=== PATIENT | male | born 1960 | race Caucasian/White ===

== ENCOUNTER → 2017-08-17 08:02 | Outpatient (CLI) | payer BC, SELFPAY ==
[2017-08-17 10:23] LABS: Absolute Lymphocyte Count 1.37 X10^3/ul (0.83-4.51); Absolute Neutrophil Count 5.1 X10^3/uL (2.0-7.7); Basophil# 0.03 X10^3/uL; Basophil% 0.4 % (0-1); Eosinophil# 0.18 X10^3/uL; Eosinophils% 2.4 % (0-5); Hematocrit 51.4 % (40-54); Hemoglobin 17.3 g/dl (13.0-16.5); Lymphocyte # 1.37 X10^3/ul (4.0); Lymphocyte % 18.5 % (19-41); Mean Corp Hgb Conc 33.7 g/gl (32-36); Mean Corpuscular Hgb 32.1 pg (27.0-32.0); Mean Corpuscular Volume 95.4 fL (80-94); Mean Platelet Vol. 11.9 fl (6.2-12.0); Monocyte# 0.72 X10^3/uL; Monocyte% 9.7 % (0-10); Neutrophil % 68.7 % (47-70); Platelet Count 150 K/mm3 (150-450); RBC Distribution Width CV 13.6 % (11.6-14.6); RBC Distribution Width SD 46.9 fl (35.1-43.9); Red Blood Count 5.39 M/mm3 (4.6-6.2); White Blood Count 7.4 K/mm3 (4.4-11.0)
[2017-08-17 10:35] LABS: POSITIVE COUNT NO; POSITIVE DIFFERENTIAL NO; POSITIVE MORPHOLOGY NO
[2017-08-17 10:39] LABS: Anion Gap 8 (5-15); BUN 18 mg/dL (7-18); BUN/Creat Ratio 12.6 RATIO (10-20); Chloride 104 mmol/L (98-107); Cholesterol 126 mg/dL (200); Creatinine, Serum 1.43 mg/dL (0.70-1.30); EST Glomerular Filtration Rate 54 mL/min (>60); Est Glom Filt Rate - Afr Amer 65 mL/min (>60); Glucose 89 mg/dL (74-106); High Density Lipoprotein 32 mg/dL; PSA,Total - Annual Screen 1.37 ng/mL (0.00-4.00); Potassium 3.9 mmol/L (3.5-5.1); Sodium Level 141 mmol/L (136-145); Triglycerides 88 mg/dL; Very Low Density Lipoprotein 18 mg/dL (5-40)
== END ==
PROVIDERS: Family Provider Family Medicine; PCP Family Medicine; Visit Provider Family Medicine
DX: E29.1 Testicular hypofunction (principal); E78.00 Pure hypercholesterolemia, unspecified; Z12.5 Encounter for screening for malignant neoplasm of prostate; I10 Essential (primary) hypertension
CPT/HCPCS: 36415; 80048; 80061; 84153; 84403; 85025; G0103

== ENCOUNTER → 2018-07-13 11:11 | Outpatient (CLI) | payer BC, SELFPAY ==
--- NOTE | 2018-07-13 11:44 | CT_ITS ---
STUDY: CT ABDOMEN AND PELVIS WITH AND WITHOUT CONTRAST REASON FOR EXAM: Male, 57 years old. Right flank pain and mid abdominal pain. No history of hematuria. RADIATION DOSAGE (If Supplied By Facility): CTDIvol = ( 20.84 ) mGy, DLP = ( 3181.75 ) mGycm TECHNIQUE: Transaxial images were obtained from the dome of the diaphragm to the symphysis pubis without oral contrast. 100mL IV Isovue 300 was administered. Sagittal and coronal images were reconstructed. Individualized dose optimization techniques were used for this CT. COMPARISON: Comparison is made with prior study dated July 19, 2016. FINDINGS: Minimal increased markings at the right lung base suggestive of atelectasis. The visualized portions of the heart are within normal limits. There is decreased attenuation of the liver consistent with steatosis. Normal gallbladder and extrahepatic biliary system. Normal spleen. Normal pancreas. Normal bilateral adrenal glands. Normal right kidney. Normal left kidney. Normal visualized stomach. Normal small intestine. There are scattered colonic diverticula consistent with diverticulosis. The appendix is visualized and appears normal. Normal abdominal aorta. Normal inferior vena cava. Normal retroperitoneum. Normal urinary bladder. There is a small umbilical hernia containing fat. There are mild degenerative changes of the visualized lumbar spine. CT/CT Abd/Pelvis W/WO Contrast IMPRESSION: Fatty infiltration of the liver. Electronically Signed: David Kilpatrick, at 12:45 EDT , Service support ,
== END ==
PROVIDERS: Family Provider Family Medicine; PCP Family Medicine; Referring Provider Nurse Practitioner Adult Health; Visit Provider Nurse Practitioner Adult Health
DX: R10.9 Unspecified abdominal pain (principal); I86.1 Scrotal varices
CPT/HCPCS: 74178; Q9967

== ENCOUNTER → 2018-08-17 | Outpatient (CLI) | payer BC, SELFPAY ==
[2018-08-17 10:38] LABS: Anion Gap 3 (5-15); BUN 14 mg/dL (7-18); BUN/Creat Ratio 11.1 RATIO (10-20); Calcium,Total 9.1 mg/dL (8.5-10.1); Chloride 105 mmol/L (98-107); Creatinine, Serum 1.26 mg/dL (0.70-1.30); EST Glomerular Filtration Rate 62 mL/min (>60); Est Glom Filt Rate - Afr Amer 75 mL/min (>60); Glucose 91 mg/dL (74-106); PSA,Total - Annual Screen 1.43 ng/mL (0.00-4.00); Potassium 3.9 mmol/L (3.5-5.1); Sodium Level 139 mmol/L (136-145)
== END | disposition home or self-care (01) ==
PROVIDERS: Family Provider Family Medicine; PCP Family Medicine; Referring Provider Family Medicine; Visit Provider Family Medicine
DX: I10 Essential (primary) hypertension (principal); Z12.5 Encounter for screening for malignant neoplasm of prostate; E29.1 Testicular hypofunction
CPT/HCPCS: 36415; 80048; 84153; 84403; G0103

== ENCOUNTER → 2019-03-21 09:23 | Outpatient (CLI) | payer BC, SELFPAY ==
--- NOTE | 2019-03-21 09:26 | BI_ITS ---
MAMMOGRAPHY - BILATERAL DIAGNOSTIC REASON FOR EXAM: Male, 58 years old. One-week history of left breast tenderness and palpable abnormality. PERTINENT HISTORY: Non-contributory. TECHNIQUE: Digital bilateral breast elizabeth (3D mammographic acquisition) in the CC and MLO projections. 2-D mediolateral oblique (MLO) and craniocaudad (CC) views of both breasts were obtained. CAD: Full Field Digital Mammography with Computer Added Detection was performed. COMPARISON: None. FINDINGS: Breast Composition: The breasts are almost entirely fatty. There are no dominant masses or suspicious calcifications. No other significant abnormalities are identified. BI/DIAG MAMM W/CAD, BILAT IMPRESSION: Negative diagnostic mammogram. With the patient's history of a palpable abnormality in the retroareolar region of the left breast, correlation with ultrasound is recommended. ASSESSMENT CATEGORY: BIRADS Category 0: Incomplete. Need additional imaging evaluation. A letter regarding these results will be sent to the patient by the facility within 30 days. Approximately 10% of breast cancers are not detected by mammography. A normal mammogram should not delay biopsy of a clinically suspicious abnormality. Electronically Signed: David Kilpatrick, at 10:48 EST , Service support ,
--- NOTE | 2019-03-21 10:01 | US_ITS ---
STUDY: ULTRASOUND BREAST - LEFT REASON FOR EXAM: Male, 58 years old. Palpable lump left breast. TECHNIQUE: Axial and longitudinal images of the LEFT breast were performed with a high resolution ultrasound transducer. # OF IMAGES: 23 COMPARISON: Comparison is made with prior mammogram done earlier today. FINDINGS: LEFT Breast: The retroareolar region of the breast was examined by ultrasound. There is a small amount of fibroglandular tissue. No solid or cystic mass lesion is seen. Findings are in keeping with gynecomastia. US/Breast Limited Unilateral IMPRESSION: Findings in keeping with gynecomastia. ASSESSMENT CATEGORY: BIRADS Category 2: Benign. A letter regarding these results will be sent to the patient by the facility within 30 days. Electronically Signed: David Kilpatrick, at 15:48 EST , Service support ,
== END ==
PROVIDERS: Family Provider Family Medicine; PCP Family Medicine; Referring Provider Nurse Practitioner Family; Visit Provider Nurse Practitioner Family
DX: N63.20 Unspecified lump in the left breast, unspecified quadrant (principal)
CPT/HCPCS: 76642; 77062; 77066; G0279

== ENCOUNTER → 2019-09-19 07:57 | Outpatient (CLI) | payer BC, SELFPAY ==
--- NOTE | 2019-09-19 08:09 | US_ITS ---
STUDY: SCROTUM ULTRASOUND REASON FOR EXAM: Male, 59 years old. RT TESTICLE PAIN TECHNIQUE: Ultrasound evaluation of the scrotum was performed with color Doppler and static mims-scale imaging. COMPARISON: None. FINDINGS: RIGHT TESTICLE INTRATESTICULAR: There is a normal size of the right testicle. The right testicle measures 4.3 cm x 2.7 cm x 2.3 cm. There is a homogenous echotexture. There is normal arterial and normal venous vascularity. There is no demonstrated right testicular mass or cyst. EXTRATESTICULAR: The epididymis is normal in size. The epididymis head measures 1.4 cm x 1.2 cm x 0.8 cm. There is normal vascularity of the epididymis. There is a well-defined cystic structure within the epididymis, without internal echoes, consistent with an epididymal cyst. This measures 9 mm x 9 mm x 7 mm. There is no demonstrated hydrocele. There are prominent extratesticular veins consistent with a varicocele. There is no demonstrated extratesticular mass or cyst. LEFT TESTICLE INTRATESTICULAR: There is a normal size of the left testicle. The left testicle measures 3.5 cm x 3.1 synovitis 2.2 cm. There is a homogenous echotexture. There is normal arterial and normal venous vascularity. There is no demonstrated left testicular mass or cyst. EXTRATESTICULAR: The epididymis is normal in size. The epididymis head measures 0.7 cm x 0.6 cm x 0.9 cm. There is normal vascularity of the epididymis. There is no demonstrated epididymal cystic structure. There is a small hydrocele. There are prominent extratesticular veins consistent with a varicocele. There is no demonstrated extratesticular mass or cyst. US/Testicular with Arterial Flow IMPRESSION: Small bilateral varicoceles. Small left hydrocele. Small right epididymal cyst. Electronically Signed: David Kilpatrick, at 15:32 EDT , Service support ,
[2019-09-19 09:16] LABS: Absolute Lymphocyte Count 1.24 X10^3/uL (0.83-4.51); Absolute Neutrophil Count 3.6 X10^3/uL (2.0-7.7); Basophil# 0.05 X10^3/uL; Basophil% 0.8 % (0-1); Eosinophil# 0.25 X10^3/uL; Eosinophils% 4.2 % (0-5); Hematocrit 47.6 % (40-54); Hemoglobin 15.5 g/dL (13.0-16.5); Lymphocyte # 1.24 X10^3/ul (4.0); Lymphocyte % 20.9 % (19-41); Mean Corp Hgb Conc 32.6 g/dL (32-36); Mean Corpuscular Hgb 31.9 pg (27.0-32.0); Mean Corpuscular Volume 97.9 fL (80-94); Mean Platelet Vol. 10.9 fl (6.2-12.0); Monocyte# 0.73 X10^3/uL; Monocyte% 12.3 % (0-10); NRBC Flagged by Analyzer 0 % (0-5); Neutrophil # 3.61 X10^3/uL (2.7-7.7); Neutrophil % 60.8 % (47-70); Platelet Count 203 K/mm3 (150-450); RBC Distribution Width CV 14.1 % (11.6-14.6); RBC Distribution Width SD 50.6 fl (35.1-43.9); Red Blood Count 4.86 M/mm3 (4.6-6.2); White Blood Count 5.9 K/mm3 (4.4-11.0)
[2019-09-19 09:41] LABS: ALB/GLOB Ratio 1.1 RATIO (0.9-2.4); AST(SGOT) 50 U/L (15-37); Alanine Aminotransfer ALT/SGPT 88 U/L (16-61); Albumin, Serum 3.9 g/dL (3.2-5.0); Alkaline Phosphatase 46 U/L (45-117); Anion Gap 7 (5-15); BUN 14 mg/dL (7-18); BUN/Creat Ratio 10.7 RATIO (10-20); Calcium,Total 8.8 mg/dL (8.5-10.1); Chloride 104 mmol/L (98-107); Cholesterol 186 mg/dL (200); Creatinine, Serum 1.31 mg/dL (0.70-1.30); EST Glomerular Filtration Rate 59 mL/min (>60); Est Glom Filt Rate - Afr Amer 72 mL/min (>60); Globulin 3.5 g/dL (2.2-4.2); Glucose 114 mg/dL (74-106); High Density Lipoprotein 25 mg/dL; PSA,Total - Annual Screen 1.45 ng/mL (0.00-4.00); Potassium 3.7 mmol/L (3.5-5.1); Protein, Total 7.4 g/dL (6.4-8.2); Sodium Level 142 mmol/L (136-145); Triglycerides 182 mg/dL; Very Low Density Lipoprotein 36 mg/dL (5-40)
== END ==
PROVIDERS: PCP Family Medicine; Visit Provider Nurse Practitioner Adult Health
DX: I10 Essential (primary) hypertension (principal); I86.1 Scrotal varices; E29.1 Testicular hypofunction
CPT/HCPCS: 36415; 76870; 80053; 80061; 84153; 84403; 85025; 93976; G0103

== ENCOUNTER → 2019-11-15 09:47 | Outpatient (CLI) | payer BC, SELFPAY ==
[2019-11-15 13:19] LABS: Vitamin B12 648 pg/mL (211-911)
[2019-11-15 13:26] LABS: Thyroid Stim Hormone (TSH) 1.98 uIU/mL (0.358-3.74)
== END ==
PROVIDERS: PCP Family Medicine; Referring Provider Family Medicine; Visit Provider Family Medicine
DX: R53.83 Other fatigue (principal)
CPT/HCPCS: 36415; 82306; 82607; 84443

== ENCOUNTER → 2020-02-12 | Outpatient (CLI) | payer BC, SELFPAY | END | disposition home or self-care (01) | PROVIDERS: PCP Family Medicine; Referring Provider Family Medicine; Visit Provider Family Medicine | DX: R05 Cough (principal) | CPT/HCPCS: 87635; U0003 ==

== ENCOUNTER → 2020-02-22 15:38 | Outpatient (CLI) | payer BC, SELFPAY ==
--- NOTE | 2020-02-22 15:40 | RAD_ITS ---
STUDY: X-RAY CHEST REASON FOR EXAM: Male, 59 years old. Cough and fever x 2 weeks -- test neg for covid last week TECHNIQUE: PA and lateral views of the chest. COMPARISON: Comparison is made with prior study dated 02/20/2016. FINDINGS: Elevation of the right hemidiaphragm. Focal infiltrate is seen in the lingular segment of the left upper lobe. Normal size heart. Normal mediastinum and ynes. Normal visualized pulmonary arteries. Normal visualized aortic arch and descending thoracic aorta. There are diffuse degenerative changes of the visualized thoracic spine. Normal visualized ribs, clavicles, and shoulders. There is no demonstrated abnormality of the visualized soft tissue structures of the upper abdomen. RAD/Chest PA and Lateral IMPRESSION: Focal infiltrate in the lingular segment of the left upper lobe. Electronically Signed: David Kilpatrick, at 15:53 EST , Service support ,
== END ==
PROVIDERS: PCP Family Medicine; Referring Provider Family Medicine; Visit Provider Family Medicine
DX: R05 Cough (principal)
CPT/HCPCS: 71046

== ENCOUNTER → 2020-02-26 14:26 | Outpatient (CLI) | payer BC, SELFPAY ==
--- NOTE | 2020-02-26 14:30 | RAD_ITS ---
HISTORY: pneumonia, patient states he is not feeling better ADDITIONAL HISTORY: None provided. COMPARISON: 02/22/2020 EXAMINATION/TECHNIQUE: XR Chest 2 Views Number of images including paperwork: 2 FINDINGS: LUNGS AND PLEURA: Low lung volumes. Elevated right hemidiaphragm. Linear right basilar subsegmental atelectasis versus scarring. Left upper lobe airspace opacities appear grossly similar given differences in lung volumes and technique. CARDIAC SILHOUETTE: Unremarkable. MEDIASTINUM AND VANIA: Unremarkable. UPPER ABDOMEN: Unremarkable. SKELETON AND SOFT TISSUES: No acute findings. Degenerative changes. OTHER DEVICES AND HARDWARE: None. RAD/Chest PA and Lateral IMPRESSION: No gross change in left lung infiltrates. at 2539 Reported and signed by: Faviola Moyer MD Electronically Signed: Faviola Moyer MD at 22:48 EST Tel , Service support ,
== END ==
PROVIDERS: PCP Family Medicine; Referring Provider Family Medicine; Visit Provider Family Medicine
DX: U07.1 COVID-19 (principal); J12.89 Other viral pneumonia
CPT/HCPCS: 71046; 87633; 87635; U0003

== ENCOUNTER → 2020-03-26 12:18 | Outpatient (CLI) | payer BC, SELFPAY ==
[2020-03-26 15:26] LABS: Absolute Lymphocyte Count 1.24 X10^3/uL (0.83-4.51); Absolute Neutrophil Count 3.4 X10^3/uL (2.0-7.7); Basophil# 0.04 X10^3/uL; Basophil% 0.7 % (0-1); Eosinophil# 0.17 X10^3/uL; Hematocrit 47.6 % (40-54); Hemoglobin 15.4 g/dL (13.0-16.5); Lymphocyte # 1.24 X10^3/ul (4.0); Mean Corp Hgb Conc 32.4 g/dL (32-36); Mean Corpuscular Hgb 31.9 pg (27.0-32.0); Mean Corpuscular Volume 98.6 fL (80-94); Mean Platelet Vol. 11.5 fl (6.2-12.0); Monocyte# 0.71 X10^3/uL; Monocyte% 12.6 % (0-10); NRBC Flagged by Analyzer 0 % (0-5); Neutrophil # 3.42 X10^3/uL (2.7-7.7); Neutrophil % 60.6 % (47-70); Platelet Count 167 K/mm3 (150-450); RBC Distribution Width CV 13.1 % (11.6-14.6); RBC Distribution Width SD 47.4 fl (35.1-43.9); Red Blood Count 4.83 M/mm3 (4.6-6.2); White Blood Count 5.6 K/mm3 (4.4-11.0)
[2020-03-26 15:48] LABS: ALB/GLOB Ratio 1.1 RATIO (0.9-2.4); AST(SGOT) 43 U/L (15-37); Alanine Aminotransfer ALT/SGPT 92 U/L (16-61); Alkaline Phosphatase 58 U/L (45-117); Anion Gap 4 (5-15); BUN 15 mg/dL (7-18); BUN/Creat Ratio 13.9 RATIO (10-20); Calcium,Total 9.3 mg/dL (8.5-10.1); Chloride 103 mmol/L (98-107); Creatinine, Serum 1.08 mg/dL (0.70-1.30); EST Glomerular Filtration Rate 74 mL/min (>60); Est Glom Filt Rate - Afr Amer 89 mL/min (>60); Globulin 3.5 g/dL (2.2-4.2); Glucose 80 mg/dL (74-106); Potassium 3.9 mmol/L (3.5-5.1); Protein, Total 7.5 g/dL (6.4-8.2); Sodium Level 137 mmol/L (136-145); T4 Free Direct 1.08 ng/dL (0.76-1.46)
[2020-03-27 08:19] LABS: PTHIN 27.1 pg/mL (18.4-80.1)
[2020-03-27 09:00] LABS: Hepatitis B Surface Antibody Non-Reactive; Hepatitis B Surface Antigen Non-Reactive (Nonreactive); Hepatitis C Antibody Non-Reactive (Nonreactive); Vitamin D,25 Hydroxy 64.7 ng/mL
[2020-04-01 12:08] LABS: Testosterone, Free 12.92 ng/dL (5.00-21.00)
[2020-04-01 14:02] LABS: Testosterone, % Free 3.52 % (1.50-4.20); Testosterone, Total 367 ng/dL (264-916)
== END ==
PROVIDERS: PCP Family Medicine; Referring Provider Family Medicine; Visit Provider Family Medicine
DX: I12.9 Hypertensive chronic kidney disease with stage 1 through stage 4 chronic kidney disease, or unspecified chronic kidney disease (principal); N18.30 Chronic kidney disease, stage 3 unspecified; E04.1 Nontoxic single thyroid nodule; R79.89 Other specified abnormal findings of blood chemistry; E29.1 Testicular hypofunction
CPT/HCPCS: 36415; 80053; 82306; 83970; 84402; 84403; 84439; 84443; 85025; 86706; 86803; 87340

== ENCOUNTER → 2020-04-02 12:42 | Outpatient (CLI) | payer BC, SELFPAY ==
--- NOTE | 2020-04-02 12:44 | US_ITS ---
STUDY: THYROID ULTRASOUND REASON FOR EXAM: Male, 59 years old. THYROID NODULE FELT BY DOCTOR TECHNIQUE: Ultrasound evaluation of the thyroid was performed with real-time and static mims-scale imaging. COMPARISON: None. FINDINGS: RIGHT LOBE: The right lobe of the thyroid gland measures 4.6 cm x 1.7 cm x 1.5 cm. There is a homogeneous echotexture. There are no demonstrated solid, cystic or complex lesions. LEFT LOBE: The left lobe of the thyroid gland is slightly enlarged and measures 5 cm x 1.6 x 1.6 cm. There is a homogeneous echotexture. There are no demonstrated solid, cystic or complex lesions. ISTHMUS: The isthmus measures 4.0 mm. The regional lymph nodes are normal. US/Thyroid IMPRESSION: Normal ultrasound examination of the thyroid. Electronically Signed: David Kilpatrick, at 13:51 EST , Service support ,
== END ==
PROVIDERS: PCP Family Medicine; Referring Provider Family Medicine; Visit Provider Family Medicine
DX: E04.1 Nontoxic single thyroid nodule (principal)
CPT/HCPCS: 76536

== ENCOUNTER → 2020-06-24 09:41 | Outpatient (CLI) | payer OTHER, SELFPAY ==
[2020-06-24 12:18] LABS: Absolute Lymphocyte Count 1.22 X10^3/uL (0.83-4.51); Absolute Neutrophil Count 3.7 X10^3/uL (2.0-7.7); Basophil# 0.06 X10^3/uL; Eosinophil# 0.25 X10^3/uL; Eosinophils% 4.3 % (0-5); Hematocrit 46.2 % (40-54); Hemoglobin 15.4 g/dL (13.0-16.5); Lymphocyte # 1.22 X10^3/ul (4.0); Mean Corp Hgb Conc 33.3 g/dL (32-36); Mean Corpuscular Hgb 31.8 pg (27.0-32.0); Mean Corpuscular Volume 95.3 fL (80-94); Mean Platelet Vol. 11.3 fl (6.2-12.0); Monocyte# 0.53 X10^3/uL; Monocyte% 9.1 % (0-10); NRBC Flagged by Analyzer 0 % (0-5); Neutrophil % 63.9 % (47-70); Platelet Count 168 K/mm3 (150-450); RBC Distribution Width CV 12.6 % (11.6-14.6); RBC Distribution Width SD 43.8 fl (35.1-43.9); Red Blood Count 4.85 M/mm3 (4.6-6.2); White Blood Count 5.8 K/mm3 (4.4-11.0)
[2020-06-24 12:34] LABS: ALB/GLOB Ratio 1.3 RATIO (0.9-2.4); AST(SGOT) 66 U/L (15-37); Alanine Aminotransfer ALT/SGPT 101 U/L (16-61); Albumin, Serum 3.9 g/dL (3.2-5.0); Alkaline Phosphatase 49 U/L (45-117); Anion Gap 6 (5-15); BUN 12 mg/dL (7-18); BUN/Creat Ratio 11.7 RATIO (10-20); Chloride 106 mmol/L (98-107); Cholesterol 107 mg/dL (200); Creatinine, Serum 1.03 mg/dL (0.70-1.30); EST Glomerular Filtration Rate 78 mL/min (>60); Est Glom Filt Rate - Afr Amer 94 mL/min (>60); Globulin 3.1 g/dL (2.2-4.2); Glucose 127 mg/dL (74-106); High Density Lipoprotein 32 mg/dL; Potassium 3.8 mmol/L (3.5-5.1); Protein, Urine (Random) 17.1 mg/dL (<11.9); Protein:Creat Ratio 62 mg/g CRE (0-200); Sodium Level 140 mmol/L (136-145); Triglycerides 121 mg/dL; Very Low Density Lipoprotein 24 mg/dL (5-40)
== END ==
PROVIDERS: PCP Family Medicine; Referring Provider Family Medicine; Visit Provider Family Medicine
DX: I12.9 Hypertensive chronic kidney disease with stage 1 through stage 4 chronic kidney disease, or unspecified chronic kidney disease (principal); N18.30 Chronic kidney disease, stage 3 unspecified; E78.00 Pure hypercholesterolemia, unspecified; R73.09 Other abnormal glucose
CPT/HCPCS: 36415; 80053; 80061; 82570; 83036; 84156; 85025

== ENCOUNTER → 2021-01-08 10:15 | Outpatient (CLI) | payer OTHER, SELFPAY ==
--- NOTE | 2021-01-08 10:17 | RAD_ITS ---
INDICATION: ACUTE BRONCHITIS EXAMINATION/TECHNIQUE: X-RAY - XR Chest 2 Views COMPARISON: 02/26/2020 PA and lateral views of the chest FINDINGS: LINES/DEVICES: None. LUNGS: Asymmetric elevation right hemidiaphragm is unchanged and likely represents diaphragmatic paralysis. No airspace opacity or abnormal interstitial pattern. No nodule or mass. No pleural effusion or pneumothorax. MEDIASTINUM AND CARDIOVASCULAR STRUCTURES: Normal size and contour of the cardiomediastinal silhouette. No evidence of pulmonary vascular congestion. BONES AND SOFT TISSUES: No abnormality within limits of the exam. RAD/Chest PA and Lateral IMPRESSION: 1. No radiographic evidence of acute cardiopulmonary disease. 2. Asymmetric elevation of the right hemidiaphragm. 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 Electronically Signed: Ricky Hayden DO at 22:44 EDT Tel , Service support ,
== END ==
PROVIDERS: PCP Family Medicine; Referring Provider Family Medicine; Visit Provider Family Medicine
DX: J20.9 Acute bronchitis, unspecified (principal)
CPT/HCPCS: 71046; 87635; U0005; U0003

== ENCOUNTER → 2021-04-01 11:07 | Outpatient (CLI) | payer OTHER, SELFPAY ==
[2021-04-01 11:12] LABS: Bacteria 0 SEEN /hpf (None Seen); Mucous, Urine 0 SEEN /hpf (<or=2+); Red Blood Cells-Urine 0 SEEN /hpf (0-5); Squamous Epithelial Cells - UA 0 SEEN /hpf (0-5); White Blood Cells 0 SEEN /hpf (0-5)
[2021-04-01 12:21] LABS: Absolute Lymphocyte Count 1.23 X10^3/uL (0.83-4.51); Absolute Neutrophil Count 4.3 X10^3/uL (2.0-7.7); Basophil# 0.04 X10^3/uL; Basophil% 0.6 % (0-1); Eosinophil# 0.15 X10^3/uL; Eosinophils% 2.4 % (0-5); Hematocrit 44.1 % (40-54); Hemoglobin 15.3 g/dL (13.0-16.5); Lymphocyte # 1.23 X10^3/ul (0.83-4.51); Lymphocyte % 19.3 % (19-41); Mean Corp Hgb Conc 34.7 g/dL (32-36); Mean Corpuscular Hgb 32.8 pg (27.0-32.0); Mean Corpuscular Volume 94.6 fL (80-94); Mean Platelet Vol. 11.3 fl (6.2-12.0); Monocyte% 9.4 % (0-10); NRBC Flagged by Analyzer 0 % (0-5); Neutrophil # 4.33 X10^3/uL (2.7-7.7); Neutrophil % 67.8 % (47-70); Platelet Count 166 K/mm3 (150-450); RBC Distribution Width CV 12.6 % (11.6-14.6); RBC Distribution Width SD 43.3 fl (35.1-43.9); Red Blood Count 4.66 M/mm3 (4.6-6.2); White Blood Count 6.4 K/mm3 (4.4-11.0)
[2021-04-01 12:22] LABS: Color, Urine Yellow (Yellow); Glucose, Dipstick 1000 mg/dl (Normal); Ketone-Dipstick Negative (Negative); Leukocyte Esterase-Dipstick Negative /ul (Negative); Nitrite-Dipstick Negative (Negative); Occult Blood-Urine Negative /ul (Negative); Protein-Dipstick 15 mg/dl (Negative); Specific Gravity, Urine 1.025 (1.002-1.030); Urine Bilirubin Dipstick Negative (Negative); Urine Clarity Clear (Clear); Urine Urobilinogen Normal (Normal)
[2021-04-01 12:36] LABS: Hemoglobin A1c 7.5 % (3.8-5.6)
[2021-04-01 13:12] LABS: ALB/GLOB Ratio 1.1 RATIO (0.9-2.4); AST(SGOT) 58 U/L (15-37); Alanine Aminotransfer ALT/SGPT 99 U/L (16-61); Albumin, Serum 3.9 g/dL (3.2-5.0); Alkaline Phosphatase 67 U/L (45-117); Anion Gap 5 (5-15); BUN 17 mg/dL (7-18); Calcium,Total 9.4 mg/dL (8.5-10.1); Chloride 108 mmol/L (98-107); Cholesterol 134 mg/dL (200); EST Glomerular Filtration Rate 80 mL/min (>60); Est Glom Filt Rate - Afr Amer 97 mL/min (>60); Globulin 3.6 g/dL (2.2-4.2); Glucose 209 mg/dL (74-106); High Density Lipoprotein 39 mg/dL; PSA,Total - Annual Screen 1.32 ng/mL (0.00-4.00); Potassium 3.7 mmol/L (3.5-5.1); Protein, Total 7.5 g/dL (6.4-8.2); Sodium Level 139 mmol/L (136-145); Thyroid Stim Hormone (TSH) 1.47 uIU/mL (0.358-3.74); Triglycerides 160 mg/dL; Very Low Density Lipoprotein 32 mg/dL (5-40)
== END ==
PROVIDERS: PCP Family Medicine; Referring Provider Family Medicine; Visit Provider Family Medicine
DX: I10 Essential (primary) hypertension (principal); R73.02 Impaired glucose tolerance (oral); E78.00 Pure hypercholesterolemia, unspecified; Z12.5 Encounter for screening for malignant neoplasm of prostate
CPT/HCPCS: 36415; 80053; 80061; 81001; 83036; 84153; 84443; 85025; G0103

== ENCOUNTER 2021-05-06 13:59 | Outpatient (RCR) | payer BC, SELFPAY | END 2021-05-18 23:59 | LOC: DC 13:59 | PROVIDERS: PCP Family Medicine; Visit Provider Family Medicine | DX: E11.9 Type 2 diabetes mellitus without complications (principal); Z71.3 Dietary counseling and surveillance | CPT/HCPCS: G0108 ==

== ENCOUNTER 2021-06-10 12:02 | Outpatient (RCR) | payer BC, SELFPAY | END 2021-06-15 23:59 | LOC: DC 12:02 | PROVIDERS: PCP Family Medicine; Referring Provider Family Medicine; Visit Provider Family Medicine | DX: E11.9 Type 2 diabetes mellitus without complications (principal) | CPT/HCPCS: 97802 ==

== ENCOUNTER 2021-07-01 12:00 | Outpatient (RCR) | payer BC, SELFPAY | END 2021-07-16 23:59 | LOC: DC 12:00 | PROVIDERS: PCP Family Medicine; Referring Provider Family Medicine; Visit Provider Family Medicine | DX: E11.9 Type 2 diabetes mellitus without complications (principal) | CPT/HCPCS: 97803; G0108 ==

== ENCOUNTER 2021-07-03 11:44 | Outpatient (CLI) | payer BC, SELFPAY ==
[2021-07-03 15:11] LABS: Absolute Neutrophil Count 4.1 X10^3/uL (2.0-7.7); Basophil# 0.07 X10^3/uL; Basophil% 1.1 % (0-1); Eosinophil# 0.26 X10^3/uL; Eosinophils% 3.9 % (0-5); Hematocrit 48.7 % (40-54); Lymphocyte % 21.1 % (19-41); Mean Corp Hgb Conc 32.9 g/dL (32-36); Mean Corpuscular Volume 97.4 fL (80-94); Mean Platelet Vol. 12.2 fl (6.2-12.0); NRBC Flagged by Analyzer 0 % (0-5); Neutrophil # 4.06 X10^3/uL (2.7-7.7); Platelet Count 175 K/mm3 (150-450); RBC Distribution Width CV 12.9 % (11.6-14.6); White Blood Count 6.7 K/mm3 (4.4-11.0)
[2021-07-03 15:29] LABS: ALB/GLOB Ratio 1.2 RATIO (0.9-2.4); AST(SGOT) 42 U/L (15-37); Alanine Aminotransfer ALT/SGPT 97 U/L (16-61); Albumin, Serum 4.2 g/dL (3.2-5.0); Alkaline Phosphatase 58 U/L (45-117); Anion Gap 1 (5-15); BUN 19 mg/dL (7-18); Calcium,Total 9.2 mg/dL (8.5-10.1); Chloride 104 mmol/L (98-107); Cholesterol 145 mg/dL (200); Creatinine, Serum 1.19 mg/dL (0.70-1.30); EST Glomerular Filtration Rate 66 mL/min (>60); Est Glom Filt Rate - Afr Amer 80 mL/min (>60); Globulin 3.5 g/dL (2.2-4.2); Glucose 175 mg/dL (74-106); High Density Lipoprotein 37 mg/dL; Potassium 3.9 mmol/L (3.5-5.1); Protein, Total 7.7 g/dL (6.4-8.2); Sodium Level 137 mmol/L (136-145); Triglycerides 122 mg/dL; Very Low Density Lipoprotein 24 mg/dL (5-40)
[2021-07-03 15:41] LABS: Hemoglobin A1c 6.6 % (3.8-5.6)
[2021-07-03 16:03] LABS: Microalbumin,Random Urine 13.7 mg/L (NO RANGE EST.); Microalbumin:Creatinine Ratio 8.7 mg/g CRE (<30 mg/g CRE)
== END 2021-07-03 23:59 | disposition home or self-care (01) ==
LOC: MFPLAB 11:49
PROVIDERS: PCP Family Medicine; Referring Provider Family Medicine; Visit Provider Family Medicine
DX: E11.9 Type 2 diabetes mellitus without complications (principal); Z12.5 Encounter for screening for malignant neoplasm of prostate
CPT/HCPCS: 36415; 80053; 80061; 82043; 82570; 83036; 85025

== ENCOUNTER → 2021-09-25 | Outpatient (CLI) | payer BC, SELFPAY ==
--- NOTE | 2021-09-25 11:18 | RAD_ITS ---
INDICATION: bronchitis EXAMINATION/TECHNIQUE: X-RAY - XR Chest 2 Views COMPARISON: Chest radiograph from 01/08/2021 FINDINGS: Support devices: None. Stable elevated right hemidiaphragm. No focal consolidations, effusions, or sizable pneumothorax. Cardiomediastinal silhouette is within normal limits and stable. No acute findings in the bones or soft tissues. RAD/Chest PA and Lateral IMPRESSION: No acute findings. Stable exam since 01/08/2021. Electronically Signed: Luis To, at 13:06 EDT ,
== END | disposition home or self-care (01) ==
LOC: MTRAD 11:15
PROVIDERS: PCP Family Medicine; Referring Provider Family Medicine; Visit Provider Family Medicine
DX: J20.9 Acute bronchitis, unspecified (principal)
CPT/HCPCS: 71046

== ENCOUNTER → 2021-10-02 | Outpatient (CLI) | payer BC, SELFPAY ==
[2021-10-02 08:32] LABS: Bacteria 0 SEEN /hpf (None Seen); Mucous, Urine 0 SEEN /hpf (<or=2+); Red Blood Cells-Urine 0 SEEN /hpf (0-5); Squamous Epithelial Cells - UA 0 SEEN /hpf (0-5); White Blood Cells 0 SEEN /hpf (0-5)
--- NOTE | 2021-10-02 09:00 | RAD_ITS ---
STUDY: X-RAY CHEST REASON FOR EXAM: Male, 61 years old. BRONCHITIS . Continued cough and shortness of breath. TECHNIQUE: PA and lateral views of the chest. COMPARISON: Comparison is made with prior study dated 09/25/2021. FINDINGS: Stable elevation of the right hemidiaphragm. There is no demonstrated pleural abnormality. Normal size heart. Normal mediastinum and ynes. Normal visualized pulmonary arteries. Normal visualized aortic arch and descending thoracic aorta. There are diffuse degenerative changes of the visualized thoracic spine. Normal visualized ribs, clavicles, and shoulders. There is no demonstrated abnormality of the visualized soft tissue structures of the upper abdomen. RAD/Chest PA and Lateral IMPRESSION: Stable elevation of the right hemidiaphragm. No acute abnormality is seen. Electronically Signed: David Kilpatrick MD at 14:41 EDT ,
[2021-10-02 10:03] LABS: Absolute Lymphocyte Count 1.06 X10^3/uL (0.83-4.51); Absolute Neutrophil Count 3.8 X10^3/uL (2.0-7.7); Basophil# 0.03 X10^3/uL; Basophil% 0.5 % (0-1); Eosinophil# 0.38 X10^3/uL; Eosinophils% 6.1 % (0-5); Hematocrit 44.5 % (40-54); Lymphocyte # 1.06 X10^3/ul (0.83-4.51); Mean Corp Hgb Conc 33.7 g/dL (32-36); Mean Corpuscular Hgb 31.6 pg (27.0-32.0); Mean Corpuscular Volume 93.9 fL (80-94); Mean Platelet Vol. 10.9 fl (6.2-12.0); Monocyte# 0.88 X10^3/uL; Monocyte% 14.1 % (0-10); NRBC Flagged by Analyzer 0 % (0-5); Neutrophil # 3.79 X10^3/uL (2.7-7.7); Neutrophil % 60.7 % (47-70); Platelet Count 149 K/mm3 (150-450); RBC Distribution Width CV 12.3 % (11.6-14.6); RBC Distribution Width SD 42.7 fl (35.1-43.9); Red Blood Count 4.74 M/mm3 (4.6-6.2); White Blood Count 6.2 K/mm3 (4.4-11.0)
[2021-10-02 10:04] LABS: Color, Urine Yellow (Yellow); Glucose, Dipstick 1000 mg/dl (Normal); Ketone-Dipstick 5 mg/dl (Negative); Leukocyte Esterase-Dipstick Negative /ul (Negative); Nitrite-Dipstick Negative (Negative); Occult Blood-Urine Negative /ul (Negative); Protein-Dipstick Negative (Negative); Urine Bilirubin Dipstick Negative (Negative); Urine Clarity Clear (Clear); Urine Urobilinogen Normal (Normal)
[2021-10-02 10:22] LABS: ALB/GLOB Ratio 1.1 RATIO (0.9-2.4); AST(SGOT) 37 U/L (15-37); Alanine Aminotransfer ALT/SGPT 94 U/L (16-61); Albumin, Serum 3.5 g/dL (3.2-5.0); Alkaline Phosphatase 65 U/L (45-117); Anion Gap 6 (5-15); BUN 17 mg/dL (7-18); BUN/Creat Ratio 13.3 RATIO (10-20); Chloride 98 mmol/L (98-107); Cholesterol 115 mg/dL (200); Creatinine, Serum 1.28 mg/dL (0.70-1.30); EST Glomerular Filtration Rate 60 mL/min (>60); Est Glom Filt Rate - Afr Amer 73 mL/min (>60); Globulin 3.3 g/dL (2.2-4.2); Glucose 321 mg/dL (74-106); Hemoglobin A1c 8.1 % (3.8-5.6); High Density Lipoprotein 32 mg/dL; Potassium 4.1 mmol/L (3.5-5.1); Protein, Total 6.8 g/dL (6.4-8.2); Sodium Level 134 mmol/L (136-145); Triglycerides 174 mg/dL; Very Low Density Lipoprotein 35 mg/dL (5-40)
== END | disposition home or self-care (01) ==
LOC: MTLAB 08:23
PROVIDERS: PCP Family Medicine; Referring Provider Family Medicine; Visit Provider Family Medicine
DX: J20.9 Acute bronchitis, unspecified (principal); E11.9 Type 2 diabetes mellitus without complications; I10 Essential (primary) hypertension; E78.00 Pure hypercholesterolemia, unspecified
CPT/HCPCS: 36415; 71046; 80053; 80061; 81001; 83036; 85025

== ENCOUNTER → 2021-10-07 | Outpatient (CLI) | payer BC, SELFPAY | END | disposition home or self-care (01) | LOC: LABSPEC 13:08 | PROVIDERS: PCP Family Medicine; Referring Provider Internal Medicine Pulmonary Disease; Visit Provider Internal Medicine Pulmonary Disease | DX: J45.909 Unspecified asthma, uncomplicated (principal) | CPT/HCPCS: 87070; 87205 ==

== ENCOUNTER → 2021-10-14 | Outpatient (CLI) | payer BC, SELFPAY ==
[2021-10-14 18:20] LABS: Anion Gap 11 (5-15); BUN 28 mg/dL (7-18); BUN/Creat Ratio 22.4 RATIO (10-20); Calcium,Total 9.4 mg/dL (8.5-10.1); Chloride 105 mmol/L (98-107); Creatinine, Serum 1.25 mg/dL (0.70-1.30); EST Glomerular Filtration Rate 62 mL/min (>60); Est Glom Filt Rate - Afr Amer 75 mL/min (>60); Glucose 278 mg/dL (74-106); Potassium 4.3 mmol/L (3.5-5.1); Sodium Level 139 mmol/L (136-145)
== END | disposition home or self-care (01) ==
LOC: MFPLAB 17:04
PROVIDERS: PCP Family Medicine; Visit Provider Family Medicine
DX: N18.2 Chronic kidney disease, stage 2 (mild) (principal)
CPT/HCPCS: 36415; 80048

== ENCOUNTER → 2022-01-01 | Outpatient (CLI) | payer BC, SELFPAY ==
--- NOTE | 2022-01-01 08:36 | RAD_ITS ---
STUDY: X-RAY - LEFT KNEE REASON FOR EXAM: Male, 61 years old. KNEE CREPITUS TECHNIQUE: 3 view(s) of the knee. COMPARISON: None. FINDINGS: Normal visualized distal femur. Normal visualized proximal tibia and fibula. Normal proximal tibiofibular articulation. Normal medial femorotibial compartment. Normal lateral femorotibial compartment. Normal patellofemoral articulation. The soft tissue structures are unremarkable. RAD/Knee 3 Views IMPRESSION: Normal x-ray examination of the knee. Electronically Signed: David Kilpatrick MD at 12:37 EDT ,
--- NOTE | 2022-01-01 08:37 | RAD_ITS ---
STUDY: X-RAY - RIGHT KNEE REASON FOR EXAM: Male, 61 years old. KNEE CREPITUS TECHNIQUE: 3 view(s) of the knee. COMPARISON: None. FINDINGS: Normal visualized distal femur. Normal visualized proximal tibia and fibula. Normal proximal tibiofibular articulation. Normal medial femorotibial compartment. Normal lateral femorotibial compartment. Normal patellofemoral articulation. The soft tissue structures are unremarkable. RAD/Knee 3 Views IMPRESSION: Normal x-ray examination of the knee. Electronically Signed: David Kilpatrick MD at 12:37 EDT ,
[2022-01-01 08:44] LABS: Bacteria 0 SEEN /hpf (None Seen); Mucous, Urine 0 SEEN /hpf (<or=2+); Red Blood Cells-Urine 0 SEEN /hpf (0-5); Squamous Epithelial Cells - UA 0 SEEN /hpf (0-5); White Blood Cells 0 SEEN /hpf (0-5)
[2022-01-01 10:03] LABS: Color, Urine Yellow (Yellow); Glucose, Dipstick 1000 mg/dl (Normal); Ketone-Dipstick Negative (Negative); Leukocyte Esterase-Dipstick Negative /ul (Negative); Nitrite-Dipstick Negative (Negative); Occult Blood-Urine Negative /ul (Negative); Protein-Dipstick Negative (Negative); Urine Bilirubin Dipstick Negative (Negative); Urine Clarity Clear (Clear); Urine Urobilinogen Normal (Normal)
[2022-01-01 10:04] LABS: Absolute Lymphocyte Count 1.24 X10^3/uL (0.83-4.51); Absolute Neutrophil Count 4.2 X10^3/uL (2.0-7.7); Basophil# 0.06 X10^3/uL; Basophil% 0.9 % (0-1); Eosinophil# 0.18 X10^3/uL; Eosinophils% 2.8 % (0-5); Hematocrit 47.5 % (40-54); Hemoglobin 15.8 g/dL (13.0-16.5); Lymphocyte # 1.24 X10^3/ul (0.83-4.51); Lymphocyte % 19.4 % (19-41); Mean Corp Hgb Conc 33.3 g/dL (32-36); Mean Corpuscular Hgb 32.1 pg (27.0-32.0); Mean Corpuscular Volume 96.5 fL (80-94); Mean Platelet Vol. 11.2 fl (6.2-12.0); Monocyte# 0.65 X10^3/uL; Monocyte% 10.2 % (0-10); NRBC Flagged by Analyzer 0 % (0-5); Neutrophil # 4.19 X10^3/uL (2.7-7.7); Neutrophil % 65.8 % (47-70); Platelet Count 160 K/mm3 (150-450); RBC Distribution Width CV 12.7 % (11.6-14.6); RBC Distribution Width SD 45.1 fl (35.1-43.9); Red Blood Count 4.92 M/mm3 (4.6-6.2); White Blood Count 6.4 K/mm3 (4.4-11.0)
[2022-01-01 11:42] LABS: ALB/GLOB Ratio 1.1 RATIO (0.9-2.4); AST(SGOT) 30 U/L (15-37); Alanine Aminotransfer ALT/SGPT 66 U/L (16-61); Albumin, Serum 3.9 g/dL (3.2-5.0); Alkaline Phosphatase 64 U/L (45-117); Anion Gap 7 (5-15); BUN 20 mg/dL (7-18); BUN/Creat Ratio 18.5 RATIO (10-20); Calcium,Total 9.1 mg/dL (8.5-10.1); Chloride 106 mmol/L (98-107); Cholesterol 139 mg/dL (200); Creatinine, Serum 1.08 mg/dL (0.70-1.30); EST Glomerular Filtration Rate 73 mL/min (>60); Est Glom Filt Rate - Afr Amer 89 mL/min (>60); Globulin 3.4 g/dL (2.2-4.2); Glucose 201 mg/dL (74-106); High Density Lipoprotein 40 mg/dL; Potassium 3.8 mmol/L (3.5-5.1); Protein, Total 7.3 g/dL (6.4-8.2); Sodium Level 141 mmol/L (136-145); Triglycerides 200 mg/dL; Very Low Density Lipoprotein 40 mg/dL (5-40)
[2022-01-01 13:04] LABS: Hemoglobin A1c 9.5 % (3.8-5.6)
== END | disposition home or self-care (01) ==
LOC: MTLAB 08:35
PROVIDERS: PCP Family Medicine; Referring Provider Family Medicine; Visit Provider Family Medicine
DX: M23.8X9 Other internal derangements of unspecified knee (principal); E11.9 Type 2 diabetes mellitus without complications; I10 Essential (primary) hypertension; E78.00 Pure hypercholesterolemia, unspecified
CPT/HCPCS: 36415; 73562; 80053; 80061; 81001; 83036; 85025

== ENCOUNTER 2022-01-19 15:58 | Outpatient (RCR) | payer BC, SELFPAY ==
--- NOTE | 2022-01-25 12:19 | HP.PTEVAL_ITS ---
Patient's Visit Information CECILIA BRAXTON Jr. is a 61 year old M referred to Physical Therapy by Dr. Amado Ramachandran MD with a diagnosis of L knee painq. Date of Evaluation: 01/19/22 Physical Therapist: Vitaly Sylvester DPT - Visit Plan Frequency: 1x/Week Duration: 3 Weeks Plan: Start with patient working on gym exercises independently to see how he does. If symptoms start patient is to come back to re assess. - Subjective Pt. is here today for his initial evaluation with diagnosis of L knee pain. Pt. reports no mech of injury, but ~3 months ago he started having a spongy like pain with every step on his L knee. He reports every time he lifted his left it felt like it was coming apart and when he stepped down on his leg it felt like a suctioning like feeling. He reports having a lot of pain initially, but over the past few weeks he is doing much better. He does have a history of 2 meniscal surgeries on his L knee. He reports no pain currently. He is able to do all of his work activities without limitations currently. He is planning to go back to working out later today. Had done more power lifting, but stayed away from heavy lifting with his legs. Pt. reports this does not feel like a meniscal injury, at least not like his previous ones. Pt. is hopeful to reduce symptoms in order to get back to all recreational activities without limitations. - Pain L knee Pain Intensity (Out of 10): 0 Pain Intensity Range: 0, 5 - Objective POSTURE: pt. has decent posture in stance. Normal TKE, normal AMARILIS in stance. Pt. has no signs of off loading. PALPATION: Pt. has no increase in symptoms with palpation throughout knee. No popliteal pain, no joint line pain noted. NEURO: pt. has normal sensation to light and sharp touch. Pt. has normal DTR of BLEs. Pt. is able to rise on heels and toes without issues. ROM: L knee: 0-0-125deg no pain with over pressure. R knee 0-0-132deg. No pain with over pressure. Normal HS length bilaterally. Normal hip ROM noted. MMT: Pt. has 5/5 strength throughout BLEs, no pain with testing. GAIT: Normal gait pattern noted. No instability reported. STAIRS: no pain with reciprocal pattern. No reports of instability/giving out or spongy like feeling. - Special Tests L Knee Mary - Meniscus: Negative L Knee Apley - Meniscus: Negative L Knee Disco Test - Meniscus: Negative L Knee Anterior Drawer - ACL: Negative L Knee Valgus - MCL: Negative L Knee Varus - LCL: Negative - Balance/Special Test Scores Lower Extremity Functional Score: 69 - Goals Goal 1:: LTG: Pt. to be I with HEP for LE strengthening. Goal Time Frame: 4-6 Weeks Goal 2:: STG: pt. to ambulate without symptoms of his knee feeling unstable. Goal Time Frame: 2-4 Weeks Goal Time Frame: 2-4 Weeks - Rehabilitation Potential Physical Therapy Diagnosis: Pt. actually did very well today. His main complaint is with his knee feeling loose and suctioning with stepping. This comes and goes, but I was unable to elicit this today. He has good strength and ROM. I attempted to elicit symptoms with all meniscal testing, but unable to do so. He appeared to have good ligament stability as well. Pt. to start with some LE strengthening at local gym, if symptoms resume to is to call PT to re assess. Rehabilitation Potential: Excellent - Anticipated Interventions Patient/Client Instruction: Educate patient on: Condition, Plan of Care, Risk Factors, Benefits of Fitness Program For the Purpose of:: To facilitate caregiver knowledge, To improve self management, To prevent re-injury, To improve ability to perform tasks related to life management, To improve tolerance to ADL's Therapeutic Exercise to Include: Strength training, Power training, Postural training, Flexibilty training For the Purpose of:: To decrease pain, To decrease swelling/inflammation, To increase ROM Thank you for the opportunity to evaluate your patient. For Medicare and Medicare HMO plans, please review the plan of care and approve it. It will need to be FAXED BACK to us at [phone] for Medicare purposes. For Medicare only, by signing this I certify the plan of care. Please let me know if there are questions or concerns regarding this plan of care. Physician Signature: Date:
== END 2022-01-19 19:00 | disposition home or self-care (01) ==
LOC: PT 15:58
PROVIDERS: PCP Family Medicine; Referring Provider Family Medicine; Visit Provider Family Medicine
DX: M25.562 Pain in left knee (principal)
CPT/HCPCS: 97161

== ENCOUNTER → 2022-04-01 | Outpatient (CLI) | payer BC, SELFPAY ==
[2022-04-01 10:02] LABS: Absolute Lymphocyte Count 1.19 X10^3/uL (0.83-4.51); Absolute Neutrophil Count 4.5 X10^3/uL (2.0-7.7); Basophil# 0.05 X10^3/uL; Basophil% 0.8 % (0-1); Eosinophil# 0.15 X10^3/uL; Eosinophils% 2.3 % (0-5); Hematocrit 49.1 % (40-54); Hemoglobin 16.1 g/dL (13.0-16.5); Lymphocyte # 1.19 X10^3/ul (0.83-4.51); Lymphocyte % 18.1 % (19-41); Mean Corp Hgb Conc 32.8 g/dL (32-36); Mean Corpuscular Hgb 31.1 pg (27.0-32.0); Mean Corpuscular Volume 94.8 fL (80-94); Mean Platelet Vol. 11.5 fl (6.2-12.0); Monocyte# 0.67 X10^3/uL; Monocyte% 10.2 % (0-10); NRBC Flagged by Analyzer 0 % (0-5); Neutrophil # 4.46 X10^3/uL (2.7-7.7); Platelet Count 153 K/mm3 (150-450); RBC Distribution Width CV 12.6 % (11.6-14.6); RBC Distribution Width SD 43.6 fl (35.1-43.9); Red Blood Count 5.18 M/mm3 (4.6-6.2); White Blood Count 6.6 K/mm3 (4.4-11.0)
[2022-04-01 10:28] LABS: Hemoglobin A1c 8.2 % (3.8-5.6)
[2022-04-01 11:30] LABS: ALB/GLOB Ratio 1.3 RATIO (0.9-2.4); AST(SGOT) 37 U/L (15-37); Alanine Aminotransfer ALT/SGPT 78 U/L (16-61); Albumin, Serum 3.9 g/dL (3.2-5.0); Alkaline Phosphatase 62 U/L (45-117); Anion Gap 7 (5-15); BUN 18 mg/dL (7-18); BUN/Creat Ratio 15.8 RATIO (10-20); Calcium,Total 8.9 mg/dL (8.5-10.1); Chloride 105 mmol/L (98-107); Cholesterol 132 mg/dL (200); Creatinine, Serum 1.14 mg/dL (0.70-1.30); EST Glomerular Filtration Rate 69 mL/min (>60); Est Glom Filt Rate - Afr Amer 83 mL/min (>60); Globulin 2.9 g/dL (2.2-4.2); Glucose 166 mg/dL (74-106); High Density Lipoprotein 35 mg/dL; Potassium 4.1 mmol/L (3.5-5.1); Protein, Total 6.8 g/dL (6.4-8.2); Sodium Level 140 mmol/L (136-145); Triglycerides 160 mg/dL; Very Low Density Lipoprotein 32 mg/dL (5-40)
[2022-04-01 11:39] LABS: Microalbumin,Random Urine 8.8 mg/L (NO RANGE EST.); Microalbumin:Creatinine Ratio 6.1 mg/g CRE (<30 mg/g CRE)
== END | disposition home or self-care (01) ==
LOC: MTLAB 07:05
PROVIDERS: PCP Family Medicine; Referring Provider Family Medicine; Visit Provider Family Medicine
DX: I10 Essential (primary) hypertension (principal); E11.9 Type 2 diabetes mellitus without complications; E78.00 Pure hypercholesterolemia, unspecified
CPT/HCPCS: 36415; 80053; 80061; 82043; 82570; 83036; 85025

== ENCOUNTER → 2022-04-26 | Outpatient (CLI) | payer SELFPAY, BC ==
--- NOTE | 2022-04-26 19:07 | STRESSREP ---
Stress Test Report Exercise myocardial perfusion stress test. 61-year-old man with a history of chest pain Stress protocol: Resting EKG demonstrates normal sinus rhythm with a rate of 61 bpm resting blood pressure is 140/92 mmHg. The patient exercised according to the regular Nhan protocol for a total duration of 9 minutes attaining a maximum heart rate of 136 bpm which was 86% of max impacted heart rate the maximum workload was 10.1 metabolic equivalents. At rest there were no ST or T wave changes noted suggest ischemia and at peak exercise upsloping ST changes only were noted which did not meet the criteria for ischemia. No clinical angina was noted the test was terminated due to the target heart rate being achieved. The peak blood pressure was 190/98 mmHg. Rate-pressure product was 22,800. No arrhythmias were noted Conclusion: Normal exercise myocardial perfusion stress test at a high workload. Good functional aerobic capacity
== END | disposition home or self-care (01) ==
PROVIDERS: PCP Family Medicine; Visit Provider Family Medicine
DX: R07.9 Chest pain, unspecified (principal)
CPT/HCPCS: 93017

== ENCOUNTER → 2022-06-30 | Outpatient (CLI) | payer BC, SELFPAY ==
[2022-06-30 12:26] LABS: ALB/GLOB Ratio 1.1 RATIO (0.9-2.4); AST(SGOT) 42 U/L (15-37); Alanine Aminotransfer ALT/SGPT 86 U/L (16-61); Alkaline Phosphatase 53 U/L (45-117); Anion Gap 6 (5-15); BUN 21 mg/dL (7-18); BUN/Creat Ratio 17.5 RATIO (10-20); Calcium,Total 9.1 mg/dL (8.5-10.1); Chloride 104 mmol/L (98-107); Cholesterol 113 mg/dL (200); EST Glomerular Filtration Rate 65 mL/min (>60); Est Glom Filt Rate - Afr Amer 78 mL/min (>60); Ferritin 340 ng/mL (26-388); Globulin 3.5 g/dL (2.2-4.2); Glucose 74 mg/dL (74-106); High Density Lipoprotein 38 mg/dL; Iron 98 ug/dL (65-175); Iron Binding Capacity,Total 420 ug/dL (250-450); PERCENT IRON SATURATION 23.3 % (15.0-55.0); Potassium 4.2 mmol/L (3.5-5.1); Protein, Total 7.5 g/dL (6.4-8.2); Sodium Level 140 mmol/L (136-145); Triglycerides 99 mg/dL; Very Low Density Lipoprotein 20 mg/dL (5-40)
[2022-06-30 12:39] LABS: Microalbumin,Random Urine 15.5 mg/L (NO RANGE EST.)
[2022-06-30 13:25] LABS: Hemoglobin A1c 5.8 % (3.8-5.6)
== END | disposition home or self-care (01) ==
LOC: MTLAB 11:02
PROVIDERS: PCP Family Medicine; Referring Provider Family Medicine; Visit Provider Family Medicine
DX: R06.02 Shortness of breath (principal); E11.9 Type 2 diabetes mellitus without complications
CPT/HCPCS: 36415; 80053; 80061; 82043; 82570; 82728; 83036; 83540; 83550

== ENCOUNTER → 2022-07-06 | Outpatient (CLI) | payer BC, SELFPAY ==
[2022-07-06 20:21] LABS: Vitamin D,25 Hydroxy 62.9 ng/mL
[2022-07-06 20:28] LABS: Hemoglobin A1c 5.8 % (3.8-5.6)
[2022-07-06 20:41] LABS: ALB/GLOB Ratio 1.3 RATIO (0.9-2.4); AST(SGOT) 32 U/L (15-37); Alanine Aminotransfer ALT/SGPT 66 U/L (16-61); Alkaline Phosphatase 51 U/L (45-117); Anion Gap 6 (5-15); BUN 19 mg/dL (7-18); BUN/Creat Ratio 17.1 RATIO (10-20); Calcium,Total 9.2 mg/dL (8.5-10.1); Chloride 107 mmol/L (98-107); Cholesterol 99 mg/dL (200); Creatinine, Serum 1.11 mg/dL (0.70-1.30); EST Glomerular Filtration Rate 71 mL/min (>60); Est Glom Filt Rate - Afr Amer 86 mL/min (>60); Globulin 3.1 g/dL (2.2-4.2); Glucose 98 mg/dL (74-106); High Density Lipoprotein 39 mg/dL; Potassium 3.7 mmol/L (3.5-5.1); Protein, Total 7.1 g/dL (6.4-8.2); Sodium Level 142 mmol/L (136-145); Thyroid Stim Hormone (TSH) 1.28 uIU/mL (0.358-3.74); Triglycerides 94 mg/dL; Very Low Density Lipoprotein 19 mg/dL (5-40)
[2022-07-06 20:46] LABS: Protein, Urine (Random) 13.6 mg/dL (<11.9); Protein:Creat Ratio 81 mg/g CRE (0-200)
== END | disposition home or self-care (01) ==
LOC: MTLAB 15:46
PROVIDERS: PCP Family Medicine; Referring Provider Family Medicine; Visit Provider Family Medicine
DX: E11.22 Type 2 diabetes mellitus with diabetic chronic kidney disease (principal); N18.9 Chronic kidney disease, unspecified; K76.0 Fatty (change of) liver, not elsewhere classified
CPT/HCPCS: 36415; 80053; 80061; 82306; 82570; 83036; 84156; 84443

== ENCOUNTER → 2022-11-03 | Outpatient (CLI) | payer BC, SELFPAY ==
[2022-11-03 10:49] LABS: Protein, Urine (Random) 13.5 mg/dL (<11.9); Protein:Creat Ratio 57 mg/g CRE (0-200)
[2022-11-03 10:50] LABS: Vitamin D,25 Hydroxy 63.6 ng/mL
[2022-11-03 10:59] LABS: ALB/GLOB Ratio 1.2 RATIO (0.9-2.4); AST(SGOT) 45 U/L (15-37); Alanine Aminotransfer ALT/SGPT 79 U/L (16-61); Alkaline Phosphatase 62 U/L (45-117); Anion Gap 4 (5-15); BUN 13 mg/dL (7-18); BUN/Creat Ratio 11.3 RATIO (10-20); Chloride 105 mmol/L (98-107); Cholesterol 139 mg/dL (200); Creatinine, Serum 1.15 mg/dL (0.70-1.30); EST Glomerular Filtration Rate 68 mL/min (>60); Est Glom Filt Rate - Afr Amer 82 mL/min (>60); Globulin 3.2 g/dL (2.2-4.2); Glucose 167 mg/dL (74-106); High Density Lipoprotein 41 mg/dL; Protein, Total 7.2 g/dL (6.4-8.2); Sodium Level 140 mmol/L (136-145); Thyroid Stim Hormone (TSH) 1.72 uIU/mL (0.358-3.74); Triglycerides 142 mg/dL; Very Low Density Lipoprotein 28 mg/dL (5-40)
== END | disposition home or self-care (01) ==
LOC: MTLAB 09:05
PROVIDERS: PCP Family Medicine; Visit Provider Family Medicine
DX: K76.0 Fatty (change of) liver, not elsewhere classified (principal); E11.22 Type 2 diabetes mellitus with diabetic chronic kidney disease; N18.30 Chronic kidney disease, stage 3 unspecified
CPT/HCPCS: 36415; 80053; 80061; 82306; 82570; 83036; 84156; 84443

== ENCOUNTER → 2022-11-04 | Outpatient (CLI) | payer BC, SELFPAY ==
--- NOTE | 2022-11-04 09:16 | RAD_ITS ---
INDICATION: pain, nueropathy symptoms EXAMINATION/TECHNIQUE: X-RAY - XR Spine Lumbar 2 or 3 Views COMPARISON: FINDINGS: VERTEBRAE: Preserved vertebral body height. No fracture. No spondylolisthesis. Preservation of the normal lumbar lordosis. No significant facet arthropathy. DISCS: There is mild multilevel osteophyte formation. There is mild disc space narrowing and endplate spondylosis at L1/2, L4/5 and L5/S1. INCLUDED ABDOMEN: Included bowel gas pattern is non-obstructive. RAD/Lumbar Spine 2 or 3 Views IMPRESSION: Degenerative changes. Electronically Signed: Adolfo Ruiz, at 9:55 EDT ,
[2022-11-04 10:36] LABS: Vitamin B12 557 pg/mL (211-911)
[2022-11-07 17:07] LABS: VITAMIN B6 10.2 ug/L (3.4-65.2); Vitamin B1, Thiamine 163.7 nmol/L (66.5-200.0)
== END | disposition home or self-care (01) ==
PROVIDERS: PCP Family Medicine; Visit Provider Family Medicine
DX: G62.9 Polyneuropathy, unspecified (principal); M54.9 Dorsalgia, unspecified
CPT/HCPCS: 36415; 72100; 82607; 84207; 84425

== ENCOUNTER → 2022-12-09 | Outpatient (CLI) | payer BC, SELFPAY ==
--- NOTE | 2022-12-09 12:47 | RAD_ITS ---
STUDY: X-RAY - CERVICAL SPINE REASON FOR EXAM: Male, 62 years old. Neck pain with neuropathy. TECHNIQUE: 2 view(s) of the cervical spine were obtained. COMPARISON: None FINDINGS: Normal anterior atlantoaxial articulation. Normal odontoid process. Normal cervical lordosis. Mild diffuse uncovertebral and facet sclerosis. Minimal intervertebral disc space narrowing at C4-5, C5-6 and C6-7 without osteophytes. Normal soft tissues. RAD/Cerv Spine 2 or 3 Views IMPRESSION: Mild lower cervical spondylosis with no other abnormality. Electronically Signed: Paramjit Franco MD at 9:39 EDT ,
== END | disposition home or self-care (01) ==
LOC: MTRAD 12:46
PROVIDERS: PCP Family Medicine; Referring Provider Family Medicine; Visit Provider Family Medicine
DX: M54.2 Cervicalgia (principal)
CPT/HCPCS: 70360; 72040

== ENCOUNTER → 2022-12-29 | Outpatient (CLI) | payer BC, SELFPAY ==
[2022-12-29 15:54] LABS: Hematocrit 50.4 % (40-54); Hemoglobin 16.3 g/dL (13.0-16.5); Mean Corp Hgb Conc 32.3 g/dL (32-36); Mean Corpuscular Hgb 32.5 pg (27.0-32.0); Mean Corpuscular Volume 100.4 fL (80-94); Mean Platelet Vol. 12.4 fl (6.2-12.0); Platelet Count 159 K/mm3 (150-450); RBC Distribution Width CV 13.5 % (11.6-14.6); RBC Distribution Width SD 49.6 fl (35.1-43.9); Red Blood Count 5.02 M/mm3 (4.6-6.2); White Blood Count 6.3 K/mm3 (4.4-11.0)
[2022-12-29 16:08] LABS: Anion Gap 5 (5-15); BUN 12 mg/dL (7-18); BUN/Creat Ratio 9.8 RATIO (10-20); Calcium,Total 9.2 mg/dL (8.5-10.1); Chloride 104 mmol/L (98-107); Creatinine, Serum 1.23 mg/dL (0.70-1.30); EST Glomerular Filtration Rate 63 mL/min (>60); Est Glom Filt Rate - Afr Amer 76 mL/min (>60); Glucose 283 mg/dL (74-106); Magnesium 2.5 mg/dL (1.6-2.6); Potassium 4.3 mmol/L (3.5-5.1); Sodium Level 137 mmol/L (136-145); Thyroid Stim Hormone (TSH) 1.56 uIU/mL (0.358-3.74)
== END | disposition home or self-care (01) ==
LOC: MFPLAB 11:57
PROVIDERS: PCP Family Medicine; Visit Provider Family Medicine
DX: R00.2 Palpitations (principal); E29.1 Testicular hypofunction
CPT/HCPCS: 36415; 80048; 83735; 84403; 84443; 85027

== ENCOUNTER → 2023-01-19 | Outpatient (CLI) | payer BC, SELFPAY ==
--- NOTE | 2023-01-19 15:12 | NEURO_ITS ---
NCS and/or EMG Patient Report Ordering Doctor: Amado Ramachandran DATE OF SERVICE: 01/19/23 Percy presents for electrodiagnostic testing of the lower limbs. He reports numbness and tingling in both feet. He reports chronic lower back pain. Electrodiagnostic findings: Peroneal motor nerve demonstrates normal distal latency, amplitude and conduction velocity on the left side. Right peroneal motor nerve demonstrates normal distal latency and amplitude with borderline reduced conduction velocity. Tibial response within normal limits bilaterally. Sensory responses are absent in the plantar nerves. Normal superficial peroneal and sural responses. Prolonged tibial and peroneal F- waves bilaterally. Prolonged H-reflex noted bilaterally. Needle EMG testing was performed in the lower limbs. All muscles tested showed no evidence of denervation with normal motor unit action potentials. Electrodiagnostic impression: This is an abnormal study in the lower limbs 1. Electrodiagnostic findings suggestive of a sensory polyneuropathy as evidenced by unobtainable plantar responses and prolonged F waves and H- reflexes. 2. There is no electrodiagnostic evidence for lumbosacral radiculopathy. Multi Select Codes Neurology Neurology Interp Codes: 44992-74 Musc test done w/n test comp (interp) (2) and 86008-51 Nr cndj test 11-12 studies (interp)
== END | disposition home or self-care (01) ==
PROVIDERS: PCP Family Medicine; Referring Provider Family Medicine; Visit Provider Family Medicine
DX: G62.9 Polyneuropathy, unspecified (principal)
CPT/HCPCS: 95886; 95912

== ENCOUNTER → 2023-01-25 | Outpatient (CLI) | payer BC, SELFPAY ==
--- NOTE | 2023-01-25 08:37 | NEURO ---
NCS and/or EMG Patient Report Ordering Doctor: Amado Ramachandran DATE OF SERVICE: 01/25/23 Clinical Summary: 62 year old male patient presenting with complaints of numbness and tingling in both hands. This EMG/NCS was performed to evaluate for right and left carpal tunnel syndrome. Nerve Conduction Studies Summary: The median-D2 SNAP distal latency was prolonged with reduced amplitude on the right side. The ulnar-D5 SNAP distal latency was prolonged. The right radial SNAP distal latency was prolonged. The right median-APB CMAP distal latency was prolonged. The left median-APB CMAP distal latency was prolonged. The left median motor conduction velocity was reduced in the forearm segment. Needle Examination Summary: There was increased insertional activity and spontaneous activity (positive sharp waves) in the right abductor pollicis brevis muscle. There was a higher proportion of motor unit action potentials with reduced recruitment, increased amplitude, increased duration, and polyphasia in the right triceps, right flexor carpi radialis, and right abductor pollicis brevis muscles. Impression: There is electrodiagnostic evidence of the following - 1) Severe, right median mononeuropathy at the wrist (carpal tunnel syndrome), with active denervation 2) Moderate, left median mononeuropathy at the wrist (carpal tunnel syndrome), with motor fiber demyelination 3) Chronic, mild, right C7 radiculopathy Multi Select Codes Neurology Neurology Interp Codes: 76560-09 Musc test done w/n test comp (interp) (2) and 16646-74 Nrv cndj test 9-10 studies (interp)
== END | disposition home or self-care (01) ==
LOC: PSN 06:54
PROVIDERS: PCP Family Medicine; Referring Provider Family Medicine; Visit Provider Family Medicine
DX: G62.9 Polyneuropathy, unspecified (principal); R20.0 Anesthesia of skin
CPT/HCPCS: 95886; 95911

== ENCOUNTER → 2023-03-04 | Outpatient (CLI) | payer BC, SELFPAY ==
[2023-03-04 16:10] LABS: Bacteria 0 SEEN /hpf (None Seen); Red Blood Cells-Urine 0 SEEN /hpf (0-5); Squamous Epithelial Cells - UA 0 SEEN /hpf (0-5); White Blood Cells 0 SEEN /hpf (0-5)
--- NOTE | 2023-03-04 16:13 | RAD_ITS ---
STUDY: X-RAY - LEFT FOOT CLINICAL: Male, 62 years old. LEFT HEEL PAIN TECHNIQUE: 3 view(s) of the foot. COMPARISON: None. FINDINGS: Normal talus, calcaneus, and tarsal bones. Tiny plantar calcaneal enthesophyte. Large posterior calcaneal enthesophyte. Normal visualized subtalar, talonavicular, calcaneocuboid, tarsal and tarsometatarsal articulations. Normal metatarsi. Normal metatarsophalangeal joint of the great toe. Normal tibial and fibular sesamoid bones. Normal interphalangeal joint of the great toe. Normal phalanges of the great toe. Normal second through fifth metatarsophalangeal joints. Normal interphalangeal joints and phalanges of the lesser toes. The soft tissue structures are unremarkable. RAD/Foot min 3 Views IMPRESSION: Normal x-ray examination of the foot. Electronically Signed: Ki Joe MD at 17:50 EST ,
[2023-03-04 18:43] LABS: Absolute Lymphocyte Count 1.36 X10^3/uL (0.83-4.51); Absolute Neutrophil Count 4.9 X10^3/uL (2.0-7.7); Basophil# 0.06 X10^3/uL; Basophil% 0.8 % (0-1); Eosinophil# 0.18 X10^3/uL; Eosinophils% 2.5 % (0-5); Hematocrit 49.6 % (40-54); Hemoglobin 16.6 g/dL (13.0-16.5); Lymphocyte # 1.36 X10^3/ul (0.83-4.51); Lymphocyte % 18.7 % (19-41); Mean Corp Hgb Conc 33.5 g/dL (32-36); Mean Corpuscular Hgb 31.6 pg (27.0-32.0); Mean Corpuscular Volume 94.5 fL (80-94); Mean Platelet Vol. 12.7 fl (6.2-12.0); Monocyte% 9.6 % (0-10); NRBC Flagged by Analyzer 0 % (0-5); Neutrophil # 4.92 X10^3/uL (2.7-7.7); Neutrophil % 67.7 % (47-70); Platelet Count 188 K/mm3 (150-450); RBC Distribution Width SD 41.7 fl (35.1-43.9); Red Blood Count 5.25 M/mm3 (4.6-6.2); White Blood Count 7.3 K/mm3 (4.4-11.0)
[2023-03-04 18:59] LABS: ALB/GLOB Ratio 1.2 RATIO (0.9-2.4); AST(SGOT) 42 U/L (15-37); Alanine Aminotransfer ALT/SGPT 83 U/L (16-61); Albumin, Serum 4.1 g/dL (3.2-5.0); Alkaline Phosphatase 65 U/L (45-117); Anion Gap 7 (5-15); BUN 20 mg/dL (7-18); BUN/Creat Ratio 16.9 RATIO (10-20); Calcium,Total 9.1 mg/dL (8.5-10.1); Chloride 105 mmol/L (98-107); Cholesterol 156 mg/dL (200); Creatinine, Serum 1.18 mg/dL (0.70-1.30); EST Glomerular Filtration Rate 66 mL/min (>60); Est Glom Filt Rate - Afr Amer 80 mL/min (>60); Globulin 3.5 g/dL (2.2-4.2); Glucose 162 mg/dL (74-106); High Density Lipoprotein 35 mg/dL; Potassium 4.2 mmol/L (3.5-5.1); Protein, Total 7.6 g/dL (6.4-8.2); Sodium Level 140 mmol/L (136-145); Triglycerides 376 mg/dL; Very Low Density Lipoprotein 75 mg/dL (5-40)
[2023-03-04 19:01] LABS: Hemoglobin A1c 8.1 % (3.8-5.6)
[2023-03-04 19:07] LABS: Color, Urine Yellow (Yellow); Glucose, Dipstick 100 mg/dl (Normal); Ketone-Dipstick 5 mg/dl (Negative); Leukocyte Esterase-Dipstick Negative /ul (Negative); Nitrite-Dipstick Negative (Negative); Occult Blood-Urine Negative /ul (Negative); Protein-Dipstick 15 mg/dl (Negative); Urine Bilirubin Dipstick Negative (Negative); Urine Clarity Clear (Clear); Urine Urobilinogen Normal (Normal)
[2023-03-04 19:10] LABS: Vitamin D,25 Hydroxy 40.1 ng/mL
[2023-03-04 19:18] LABS: Protein, Urine (Random) 15.2 mg/dL (<11.9); Protein:Creat Ratio 90 mg/g CRE (0-200)
[2023-03-04 19:32] LABS: Mucous, Urine RARE /hpf (<or=2+)
== END | disposition home or self-care (01) ==
PROVIDERS: PCP Family Medicine; Referring Provider Family Medicine; Visit Provider Family Medicine
DX: M79.672 Pain in left foot (principal); E11.22 Type 2 diabetes mellitus with diabetic chronic kidney disease; E11.8 Type 2 diabetes mellitus with unspecified complications; N18.9 Chronic kidney disease, unspecified
CPT/HCPCS: 36415; 73630; 80053; 80061; 81001; 82306; 82570; 83036; 84156; 85025

== ENCOUNTER → 2023-04-07 | Outpatient (CLI) | payer BC, SELFPAY ==
--- NOTE | 2023-04-07 06:19 | ECHOD_ITS ---
Reason For Study: Chest pain Procedure This was a 2D Doppler, Color Flow transthoracic echocardiogram. Exam performed in department. Left Ventricle Normal LV size. Left ventricular systolic function is normal. The estimated ejection fraction is 55 %. No regional wall motion abnormalities noted. Right Ventricle Normal RV size. Normal systolic function. Atria Normal left atrium. Normal right atrium. Mitral Valve Normal mitral valve. Tricuspid Valve Normal tricuspid valve. Mild tricuspid valve insufficiency. Pulmonary artery systolic pressure is 28 mmHg. Aortic Valve Normal aortic valve. Trisinus/trileaflet aortic valve. Pulmonic Valve Normal pulmonic valve. Mild (1+) pulmonic valve insufficiency. Great Vessels Normal aortic root. The pulmonary artery is normal size. Normal inferior vena cava. Pericardium/Pleural No pericardial effusion. MMode/2D Measurements & Calculations LVIDd: 4.0 cm IVSd: 1.0 cm Ao root diam: 3.4 cm LVIDs: 2.6 cm LVPWd: 1.0 cm RVDd: 2.9 cm FS: 36.4 % LAV(MOD-bp): 43.9 ml LVAd ap4: 24.5 cm2 LVAd ap2: 25.3 cm2 LAV(MOD-bp) Indexed: 19.6 ml/m2 LVLd ap4: 7.2 cm LVLd ap2: 8.0 cm LAV(MOD-sp2): 40.9 ml EDV(MOD-sp4): 70.0 ml EDV(MOD-sp2): 68.6 ml LAV(MOD-sp4): 39.7 ml EDV(sp4-el): 70.3 ml EDV(sp2-el): 68.1 ml LVAs ap4: 13.3 cm2 LVAs ap2: 14.6 cm2 LVLs ap4: 6.2 cm LVLs ap2: 7.0 cm ESV(MOD-sp4): 24.5 ml ESV(MOD-sp2): 26.5 ml ESV(sp4-el): 23.9 ml ESV(sp2-el): 25.7 ml EF(MOD-sp4): 65.0 % EF(MOD-sp2): 61.3 % EF(sp4-el): 66.0 % SV(MOD-sp4): 45.5 ml SV(MOD-sp2): 42.0 ml SV(sp4-el): 46.4 ml LA dimension(2D): 3.5 cm LA A4 area: 14.9 cm2 RA A4 area: 10.0 cm2 TAPSE: 1.7 cm Time Measurements MV dec time: 0.21 sec Doppler Measurements & Calculations MV E max hi: 70.7 cm/sec Lat Peak E' Hi: 6.3 cm/sec Med Peak E' Hi: 5.6 cm/sec MV A max hi: 87.5 cm/sec E/E' lat: 11.2 E/E' med: 12.6 MV E/A: 0.81 MV dec slope: 335.9 cm/sec2 Ao V2 max: 118.9 cm/sec LV V1 max: 105.8 cm/sec Ao max P.7 mmHg LV V1 max P.5 mmHg Ao V2 mean: 82.8 cm/sec LV V1 mean P.6 mmHg Ao mean P.2 mmHg LV V1 mean: 75.7 cm/sec Ao V2 VTI: 26.8 cm LV V1 VTI: 22.5 cm AV (velocity ratio): 0.84 PA V2 max: 115.3 cm/sec TR max hi: 236.0 cm/sec TR max P.3 mmHg ECHO/Echo Complete Interpretation Summary Normal LV size. Left ventricular systolic function is normal. The estimated ejection fraction is 55 %. The global longitudinal strain is normal. The global longitudinal strain = -18. 5 % (normal). Ordering Physician: Yoshi Lawler Referring Physician: Amado Ramachandran Performed By: Callie Marcum RDCS
--- NOTE | 2023-04-07 15:47 | STRESSREP_ITS ---
Stress Test Report Exercise myocardial perfusion stress test. 62-year-old man with a history of chest pain Stress protocol: Resting EKG demonstrates normal sinus rhythm with a rate of 62 bpm resting blood pressure is 124/90 mmHg. The patient exercised according to the regular Nhan protocol for a total duration of 10 minutes attaining a maximum heart rate of 148 bpm which was 94% of maximum predicted heart rate; the maximum workload was 13.4 metabolic equivalents. At rest there were no ST or T wave changes noted to suggest ischemia and at peak exercise upsloping ST changes only were noted which did not meet the criteria for ischemia. No clinical angina was noted the test was terminated due to the target heart rate being achieved/fatigue. The peak blood pressure was 180/100 mmHg. Rate-pressure product was 18,600. Myocardial perfusion protocol. 14.5 mCi of technetium 99m sestamibi was injected at rest. The patient exercised according to regular Nhan protocol for total duration of 10 minutes and at peak exercise 44.7 mCi of technetium 99m sestamibi was injected stress images were obtained stress and rest images were reconstructed in comparing the short axis vertical long and horizontal long axis. Gated images were also obtained. Perfusion SPECT analysis: Review of the stress images demonstrate normal uptake of tracer noted in all ar eas of the myocardium. The resting images similarly demonstrate normal uptake of tracer noted in all areas of the myocardium. No areas of reversibility are noted to suggest ischemia no previous infarct was noted. Gated SPECT analysis: The gated ejection fraction is normal at 65%. Conclusion: Normal exercise myocardial perfusion stress test at a high workload Preserved ejection fraction.
== END | disposition home or self-care (01) ==
LOC: CVS 06:17
PROVIDERS: PCP Family Medicine; Referring Provider Internal Medicine Cardiovascular Disease; Visit Provider Internal Medicine Cardiovascular Disease
DX: R07.9 Chest pain, unspecified (principal); E11.59 Type 2 diabetes mellitus with other circulatory complications; I10 Essential (primary) hypertension; I15.2 Hypertension secondary to endocrine disorders
CPT/HCPCS: 78452; 93017; 93306; A9500; A4216

== ENCOUNTER → 2023-05-31 | Outpatient (CLI) | payer BC, SELFPAY ==
[2023-05-31 12:37] LABS: ALB/GLOB Ratio 1.2 RATIO (0.9-2.4); AST(SGOT) 48 U/L (15-37); Alanine Aminotransfer ALT/SGPT 92 U/L (16-61); Albumin, Serum 3.6 g/dL (3.2-5.0); Alkaline Phosphatase 50 U/L (45-117); Anion Gap 5 (5-15); BUN 9 mg/dL (7-18); BUN/Creat Ratio 8.3 RATIO (10-20); Calcium,Total 8.7 mg/dL (8.5-10.1); Chloride 111 mmol/L (98-107); Cholesterol 153 mg/dL (200); Creatinine, Serum 1.09 mg/dL (0.70-1.30); EST Glomerular Filtration Rate 72 mL/min (>60); Est Glom Filt Rate - Afr Amer 87 mL/min (>60); Glucose 110 mg/dL (74-106); High Density Lipoprotein 26 mg/dL; Phosphorus 2.4 mg/dL (2.5-4.9); Potassium 3.8 mmol/L (3.5-5.1); Protein, Total 6.6 g/dL (6.4-8.2); Sodium Level 143 mmol/L (136-145); Triglycerides 89 mg/dL; Very Low Density Lipoprotein 18 mg/dL (5-40)
[2023-05-31 12:40] LABS: Vitamin D,25 Hydroxy 55.8 ng/mL
[2023-05-31 12:43] LABS: Absolute Lymphocyte Count 1.12 X10^3/uL (0.83-4.51); Absolute Neutrophil Count 3.8 X10^3/uL (2.0-7.7); Basophil# 0.06 X10^3/uL; Eosinophil# 0.19 X10^3/uL; Eosinophils% 3.2 % (0-5); Hematocrit 47.5 % (40-54); Lymphocyte # 1.12 X10^3/ul (0.83-4.51); Mean Corp Hgb Conc 31.6 g/dL (32-36); Mean Corpuscular Hgb 31.3 pg (27.0-32.0); Mean Platelet Vol. 11.1 fl (6.2-12.0); Monocyte# 0.69 X10^3/uL; Monocyte% 11.7 % (0-10); NRBC Flagged by Analyzer 0 % (0-5); Neutrophil # 3.76 X10^3/uL (2.7-7.7); Neutrophil % 64.1 % (47-70); Platelet Count 173 K/mm3 (150-450); RBC Distribution Width CV 13.6 % (11.6-14.6); RBC Distribution Width SD 50.4 fl (35.1-43.9); White Blood Count 5.9 K/mm3 (4.4-11.0)
[2023-05-31 12:55] LABS: Protein, Urine (Random) 27.7 mg/dL (<11.9); Protein:Creat Ratio 89 mg/g CRE (0-200)
[2023-05-31 13:48] LABS: Hemoglobin A1c 6.2 % (3.8-5.6)
== END | disposition home or self-care (01) ==
LOC: MFPLAB 09:20
PROVIDERS: PCP Family Medicine; Visit Provider Family Medicine
DX: E11.22 Type 2 diabetes mellitus with diabetic chronic kidney disease (principal); N18.9 Chronic kidney disease, unspecified
CPT/HCPCS: 36415; 80053; 80061; 82306; 82570; 83036; 84100; 84156; 85025

== ENCOUNTER → 2023-09-27 | Outpatient (CLI) | payer MEDICARE, SELFPAY ==
[2023-09-27 09:05] LABS: Bacteria 0 SEEN /hpf (None Seen); Red Blood Cells-Urine 0 SEEN /hpf (0-5)
[2023-09-27 10:00] LABS: Absolute Lymphocyte Count 1.29 X10^3/uL (0.83-4.51); Absolute Neutrophil Count 4.6 X10^3/uL (2.0-7.7); Basophil# 0.05 X10^3/uL; Basophil% 0.7 % (0-1); Eosinophil# 0.17 X10^3/uL; Eosinophils% 2.5 % (0-5); Hematocrit 46.6 % (40-54); Hemoglobin 15.8 g/dL (13.0-16.5); Lymphocyte # 1.29 X10^3/ul (0.83-4.51); Lymphocyte % 18.9 % (19-41); Mean Corp Hgb Conc 33.9 g/dL (32-36); Mean Corpuscular Hgb 31.5 pg (27.0-32.0); Mean Corpuscular Volume 92.8 fL (80-94); Monocyte# 0.68 X10^3/uL; NRBC Flagged by Analyzer 0 % (0-5); Neutrophil # 4.58 X10^3/uL (2.7-7.7); Neutrophil % 67.3 % (47-70); Platelet Count 170 K/mm3 (150-450); RBC Distribution Width CV 13.5 % (11.6-14.6); RBC Distribution Width SD 45.7 fl (35.1-43.9); Red Blood Count 5.02 M/mm3 (4.6-6.2); White Blood Count 6.8 K/mm3 (4.4-11.0)
[2023-09-27 10:25] LABS: Color, Urine Yellow (Yellow); Glucose, Dipstick Normal (Normal); Ketone-Dipstick Negative (Negative); Leukocyte Esterase-Dipstick Negative /ul (Negative); Nitrite-Dipstick Negative (Negative); Occult Blood-Urine Negative /ul (Negative); Protein-Dipstick 15 mg/dl (Negative); Specific Gravity, Urine 1.025 (1.002-1.030); Urine Bilirubin Dipstick Negative (Negative); Urine Clarity Clear (Clear); Urine Urobilinogen Normal (Normal)
[2023-09-27 10:34] LABS: Mucous, Urine RARE /hpf (<or=2+); Squamous Epithelial Cells - UA 0-5 SEEN /hpf (0-5); White Blood Cells 0-5 SEEN /hpf (0-5)
[2023-09-27 10:40] LABS: ALB/GLOB Ratio 1.2 RATIO (0.9-2.4); AST(SGOT) 36 U/L (15-37); Alanine Aminotransfer ALT/SGPT 60 U/L (16-61); Alkaline Phosphatase 68 U/L (45-117); Anion Gap 2 (5-15); BUN 17 mg/dL (7-18); BUN/Creat Ratio 14.5 RATIO (10-20); Calcium,Total 9.3 mg/dL (8.5-10.1); Chloride 106 mmol/L (98-107); Cholesterol 148 mg/dL (200); Creatinine, Serum 1.17 mg/dL (0.70-1.30); EST Glomerular Filtration Rate 67 mL/min (>60); Est Glom Filt Rate - Afr Amer 80 mL/min (>60); Globulin 3.2 g/dL (2.2-4.2); Glucose 117 mg/dL (74-106); High Density Lipoprotein 40 mg/dL; Potassium 3.7 mmol/L (3.5-5.1); Protein, Total 7.2 g/dL (6.4-8.2); Sodium Level 138 mmol/L (136-145); Triglycerides 101 mg/dL; Very Low Density Lipoprotein 20 mg/dL (5-40)
[2023-09-27 11:06] LABS: Microalbumin,Random Urine 14.9 mg/L (NO RANGE EST.); Microalbumin:Creatinine Ratio 5.1 mg/g CRE (<30 mg/g CRE)
[2023-09-27 11:40] LABS: Hemoglobin A1c 5.9 % (3.8-5.6)
== END | disposition home or self-care (01) ==
LOC: MTLAB 09:02
PROVIDERS: PCP Family Medicine; Referring Provider Family Medicine; Visit Provider Family Medicine
DX: E11.8 Type 2 diabetes mellitus with unspecified complications (principal)
CPT/HCPCS: 36415; 80053; 80061; 81001; 82043; 82570; 83036; 85025

== ENCOUNTER → 2023-09-28 | Outpatient (CLI) | payer MEDICARE, SELFPAY ==
[2023-09-28 13:32] LABS: Bilirubin, Direct 0.33 mg/dL (0.00-0.30)
== END | disposition home or self-care (01) ==
LOC: MFPLAB 10:52
PROVIDERS: PCP Family Medicine; Visit Provider Family Medicine
DX: E80.6 Other disorders of bilirubin metabolism (principal)
CPT/HCPCS: 36415; 82247; 82248

== ENCOUNTER → 2024-01-11 | Outpatient (CLI) | payer MEDICARE, SELFPAY ==
[2024-01-11 12:19] LABS: Absolute Neutrophil Count 3.8 X10^3/uL (2.0-7.7); Basophil# 0.05 X10^3/uL; Basophil% 0.8 % (0-1); Eosinophil# 0.14 X10^3/uL; Eosinophils% 2.3 % (0-5); Hematocrit 44.1 % (40-54); Hemoglobin 14.8 g/dL (13.0-16.5); Lymphocyte % 21.6 % (19-41); Mean Corp Hgb Conc 33.6 g/dL (32-36); Mean Corpuscular Hgb 31.5 pg (27.0-32.0); Mean Corpuscular Volume 93.8 fL (80-94); Mean Platelet Vol. 11.3 fl (6.2-12.0); Monocyte# 0.66 X10^3/uL; Monocyte% 10.9 % (0-10); NRBC Flagged by Analyzer 0 % (0-5); Neutrophil # 3.84 X10^3/uL (2.7-7.7); Neutrophil % 63.7 % (47-70); Platelet Count 175 K/mm3 (150-450); RBC Distribution Width CV 12.8 % (11.6-14.6); RBC Distribution Width SD 44.3 fl (35.1-43.9)
[2024-01-11 12:59] LABS: ALB/GLOB Ratio 1.1 RATIO (0.9-2.4); AST(SGOT) 29 U/L (15-37); Alanine Aminotransfer ALT/SGPT 61 U/L (16-61); Albumin, Serum 3.8 g/dL (3.2-5.0); Alkaline Phosphatase 63 U/L (45-117); Anion Gap 7 (5-15); BUN 11 mg/dL (7-18); BUN/Creat Ratio 9.1 RATIO (10-20); Calcium,Total 9.4 mg/dL (8.5-10.1); Chloride 105 mmol/L (98-107); Cholesterol 149 mg/dL (200); Creatinine, Serum 1.21 mg/dL (0.70-1.30); EST Glomerular Filtration Rate 64 mL/min (>60); Est Glom Filt Rate - Afr Amer 77 mL/min (>60); Globulin 3.5 g/dL (2.2-4.2); Glucose 151 mg/dL (74-106); High Density Lipoprotein 38 mg/dL; PSA,Total - Annual Screen 1.19 ng/mL (0.00-4.00); Potassium 3.9 mmol/L (3.5-5.1); Protein, Total 7.3 g/dL (6.4-8.2); Sodium Level 138 mmol/L (136-145); Triglycerides 127 mg/dL; Very Low Density Lipoprotein 25 mg/dL (5-40)
== END | disposition home or self-care (01) ==
LOC: MFPLAB 10:26
PROVIDERS: PCP Family Medicine; Visit Provider Family Medicine
DX: Z12.5 Encounter for screening for malignant neoplasm of prostate (principal); E11.8 Type 2 diabetes mellitus with unspecified complications
CPT/HCPCS: 36415; 80053; 80061; 83036; 84153; 85025; G0103

== ENCOUNTER → 2024-04-20 | Outpatient (CLI) | payer MEDICARE, SELFPAY ==
--- NOTE | 2024-04-20 09:13 | RAD_ITS ---
STUDY: X-RAY CHEST REASON FOR EXAM: Male, 63 years old. BRONCHITIS TECHNIQUE: PA and lateral views of the chest. COMPARISON: October 02, 2021 FINDINGS: The lungs are clear. There is stable elevation of the right hemidiaphragm. There is no demonstrated pleural abnormality. Normal size heart. Normal mediastinum and ynes. Normal visualized pulmonary arteries. Normal visualized aortic arch and descending thoracic aorta. There are diffuse degenerative changes of the visualized thoracic spine. Normal visualized ribs, clavicles, and shoulders. There is no demonstrated abnormality of the visualized soft tissue structures of the upper abdomen. RAD/Chest PA and Lateral IMPRESSION: Degenerative changes, as described above. No demonstrated acute cardiopulmonary process. Electronically Signed: Jose Antonio Rock MD at 11:41 EST ,
[2024-04-20 10:11] LABS: Absolute Lymphocyte Count 1.13 X10^3/uL (0.83-4.51); Absolute Neutrophil Count 6.9 X10^3/uL (2.0-7.7); Basophil# 0.05 X10^3/uL; Basophil% 0.6 % (0-1); Eosinophil# 0.15 X10^3/uL; Eosinophils% 1.7 % (0-5); Hemoglobin 15.2 g/dL (13.0-16.5); Lymphocyte # 1.13 X10^3/ul (0.83-4.51); Lymphocyte % 12.5 % (19-41); Mean Corpuscular Hgb 31.6 pg (27.0-32.0); Mean Corpuscular Volume 95.6 fL (80-94); Mean Platelet Vol. 10.5 fl (6.2-12.0); Monocyte# 0.73 X10^3/uL; Monocyte% 8.1 % (0-10); NRBC Flagged by Analyzer 0 % (0-5); Neutrophil # 6.91 X10^3/uL (2.7-7.7); Neutrophil % 76.1 % (47-70); Platelet Count 194 K/mm3 (150-450); RBC Distribution Width CV 13.5 % (11.6-14.6); RBC Distribution Width SD 47.4 fl (35.1-43.9); Red Blood Count 4.81 M/mm3 (4.6-6.2); White Blood Count 9.1 K/mm3 (4.4-11.0)
[2024-04-20 10:53] LABS: ALB/GLOB Ratio 1.1 RATIO (0.9-2.4); AST(SGOT) 21 U/L (15-37); Alanine Aminotransfer ALT/SGPT 47 U/L (16-61); Albumin, Serum 3.7 g/dL (3.2-5.0); Alkaline Phosphatase 54 U/L (45-117); Anion Gap 5 (5-15); BUN 10 mg/dL (7-18); BUN/Creat Ratio 9.2 RATIO (10-20); Calcium,Total 9.2 mg/dL (8.5-10.1); Chloride 103 mmol/L (98-107); Cholesterol 137 mg/dL (200); Creatinine, Serum 1.09 mg/dL (0.70-1.30); EST Glomerular Filtration Rate 72 mL/min (>60); Est Glom Filt Rate - Afr Amer 87 mL/min (>60); Globulin 3.4 g/dL (2.2-4.2); Glucose 202 mg/dL (74-106); High Density Lipoprotein 41 mg/dL; Potassium 3.7 mmol/L (3.5-5.1); Protein, Total 7.1 g/dL (6.4-8.2); Sodium Level 137 mmol/L (136-145); Triglycerides 95 mg/dL; Very Low Density Lipoprotein 19 mg/dL (5-40)
[2024-04-20 11:15] LABS: Hemoglobin A1c 6.3 % (3.8-5.6)
[2024-04-20 14:00] LABS: Microalbumin,Random Urine 33.8 mg/L (NO RANGE EST.)
== END | disposition home or self-care (01) ==
LOC: MTRAD 09:11 → MTLAB 09:12
PROVIDERS: PCP Family Medicine; Referring Provider Family Medicine; Visit Provider Family Medicine
DX: J20.9 Acute bronchitis, unspecified (principal); E11.8 Type 2 diabetes mellitus with unspecified complications
CPT/HCPCS: 36415; 71046; 80053; 80061; 82043; 82570; 83036; 85025

== ENCOUNTER → 2024-09-24 | Outpatient (CLI) | payer MEDICARE, SELFPAY ==
[2024-09-24 10:02] LABS: Absolute Lymphocyte Count 1.21 X10^3/uL (0.83-4.51); Absolute Neutrophil Count 4.4 X10^3/uL (2.0-7.7); Basophil# 0.07 X10^3/uL; Basophil% 1.1 % (0-1); Eosinophil# 0.13 X10^3/uL; Hematocrit 43.8 % (40-54); Lymphocyte # 1.21 X10^3/ul (0.83-4.51); Lymphocyte % 18.7 % (19-41); Mean Corp Hgb Conc 34.2 g/dL (32-36); Mean Corpuscular Hgb 31.2 pg (27.0-32.0); Mean Corpuscular Volume 91.1 fL (80-94); Mean Platelet Vol. 11.6 fl (6.2-12.0); Monocyte# 0.61 X10^3/uL; Monocyte% 9.4 % (0-10); NRBC Flagged by Analyzer 0 % (0-5); Neutrophil % 68.2 % (47-70); Platelet Count 160 K/mm3 (150-450); RBC Distribution Width CV 13.6 % (11.6-14.6); RBC Distribution Width SD 45.4 fl (35.1-43.9); Red Blood Count 4.81 M/mm3 (4.6-6.2); White Blood Count 6.5 K/mm3 (4.4-11.0)
[2024-09-24 10:37] LABS: Microalbumin,Random Urine < 12.0 mg/L (NO RANGE EST.); Microalbumin:Creatinine Ratio UNABLE TO CALCULATE mg/g CRE
[2024-09-24 13:31] LABS: ALB/GLOB Ratio 1.6 RATIO (0.9-2.4); AST(SGOT) 46 U/L (<=37); Alanine Aminotransfer ALT/SGPT 65 U/L (<=46); Albumin, Serum 4.3 g/dL (3.4-4.8); Alkaline Phosphatase 66 U/L (40-129); Anion Gap 11 (5-15); BUN 15 mg/dL (4-19); BUN/Creat Ratio 12.3 RATIO (10-20); Calcium,Total 9.4 mg/dL (7.6-11.0); Carbon Dioxide 23.9 mmol/L (21.0-32.0); Chloride 105 mmol/L (98-108); Cholesterol 137 mg/dL (<=200); Creatinine, Serum 1.19 mg/dL (0.70-1.20); EST Glomerular Filtration Rate 67 (>60); Globulin 2.7 g/dL (2.2-4.2); Glucose 146 mg/dL (70-99); High Density Lipoprotein 33 mg/dL; Low Density Lipoprotein Calc. 80 mg/dL; Potassium 4.4 mmol/L (3.3-5.1); Protein, Total 6.9 g/dL (5.9-8.4); Sodium Level 140 mmol/L (133-145); Total Bilirubin 0.85 mg/dL (0.00-1.30); Triglycerides 118 mg/dL; Very Low Density Lipoprotein 24 mg/dL (5-40); Vitamin D,25 Hydroxy 43.9 ng/mL (30-100); cholesterol:hdl ratio screen 4.13
== END | disposition home or self-care (01) ==
LOC: MFPLAB 08:03
PROVIDERS: PCP Family Medicine; Referring Provider Family Medicine; Visit Provider Family Medicine
DX: E11.22 Type 2 diabetes mellitus with diabetic chronic kidney disease (principal); E11.59 Type 2 diabetes mellitus with other circulatory complications; E11.69 Type 2 diabetes mellitus with other specified complication; N18.9 Chronic kidney disease, unspecified
CPT/HCPCS: 36415; 80053; 80061; 82043; 82306; 82570; 83036; 85025

== ENCOUNTER → 2024-09-25 | Outpatient (CLI) | payer MEDICARE, SELFPAY ==
--- NOTE | 2024-09-25 09:02 | RAD_ITS ---
PROCEDURE: FINGER(S) MIN 2 VIEWS 09/25/2024 REASON FOR EXAM: RIGHT SECOND DIGIT PAIN, MCP JOINT AREA TECHNIQUE: 3 view(s) of the right 2nd finger COMPARISON: None. RAD/Finger(s) Min 2 Views IMPRESSION: Minimal degenerative changes are seen in the right 2nd and 3rd metacarpophalang eal joints, without associated joint narrowing. Limited imaging of the right 3rd distal interphalangeal joint shows mild-to-mod erate degenerative changes. Mild degenerative changes are seen of the right 2nd proximal interphalangeal hugo int. Moderate degenerative changes are seen of the right 2nd distal interphalangeal joint, with significant joint narrowing and osteophyte formation, most prominent at the dorsal base of the distal phalanx. No acute fracture or dislocation is seen. Reading Location: [id number]
== END | disposition home or self-care (01) ==
LOC: MTRAD 08:53
PROVIDERS: PCP Family Medicine; Referring Provider Family Medicine; Visit Provider Family Medicine
DX: M79.644 Pain in right finger(s) (principal)
CPT/HCPCS: 73140

== ENCOUNTER → 2024-12-25 | Outpatient (CLI) | payer MEDICARE, SELFPAY ==
--- OUTSIDE RECORDS SUMMARY | 2024-12-25 09:01 | XMS RPT_ITS | CCD ---
Author Organization [facility] Care Team Providers Care Backside Grinder Name Role Phone NONE, NONE Unavailable Unavailable JAYJAY GARCIA Unavailable Unavailable JAYJAY GARCIA Unavailable Unavailable Mandi ANTOINE Unavailable Unavailable JAYJAY GARCIA Unavailable Unavailable NONE, NONE Unavailable Unavailable Dr. Amado Ramachandran Primary Care Provider [phone] Dr. Amado Ramachandran Other Provider Dr. Yoshi Lawler Attending Provider 1([phone] Amado Ramachandran Primary Care Provider [phone] Dr. Amado Ramachandran Other Provider Dr. Yoshi Lawler Attending Provider [phone] Amado Ramachandran Primary Care Provider [phone] Dr. Amado Ramachandran Referring Provider Dr. Amado Ramachandran Other Provider Dr. Heather Ferreira Attending Provider Dr. Hanna Fair Attending Provider Dr. Amado Ramachandran Primary Care Provider [phone] Dr. Amado Ramachandran Referring Provider Dr. Amado Ramachandran Other Provider Dr. Heather Ferreira Attending Provider Dr. Hanna Fair Attending Provider [phone] Yoshi Lawler Attending Provider 1([facility])-[phone] Amado Ramachandran Primary Care Provider [phone] Dr. Amado Ramachandran Referring Provider Dr. Amado Ramachandran MD Primary Care Provider [phone] Madie GONZALEZ, Dr. Amado Longoria Attending Provider Madie GONZALEZ, Dr. Amado Longoria Referring Provider Amado Ramachandran Attending Unavailable Amado Ramachandran Primary Care Unavailable Amado Ramachandran Referring Unavailable Amado Ramachandran Primary Care Unavailable Amado Ramachandran Attending Unavailable Amado Ramachandran Referring Unavailable Amado Ramachandran Primary Care Unavailable Amado Ramachandran Attending Unavailable Amado Ramachandran Referring Unavailable Amado Ramachandran Primary Care Unavailable Amado Ramachandran Attending Unavailable Allergies Allergy Classification Reported Allergen(s) Allergy Type Date of Onset Reaction(s) Facility (1 source) celecoxib; Translations: [Celebrex] Drug Allergy [facility] Repository (18 sources) celecoxib Drug Allergy 7 Itching [facility] Comment on above: Parasthesias (19 sources) Sulfonamides (Antibiotic); Translations: [Sulfa (Sulfonamide Antibiotics)] Propensity to adverse reactions 7 Itching [facility] (5 sources) amLODIPine Drug Allergy 3 leg edema [facility] (5 sources) Doxycycline Drug Allergy 3 parasthesia [facility] (5 sources) metFORMIN Drug Allergy 3 Rash [facility] Comment on above: and foot pain (5 sources) Propranolol Drug Allergy 3 fatigue [facility] (1 source) amLODIPine Drug Allergy 3 [facility] Repository (1 source) celecoxib Drug Allergy 3 [facility] Repository (1 source) Doxycycline Drug Allergy 3 [facility] Repository (1 source) metFORMIN Drug Allergy 3 [facility] Repository (1 source) Propranolol Drug Allergy 3 [facility] Repository Medications Current Medications Medication Drug Class(es) Dates Sig (Normalized) Sig (Original) 0.5 ml dulaglutide 3 mg/ml auto-injector (4 sources) GLP-1 Receptor Agonist Start: 03-14-2023 Dulaglutide (Trulicity) 1.5 mg/0.5 mL pen injector Active 1.5 mg SC EVERY WEEK March 14, 2023 1:00am 30 actuat fluticasone furoate 0.1 mg/actuat dry powder inhaler (5 sources) Corticosteroid Start: 02-09-2023 take 100 ug by inhalation once daily Fluticasone Furoate (Arnuity Ellipta) 100 mcg/actuation blister with device Active 1 NMA INHALATION DAILY February 09, 2023 12:00am 24 hr metoprolol succinate 50 mg extended release oral tablet (4 sources) beta-Adrenergic Hu Start: 03-14-2023 take 1 tablet by mouth once daily Metoprolol Succinate (Toprol Xl) 50 mg tablet extended release 24 hr Active 50 mg PO DAILY 90 March 14, 2023 1:00am omeprazole 20 mg delayed release oral capsule (4 sources) Proton Pump Inhibitor Start: 03-14-2023 take 1 capsule by mouth once daily Omeprazole 20 mg capsule,delayed release(DR/EC) Active 20 mg PO DAILY 60 March 14, 2023 1:00am ramipril 10 mg oral capsule (18 sources) Angiotensin Converting Enzyme Inhibitor Start: 07-19-2016 Ramipril 10 MG capsule Active 1 {tbl} PO DAILY July 19, 2016 12:00am 24 hr rOPINIRole 4 mg extended release oral tablet (18 sources) Nonergot Dopamine Agonist Start: 03-16-2014 take 1 tablet by mouth once daily Ropinirole (Requip Xl) 4 MG tablet extended release 24 hr Active 4 mg PO DAILY March 16, 2014 1:00am rosuvastatin calcium 5 mg oral tablet (5 sources) HMG-CoA Reductase Inhibitor Start: 02-09-2023 take 1 tablet by mouth once daily Rosuvastatin 5 mg tablet Active 5 mg PO DAILY February 09, 2023 12:00am On Hold: Order Changed Completed/Discontinued Medications Medication Drug Class(es) Dates Sig (Normalized) Sig (Original) nadolol 40 mg oral tablet (18 sources) beta-Adrenergic Hu Start: 03-16-2014 End: 03-14-2023 take 1 tablet by mouth once daily Nadolol 40 MG tablet Discontinued 40 mg PO DAILY March 16, 2014 1:00am March 14, 2023 3:25pm Problems Active Problems Problem Classification Problem Date Documented Da te Episodic/Chronic Cardiac dysrhythmias (6 sources) Palpitations; Translations: [Palpitations] 03-14-2023 Episodic Diabetes mellitus with complications (7 sources) Hypertensive disorder; 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] Onset: 09-28-2024 03-14-2023 Chronic Essential hypertension (1 source) Essential (primary) hypertension; Translations: [ESSENTIAL PRIMARY HYPERTENSION] Onset: 12-07-2016 Chronic Nonspecific chest pain (8 sources) Chest pain, unspecified; Translations: [Chest pain] Onset: 12-04-2016 03-14-2023 Episodic Other connective tissue disease (1 source) Pain in right finger(s); Translations: [Pain in right finger(s)] Onset: 10-02-2024 Episodic Past or Other Problems Problem Classification Problem Date Documented Date Episodic/Chronic Abdominal pain (1 source) Unspecified abdominal pain; Translations: [UNSPECIFIED ABDOMINAL PAIN] Onset: 12-07-2016 Episodic Acute bronchitis (1 source) Acute bronchitis, unspecified; Translations: [Acute bronchitis, unspecified] Onset: 05-17-2024 Episodic Biliary tract disease (1 source) Other cholelithiasis without obstruction; Translations: [OTH CHOLELITHIASIS W/O OBSTRUCTION] Onset: 12-07-2016 Episodic Other screening for suspected conditions (not mental disorders or infectious disease) (1 source) Encounter for screening for malignant neoplasm of prostate; Translations: [Encounter for screening for malignant neoplasm of prostate] Onset: 02-09-2024 Episodic Results Test Name Value Interpretation Reference Range Facility Finger(s) Min 2 Viewson 09-16 Finger(s) Min 2 Views [facility] Imaging Services [address] [place] [address] Finger(s) Min 2 Views MR#: [id number] Acct: [id number] Name: CECILIA BRAXTON JrIbis Rep #: [id number] : 1960 M 64 From: Jayjay Zhang PCP: Dr. Amado Ramachandran MD Status: REG CLI Study: Finger(s) Min 2 Views Date of Exam: 09/25/24 Exam# [id number] Ordering Dr: Amado Ramachandran MD PROCEDURE: FINGER(S) MIN 2 VIEWS 09/25/2024 REASON FOR EXAM: RIGHT SECOND DIGIT PAIN, MCP JOINT AREA TECHNIQUE: 3 view(s) of the right 2nd finger COMPARISON: None. RAD/Finger(s) Min 2 Views IMPRESSION: Minimal degenerative changes are seen in the right 2nd and 3rd metacarpophalangeal joints, without associated joint narrowing. Limited imaging of the right 3rd distal interphalangeal joint shows [id number] degenerative changes. Mild degenerative changes are seen of the right 2nd proximal interphalangeal joint. Moderate degenerative changes are seen of the right 2nd distal interphalangeal joint, with significant joint narrowing and osteophyte formation, most prominent at the dorsal base of the distal phalanx. No acute fracture or dislocation is seen. Reading Location: [address] CC: Dr. Amado Ramachandran MD Cow Trimmer: Signed Normal [facility] Absolute lymphocyte countOrd ered By: Amado Ramachandran on 09-24-2024 Lymphocytes Auto (Unsp spec) [#/Vol] 1.21 10*3/uL 0.83-4.51 [facility] Absolute neutrophil countOrd ered By: Amado Ramachandran on 09-24-2024 Neutrophils (Bld) [#/Vol] 4.4 10*3/uL 2.0-7.7 [facility] Anion gap in Serum or Plasma Ordered By: Amado Ramachandran on 09-24-2024 Anion gap [Moles/Vol] 11 mmol/L 5-15 [facility] Automated lymphocyte count a s percentage of total leukocytesOrdered By: Amado Ramachandran on 09-24-2024 Lymphocytes/100 WBC Auto (Unsp spec) 18.7 % Low 19-41 [facility] BUN/creatinine ratioOrdered By: Amado Ramachandran on 09-24-2024 Urea nitrogen/Creatinine [Mass ratio] 12.3 mg/mg 10-20 [facility] Basophil percentageOrdered B y: Amado Ramachandran on 09-24-2024 Basophils/100 WBC (Bld) 1.1 % High 0-[address] [facility] Bilirubin, totalOrdered By: Amado Ramachandran on 09-24-2024 Bilirubin [Mass/Vol] 0.85 mg/dL 0.00-1.30 [facility] CBC W/Diff, Automatedon 06-0 9-2024 Absolute Lymph 1.21 X10 3/uL Normal 0.83-4.51 [facility] Comment on above: Order Comment: Order Date: 01/13/24 Order Info: 0184-1 - CBCD Performed By: #### L 100.0100, L500.4100, L501.9985, L502.0250, L500.4050 #### [facility] [address] [place], [address] Absolute Neut 4.4 X10 3/uL Normal 2.0-7.7 [facility] Comment on above: Order Comment: Order Date: 01/13/24 Order Info: 0184- - CBCD Performed By: #### L 100.0100, L500.4100, L501.9985, L502.0250, L500.4050 #### [facility] [address] [place], [address] Basophils/100 WBC (Bld) 1.1 % High 0-1 [facility] Comment on above: Order Comment: Order Date: 01/13/24 Order Info: 0184- - CBCD Performed By: #### L 100.0100, L500.4100, L501.9985, L502.0250, L500.4050 #### [facility] [address] [place], [address] Eosinophils/100 WBC (Bld) 2.0 % Normal 0-5 [facility] Comment on above: Order Comment: Order Date: 01/13/24 Order Info: 0184-1 - CBCD Performed By: #### L 100.0100, L500.4100, L501.9985, L502.0250, L500.4050 #### [facility] [address] [place], [address] Erythrocyte distribution width (RBC) [Ratio] 13.6 % Normal 11.6-14.6 [facility] Comment on above: Order Comment: Order Date: 01/13/24 Order Info: 0184-1 - CBCD Performed By: #### L 100.0100, L500.4100, L501.9985, L502.0250, L500.4050 #### [facility] [address] [place], [address] Hematocrit (Bld) [Volume fraction] 43.8 % Normal 40-54 [facility] Comment on above: Order Comment: Order Date: 01/13/24 Order Info: 0184-1 - CBCD Performed By: #### L 100.0100, L500.4100, L501.9985, L502.0250, L500.4050 #### [facility] [address] [place], [address] Hemoglobin (Bld) [Mass/Vol] 15.0 g/dL Normal 13.0-16.5 [facility] Comment on above: Order Comment: Order Date: 01/13/24 Order Info: 0184-1 - CBCD Performed By: #### L 100.0100, L500.4100, L501.9985, L502.0250, L500.4050 #### [facility] [address] [place], [address] IG% 0.600 Normal 0.0-0.9 [facility] Comment on above: Order Comment: Order Date: 01/13/24 Order Info: 0184-1 - CBCD Result Comment: IG% - Immature Granulocytes (promyelocytes, myelocytes and metamyelocytes) > 1% indicates that a LEFT SHIFT is Present. Performed By: #### L 100.0100, L500.4100, L501.9985, L502.0250, L500.4050 #### [facility] [address] [place], [address] Lymphocytes/100 WBC (Bld) 18.7 % Low 19-41 [facility] Comment on above: Order Comment: Order Date: 01/13/24 Order Info: 0184-1 - CBCD Performed By: #### L 100.0100, L500.4100, L501.9985, L502.0250, L500.4050 #### [facility] [address] [place], [address] MCH (RBC) [Entitic mass] 31.2 pg Normal 27.0-32.0 [facility] Comment on above: Order Comment: Order Date: 01/13/24 Order Info: 018- - CBCD Performed By: #### L 100.0100, L500.4100, L501.9985, L502.0250, L500.4050 #### [facility] [address] [place], [address] MCHC (RBC) [Mass/Vol] 34.2 g/dL Normal 32-36 [facility] Comment on above: Order Comment: Order Date: 01/13/24 Order Info: 018- - CBCD Performed By: #### L 100.0100, L500.4100, L501.9985, L502.0250, L500.4050 #### [facility] [address] [place], [address] MCV (RBC) [Entitic vol] 91.1 fL Normal 80-[address] [facility] Comment on above: Order Comment: Order Date: 01/13/24 Order Info: 018- - CBCD Performed By: #### L 100.0100, L500.4100, L501.9985, L502.0250, L500.4050 #### [facility] [address] [place], [address] Monocytes/100 WBC (Bld) 9.4 % Normal 0-[address] [facility] Comment on above: Order Comment: Order Date: 01/13/24 Order Info: 018- - CBCD Performed By: #### L 100.0100, L500.4100, L501.9985, L502.0250, L500.4050 #### [facility] [address] [place], [address] Neutrophils/100 WBC (Bld) 68.2 % Normal 47-70 [facility] Comment on above: Order Comment: Order Date: 01/13/24 Order Info: 0184- - CBCD Performed By: #### L 100.0100, L500.4100, L501.9985, L502.0250, L500.4050 #### [facility] [address] [place], [address] Nucleated RBC (Bld) [#/Vol] 0 10*3/uL Normal 0-5 [facility] Comment on above: Order Comment: Order Date: 01/13/24 Order Info: 0184- - CBCD Performed By: #### L 100.0100, L500.4100, L501.9985, L502.0250, L500.4050 #### [facility] [address] [place], [address] Platelet mean volume (Bld) [Entitic vol] 11.6 fL Normal 6.2-12.0 [facility] Comment on above: Order Comment: Order Date: 01/13/24 Order Info: 0184- - CBCD Performed By: #### L 100.0100, L500.4100, L501.9985, L502.0250, L500.4050 #### [facility] [address] [place], [address] Platelets (Bld) [#/Vol] 160 10*3/uL Normal 150-450 [facility] Comment on above: Order Comment: Order Date: 01/13/24 Order Info: 018-1 - CBCD Performed By: #### L 100.0100, L500.4100, L501.9985, L502.0250, L500.4050 #### [facility] [address] [place], [address] RBC (Bld) [#/Vol] 4.81 10*6/uL Normal 4.6-6.2 [facility] Comment on above: Order Comment: Order Date: 01/13/24 Order Info: 0184-1 - CBCD Performed By: #### L 100.0100, L500.4100, L501.9985, L502.0250, L500.4050 #### [facility] [address] [place], [place], [address] RDW SD 45.4 fl High 35.1-43.9 [facility] Comment on above: Order Comment: Order Date: 01/13/24 Order Info: 0184-1 - CBCD Performed By: #### L 100.0100, L500.4100, L501.9985, L502.0250, L500.4050 #### [facility] [address] [place], [address] WBC (Bld) [#/Vol] 6.5 10*3/uL Normal 4.4-11.0 [facility] Comment on above: Order Comment: Order Date: 01/13/24 Order Info: 0184-1 - CBCD Performed By: #### L 100.0100, L500.4100, L501.9985, L502.0250, L500.4050 #### [facility] [address] [place], [place], [address] Calculated very low density lipoprotein (VLDL) cholesterol measurementOrdered By: Amado Ramachandran on 09-24-2024 Calculated very low density lipoprotein (VLDL) cholesterol measurement 24 mg/dL 5-40 [facility] Carbon dioxide, total [Moles /volume] in Central venous bloodOrdered By: Amado Ramachandran on 09-24-2024 CO2 [Moles/Vol] 23.9 mmol/L 21.0-32.0 [facility] Chloride assayOrdered By: Iris Ramachandran on 09-24-2024 Chloride [Moles/Vol] 105 mmol/L 98-108 [facility] Comprehensive Metabolic Prof ilon 06-09-2025 Albumin [Mass/Vol] 4.3 g/dL Normal 3.4-4.8 [facility] Comment on above: Order Comment: Order Date: 01/13/24 Order Info: 0184-1 - CBCD Performed By: #### L 100.0100, L500.4100, L501.9985, L502.0250, L500.4050 #### [facility] [address] [place], [address] Albumin/Globulin [Mass ratio] 1.6 {ratio} Normal 0.9-2.4 [facility] Comment on above: Order Comment: Order Date: 01/13/24 Order Info: 018- - CBCD Performed By: #### L 100.0100, L500.4100, L501.9985, L502.0250, L500.4050 #### [facility] [address] [place], [address] ALK PHOS 66 U/L Normal 40-129 [facility] Comment on above: Order Comment: Order Date: 01/13/24 Order Info: 018- - CBCD Performed By: #### L 100.0100, L500.4100, L501.9985, L502.0250, L500.4050 #### [facility] [address] [place], [address] ALT [Catalytic activity/Vol] 65 U/L High <=46 [facility] Comment on above: Order Comment: Order Date: 01/13/24 Order Info: 018-1 - CBCD Performed By: #### L 100.0100, L500.4100, L501.9985, L502.0250, L500.4050 #### [facility] [address] [place], [address] AST [Catalytic activity/Vol] 46 U/L High <=37 [facility] Comment on above: Order Comment: Order Date: 01/13/24 Order Info: 0184-1 - CBCD Performed By: #### L 100.0100, L500.4100, L501.9985, L502.0250, L500.4050 #### [facility] [address] [place], [address] Bilirubin [Mass/Vol] 0.85 mg/dL Normal 0.00-1.30 [facility] Comment on above: Order Comment: Order Date: 01/13/24 Order Info: 0184-1 - CBCD Performed By: #### L 100.0100, L500.4100, L501.9985, L502.0250, L500.4050 #### [facility] [address] [place], [address] BUN/CRE 12.3 RATIO Normal 10-20 [facility] Comment on above: Order Comment: Order Date: 01/13/24 Order Info: 018- - CBCD Performed By: #### L 100.0100, L500.4100, L501.9985, L502.0250, L500.4050 #### [facility] [address] [place], [address] Calcium [Mass/Vol] 9.4 mg/dL Normal 7.6-11.0 [facility] Comment on above: Order Comment: Order Date: 01/13/24 Order Info: 018- - CBCD Performed By: #### L 100.0100, L500.4100, L501.9985, L502.0250, L500.4050 #### [facility] [address] [place], [address] Chloride [Moles/Vol] 105 mmol/L Normal 98-108 [facility] Comment on above: Order Comment: Order Date: 01/13/24 Order Info: 018-1 - CBCD Performed By: #### L 100.0100, L500.4100, L501.9985, L502.0250, L500.4050 #### [facility] [address] [place], [address] CO2 [Moles/Vol] 23.9 mmol/L Normal 21.0-32.0 [facility] Comment on above: Order Comment: Order Date: 01/13/24 Order Info: 018- - CBCD Performed By: #### L 100.0100, L500.4100, L501.9985, L502.0250, L500.4050 #### [facility] [address] [place], [address] Creatinine [Mass/Vol] 1.19 mg/dL Normal 0.70-1.20 [facility] Comment on above: Order Comment: Order Date: 01/13/24 Order Info: 01807-17 - CBCD Performed By: #### L 100.0100, L500.4100, L501.9985, L502.0250, L500.4050 #### [facility] [address] [place], [address] GAP 11 Normal 5-15 [facility] Comment on above: Order Comment: Order Date: 01/13/24 Order Info: 01807-17 - CBCD Performed By: #### L 100.0100, L500.4100, L501.9985, L502.0250, L500.4050 #### [facility] [address] [place], [address] GFR/1.73 sq M.predicted among non-blacks MDRD (S/P/Bld) [Vol rate/Area] 67 mL/min/{1.73_m2} Normal >60 [facility] Comment on above: Order Comment: Order Date: 01/13/24 Order Info: 018- - CBCD Result Comment: mL/m in/1.73m2 CKD-EPI Creatinine Equation (2020) Performed By: #### L 100.0100, L500.4100, L501.9985, L502.0250, L500.4050 #### [facility] [address] [place], [address] Globulin (S) [Mass/Vol] 2.7 g/dL Normal 2.2-4.2 [facility] Comment on above: Order Comment: Order Date: 01/13/24 Order Info: 0184-1 - CBCD Performed By: #### L 100.0100, L500.4100, L501.9985, L502.0250, L500.4050 #### [facility] [address] [place], [address] Glucose [Mass/Vol] 146 mg/dL High 70-99 [facility] Comment on above: Order Comment: Order Date: 01/13/24 Order Info: 0184- - CBCD Performed By: #### L 100.0100, L500.4100, L501.9985, L502.0250, L500.4050 #### [facility] [address] [place], [address] Potassium [Moles/Vol] 4.4 mmol/L Normal 3.3-5.1 [facility] Comment on above: Order Comment: Order Date: 01/13/24 Order Info: 0184-1 - CBCD Performed By: #### L 100.0100, L500.4100, L501.9985, L502.0250, L500.4050 #### [facility] [address] [place], [address] Sodium [Moles/Vol] 140 mmol/L Normal 133-145 [facility] Comment on above: Order Comment: Order Date: 01/13/24 Order Info: 0184-1 - CBCD Performed By: #### L 100.0100, L500.4100, L501.9985, L502.0250, L500.4050 #### [facility] [address] [place], [address] T PROT 6.9 g/dL Normal 5.9-8.4 [facility] Comment on above: Order Comment: Order Date: 01/13/24 Order Info: 0184-1 - CBCD Performed By: #### L 100.0100, L500.4100, L501.9985, L502.0250, L500.4050 #### [facility] [address] [place], [place], [address] Urea nitrogen [Mass/Vol] 15 mg/dL Normal 4-19 [facility] Comment on above: Order Comment: Order Date: 01/13/24 Order Info: 0184-1 - CBCD Performed By: #### L 100.0100, L500.4100, L501.9985, L502.0250, L500.4050 #### [facility] [address] [place], [place], [address] Eosinophil percentageOrdered By: Amado Ramachandran on 09-24-2024 Eosinophils/100 WBC (Bld) 2.0 % 0-5 [facility] Erythrocyte distribution wid th ratioOrdered By: Amado Ramachandran on 09-24-2024 Erythrocyte distribution width (RBC) [Ratio] 13.6 % 11.6-14.6 [facility] Erythrocyte distribution wid th standard deviationOrdered By: Amado Ramachandran on 09-24-2024 Erythrocyte distribution width (RBC) [Ratio] 45.4 fl High 35.1-43.9 [facility] Glomerular filtration rate ( GFR) estimation/1.73 sq m using serum, plasma, or whole bOrdered By: Amado Ramachandran on 09-24-2024 GFR/1.73 sq M.predicted among non-blacks MDRD (S/P/Bld) [Vol rate/Area] 67 mL/min/{1.73_m2} >60 [facility] Comment on above: mL/min/1.73m2 CKD-EP I Creatinine Equation (2020) Hematocrit Auto (Bld) [Volum e fraction]Ordered By: Amado Ramachandran on 09-24-2024 Hematocrit (Bld) [Volume fraction] 43.8 % 40-54 [facility] Hemoglobin A1con 09-24-2024 HbA1c (Bld) [Mass fraction] 7.0 % High <=5.6 [facility] Comment on above: Order Comment: Order Date: 01/13/24 Order Info: 0184-1 - CBCD Result Comment: Norm al < 5.7 % Prediabetic 5.7 - 6.4 % Diabetic >or= 6.5 % Please note range changes. Performed By: #### L 100.0100, L500.4100, L501.9985, L502.0250, L500.4050 #### [facility] [address] [place], [place], [address] Hemoglobin A1c percentageOrd ered By: Amado Ramachandran on 09-24-2024 HbA1c (Bld) [Mass fraction] 7.0 % High <5.7 [facility] Comment on above: Normal < 5.7 % Predi abetic 5.7 - 6.4 % Diabetic >or= 6.5 % Please note range changes. Hemoglobin measurementOrdere d By: Amado Ramachandran on 09-24-2024 Hemoglobin (Bld) [Mass/Vol] 15.0 g/dL 13.0-16.5 [facility] Immature granulocytes/100 WB C Auto (Bld)Ordered By: Amado Ramachandran on 09-24-2024 Immature granulocytes/100 WBC (Bld) 0.600 % 0.0-0.9 [facility] Comment on above: IG% - Immature Granu locytes (promyelocytes, myelocytes and metamyelocytes) > 1% indicates that a LEFT SHIFT is Present. LDL calc ser/plasOrdered By: Amado Ramachandran on 09-24-2024 Cholesterol in LDL [Mass/Vol] 80 mg/dL [facility] Comment on above: Ocxoyrzlwp=846-698 m g/dL & Higher Shpe=744 mg/dL or greater Laboratory - Chemistry and C hemistry - challengeOrdered By: Amado Ramachandran on 09-24-2024 AST [Catalytic activity/Vol] 46 U/L High <38 [facility] Lipid Profileon 09-24-2024 CHOL:HDL 4.13 Normal [facility] Comment on above: Order Comment: Order Date: 01/13/24 Order Info: 0184-1 - CBCD Performed By: #### L 100.0100, L500.4100, L501.9985, L502.0250, L500.4050 #### [facility] [address] [place], [address] Cholesterol [Mass/Vol] 137 mg/dL Normal <=200 [facility] Comment on above: Order Comment: Order Date: 01/13/24 Order Info: 0184-1 - CBCD Result Comment: Chol esterol level, Desirable <200 mg/dL Borderline high cholesterol 200-239 mg/dL High cholesterol >=240 mg/dL Recommendations of the NCEP Adult Treatment Panel for the following risk-cutoff thresholds for the [place] population. Performed By: #### L 100.0100, L500.4100, L501.9985, L502.0250, L500.4050 #### [facility] [address] [place], [address] Cholesterol in HDL [Mass/Vol] 33 mg/dL Low [facility] Comment on above: Order Comment: Order Date: 01/13/24 Order Info: 0184- - CBCD Result Comment: Mariya onal Cholesterol Education Program (NCEP) guidelines: <40 mg/dL: Low HDL-cholesterol (major risk factor for CHD) >= 60 mg/dL: High HDL-cholesterol (negative risk factor for CHD) HDL-cholesterol is affected by a number of factors, e.g. smoking, exercise, hormones, sex and age. Performed By: #### L 100.0100, L500.4100, L501.9985, L502.0250, L500.4050 #### [facility] [address] [place], [address] Cholesterol in LDL [Mass/Vol] 80 mg/dL Normal [facility] Comment on above: Order Comment: Order Date: 01/13/24 Order Info: 0184-1 - CBCD Result Comment: Bord oasimc=336-443 mg/dL Higher Kzir=896 mg/dL or greater Performed By: #### L 100.0100, L500.4100, L501.9985, L502.0250, L500.4050 #### [facility] [address] [place], [place], [address] Cholesterol in VLDL [Mass/Vol] 24 mg/dL Normal 5-40 [facility] Comment on above: Order Comment: Order Date: 01/13/24 Order Info: 0184-1 - CBCD Performed By: #### L 100.0100, L500.4100, L501.9985, L502.0250, L500.4050 #### [facility] [address] [place], [address] Triglyceride [Mass/Vol] 118 mg/dL Normal [facility] Comment on above: Order Comment: Order Date: 01/13/24 Order Info: 0184-1 - CBCD Result Comment: The drugs N-Acetylcysteine and Metamizole may falsely depress this assay. Normal range: <150 mg/dL Borderline High: 150-199 mg/dL High: 200-499 mg/dL Very High: >500 mg/dL Performed By: #### L 100.0100, L500.4100, L501.9985, L502.0250, L500.4050 #### [facility] [address] [place], [place], [id number] MCV (mean corpuscular volume ) determinationOrdered By: Amado Ramachandran on 09-24-2024 MCV (RBC) [Entitic vol] 91.1 fL 80-94 [facility] Mean corpuscular hemoglobin (MCH) determinationOrdered By: Amado Ramachandran on 09-24-2024 MCH (RBC) [Entitic mass] 31.2 pg 27.0-32.0 [facility] Mean corpuscular hemoglobin concentration (MCHC) determinationOrdered By: Amado Ramachandran on 09-24-2024 MCHC (RBC) [Mass/Vol] 34.2 g/dL 32-36 [facility] Mean platelet volume determi nationOrdered By: Amado Ramachandran on 09-24-2024 Platelet mean volume (Bld) [Entitic vol] 11.6 fL 6.2-12.0 [facility] Microalb:Creat Ratio,Random URon 09-24-2024 Creatinine [Mass/Vol] 273.00 mg/dL High 39.00-259.00 [facility] Comment on above: Order Comment: Order Date: 01/13/24 Order Info: 0184-1 - CBCD Performed By: #### L 100.0100, L500.4100, L501.9985, L502.0250, L500.4050 #### [facility] [address] [place], [place], [id number] [phone] MALB:CREAT UNABLE TO CALCULATE Normal [facility] Comment on above: Order Comment: Order Date: 01/13/24 Order Info: 018- - CBCD Performed By: #### L 100.0100, L500.4100, L501.9985, L502.0250, L500.4050 #### [facility] [address] [place], [place], [id number] MICROALBUMIN,UR < 12.0 Normal NO RANGE EST. [facility] Comment on above: Order Comment: Order Date: 01/13/24 Order Info: 0184- - CBCD Performed By: #### L 100.0100, L500.4100, L501.9985, L502.0250, L500.4050 #### [facility] [address] [place], [place], [id number] Microalbumin/creat ratio urO rdered By: Amado Ramachandran on 09-24-2024 Urine microalbumin/creatinine ratio measurement UNABLE TO CALCULATE mg/g CRE [facility] Monocyte percentageOrdered B y: Amado Ramachandran on 09-24-2024 Monocytes/100 WBC (Bld) 9.4 % 0-[address] [facility] Neutrophil percentageOrdered By: Amado Ramachandran on 09-24-2024 Neutrophils/100 WBC (Bld) 68.2 % 47-70 [facility] Nucleated red blood cell per centageOrdered By: Amado Ramachandran on 09-24-2024 Nucleated RBC/100 WBC (Bld) [Ratio] 0 % 0-5 [facility] Platelet countOrdered By: Iris Ramachandran on 09-24-2024 Platelets (Bld) [#/Vol] 160 10*3/uL 150-450 [facility] Potassium measurement (mass/ volume)Ordered By: Amado Ramachandran on 09-24-2024 Potassium (Unsp spec) [Mass/Vol] 4.4 mmol/L 3.3-5.1 [facility] RBC Auto (Bld) [#/Vol]Ordere d By: Amado Ramachandran on 09-24-2024 RBC (Bld) [#/Vol] 4.81 10*6/uL 4.6-6.2 [facility] Random urine creatinine luis urement (mass/volume)Ordered By: Amado Ramachandran on 09-24-2024 Creatinine Unsp time (U) [Mass/Vol] 273.00 mg/dL High 39.00-259.00 [facility] Screening total cholesterol/ high density lipoprotein (HDL) cholesterol ratioOrdered By: Amado Ramachandran on 09-24-2024 Cholesterol.total/Choles terol in HDL [Mass ratio] 4.13 {ratio} [facility] Serum creatinine measurement (mass/volume)Ordered By: Amado Ramachandran on 09-24-2024 Creatinine [Mass/Vol] 1.19 mg/dL 0.70-1.20 [facility] Serum globulin measurementOr dered By: Amado Ramachandran on 09-24-2024 Globulin (S) [Mass/Vol] 2.7 g/dL 2.2-4.[address] [facility] Serum glucose measurement (m ass/volume)Ordered By: Amado Ramachandran on 09-24-2024 Glucose [Mass/Vol] 146 mg/dL High 70-99 [facility] Serum or plasma alanine bello otransferase (ALT) measurementOrdered By: Amado Ramachandran on 09-24-2024 ALT [Catalytic activity/Vol] 65 U/L High <47 [facility] Serum or plasma albumin luis urement (mass/volume)Ordered By: Amado Ramachandran on 09-24-2024 Albumin [Mass/Vol] 4.3 g/dL 3.4-4.8 [facility] Serum or plasma albumin/glob ulin mass ratioOrdered By: Amado Ramachandran on 09-24-2024 Albumin/Globulin [Mass ratio] 1.6 {ratio} 0.9-2.4 [facility] Serum or plasma alkaline marilu sphatase measurementOrdered By: Amado Ramachandran on 09-24-2024 ALP [Catalytic activity/Vol] 66 U/L 40-129 [facility] Serum or plasma calcium luis urement (mass/volume)Ordered By: Amado Ramachandran on 09-24-2024 Calcium [Mass/Vol] 9.4 mg/dL 7.6-11.0 [facility] Serum or plasma cholesterol in HDL measurement (mass/volume)Ordered By: Amado Ramachandran on 09-24-2024 Cholesterol in HDL [Mass/Vol] 33 mg/dL Low >40 [facility] Comment on above: National Cholesterol Education Program (NCEP) guidelines:<40 mg/dL: Low HDL-cholesterol (major risk factor for CHD)>= 60 mg/dL: High HDL-cholesterol (negative risk factor for CHD)HDL-cholesterol is affected by a number of factors, e.g. smoking, exercise, hormones, sex and age. Serum or plasma cholesterol measurement (mass/volume)Ordered By: Amado Ramachandran on 09-24-2024 Cholesterol [Mass/Vol] 137 mg/dL <201 [facility] Comment on above: Cholesterol level, D esirable <200 mg/dLBorderline high cholesterol 200-239 mg/dLHigh cholesterol >=240 mg/dLRecommendations of the NCEP Adult Treatment Panel for the following risk-cutoff thresholds for the [place] population. Serum or plasma urea nitroge n measurement (mass/volume)Ordered By: Amado Ramachandran on 09-24-2024 Urea nitrogen [Mass/Vol] 15 mg/dL 4-19 [facility] Sodium levelOrdered By: Amado Ramachandran on 09-24-2024 Sodium [Moles/Vol] 140 mmol/L 133-145 [facility] Total proteinOrdered By: Isidro Ramachandran on 09-24-2024 Protein [Mass/Vol] 6.9 g/dL 5.9-8.4 [facility] Triglycerides measurementOrd ered By: Amado Ramachandran on 09-24-2024 Triglyceride [Mass/Vol] 118 mg/dL <[address] [facility] Comment on above: The drugs N-Acetylcy steine and Metamizole may falsely depress this assay. Normal range: <150 mg/dLBorderline High: 150-199 mg/dLHigh: 200-499 mg/dLVery High: >500 mg/dL Urine albumin measurement wi detection limit of 20 mg/L or less (mass/volume)Ordered By: Amado Ramachandran on 09-24-2024 Albumin DL <= 20 mg/L (U) [Mass/Vol] < 12.0 mg/L NO RANGE EST. [facility] Vitamin D,25 Hydroxyon 09-24 Vitamin D 25-OH 43.9 ng/mL Normal 30-100 [facility] Comment on above: Order Comment: Order Date: 05/31/24 Order Info: 0786-1 - CMP Order Info: [id number] - LIPID Result Comment: [place] min D Status Deficiency: <20 ng/mL (50nmol/L) Insufficiency: 20-30 ng/mL (50-75 nmol/L) Sufficiency: 30-100 ng/mL (75-250 nmol/L) Toxicity: >100 ng/mL (>250 nmol/L) Performed By: #### L 506.1001 #### [facility] [address] [place], [place], [id number] White blood cell (WBC) count Ordered By: Amado Ramachandran on 09-24-2024 WBC (Bld) [#/Vol] 6.5 10*3/uL 4.4-11.0 [facility] CBC W/Diff, Automatedon -0 Absolute Lymph 1.13 X10 3/uL Normal 0.83-4.51 [facility] Comment on above: Order Comment: Order Date: 01/13/24 Order Info: 0184-1 - CBCD Performed By: #### L 100.0100, L500.4100, L501.9985, L502.0250, L500.4050 #### [facility] [address] [place], [place], [address] Absolute Neut 6.9 X10 3/uL Normal 2.0-7.7 [facility] Comment on above: Order Comment: Order Date: 01/13/24 Order Info: 0184-1 - CBCD Performed By: #### L 100.0100, L500.4100, L501.9985, L502.0250, L500.4050 #### [facility] [address] [place], [address] Basophils/100 WBC (Bld) 0.6 % Normal 0-[address] [facility] Comment on above: Order Comment: Order Date: 01/13/24 Order Info: 0184-1 - CBCD Performed By: #### L 100.0100, L500.4100, L501.9985, L502.0250, L500.4050 #### [facility] [address] [place], [address] Eosinophils/100 WBC (Bld) 1.7 % Normal 0-5 [facility] Comment on above: Order Comment: Order Date: 01/13/24 Order Info: 0184-1 - CBCD Performed By: #### L 100.0100, L500.4100, L501.9985, L502.0250, L500.4050 #### [facility] [address] [place], [address] Erythrocyte distribution width (RBC) [Ratio] 13.5 % Normal 11.6-14.6 [facility] Comment on above: Order Comment: Order Date: 01/13/24 Order Info: 0184-1 - CBCD Performed By: #### L 100.0100, L500.4100, L501.9985, L502.0250, L500.4050 #### [facility] [address] [place], [address] Hematocrit (Bld) [Volume fraction] 46.0 % Normal 40-54 [facility] Comment on above: Order Comment: Order Date: 01/13/24 Order Info: 0184-1 - CBCD Performed By: #### L 100.0100, L500.4100, L501.9985, L502.0250, L500.4050 #### [facility] [address] [place], [address] Hemoglobin (Bld) [Mass/Vol] 15.2 g/dL Normal 13.0-16.5 [facility] Comment on above: Order Comment: Order Date: 01/13/24 Order Info: [id number] - CBCD Performed By: #### L 100.0100, L500.4100, L501.9985, L502.0250, L500.4050 #### [facility] [address] [place], [address] IG% 1.000 High 0.0-0.9 [facility] Comment on above: Order Comment: Order Date: 01/13/24 Order Info: [id number] - CBCD Result Comment: IG% - Immature Granulocytes (promyelocytes, myelocytes and metamyelocytes) > 1% indicates that a LEFT SHIFT is Present. Performed By: #### L 100.0100, L500.4100, L501.9985, L502.0250, L500.4050 #### [facility] [address] [place], [address] Lymphocytes/100 WBC (Bld) 12.5 % Low 19-41 [facility] Comment on above: Order Comment: Order Date: 01/13/24 Order Info: [id number] - CBCD Performed By: #### L 100.0100, L500.4100, L501.9985, L502.0250, L500.4050 #### [facility] [address] [place], [address] MCH (RBC) [Entitic mass] 31.6 pg Normal 27.0-32.0 [facility] Comment on above: Order Comment: Order Date: 01/13/24 Order Info: [id number] - CBCD Performed By: #### L 100.0100, L500.4100, L501.9985, L502.0250, L500.4050 #### [facility] [address] [place], [address] MCHC (RBC) [Mass/Vol] 33.0 g/dL Normal 32-36 [facility] Comment on above: Order Comment: Order Date: 01/13/24 Order Info: 018- - CBCD Performed By: #### L 100.0100, L500.4100, L501.9985, L502.0250, L500.4050 #### [facility] [address] [place], [address] MCV (RBC) [Entitic vol] 95.6 fL High 80-94 [facility] Comment on above: Order Comment: Order Date: 01/13/24 Order Info: 183- - CBCD Performed By: #### L 100.0100, L500.4100, L501.9985, L502.0250, L500.4050 #### [facility] [address] [place], [address] Monocytes/100 WBC (Bld) 8.1 % Normal 0-10 [facility] Comment on above: Order Comment: Order Date: 01/13/24 Order Info: 183- - CBCD Performed By: #### L 100.0100, L500.4100, L501.9985, L502.0250, L500.4050 #### [facility] [address] [place], [address] Neutrophils/100 WBC (Bld) 76.1 % High 47-70 [facility] Comment on above: Order Comment: Order Date: 01/13/24 Order Info: 018- - CBCD Performed By: #### L 100.0100, L500.4100, L501.9985, L502.0250, L500.4050 #### [facility] [address] [place], [address] Nucleated RBC (Bld) [#/Vol] 0 10*3/uL Normal 0-5 [facility] Comment on above: Order Comment: Order Date: 01/13/24 Order Info: 0184-1 - CBCD Performed By: #### L 100.0100, L500.4100, L501.9985, L502.0250, L500.4050 #### [facility] [address] [place], [address] Platelet mean volume (Bld) [Entitic vol] 10.5 fL Normal 6.2-12.0 [facility] Comment on above: Order Comment: Order Date: 01/13/24 Order Info: 0184-1 - CBCD Performed By: #### L 100.0100, L500.4100, L501.9985, L502.0250, L500.4050 #### [facility] [address] [place], [address] Platelets (Bld) [#/Vol] 194 10*3/uL Normal 150-450 [facility] Comment on above: Order Comment: Order Date: 01/13/24 Order Info: 0184- - CBCD Performed By: #### L 100.0100, L500.4100, L501.9985, L502.0250, L500.4050 #### [facility] [address] [place], [address] RBC (Bld) [#/Vol] 4.81 10*6/uL Normal 4.6-6.2 [facility] Comment on above: Order Comment: Order Date: 01/13/24 Order Info: 0184-1 - CBCD Performed By: #### L 100.0100, L500.4100, L501.9985, L502.0250, L500.4050 #### [facility] [address] [place], [address] RDW SD 47.4 fl High 35.1-43.9 [facility] Comment on above: Order Comment: Order Date: 01/13/24 Order Info: 0184-1 - CBCD Performed By: #### L 100.0100, L500.4100, L501.9985, L502.0250, L500.4050 #### [facility] [address] [place], [address] WBC (Bld) [#/Vol] 9.1 10*3/uL Normal 4.4-11.0 [facility] Comment on above: Order Comment: Order Date: 01/13/24 Order Info: 0184-1 - CBCD Performed By: #### L 100.0100, L500.4100, L501.9985, L502.0250, L500.4050 #### [facility] [address] [place], [address] Chest PA and Lateralon 04-20 Chest PA and Lateral [facility] Services [address] [place] [address] Chest PA and Lateral MR#: [id number] Acct: [id number] Name: CECILIA BRAXTON Jr. Rep #: [id number] : 1960 M 63 From: Jose Antonio Rock MD PCP: Dr. Amado Ramachandran MD Status: [facility] Study: Chest PA and Lateral Date of Exam: 04/20/24 Exam# [id number] Ordering Dr: Amado Ramachandran MD [id number] STUDY: X-RAY CHEST REASON FOR EXAM: Male, 63 years old. BRONCHITIS TECHNIQUE: PA and lateral views of the chest. COMPARISON: October 02, 2021 FINDINGS: The lungs are clear. There is stable elevation of the right hemidiaphragm. There is no demonstrated pleural abnormality. Normal size heart. Normal mediastinum and ynes. Normal visualized pulmonary arteries. Normal visualized aortic arch and descending thoracic aorta. There are diffuse degenerative changes of the visualized thoracic spine. Normal visualized ribs, clavicles, and shoulders. There is no demonstrated abnormality of the visualized soft tissue structures of the upper abdomen. RAD/Chest PA and Lateral IMPRESSION: Degenerative changes, as described above. No demonstrated acute cardiopulmonary process. Electronically Signed: Jose Antonio Rock MD at 11:41 EST , CC: Dr. Amado Ramachandran MD Cow Trimmer: Signed Normal [facility] Comprehensive Metabolic Prof ilon 04-20-2024 Albumin [Mass/Vol] 3.7 g/dL Normal 3.2-5.0 [facility] Comment on above: Order Comment: Order Date: 01/13/24 Order Info: [id number] - CMP Order Info: [id number] - LIPID Performed By: #### L 100.0100, L500.4100, L501.9985, L502.0250, L500.4050 #### [facility] [address] [place], [place], [address] Albumin/Globulin [Mass ratio] 1.1 {ratio} Normal 0.9-2.4 [facility] Comment on above: Order Comment: Order Date: 01/13/24 Order Info: [id number] - CMP Order Info: [id number] - LIPID Performed By: #### L 100.0100, L500.4100, L501.9985, L502.0250, L500.4050 #### [facility] [address] [place], [address] ALK P 54 U/L Normal 45-117 [facility] Comment on above: Order Comment: Order Date: 01/13/24 Order Info: [id number] - CMP Order Info: [id number] - LIPID Performed By: #### L 100.0100, L500.4100, L501.9985, L502.0250, L500.4050 #### [facility] [address] [place], [address] ALT [Catalytic activity/Vol] 47 U/L Normal 16-61 [facility] Comment on above: Order Comment: Order Date: 01/13/24 Order Info: [id number] - CMP Order Info: [id number] - LIPID Performed By: #### L 100.0100, L500.4100, L501.9985, L502.0250, L500.4050 #### [facility] [address] [place], [address] AST [Catalytic activity/Vol] 21 U/L Normal 15-37 [facility] Comment on above: Order Comment: Order Date: 01/13/24 Order Info: 0786- - CMP Order Info: [id number] - LIPID Performed By: #### L 100.0100, L500.4100, L501.9985, L502.0250, L500.4050 #### [facility] [address] [place], [address] Bilirubin [Mass/Vol] 1.00 mg/dL Normal 0.20-1.00 [facility] Comment on above: Order Comment: Order Date: 01/13/24 Order Info: 0786- - CMP Order Info: [id number] - LIPID Result Comment: For patients on eltrombopag therapy, use of Dimension [place] TBIL is not recommended. Performed By: #### L 100.0100, L500.4100, L501.9985, L502.0250, L500.4050 #### [facility] [address] [place], [address] BUN/CRE 9.2 RATIO Low 10-20 [facility] Comment on above: Order Comment: Order Date: 01/13/24 Order Info: [id number] - CMP Order Info: [id number] - LIPID Performed By: #### L 100.0100, L500.4100, L501.9985, L502.0250, L500.4050 #### [facility] [address] [place], [address] CA,Total 9.2 mg/dL Normal 8.5-10.1 [facility] Comment on above: Order Comment: Order Date: 01/13/24 Order Info: [id number] - CMP Order Info: [id number] - LIPID Performed By: #### L 100.0100, L500.4100, L501.9985, L502.0250, L500.4050 #### [facility] [address] [place], [address] Chloride [Moles/Vol] 103 mmol/L Normal 98-107 [facility] Comment on above: Order Comment: Order Date: 01/13/24 Order Info: [id number] - CMP Order Info: [id number] - LIPID Performed By: #### L 100.0100, L500.4100, L501.9985, L502.0250, L500.4050 #### [facility] [address] [place], [address] CO2 [Moles/Vol] 30.0 mmol/L Normal 21.0-32.0 [facility] Comment on above: Order Comment: Order Date: 01/13/24 Order Info: [id number] - CMP Order Info: [id number] - LIPID Performed By: #### L 100.0100, L500.4100, L501.9985, L502.0250, L500.4050 #### [facility] [address] [place], [address] Creatinine [Mass/Vol] 1.09 mg/dL Normal 0.70-1.30 [facility] Comment on above: Order Comment: Order Date: 01/13/24 Order Info: [id number] - CMP Order Info: [id number] - LIPID Result Comment: The validity of the calculated GFR GFRAA in patients over 70 years has not been determined. Clinical correlation is essential. Performed By: #### L 100.0100, L500.4100, L501.9985, L502.0250, L500.4050 #### [facility] [address] [place], [address] EST GFR - AA 87 mL/min Normal >60 [facility] Comment on above: Order Comment: Order Date: 01/13/24 Order Info: 0786- - CMP Order Info: [id number] - LIPID Result Comment: Afri can [place] GFR Calc Performed By: #### L 100.0100, L500.4100, L501.9985, L502.0250, L500.4050 #### [facility] [address] [place], [place], [address] GAP 5 Normal 5-15 [facility] Comment on above: Order Comment: Order Date: 01/13/24 Order Info: [id number] - CMP Order Info: [id number] - LIPID Performed By: #### L 100.0100, L500.4100, L501.9985, L502.0250, L500.4050 #### [facility] [address] [place], [address] GFR/1.73 sq M.predicted among non-blacks MDRD (S/P/Bld) [Vol rate/Area] 72 mL/min/{1.73_m2} Normal >60 [facility] Comment on above: Order Comment: Order Date: 01/13/24 Order Info: 0786- - CMP Order Info: [id number] - LIPID Result Comment: Non- GFR Calc Performed By: #### L 100.0100, L500.4100, L501.9985, L502.0250, L500.4050 #### [facility] [address] [place], [address] Globulin (S) [Mass/Vol] 3.4 g/dL Normal 2.2-4.[address] [facility] Comment on above: Order Comment: Order Date: 01/13/24 Order Info: 0786- - CMP Order Info: [id number] - LIPID Performed By: #### L 100.0100, L500.4100, L501.9985, L502.0250, L500.4050 #### [facility] [address] [place], [address] Glucose [Mass/Vol] 202 mg/dL High 74-106 [facility] Comment on above: Order Comment: Order Date: 01/13/24 Order Info: [id number] - CMP Order Info: [id number] - LIPID Result Comment: Gluc ose result greater than or equal to 200 mg/dL suggests DIABETES MELLITUS per A.D.A. criteria. Performed By: #### L 100.0100, L500.4100, L501.9985, L502.0250, L500.4050 #### [facility] [address] [place], [address] Potassium [Moles/Vol] 3.7 mmol/L Normal 3.5-5.1 [facility] Comment on above: Order Comment: Order Date: 01/13/24 Order Info: [id number] - CMP Order Info: [id number] - LIPID Performed By: #### L 100.0100, L500.4100, L501.9985, L502.0250, L500.4050 #### [facility] [address] [place], [address] Sodium [Moles/Vol] 137 mmol/L Normal 136-145 [facility] Comment on above: Order Comment: Order Date: 01/13/24 Order Info: [id number] - CMP Order Info: [id number] - LIPID Performed By: #### L 100.0100, L500.4100, L501.9985, L502.0250, L500.4050 #### [facility] [address] [place], [address] T PROT 7.1 g/dL Normal 6.4-8.2 [facility] Comment on above: Order Comment: Order Date: 01/13/24 Order Info: [id number] - CMP Order Info: [id number] - LIPID Performed By: #### L 100.0100, L500.4100, L501.9985, L502.0250, L500.4050 #### [facility] [address] [place], [address] Urea nitrogen [Mass/Vol] 10 mg/dL Normal 7-18 [facility] Comment on above: Order Comment: Order Date: 01/13/24 Order Info: 0786- - CMP Order Info: [id number] - LIPID Performed By: #### L 100.0100, L500.4100, L501.9985, L502.0250, L500.4050 #### [facility] [address] [place], [address] Hemoglobin A1con 04-20-2024 HbA1c (Bld) [Mass fraction] 6.3 % High 3.8-5.6 [facility] Comment on above: Order Comment: Order Date: 01/13/24 Order Info: [id number] - A1C Result Comment: Norm al < 5.7 % Prediabetic 5.7 - 6.4 % Diabetic >or= 6.5 % Please note range changes. Performed By: #### L 100.0100, L500.4100, L501.9985, L502.0250, L500.4050 #### [facility] [address] [place], [address] Lipid Profileon 04-20-2024 Cholesterol [Mass/Vol] 137 mg/dL Normal 200 [facility] Comment on above: Order Comment: Order Date: 01/13/24 Order Info: 0786-1 - CMP Order Info: [id number] - LIPID Result Comment: <200 mg/dL Desirable 200-240 mg/dL Borderline >240 mg/dL High Risk Performed By: #### L 100.0100, L500.4100, L501.9985, L502.0250, L500.4050 #### [facility] [address] [place], [address] Cholesterol in HDL [Mass/Vol] 41 mg/dL Normal [facility] Comment on above: Order Comment: Order Date: 01/13/24 Order Info: 0786-1 - CMP Order Info: [id number] - LIPID Result Comment: The drugs N-Acetylcysteine and Metamizole may falsely depress this assay. Reference Range HDL <40 mg/dL Low HDL Cholesterol HDL >or= 60 mg/dL High HDL Cholesterol Performed By: #### L 100.0100, L500.4100, L501.9985, L502.0250, L500.4050 #### [facility] [address] [place], [address] Cholesterol in LDL [Mass/Vol] 77 mg/dL Normal 0-130 [facility] Comment on above: Order Comment: Order Date: 01/13/24 Order Info: 0786-1 - CMP Order Info: [id number] - LIPID Performed By: #### L 100.0100, L500.4100, L501.9985, L502.0250, L500.4050 #### [facility] [address] [place], [address] Cholesterol in VLDL [Mass/Vol] 19 mg/dL Normal 5-40 [facility] Comment on above: Order Comment: Order Date: 01/13/24 Order Info: 0786-1 - CMP Order Info: [id number] - LIPID Performed By: #### L 100.0100, L500.4100, L501.9985, L502.0250, L500.4050 #### [facility] [address] [place], [address] Triglyceride [Mass/Vol] 95 mg/dL Normal [facility] Comment on above: Order Comment: Order Date: 01/13/24 Order Info: 0786-1 - CMP Order Info: [id number] - LIPID Result Comment: The drugs N-Acetylcysteine and Metamizole may falsely depress this assay. Serum Triglycerides Reference Interval Normal <150 mg/dL Borderline high 150 - 199 mg/dL High 200 - 499 mg/dL Very High > or = 500 mg/dL Performed By: #### L 100.0100, L500.4100, L501.9985, L502.0250, L500.4050 #### [facility] [address] [place], [address] Microalb:Creat Ratio,Random URon 04-20-2024 Creatinine [Mass/Vol] 261.00 mg/dL Normal NO RAN GE EST. [facility] Comment on above: Order Comment: Order Date: 01/13/24 Order Info: [id number] - MIACRE Performed By: #### L 100.0100, L500.4100, L501.9985, L502.0250, L500.4050 #### [facility] [address] [place], [address] MALB:CRE 13.0 mg/g CRE Normal <30 mg/g CRE [facility] Comment on above: Order Comment: Order Date: 01/13/24 Order Info: [id number] - MIACRE Performed By: #### L 100.0100, L500.4100, L501.9985, L502.0250, L500.4050 #### [facility] [address] [place], [address] MICROALBUMIN,UR 33.8 mg/L Normal NO RANGE EST. [facility] Comment on above: Order Comment: Order Date: 01/13/24 Order Info: [id number] - MIACRE Performed By: #### L 100.0100, L500.4100, L501.9985, L502.0250, L500.4050 #### [facility] [address] [place], [address] CBC W/Diff, Automatedon 12-18 Absolute Lymph 1.30 X10 3/uL Normal 0.83-4.51 [facility] Comment on above: Order Comment: Order Date: 09/28/23 Order Info: 0184- - CBCD Performed By: #### L 501.9985, L100.0100, L501.9910, L500.4050, L500.4100 #### [facility] [address] [place], [address] Absolute Neut 3.8 X10 3/uL Normal 2.0-7.7 [facility] Comment on above: Order Comment: Order Date: 09/28/23 Order Info: 018- - CBCD Performed By: #### L 501.9985, L100.0100, L501.9910, L500.4050, L500.4100 #### [facility] [address] [place], [address] Basophils/100 WBC (Bld) 0.8 % Normal 0-[address] [facility] Comment on above: Order Comment: Order Date: 09/28/23 Order Info: 018- - CBCD Performed By: #### L 501.9985, L100.0100, L501.9910, L500.4050, L500.4100 #### [facility] [address] [place], [address] Eosinophils/100 WBC (Bld) 2.3 % Normal 0-5 [facility] Comment on above: Order Comment: Order Date: 09/28/23 Order Info: 018- - CBCD Performed By: #### L 501.9985, L100.0100, L501.9910, L500.4050, L500.4100 #### [facility] [address] [place], [address] Erythrocyte distribution width (RBC) [Ratio] 12.8 % Normal 11.6-14.6 [facility] Comment on above: Order Comment: Order Date: 09/28/23 Order Info: 018- - CBCD Performed By: #### L 501.9985, L100.0100, L501.9910, L500.4050, L500.4100 #### [facility] [address] [place], [address] Hematocrit (Bld) [Volume fraction] 44.1 % Normal 40-54 [facility] Comment on above: Order Comment: Order Date: 09/28/23 Order Info: 0184-1 - CBCD Performed By: #### L 501.9985, L100.0100, L501.9910, L500.4050, L500.4100 #### [facility] [address] [place], [address] Hemoglobin (Bld) [Mass/Vol] 14.8 g/dL Normal 13.0-16.5 [facility] Comment on above: Order Comment: Order Date: 09/28/23 Order Info: 0184-1 - CBCD Performed By: #### L 501.9985, L100.0100, L501.9910, L500.4050, L500.4100 #### [facility] [address] [place], [address] IG% 0.700 Normal 0.0-0.9 [facility] Comment on above: Order Comment: Order Date: 09/28/23 Order Info: 0184-1 - CBCD Result Comment: IG% - Immature Granulocytes (promyelocytes, myelocytes and metamyelocytes) > 1% indicates that a LEFT SHIFT is Present. Performed By: #### L 501.9985, L100.0100, L501.9910, L500.4050, L500.4100 #### [facility] [address] [place], [address] Lymphocytes/100 WBC (Bld) 21.6 % Normal 19-41 [facility] Comment on above: Order Comment: Order Date: 09/28/23 Order Info: 0184-1 - CBCD Performed By: #### L 501.9985, L100.0100, L501.9910, L500.4050, L500.4100 #### [facility] [address] [place], [address] MCH (RBC) [Entitic mass] 31.5 pg Normal 27.0-32.0 [facility] Comment on above: Order Comment: Order Date: 09/28/23 Order Info: 0184-1 - CBCD Performed By: #### L 501.9985, L100.0100, L501.9910, L500.4050, L500.4100 #### [facility] [address] [place], [address] MCHC (RBC) [Mass/Vol] 33.6 g/dL Normal 32-36 [facility] Comment on above: Order Comment: Order Date: 09/28/23 Order Info: 0184- - CBCD Performed By: #### L 501.9985, L100.0100, L501.9910, L500.4050, L500.4100 #### [facility] [address] [place], [address] MCV (RBC) [Entitic vol] 93.8 fL Normal 80-94 [facility] Comment on above: Order Comment: Order Date: 09/28/23 Order Info: 0184- - CBCD Performed By: #### L 501.9985, L100.0100, L501.9910, L500.4050, L500.4100 #### [facility] [address] [place], [address] Monocytes/100 WBC (Bld) 10.9 % High 0-10 [facility] Comment on above: Order Comment: Order Date: 09/28/23 Order Info: 0184- - CBCD Performed By: #### L 501.9985, L100.0100, L501.9910, L500.4050, L500.4100 #### [facility] [address] [place], [address] Neutrophils/100 WBC (Bld) 63.7 % Normal 47-70 [facility] Comment on above: Order Comment: Order Date: 09/28/23 Order Info: 0184- - CBCD Performed By: #### L 501.9985, L100.0100, L501.9910, L500.4050, L500.4100 #### [facility] [address] [place], [address] Nucleated RBC (Bld) [#/Vol] 0 10*3/uL Normal 0-5 [facility] Comment on above: Order Comment: Order Date: 09/28/23 Order Info: 0184- - CBCD Performed By: #### L 501.9985, L100.0100, L501.9910, L500.4050, L500.4100 #### [facility] [address] [place], [address] Platelet mean volume (Bld) [Entitic vol] 11.3 fL Normal 6.2-12.0 [facility] Comment on above: Order Comment: Order Date: 09/28/23 Order Info: 0184- - CBCD Performed By: #### L 501.9985, L100.0100, L501.9910, L500.4050, L500.4100 #### [facility] [address] [facility] [place], [address] Platelets (Bld) [#/Vol] 175 10*3/uL Normal 150-450 [facility] Comment on above: Order Comment: Order Date: 09/28/23 Order Info: 0184- - CBCD Performed By: #### L 501.9985, L100.0100, L501.9910, L500.4050, L500.4100 #### [facility] [address] [place], [address] RBC (Bld) [#/Vol] 4.70 10*6/uL Normal 4.6-6.2 [facility] Comment on above: Order Comment: Order Date: 09/28/23 Order Info: 0184- - CBCD Performed By: #### L 501.9985, L100.0100, L501.9910, L500.4050, L500.4100 #### [facility] [address] [place], [address] RDW SD 44.3 fl High 35.1-43.9 [facility] Comment on above: Order Comment: Order Date: 09/28/23 Order Info: 0184-1 - CBCD Performed By: #### L 501.9985, L100.0100, L501.9910, L500.4050, L500.4100 #### [facility] [address] [place], [place], [id number] WBC (Bld) [#/Vol] 6.0 10*3/uL Normal 4.4-11.0 [facility] Comment on above: Order Comment: Order Date: 09/28/23 Order Info: 0184-1 - CBCD Performed By: #### L 501.9985, L100.0100, L501.9910, L500.4050, L500.4100 #### [facility] [address] [place], [place], [id number] Comprehensive Metabolic Prof [facility] 01-11-2024 Albumin [Mass/Vol] 3.8 g/dL Normal 3.2-5.0 [facility] Comment on above: Order Comment: Order Date: 09/28/23 Order Info: 0786-1 - CMP Order Info: [id number] - LIPID Order Info: [id number] - PSA Performed By: #### L 501.9985, L100.0100, L501.9910, L500.4050, L500.4100 #### [facility] [address] [place], [address] Albumin/Globulin [Mass ratio] 1.1 {ratio} Normal 0.9-2.4 [facility] Comment on above: Order Comment: Order Date: 09/28/23 Order Info: 0786-1 - CMP Order Info: [id number] - LIPID Order Info: 2857 - PSA Performed By: #### L 501.9985, L100.0100, L501.9910, L500.4050, L500.4100 #### [facility] [address] [place], [address] ALK P 63 U/L Normal 45-117 [facility] Comment on above: Order Comment: Order Date: 09/28/23 Order Info: 0786-1 - CMP Order Info: [id number] - LIPID Order Info: [id number] - PSA Performed By: #### L 501.9985, L100.0100, L501.9910, L500.4050, L500.4100 #### [facility] [address] [facility] [place], [address] ALT [Catalytic activity/Vol] 61 U/L Normal 16-61 [facility] Comment on above: Order Comment: Order Date: 09/28/23 Order Info: 0786- - CMP Order Info: [id number] - LIPID Order Info: 2857 - PSA Performed By: #### L 501.9985, L100.0100, L501.9910, L500.4050, L500.4100 #### [facility] [address] [facility] [place], [address] AST [Catalytic activity/Vol] 29 U/L Normal 15-37 [facility] Comment on above: Order Comment: Order Date: 09/28/23 Order Info: 0786-1 - CMP Order Info: [id number] - LIPID Order Info: [id number] - PSA Performed By: #### L 501.9985, L100.0100, L501.9910, L500.4050, L500.4100 #### [facility] [address] [place], [address] Bilirubin [Mass/Vol] 0.70 mg/dL Normal 0.20-1.00 [facility] Comment on above: Order Comment: Order Date: 09/28/23 Order Info: 07- - CMP Order Info: - LIPID Order Info: [id number] - PSA Result Comment: For patients on eltrombopag therapy, use of Dimension [place] TBIL is not recommended. Performed By: #### L 501.9985, L100.0100, L501.9910, L500.4050, L500.4100 #### [facility] [address] [place], [address] BUN/CRE 9.1 RATIO Low 10-20 [facility] Comment on above: Order Comment: Order Date: 09/28/23 Order Info: 785-04 - CMP Order Info: - LIPID Order Info: [id number] - PSA Performed By: #### L 501.9985, L100.0100, L501.9910, L500.4050, L500.4100 #### [facility] [address] [place], [address] CA,Total 9.4 mg/dL Normal 8.5-10.1 [facility] Comment on above: Order Comment: Order Date: 09/28/23 Order Info: 785-04 - CMP Order Info: - LIPID Order Info: [id number] - PSA Performed By: #### L 501.9985, L100.0100, L501.9910, L500.4050, L500.4100 #### [facility] [address] [place], [address] Chloride [Moles/Vol] 105 mmol/L Normal 98-107 [facility] Comment on above: Order Comment: Order Date: 09/28/23 Order Info: 07 - CMP Order Info: [id number] - LIPID Order Info: [id number] - PSA Performed By: #### L 501.9985, L100.0100, L501.9910, L500.4050, L500.4100 #### [facility] [address] [place], [address] CO2 [Moles/Vol] 26.0 mmol/L Normal 21.0-32.0 [facility] Comment on above: Order Comment: Order Date: 09/28/23 Order Info: [id number] - CMP Order Info: - LIPID Order Info: [id number] - PSA Performed By: #### L 501.9985, L100.0100, L501.9910, L500.4050, L500.4100 #### [facility] [address] [place], [address] Creatinine [Mass/Vol] 1.21 mg/dL Normal 0.70-1.30 [facility] Comment on above: Order Comment: Order Date: 09/28/23 Order Info: 785-04 - CMP Order Info: - LIPID Order Info: [id number] - PSA Result Comment: The validity of the calculated GFR GFRAA in patients over 70 years has not been determined. Clinical correlation is essential. Performed By: #### L 501.9985, L100.0100, L501.9910, L500.4050, L500.4100 #### [facility] [address] [place], [place], [id number] EST GFR - AA 77 mL/min Normal >60 [facility] Comment on above: Order Comment: Order Date: 09/28/23 Order Info: 785-04 - CMP Order Info: - LIPID Order Info: [id number] - PSA Result Comment: Afri can Fijian GFR Calc Performed By: #### L 501.9985, L100.0100, L501.9910, L500.4050, L500.4100 #### [facility] [address] [place], [place], [address] GAP 7 Normal 5-15 [facility] Comment on above: Order Comment: Order Date: 09/28/23 Order Info: 785-04 - CMP Order Info: - LIPID Order Info: [id number] - PSA Performed By: #### L 501.9985, L100.0100, L501.9910, L500.4050, L500.4100 #### [facility] [address] [place], [address] GFR/1.73 sq M.predicted among non-blacks MDRD (S/P/Bld) [Vol rate/Area] 64 mL/min/{1.73_m2} Normal >60 [facility] Comment on above: Order Comment: Order Date: 09/28/23 Order Info: 0786- - CMP Order Info: [id number] - LIPID Order Info: [id number] - PSA Result Comment: Non- GFR Calc Performed By: #### L 501.9985, L100.0100, L501.9910, L500.4050, L500.4100 #### [facility] [address] [place], [address] Globulin (S) [Mass/Vol] 3.5 g/dL Normal 2.2-4.[address] [facility] Comment on above: Order Comment: Order Date: 09/28/23 Order Info: 0786 - CMP Order Info: [id number] - LIPID Order Info: [id number] - PSA Performed By: #### L 501.9985, L100.0100, L501.9910, L500.4050, L500.4100 #### [facility] [address] [place], [address] Glucose [Mass/Vol] 151 mg/dL High 74-106 [facility] Comment on above: Order Comment: Order Date: 09/28/23 Order Info: 0786- - CMP Order Info: [id number] - LIPID Order Info: [id number] - PSA Result Comment: Fast ing Glucose result greater than or equal to 126 mg/dL suggests DIABETES MELLITUS per A.D.A. criteria. Performed By: #### L 501.9985, L100.0100, L501.9910, L500.4050, L500.4100 #### [facility] [address] [place], [address] Potassium [Moles/Vol] 3.9 mmol/L Normal 3.5-5.1 [facility] Comment on above: Order Comment: Order Date: 09/28/23 Order Info: 785-04 - CMP Order Info: [id number] - LIPID Order Info: [id number] - PSA Performed By: #### L 501.9985, L100.0100, L501.9910, L500.4050, L500.4100 #### [facility] [address] [place], [address] Sodium [Moles/Vol] 138 mmol/L Normal 136-145 [facility] Comment on above: Order Comment: Order Date: 09/28/23 Order Info: 785-04 - CMP Order Info: [id number] - LIPID Order Info: [id number] - PSA Performed By: #### L 501.9985, L100.0100, L501.9910, L500.4050, L500.4100 #### [facility] [address] [place], [address] T PROT 7.3 g/dL Normal 6.4-8.2 [facility] Comment on above: Order Comment: Order Date: 09/28/23 Order Info: 07 - CMP Order Info: [id number] - LIPID Order Info: [id number] - PSA Performed By: #### L 501.9985, L100.0100, L501.9910, L500.4050, L500.4100 #### [facility] [address] [place], [address] Urea nitrogen [Mass/Vol] 11 mg/dL Normal 7-18 [facility] Comment on above: Order Comment: Order Date: 09/28/23 Order Info: 07 - CMP Order Info: [id number] - LIPID Order Info: [id number] - PSA Performed By: #### L 501.9985, L100.0100, L501.9910, L500.4050, L500.4100 #### [facility] [address] [place], [address] Hemoglobin A1con 01-11-2024 HbA1c (Bld) [Mass fraction] 6.0 % High 3.8-5.6 [facility] Comment on above: Order Comment: Order Date: 01/13/24 Order Info: 0184-1 - CBCD Result Comment: Norm al < 5.7 % Prediabetic 5.7 - 6.4 % Diabetic >or= 6.5 % Please note range changes. Performed By: #### L 100.0100, L500.4100, L501.9985, L502.0250, L500.4050 #### [facility] [address] [place], [address] Lipid Profileon 01-11-2024 Cholesterol [Mass/Vol] 149 mg/dL Normal 200 [facility] Comment on above: Order Comment: Order Date: 09/28/23 Order Info: 0786-1 - CMP Order Info: [id number] - LIPID Order Info: [id number] - PSA Result Comment: <200 mg/dL Desirable 200-240 mg/dL Borderline >240 mg/dL High Risk Performed By: #### L 501.9985, L100.0100, L501.9910, L500.4050, L500.4100 #### [facility] [address] [place], [address] Cholesterol in HDL [Mass/Vol] 38 mg/dL Low [facility] Comment on above: Order Comment: Order Date: 09/28/23 Order Info: 0786-1 - CMP Order Info: [id number] - LIPID Order Info: [id number] - PSA Result Comment: The drugs N-Acetylcysteine and Metamizole may falsely depress this assay. Reference Range HDL <40 mg/dL Low HDL Cholesterol HDL >or= 60 mg/dL High HDL Cholesterol Performed By: #### L 501.9985, L100.0100, L501.9910, L500.4050, L500.4100 #### [facility] [address] [place], [place], [address] Cholesterol in LDL [Mass/Vol] 86 mg/dL Normal 0-130 [facility] Comment on above: Order Comment: Order Date: 09/28/23 Order Info: 0786-1 - CMP Order Info: [id number] - LIPID Order Info: [id number] - PSA Performed By: #### L 501.9985, L100.0100, L501.9910, L500.4050, L500.4100 #### [facility] [address] [place], [place], [address] Cholesterol in VLDL [Mass/Vol] 25 mg/dL Normal 5-40 [facility] Comment on above: Order Comment: Order Date: 09/28/23 Order Info: 0786- - CMP Order Info: [id number] - LIPID Order Info: [id number] - PSA Performed By: #### L 501.9985, L100.0100, L501.9910, L500.4050, L500.4100 #### [facility] [address] [place], [place], [address] Triglyceride [Mass/Vol] 127 mg/dL Normal [facility] Comment on above: Order Comment: Order Date: 09/28/23 Order Info: 0786- - CMP Order Info: [id number] - LIPID Order Info: [id number] - PSA Result Comment: The drugs N-Acetylcysteine and Metamizole may falsely depress this assay. Serum Triglycerides Reference Interval Normal <150 mg/dL Borderline high 150 - 199 mg/dL High 200 - 499 mg/dL Very High > or = 500 mg/dL Performed By: #### L 501.9985, L100.0100, L501.9910, L500.4050, L500.4100 #### [facility] [address] [place], [place], [address] PSA,Total - Annual Screenon 01-11-2024 PSA,TOT SCREEN 1.19 ng/mL Normal 0.00-4.00 [facility] Comment on above: Order Comment: Order Date: 09/28/23 Order Info: 0786-1 - CMP Order Info: [id number] - LIPID Order Info: [id number] - PSA Result Comment: This test was performed using the TPSA assay method for the GRAVIDI chemistry system. Values obtained with different assay methods cannot be used interchangably. When changing PSA assays in the course of monitoring a patient, additional sequential testing should be carried out to confirm baseline values. Performed By: #### L 501.9985, L100.0100, L501.9910, L500.4050, L500.4100 #### [facility] [address] [place], [address] Absolute lymphocyte countOrd ered By: Amado Ramachandran on 05-31-2023 Lymphocytes Auto (Unsp spec) [#/Vol] 1.12 10*3/uL 0.83-4.51 [facility] Automated lymphocyte count a s percentage of total leukocytesOrdered By: Amado Ramachandran on 05-31-2023 Lymphocytes/100 WBC Auto (Unsp spec) 19.0 % 19-41 [facility] Basophil percentageOrdered B y: Amado Ramachandran on 05-31-2023 Basophil percentage 2.4 mg/dL 2.5-4.9 [facility] Basophils/100 WBC (Bld) 1.0 % 0-1 [facility] Bilirubin [Mass/Vol] 1.10 mg/dL 0.20-1.00 [facility] Comment on above: For patients on eltr ombopag therapy, use of Dimension [place] TBIL is not recommended. Chloride [Moles/Vol] 111 mmol/L 98-107 [facility] Cholesterol [Mass/Vol] 153 mg/dL <200 [facility] Comment on above: <200 mg/dL Desirable 200-240 mg/dL Borderline >240 mg/dL High Risk Eosinophils/100 WBC (Bld) 3.2 % 0-5 [facility] Glucose [Mass/Vol] 110 mg/dL 74-106 [facility] Comment on above: Fasting Glucose resu lt from 100 to 125 mg/dL suggests IMPAIRED HOMEOSTASIS per A.D.A. criteria. Hemoglobin (Bld) [Mass/Vol] 15.0 g/dL 13.0-16.5 [facility] Monocytes/100 WBC (Bld) 11.7 % 0-[address] [facility] Neutrophils (Bld) [#/Vol] 3.8 10*3/uL 2.0-7.7 [facility] Neutrophils/100 WBC (Bld) 64.1 % 47-70 [facility] Potassium [Moles/Vol] 3.8 mmol/L 3.5-5.1 [facility] Protein [Mass/Vol] 6.6 g/dL 6.4-8.2 [facility] Sodium [Moles/Vol] 143 mmol/L 136-145 [facility] Triglyceride [Mass/Vol] 89 mg/dL <[address] [facility] Comment on above: The drugs N-Acetylcy steine and Metamizole may falsely depress this assay.Serum Triglycerides Reference Interval Normal <150 mg/dL Borderline high 150 - 199 mg/dL High 200 - 499 mg/dL Very High > or = 500 mg/dL WBC (Bld) [#/Vol] 5.9 10*3/uL 4.4-11.0 [facility] Determination of erythrocyte mean corpuscular volume (MCV)Ordered By: Amado Ramachandran on 05-31-2023 MCV (RBC) [Entitic vol] 99.0 fL 80-[address] [facility] Erythrocyte distribution wid th ratioOrdered By: Amado Ramachandran on 05-31-2023 Erythrocyte distribution width (RBC) [Ratio] 13.6 % 11.6-14.6 [facility] Erythrocyte distribution wid th standard deviationOrdered By: Amado Ramachandran on 05-31-2023 Erythrocyte distribution width (RBC) [Entitic vol] 50.4 fL 35.1-43.9 [facility] Hematocrit Auto (Bld) [Volum e fraction]Ordered By: Amado Ramachandran on 05-31-2023 Hematocrit (Bld) [Volume fraction] 47.5 % 40-54 [facility] Immature granulocytes/100 WB C Auto (Bld)Ordered By: Amado Ramachandran on 05-31-2023 Immature granulocytes/100 WBC (Bld) 1.000 % 0.0-0.9 [facility] Comment on above: IG% - Immature Granu locytes (promyelocytes, myelocytes and metamyelocytes) > 1% indicates that a LEFT SHIFT is Present. Laboratory - Chemistry and C hemistry - challengeOrdered By: Amado Ramachandran on 05-31-2023 Albumin/Globulin [Mass ratio] 1.2 {ratio} 0.9-2.4 [facility] ALP [Catalytic activity/Vol] 50 U/L 45-117 [facility] ALT [Catalytic activity/Vol] 92 U/L 16-61 [facility] Cholesterol in HDL [Mass/Vol] 26 mg/dL >40 [facility] Comment on above: The drugs N-Acetylcy steine and Metamizole may falsely depress this assay. Reference Range HDL <40 mg/dL Low HDL Cholesterol HDL >or= 60 mg/dL High HDL Cholesterol Cholesterol in LDL [Mass/Vol] 109 mg/dL 0-130 [facility] CO2 [Moles/Vol] 27.0 mmol/L 21.0-32.0 [facility] Globulin (S) [Mass/Vol] 3.0 g/dL 2.2-4.2 [facility] Urea nitrogen/Creatinine [Mass ratio] 8.3 mg/mg 10-20 [facility] Laboratory - Hematology and Cell countsOrdered By: Amado Ramachandran on 05-31-2023 MCH (RBC) [Entitic mass] 31.3 pg 27.0-32.0 [facility] MCHC (RBC) [Mass/Vol] 31.6 g/dL 32-36 [facility] Nucleated RBC/100 WBC (Bld) [Ratio] 0 % 0-5 [facility] Platelet mean volume (Bld) [Entitic vol] 11.1 fL 6.2-12.0 [facility] Platelets (Bld) [#/Vol] 173 10*3/uL 150-450 [facility] No Panel InformationOrdered By: Amado Ramachandran on 05-31-2023 Estimated GFR (MDRD) Amer 87 mL/min >60 [facility] Comment on above: GFR Calc Estimated GFR (MDRD) Non-Af Amer 72 mL/min >60 [facility] Comment on above: Non- GFR Calc Vitamin D 25-Hydroxy 55.8 ng/mL [facility] Comment on above: Vitamin D 25(OH) Sta tus Range Deficiency <20 ng/mL (50nmol/L) Insufficiency 20 - 30 ng/mL (50 - 75 nmol/L) Sufficiency 30 - 100 ng/mL (75 - 250 nmol/L) Toxicity >100 ng/mL (>250 nmol/L) VLDL Cholesterol 18 mg/dL 5-40 [facility] RBC Auto (Bld) [#/Vol]Ordere d By: Amado Ramachandran on 05-31-2023 RBC (Bld) [#/Vol] 4.80 10*6/uL 4.6-6.2 [facility] Serum or plasma calcium luis urement (mass/volume)Ordered By: Amado Ramachandran on 05-31-2023 Calcium [Mass/Vol] 8.7 mg/dL 8.5-10.1 [facility] Serum or plasma creatinine m easurement (mass/volume)Ordered By: Amado Ramachandran on 05-31-2023 Creatinine [Mass/Vol] 1.09 mg/dL 0.70-1.30 [facility] Comment on above: The validity of the calculated GFR & GFRAA in patients over 70 years has not been determined. Clinical correlation is essential. Serum or plasma urea nitroge n measurement (mass/volume)Ordered By: Amado Ramachandran on 05-31-2023 Urea nitrogen [Mass/Vol] 9 mg/dL 7-18 [facility] Thin prep Papanicolaou smear with manual screeningOrdered By: Amado Ramachandran on 05-31-2023 Protein (U) [Mass/Vol] 27.7 mg/dL 0.0-11.8 [facility] Thin prep Papanicolaou smear with manual screening 3.6 g/dL 3.2-5.0 [facility] Thin prep Papanicolaou smear with manual screening 48 U/L 15-37 [facility] Thin prep Papanicolaou smear with manual screening 5 5-15 [facility] Urine creatinine measurement (mass/volume)Ordered By: Amado Ramachandran on 05-31-2023 Creatinine (U) [Mass/Vol] 310.00 mg/dL NO RANGE EST. [facility] Urine protein/creatinine mas s ratioOrdered By: Amado Ramachandran on 05-31-2023 Protein/Creatinine (U) [Mass ratio] 89 mg/g CRE 0-200 [facility] Whole blood hemoglobin A1c/t otal hemoglobin ratio (mass fraction)Ordered By: Amado Ramachandran on 05-31-2023 HbA1c (Bld) [Mass fraction] 6.2 % 3.8-5.6 [facility] Comment on above: Normal < 5.7 % Predi abetic 5.7 - 6.4 % Diabetic >or= 6.5 % Please note range changes. Absolute lymphocyte countOrd ered By: Amado Ramachandran on 03-04-2023 Lymphocytes Auto (Unsp spec) [#/Vol] 1.36 10*3/uL 0.83-4.51 [facility] Basophil percentageOrdered B y: Amado Ramachandran on 03-04-2023 Basophil percentage 0 SEEN /hpf 0-5 [facility] Basophils/100 WBC (Bld) 0.8 % 0-[address] [facility] Bilirubin [Mass/Vol] 1.10 mg/dL 0.20-1.00 [facility] Comment on above: For patients on eltr ombopag therapy, use of Dimension [place] TBIL is not recommended. Chloride [Moles/Vol] 105 mmol/L 98-107 [facility] Cholesterol [Mass/Vol] 156 mg/dL <200 [facility] Comment on above: <200 mg/dL Desirable 200-240 mg/dL Borderline >240 mg/dL High Risk Eosinophils/100 WBC (Bld) 2.5 % 0-5 [facility] Glucose [Mass/Vol] 162 mg/dL 74-106 [facility] Comment on above: Fasting Glucose resu lt greater than or equal to 126 mg/dL suggests DIABETES MELLITUS per A.D.A. criteria. Neutrophils (Bld) [#/Vol] 4.9 10*3/uL 2.0-7.7 [facility] Neutrophils/100 WBC (Bld) 67.7 % 47-70 [facility] Potassium [Moles/Vol] 4.2 mmol/L 3.5-5.1 [facility] Protein [Mass/Vol] 7.6 g/dL 6.4-8.2 [facility] Sodium [Moles/Vol] 140 mmol/L 136-145 [facility] Triglyceride [Mass/Vol] 376 mg/dL <[address] [facility] Comment on above: The drugs N-Acetylcy steine and Metamizole may falsely depress this assay.Serum Triglycerides Reference Interval Normal <150 mg/dL Borderline high 150 - 199 mg/dL High 200 - 499 mg/dL Very High > or = 500 mg/dL WBC (Bld) [#/Vol] 7.3 10*3/uL 4.4-11.0 [facility] Bilirubin Test strip Ql (U)O rdered By: Amado Ramachandran on 03-04-2023 Bilirubin Ql (U) Negative Negative [facility] Blood erythrocytes count (nu mber/volume)Ordered By: Amado Ramachandran on 03-04-2023 RBC (Bld) [#/Vol] 5.25 10*6/uL 4.6-6.2 [facility] Blood hemoglobin measurement (mass/volume)Ordered By: Amado Ramachandran on 03-04-2023 Hemoglobin (Bld) [Mass/Vol] 16.6 g/dL 13.0-16.5 [facility] Blood lymphocytes/100 leukoc ytesOrdered By: Amado Ramachandran on 03-04-2023 Lymphocytes/100 WBC (Bld) 18.7 % 19-41 [facility] Blood monocytes/100 leukocyt esOrdered By: Amado Ramachandran on 03-04-2023 Monocytes/100 WBC (Bld) 9.6 % 0-[address] [facility] Blood platelet mean volumeOr dered By: Amado Ramachandran on 03-04-2023 Platelet mean volume (Bld) [Entitic vol] 12.7 fL 6.2-12.0 [facility] Determination of erythrocyte mean corpuscular volume (MCV)Ordered By: Amado Ramachandran on 03-04-2023 MCV (RBC) [Entitic vol] 94.5 fL 80-[address] [facility] Hematocrit Auto (Bld) [Volum e fraction]Ordered By: Amado Ramachandran on 03-04-2023 Hematocrit (Bld) [Volume fraction] 49.6 % 40-54 [facility] Ketones Test strip Ql (U)Ord ered By: Amado Ramachandran on 03-04-2023 Ketones Ql (U) 5 mg/dl Negative [facility] Laboratory - Chemistry and C hemistry - challengeOrdered By: Amado Raamchandran on 03-04-2023 ALP [Catalytic activity/Vol] 65 U/L 45-117 [facility] ALT [Catalytic activity/Vol] 83 U/L 16-61 [facility] CO2 [Moles/Vol] 28.0 mmol/L 21.0-32.0 [facility] Globulin (S) [Mass/Vol] 3.5 g/dL 2.2-4.[address] [facility] Urea nitrogen/Creatinine [Mass ratio] 16.9 mg/mg 10-20 [facility] Laboratory - Hematology and Cell countsOrdered By: Amado Ramachandran on 03-04-2023 Erythrocyte distribution width (RBC) [Entitic vol] 41.7 fL 35.1-43.9 [facility] Erythrocyte distribution width (RBC) [Ratio] 12.0 % 11.6-14.6 [facility] Immature granulocytes/100 WBC (Bld) 0.700 % 0.0-0.9 [facility] Comment on above: IG% - Immature Granu locytes (promyelocytes, myelocytes and metamyelocytes) > 1% indicates that a LEFT SHIFT is Present. MCH (RBC) [Entitic mass] 31.6 pg 27.0-32.0 [facility] Nucleated RBC/100 WBC (Bld) [Ratio] 0 % 0-5 [facility] MCHC Auto (RBC) [Mass/Vol]Or dered By: Amado Ramachandran on 03-04-2023 MCHC (RBC) [Mass/Vol] 33.5 g/dL 32-36 [facility] Mucus LM Ql (Urine sed)Order ed By: Amado Ramachandran on 03-04-2023 Mucus Ql (Urine sed) RARE /hpf [facility] Nitrite Test strip Ql (U)Ord ered By: Amado Ramachandran on 03-04-2023 Nitrite Ql (U) Negative Negative [facility] No Panel InformationOrdered By: Amado Ramachandran on 03-04-2023 Estimated GFR (MDRD) Amer 80 mL/min >60 [facility] Comment on above: GFR Calc Estimated GFR (MDRD) Non-Af Amer 66 mL/min >60 [facility] Comment on above: Non- GFR Calc Vitamin D 25-Hydroxy 40.1 ng/mL [facility] Comment on above: Vitamin D 25(OH) Sta tus Range Deficiency <20 ng/mL (50nmol/L) Insufficiency 20 - 30 ng/mL (50 - 75 nmol/L) Sufficiency 30 - 100 ng/mL (75 - 250 nmol/L) Toxicity >100 ng/mL (>250 nmol/L) Platelets bldOrdered By: Isidro Ramachandran on 03-04-2023 Platelets (Bld) [#/Vol] 188 10*3/uL 150-450 [facility] Protein Test strip Ql (U)Ord ered By: Amado Ramachandran on 03-04-2023 Protein Ql (U) 15 mg/dl Negative [facility] Serum or plasma albumin luis urement (mass/volume)Ordered By: Amado Ramachandran on 03-04-2023 Albumin [Mass/Vol] 4.1 g/dL 3.2-5.0 [facility] Serum or plasma albumin/glob ulin mass ratioOrdered By: Amado Ramachandran on 03-04-2023 Albumin/Globulin [Mass ratio] 1.2 {ratio} 0.9-2.4 [facility] Serum or plasma calcium luis urement (mass/volume)Ordered By: Amado Ramachandran on 03-04-2023 Calcium [Mass/Vol] 9.1 mg/dL 8.5-10.1 [facility] Serum or plasma cholesterol in HDL measurement (mass/volume)Ordered By: Amado Ramachandran on 03-04-2023 Cholesterol in HDL [Mass/Vol] 35 mg/dL >40 [facility] Comment on above: The drugs N-Acetylcy steine and Metamizole may falsely depress this assay. Reference Range HDL <40 mg/dL Low HDL Cholesterol HDL >or= 60 mg/dL High HDL Cholesterol Serum or plasma cholesterol in VLDL measurement (mass/volume)Ordered By: Amado Ramachandran on 03-04-2023 Cholesterol in VLDL [Mass/Vol] 75 mg/dL 5-40 [facility] Serum or plasma creatinine m easurement (mass/volume)Ordered By: Amado Ramachandran on 03-04-2023 Creatinine [Mass/Vol] 1.18 mg/dL 0.70-1.30 [facility] Comment on above: The validity of the calculated GFR & GFRAA in patients over 70 years has not been determined. Clinical correlation is essential. Serum or plasma low density lipoprotein (LDL) cholesterol measurement (mass/volume)Ordered By: Amado Ramachandran on 03-04-2023 Cholesterol in LDL [Mass/Vol] 46 mg/dL 0-130 [facility] Serum or plasma urea nitroge n measurement (mass/volume)Ordered By: Amado Ramachandran on 03-04-2023 Urea nitrogen [Mass/Vol] 20 mg/dL 7-18 [facility] Squamous epithelial cells de tection in urine sediment by light microscopyOrdered By: Amado Ramachandran on 03-04-2023 Epithelial cells.squamous LM Ql (Urine sed) 0 SEEN /hpf 0-5 [facility] Thin prep Papanicolaou smear with manual screeningOrdered By: Amado Ramachandran on 03-04-2023 Thin prep Papanicolaou smear with manual screening 42 U/L 15-37 [facility] Thin prep Papanicolaou smear with manual screening 7 5-15 [facility] Urine blood detectionOrdered By: Aamdo Ramachandran on 03-04-2023 RBC Ql (U) Negative Negative [facility] RBC Ql (U) 0 SEEN /hpf 0-5 [facility] Urine clarityOrdered By: Isidro Ramachandran on 03-04-2023 Clarity (U) Clear Clear [facility] Urine color determinationOrd ered By: Amado Ramachandran on 03-04-2023 Color (U) Yellow Yellow [facility] Urine creatinine measurement (mass/volume)Ordered By: Amado Ramachandran on 03-04-2023 Creatinine (U) [Mass/Vol] 168.00 mg/dL NO RANGE EST. [facility] Urine glucose detectionOrder ed By: Amado Ramachandran on 03-04-2023 Glucose Ql (U) 100 mg/dl Normal [facility] Urine leukocyte esterase det ection by dipstickOrdered By: Amado Ramachandran on 03-04-2023 Leukocyte esterase Test strip Ql (U) Negative Negative [facility] Urine pHOrdered By: Amado jarrell on 03-04-2023 pH (U) 6.0 [pH] 5.0 - 8.0 [facility] Urine protein measurement (m ass/volume)Ordered By: Amado Ramachandran on 03-04-2023 Protein (U) [Mass/Vol] 15.2 mg/dL 0.0-11.8 [facility] Urine protein/creatinine mas s ratioOrdered By: Amado Ramachandran on 03-04-2023 Protein/Creatinine (U) [Mass ratio] 90 mg/g CRE 0-200 [facility] Urine sediment bacteria coun t by microscopy (number/high power field)Ordered By: Amado Ramachandran on 03-04-2023 Bacteria LM.HPF (Urine sed) [#/Area] 0 /[HPF] None Seen [facility] Urine specific gravity measu rementOrdered By: Amado Ramachandran on 03-04-2023 Specific gravity (U) [Rel density] 1.020 1.002-1.030 [facility] Urobilinogen Auto test strip Ql (U)Ordered By: Amado Ramachandran on 03-04-2023 Urobilinogen Ql (U) Normal mg/dl Normal [facility] Whole blood hemoglobin A1c/t otal hemoglobin ratio (mass fraction)Ordered By: Amado Ramachandran on 03-04-2023 HbA1c (Bld) [Mass fraction] 8.1 % 3.8-5.6 [facility] Comment on above: Normal < 5.7 % Predi abetic 5.7 - 6.4 % Diabetic >or= 6.5 % Please note range changes. Basophil percentageOrdered B y: Rashard Hernández on 12-29-2022 Chloride [Moles/Vol] 104 mmol/L 98-107 [facility] Glucose [Mass/Vol] 283 mg/dL 74-106 [facility] Comment on above: Glucose result great er than or equal to 200 mg/dLsuggests DIABETES MELLITUS per A.D.A. criteria. Potassium [Moles/Vol] 4.3 mmol/L 3.5-5.1 [facility] Sodium [Moles/Vol] 137 mmol/L 136-145 [facility] Testosterone [Mass/Vol] 686.01 ng/dL [facility] Comment on above: CENTRAL 90% REFERENC E RANGES MALE AGE <50 197.44 - 669.58 ng/dL MALE AGE > or = 50 187.72 - 684.19 ng/dL FEMALE AGE <50 8.38 - 35.01 ng/dL FEMALE AGE > or = 50 <7.00 - 35.92 ng/dL Effective as of 11/11/20 WBC (Bld) [#/Vol] 6.3 10*3/uL 4.4-11.0 [facility] Blood erythrocytes count (nu mber/volume)Ordered By: Rashard Hernández on 12-29-2022 RBC (Bld) [#/Vol] 5.02 10*6/uL 4.6-6.2 [facility] Blood hemoglobin measurement (mass/volume)Ordered By: Rashard Hernández on 12-29-2022 Hemoglobin (Bld) [Mass/Vol] 16.3 g/dL 13.0-16.5 [facility] Blood platelet mean volumeOr dered By: Rashard Hernández on 12-29-2022 Platelet mean volume (Bld) [Entitic vol] 12.4 fL 6.2-12.0 [facility] Determination of erythrocyte mean corpuscular volume (MCV)Ordered By: Rashard Hernández on 12-29-2022 MCV (RBC) [Entitic vol] 100.4 fL 80-[address] [facility] Hematocrit Auto (Bld) [Volum e fraction]Ordered By: Rashard Hernández on 12-29-2022 Hematocrit (Bld) [Volume fraction] 50.4 % 40-54 [facility] Laboratory - Chemistry and C hemistry - challengeOrdered By: Rashard Hernández on 12-29-2022 CO2 [Moles/Vol] 28.0 mmol/L 21.0-32.0 [facility] Magnesium [Mass/Vol] 2.5 mg/dL 1.6-2.6 [facility] Urea nitrogen/Creatinine [Mass ratio] 9.8 mg/mg 10-20 [facility] Laboratory - Hematology and Cell countsOrdered By: Rashard Hernández on 12-29-2022 Erythrocyte distribution width (RBC) [Entitic vol] 49.6 fL 35.1-43.9 [facility] Erythrocyte distribution width (RBC) [Ratio] 13.5 % 11.6-14.6 [facility] MCH (RBC) [Entitic mass] 32.5 [facility]0-[facility] [Mass/Vol]Or dered By: Rashard Hernández on 12-29-2022 MCHC (RBC) [Mass/Vol] 32.3 g/dL 32-36 [facility] No Panel InformationOrdered By: Rashard Hernández on 12-29-2022 Estimated GFR (MDRD) Amer 76 mL/min >60 [facility] Comment on above: GFR Calc Estimated GFR (MDRD) Non-Af Amer 63 mL/min >60 [facility] Comment on above: Non- GFR Calc Thyroid Stimulating Hormone (TSH) 1.56 uIU/mL 0.358-3.74 [facility] Platelets bldOrdered By: Owen Hernández on 12-29-2022 Platelets (Bld) [#/Vol] 159 10*3/uL 150-450 [facility] Serum or plasma calcium luis urement (mass/volume)Ordered By: Rashard Hernández on 12-29-2022 Calcium [Mass/Vol] 9.2 mg/dL 8.5-10.1 [facility] Serum or plasma creatinine m easurement (mass/volume)Ordered By: Rashard Hernández on 12-29-2022 Creatinine [Mass/Vol] 1.23 mg/dL 0.70-1.30 [facility] Comment on above: The validity of the calculated GFR & GFRAA in patients over 70 years has not been determined. Clinical correlation is essential. Serum or plasma urea nitroge n measurement (mass/volume)Ordered By: Rashard Hernández on 12-29-2022 Urea nitrogen [Mass/Vol] 12 mg/dL 7-18 [facility] Thin prep Papanicolaou smear with manual screeningOrdered By: Rashard Hernández on 12-29-2022 Thin prep Papanicolaou smear with manual screening 5 5-15 [facility] Laboratory - Chemistry and C hemistry - challengeOrdered By: Amado Ramachandran on 11-04-2022 Cobalamin (Vitamin B12) [Mass/Vol] 557 pg/mL 211-911 [facility] No Panel InformationOrdered By: Amado Ramachandran on 11-04-2022 Vitamin B6 Level 10.2 ug/L 3.4-65.2 [facility] Comment on above: Deficiency: <3.4 Mar ginal: 3.4 - 5.1 Adequate: >5.1 Whole Blood Vitamin B1 Level 163.7 nmol/L 66.5-200.0 [facility] Comment on above: Performed at: - [address] [id number] Director: Rachelle Kumar MD, Phone: [phone] Basophil percentageOrdered B y: Amado Ramachandran on 11-03-2022 Bilirubin [Mass/Vol] 1.40 mg/dL 0.20-1.00 [facility] Comment on above: For patients on eltr ombopag therapy, use of Dimension [place] TBIL is not recommended. Chloride [Moles/Vol] 105 mmol/L 98-107 [facility] Cholesterol [Mass/Vol] 139 mg/dL <200 [facility] Comment on above: <200 mg/dL Desirable 200-240 mg/dL Borderline >240 mg/dL High Risk Glucose [Mass/Vol] 167 mg/dL 74-106 [facility] Comment on above: Fasting Glucose resu lt greater than or equal to 126 mg/dL suggests DIABETES MELLITUS per A.D.A. criteria. Potassium [Moles/Vol] 4.0 mmol/L 3.5-5.1 [facility] Protein [Mass/Vol] 7.2 g/dL 6.4-8.2 [facility] Sodium [Moles/Vol] 140 mmol/L 136-145 [facility] Triglyceride [Mass/Vol] 142 mg/dL <199 [facility] Comment on above: The drugs N-Acetylcy steine and Metamizole may falsely depress this assay.Serum Triglycerides Reference Interval Normal <150 mg/dL Borderline high 150 - 199 mg/dL High 200 - 499 mg/dL Very High > or = 500 mg/dL Laboratory - Chemistry and C hemistry - challengeOrdered By: Amado Ramachandran on 11-03-2022 ALP [Catalytic activity/Vol] 62 U/L 45-117 [facility] ALT [Catalytic activity/Vol] 79 U/L 16-61 [facility] CO2 [Moles/Vol] 31.0 mmol/L 21.0-32.0 [facility] Globulin (S) [Mass/Vol] 3.2 g/dL 2.2-4.[address] [facility] Urea nitrogen/Creatinine [Mass ratio] 11.3 mg/mg 10-20 [facility] No Panel InformationOrdered By: Amado Ramachandran on 11-03-2022 Estimated GFR (MDRD) Amer 82 mL/min >60 [facility] Comment on above: GFR Calc Estimated GFR (MDRD) Non-Af Amer 68 mL/min >60 [facility] Comment on above: Non- GFR Calc Thyroid Stimulating Hormone (TSH) 1.72 uIU/mL 0.358-3.74 [facility] Vitamin D 25-Hydroxy 63.6 ng/mL [facility] Comment on above: Vitamin D 25(OH) Sta tus Range Deficiency <20 ng/mL (50nmol/L) Insufficiency 20 - 30 ng/mL (50 - 75 nmol/L) Sufficiency 30 - 100 ng/mL (75 - 250 nmol/L) Toxicity >100 ng/mL (>250 nmol/L) Serum or plasma albumin luis urement (mass/volume)Ordered By: Amado Ramachandran on 11-03-2022 Albumin [Mass/Vol] 4.0 g/dL 3.2-5.0 [facility] Serum or plasma albumin/glob ulin mass ratioOrdered By: Amado Ramachandran on 11-03-2022 Albumin/Globulin [Mass ratio] 1.2 {ratio} 0.9-2.4 [facility] Serum or plasma calcium luis urement (mass/volume)Ordered By: Amado Ramachandran on 11-03-2022 Calcium [Mass/Vol] 9.0 mg/dL 8.5-10.1 [facility] Serum or plasma cholesterol in HDL measurement (mass/volume)Ordered By: Amado Ramachandran on 11-03-2022 Cholesterol in HDL [Mass/Vol] 41 mg/dL >40 [facility] Comment on above: The drugs N-Acetylcy steine and Metamizole may falsely depress this assay. Reference Range HDL <40 mg/dL Low HDL Cholesterol HDL >or= 60 mg/dL High HDL Cholesterol Serum or plasma cholesterol in VLDL measurement (mass/volume)Ordered By: Amado Ramachandran on 11-03-2022 Cholesterol in VLDL [Mass/Vol] 28 mg/dL 5-40 [facility] Serum or plasma creatinine m easurement (mass/volume)Ordered By: Amado Ramachandran on 11-03-2022 Creatinine [Mass/Vol] 1.15 mg/dL 0.70-1.30 [facility] Comment on above: The validity of the calculated GFR & GFRAA in patients over 70 years has not been determined. Clinical correlation is essential. Serum or plasma low density lipoprotein (LDL) cholesterol measurement (mass/volume)Ordered By: Amado Ramachandran on 11-03-2022 Cholesterol in LDL [Mass/Vol] 70 mg/dL 0-130 [facility] Serum or plasma urea nitroge n measurement (mass/volume)Ordered By: Amado Ramachandran on 11-03-2022 Urea nitrogen [Mass/Vol] 13 mg/dL 7-18 [facility] Thin prep Papanicolaou smear with manual screeningOrdered By: Amado Ramachandran on 11-03-2022 Thin prep Papanicolaou smear with manual screening 45 U/L 15-37 [facility] Thin prep Papanicolaou smear with manual screening 4 5-15 [facility] Urine creatinine measurement (mass/volume)Ordered By: Amado Ramachandran on 11-03-2022 Creatinine (U) [Mass/Vol] 238.00 mg/dL NO RANGE EST. [facility] Urine protein measurement (m ass/volume)Ordered By: Amado Ramachandran on 11-03-2022 Protein (U) [Mass/Vol] 13.5 mg/dL 0.0-11.8 [facility] Urine protein/creatinine mas s ratioOrdered By: Amado Ramachandran on 11-03-2022 Protein/Creatinine (U) [Mass ratio] 57 mg/g CRE 0-200 [facility] Whole blood hemoglobin A1c/t otal hemoglobin ratio (mass fraction)Ordered By: Amado Ramachandran on 11-03-2022 HbA1c (Bld) [Mass fraction] 6.0 % 3.8-5.6 [facility] Comment on above: Normal < 5.7 % Predi abetic 5.7 - 6.4 % Diabetic >or= 6.5 % Please note range changes. Basophil percentageOrdered B y: Dr. Ramachandran on 07-06-2022 Bilirubin [Mass/Vol] 1.00 mg/dL 0.20-1.00 [facility] Comment on above: For patients on eltr ombopag therapy, use of Dimension [place] TBIL is not recommended. Chloride [Moles/Vol] 107 mmol/L 98-107 [facility] Cholesterol [Mass/Vol] 99 mg/dL <200 [facility] Comment on above: <200 mg/dL Desirable 200-240 mg/dL Borderline >240 mg/dL High Risk Glucose [Mass/Vol] 98 mg/dL 74-106 [facility] Potassium [Moles/Vol] 3.7 mmol/L 3.5-5.1 [facility] Protein [Mass/Vol] 7.1 g/dL 6.4-8.2 [facility] Sodium [Moles/Vol] 142 mmol/L 136-145 [facility] Triglyceride [Mass/Vol] 94 mg/dL <[address] [facility] Comment on above: The drugs N-Acetylcy steine and Metamizole may falsely depress this assay.Serum Triglycerides Reference Interval Normal <150 mg/dL Borderline high 150 - 199 mg/dL High 200 - 499 mg/dL Very High > or = 500 mg/dL Laboratory - Chemistry and C hemistry - challengeOrdered By: Dr. Ramachandran on 07-06-2022 ALP [Catalytic activity/Vol] 51 U/L 45-117 [facility] ALT [Catalytic activity/Vol] 66 U/L 16-61 [facility] CO2 [Moles/Vol] 29.0 mmol/L 21.0-32.0 [facility] Globulin (S) [Mass/Vol] 3.1 g/dL 2.2-4.2 [facility] Urea nitrogen/Creatinine [Mass ratio] 17.1 mg/mg 10-20 [facility] No Panel InformationOrdered By: Dr. Ramachandran on 07-06-2022 Estimated GFR (MDRD) Amer 86 mL/min >60 [facility] Comment on above: GFR Calc Estimated GFR (MDRD) Non-Af Amer 71 mL/min >60 [facility] Comment on above: Non- GFR Calc Thyroid Stimulating Hormone (TSH) 1.28 uIU/mL 0.358-3.74 [facility] Vitamin D 25-Hydroxy 62.9 ng/mL [facility] Comment on above: Vitamin D 25(OH) Sta tus Range Deficiency <20 ng/mL (50nmol/L) Insufficiency 20 - 30 ng/mL (50 - 75 nmol/L) Sufficiency 30 - 100 ng/mL (75 - 250 nmol/L) Toxicity >100 ng/mL (>250 nmol/L) Serum or plasma albumin luis urement (mass/volume)Ordered By: Dr. Ramachandran on 07-06-2022 Albumin [Mass/Vol] 4.0 g/dL 3.2-5.0 [facility] Serum or plasma albumin/glob ulin mass ratioOrdered By: Dr. Ramachandran on 07-06-2022 Albumin/Globulin [Mass ratio] 1.3 {ratio} 0.9-2.4 [facility] Serum or plasma calcium luis urement (mass/volume)Ordered By: Dr. Ramachandran on 07-06-2022 Calcium [Mass/Vol] 9.2 mg/dL 8.5-10.1 [facility] Serum or plasma cholesterol in HDL measurement (mass/volume)Ordered By: Dr. Ramachandran on 07-06-2022 Cholesterol in HDL [Mass/Vol] 39 mg/dL >40 [facility] Comment on above: The drugs N-Acetylcy steine and Metamizole may falsely depress this assay. Reference Range HDL <40 mg/dL Low HDL Cholesterol HDL >or= 60 mg/dL High HDL Cholesterol Serum or plasma cholesterol in VLDL measurement (mass/volume)Ordered By: Dr. Ramachandran on 07-06-2022 Cholesterol in VLDL [Mass/Vol] 19 mg/dL 5-40 [facility] Serum or plasma creatinine m easurement (mass/volume)Ordered By: Dr. Ramachandran on 07-06-2022 Creatinine [Mass/Vol] 1.11 mg/dL 0.70-1.30 [facility] Comment on above: The validity of the calculated GFR & GFRAA in patients over 70 years has not been determined. Clinical correlation is essential. Serum or plasma low density lipoprotein (LDL) cholesterol measurement (mass/volume)Ordered By: Dr. Ramachandran on 07-06-2022 Cholesterol in LDL [Mass/Vol] 41 mg/dL 0-130 [facility] Serum or plasma urea nitroge n measurement (mass/volume)Ordered By: Dr. Ramachandran on 07-06-2022 Urea nitrogen [Mass/Vol] 19 mg/dL 7-18 [facility] Thin prep Papanicolaou smear with manual screeningOrdered By: Dr. Ramachandran on 07-06-2022 Thin prep Papanicolaou smear with manual screening 32 U/L 15-37 [facility] Thin prep Papanicolaou smear with manual screening 6 5-15 [facility] Urine creatinine measurement (mass/volume)Ordered By: Dr. Ramachandran on 07-06-2022 Creatinine (U) [Mass/Vol] 168.00 mg/dL NO RANGE EST. [facility] Urine protein measurement (m ass/volume)Ordered By: Dr. Ramachandran on 07-06-2022 Protein (U) [Mass/Vol] 13.6 mg/dL 0.0-11.8 [facility] Urine protein/creatinine mas s ratioOrdered By: Dr. Ramachandran on 07-06-2022 Protein/Creatinine (U) [Mass ratio] 81 mg/g CRE 0-200 [facility] Whole blood hemoglobin A1c/t otal hemoglobin ratio (mass fraction)Ordered By: Dr. Ramachandran on 07-06-2022 HbA1c (Bld) [Mass fraction] 5.8 % 3.8-5.6 [facility] Comment on above: Normal < 5.7 % Predi abetic 5.7 - 6.4 % Diabetic >or= 6.5 % Please note range changes. Basophil percentageOrdered B y: Dr. Ramachandran on 06-30-2022 Bilirubin [Mass/Vol] 1.30 mg/dL 0.20-1.00 [facility] Comment on above: For patients on eltr ombopag therapy, use of Dimension [place] TBIL is not recommended. Chloride [Moles/Vol] 104 mmol/L 98-107 [facility] Cholesterol [Mass/Vol] 113 mg/dL <200 [facility] Comment on above: <200 mg/dL Desirable 200-240 mg/dL Borderline >240 mg/dL High Risk Glucose [Mass/Vol] 74 mg/dL 74-106 [facility] Potassium [Moles/Vol] 4.2 mmol/L 3.5-5.1 [facility] Comment on above: Slight Hemolysis, Re sult may be falsely increased. Protein [Mass/Vol] 7.5 g/dL 6.4-8.2 [facility] Sodium [Moles/Vol] 140 mmol/L 136-145 [facility] Triglyceride [Mass/Vol] 99 mg/dL <[address] [facility] Comment on above: The drugs N-Acetylcy steine and Metamizole may falsely depress this assay.Serum Triglycerides Reference Interval Normal <150 mg/dL Borderline high 150 - 199 mg/dL High 200 - 499 mg/dL Very High > or = 500 mg/dL Iron measurement (mass/mass) Ordered By: Dr. Ramachandran on 06-30-2022 Iron (Unsp spec) [Mass/Mass] 98 ug/dL 65-175 [facility] Comment on above: Slight Hemolysis, Re sult may be falsely increased. Laboratory - Chemistry and C hemistry - challengeOrdered By: Dr. Ramachandran on 06-30-2022 ALP [Catalytic activity/Vol] 53 U/L 45-117 [facility] ALT [Catalytic activity/Vol] 86 U/L 16-61 [facility] CO2 [Moles/Vol] 30.0 mmol/L 21.0-32.0 [facility] Globulin (S) [Mass/Vol] 3.5 g/dL 2.2-4.2 [facility] Urea nitrogen/Creatinine [Mass ratio] 17.5 mg/mg 10-20 [facility] No Panel InformationOrdered By: Dr. Ramachandran on 06-30-2022 Estimated GFR (MDRD) Amer 78 mL/min >60 [facility] Comment on above: GFR Calc Estimated GFR (MDRD) Non-Af Amer 65 mL/min >60 [facility] Comment on above: Non- GFR Calc Total Iron Binding Capacity 420 ug/dL 250-450 [facility] Urine Microalbumin/Creatinine Ratio 7.0 mg/g CRE <30 [facility] Serum or plasma albumin luis urement (mass/volume)Ordered By: Dr. Ramachandran on 06-30-2022 Albumin [Mass/Vol] 4.0 g/dL 3.2-5.0 [facility] Serum or plasma albumin/glob ulin mass ratioOrdered By: Dr. Ramachandran on 06-30-2022 Albumin/Globulin [Mass ratio] 1.1 {ratio} 0.9-2.4 [facility] Serum or plasma calcium luis urement (mass/volume)Ordered By: Dr. Ramachandran on 06-30-2022 Calcium [Mass/Vol] 9.1 mg/dL 8.5-10.1 [facility] Serum or plasma cholesterol in HDL measurement (mass/volume)Ordered By: Dr. Ramachandran on 06-30-2022 Cholesterol in HDL [Mass/Vol] 38 mg/dL >40 [facility] Comment on above: The drugs N-Acetylcy steine and Metamizole may falsely depress this assay. Reference Range HDL <40 mg/dL Low HDL Cholesterol HDL >or= 60 mg/dL High HDL Cholesterol Serum or plasma cholesterol in VLDL measurement (mass/volume)Ordered By: Dr. Ramachandran on 06-30-2022 Cholesterol in VLDL [Mass/Vol] 20 mg/dL 5-40 [facility] Serum or plasma creatinine m easurement (mass/volume)Ordered By: Dr. Ramachandran on 06-30-2022 Creatinine [Mass/Vol] 1.20 mg/dL 0.70-1.30 [facility] Comment on above: The validity of the calculated GFR & GFRAA in patients over 70 years has not been determined. Clinical correlation is essential. Serum or plasma ferritin max surement (mass/volume)Ordered By: Dr. Ramachandran on 06-30-2022 Ferritin [Mass/Vol] 340 ng/mL 26-388 [facility] Serum or plasma iron saturat ion measurement (mass fraction)Ordered By: Dr. Ramachandran on 06-30-2022 Iron saturation [Mass fraction] 23.3 % 15.0-55.0 [facility] Serum or plasma low density lipoprotein (LDL) cholesterol measurement (mass/volume)Ordered By: Dr. Ramachandran on 06-30-2022 Cholesterol in LDL [Mass/Vol] 55 mg/dL 0-130 [facility] Serum or plasma urea nitroge n measurement (mass/volume)Ordered By: Dr. Ramachandran on 06-30-2022 Urea nitrogen [Mass/Vol] 21 mg/dL 7-18 [facility] Thin prep Papanicolaou smear with manual screeningOrdered By: Dr. Ramachandran on 06-30-2022 Thin prep Papanicolaou smear with manual screening 42 U/L 15- [facility] Comment on above: Slight Hemolysis, Re sult may be falsely increased. Thin prep Papanicolaou smear with manual screening 6 5-15 [facility] Thin prep Papanicolaou smear with manual screening 15.5 mg/L NO RANGE EST. [facility] Urine creatinine measurement (mass/volume)Ordered By: Dr. Ramachandran on 06-30-2022 Creatinine (U) [Mass/Vol] 221.00 mg/dL NO RANGE EST. [facility] Whole blood hemoglobin A1c/t otal hemoglobin ratio (mass fraction)Ordered By: Dr. Ramachandran on 06-30-2022 HbA1c (Bld) [Mass fraction] 5.8 % 3.8-5.6 [facility] Comment on above: Normal < 5.7 % Predi abetic 5.7 - 6.4 % Diabetic >or= 6.5 % Please note range changes. Absolute lymphocyte countOrd ered By: Dr. Ramachandran on 04-01-2022 Lymphocytes Auto (Unsp spec) [#/Vol] 1.19 10*3/uL 0.83-4.51 [facility] Basophil percentageOrdered B y: Dr. Ramachandran on 04-01-2022 Basophils/100 WBC (Bld) 0.8 % 0-[address] [facility] Bilirubin [Mass/Vol] 0.90 mg/dL 0.20-1.00 [facility] Comment on above: For patients on eltr ombopag therapy, use of Dimension [place] TBIL is not recommended. Chloride [Moles/Vol] 105 mmol/L 98-107 [facility] Cholesterol [Mass/Vol] 132 mg/dL <200 [facility] Comment on above: <200 mg/dL Desirable 200-240 mg/dL Borderline >240 mg/dL High Risk Eosinophils/100 WBC (Bld) 2.3 % 0-5 [facility] Glucose [Mass/Vol] 166 mg/dL 74-106 [facility] Comment on above: Fasting Glucose resu lt greater than or equal to 126 mg/dL suggests DIABETES MELLITUS per A.D.A. criteria. Neutrophils (Bld) [#/Vol] 4.5 10*3/uL 2.0-7.7 [facility] Neutrophils/100 WBC (Bld) 68.0 % 47-70 [facility] Potassium [Moles/Vol] 4.1 mmol/L 3.5-5.1 [facility] Protein [Mass/Vol] 6.8 g/dL 6.4-8.2 [facility] Sodium [Moles/Vol] 140 mmol/L 136-145 [facility] Triglyceride [Mass/Vol] 160 mg/dL <[address] [facility] Comment on above: The drugs N-Acetylcy steine and Metamizole may falsely depress this assay.Serum Triglycerides Reference Interval Normal <150 mg/dL Borderline high 150 - 199 mg/dL High 200 - 499 mg/dL Very High > or = 500 mg/dL WBC (Bld) [#/Vol] 6.6 10*3/uL 4.4-11.0 [facility] Blood erythrocytes count (nu mber/volume)Ordered By: Dr. Ramachandran on 04-01-2022 RBC (Bld) [#/Vol] 5.18 10*6/uL 4.6-6.2 [facility] Blood hemoglobin measurement (mass/volume)Ordered By: Dr. Ramachandran on 04-01-2022 Hemoglobin (Bld) [Mass/Vol] 16.1 g/dL 13.0-16.5 [facility] Blood lymphocytes/100 leukoc ytesOrdered By: Dr. Ramachandran on 04-01-2022 Lymphocytes/100 WBC (Bld) 18.1 % 19-41 [facility] Blood monocytes/100 leukocyt esOrdered By: Dr. Ramachandran on 04-01-2022 Monocytes/100 WBC (Bld) 10.2 % 0-10 [facility] Blood platelet mean volumeOr dered By: Dr. Ramachandran on 04-01-2022 Platelet mean volume (Bld) [Entitic vol] 11.5 fL 6.2-12.0 [facility] Determination of erythrocyte mean corpuscular volume (MCV)Ordered By: Dr. Ramachandran on 04-01-2022 MCV (RBC) [Entitic vol] 94.8 fL 80-[address] [facility] Hematocrit Auto (Bld) [Volum e fraction]Ordered By: Dr. Ramachandran on 04-01-2022 Hematocrit (Bld) [Volume fraction] 49.1 % 40-54 [facility] Laboratory - Chemistry and C hemistry - challengeOrdered By: Dr. Ramachandran on 04-01-2022 ALP [Catalytic activity/Vol] 62 U/L 45-117 [facility] ALT [Catalytic activity/Vol] 78 U/L 16-61 [facility] CO2 [Moles/Vol] 28.0 mmol/L 21.0-32.0 [facility] Globulin (S) [Mass/Vol] 2.9 g/dL 2.2-4.[address] [facility] Urea nitrogen/Creatinine [Mass ratio] 15.8 mg/mg 10-20 [facility] Laboratory - Hematology and Cell countsOrdered By: Dr. Ramachandran on 04-01-2022 Erythrocyte distribution width (RBC) [Entitic vol] 43.6 fL 35.1-43.9 [facility] Erythrocyte distribution width (RBC) [Ratio] 12.6 % 11.6-14.6 [facility] Immature granulocytes/100 WBC (Bld) 0.600 % 0.0-0.9 [facility] Comment on above: IG% - Immature Granu locytes (promyelocytes, myelocytes and metamyelocytes) > 1% indicates that a LEFT SHIFT is Present. MCH (RBC) [Entitic mass] 31.1 pg 27.0-32.0 [facility] Nucleated RBC/100 WBC (Bld) [Ratio] 0 % 0-5 [facility] MCHC Auto (RBC) [Mass/Vol]Or dered By: Dr. Ramachandran on 04-01-2022 MCHC (RBC) [Mass/Vol] 32.8 g/dL 32-36 [facility] No Panel InformationOrdered By: Dr. Ramachandran on 04-01-2022 Estimated GFR (MDRD) Amer 83 mL/min >60 [facility] Comment on above: GFR Calc Estimated GFR (MDRD) Non-Af Amer 69 mL/min >60 [facility] Comment on above: Non- GFR Calc Urine Microalbumin/Creatinine Ratio 6.1 mg/g CRE <30 [facility] Platelets bldOrdered By: Dr. Ramachandran on 04-01-2022 Platelets (Bld) [#/Vol] 153 10*3/uL 150-450 [facility] Serum or plasma albumin luis urement (mass/volume)Ordered By: Dr. Ramachandran on 04-01-2022 Albumin [Mass/Vol] 3.9 g/dL 3.2-5.0 [facility] Serum or plasma albumin/glob ulin mass ratioOrdered By: Dr. Ramachandran on 04-01-2022 Albumin/Globulin [Mass ratio] 1.3 {ratio} 0.9-2.4 [facility] Serum or plasma calcium luis urement (mass/volume)Ordered By: Dr. Ramachandran on 04-01-2022 Calcium [Mass/Vol] 8.9 mg/dL 8.5-10.1 [facility] Serum or plasma cholesterol in HDL measurement (mass/volume)Ordered By: Dr. Ramachandran on 04-01-2022 Cholesterol in HDL [Mass/Vol] 35 mg/dL >40 [facility] Comment on above: The drugs N-Acetylcy steine and Metamizole may falsely depress this assay. Reference Range HDL <40 mg/dL Low HDL Cholesterol HDL >or= 60 mg/dL High HDL Cholesterol Serum or plasma cholesterol in VLDL measurement (mass/volume)Ordered By: Dr. Ramachandran on 04-01-2022 Cholesterol in VLDL [Mass/Vol] 32 mg/dL 5-40 [facility] Serum or plasma creatinine m easurement (mass/volume)Ordered By: Dr. Ramachandran on 04-01-2022 Creatinine [Mass/Vol] 1.14 mg/dL 0.70-1.30 [facility] Comment on above: The validity of the calculated GFR & GFRAA in patients over 70 years has not been determined. Clinical correlation is essential. Serum or plasma low density lipoprotein (LDL) cholesterol measurement (mass/volume)Ordered By: Dr. Ramachandran on 04-01-2022 Cholesterol in LDL [Mass/Vol] 65 mg/dL 0-130 [facility] Serum or plasma urea nitroge n measurement (mass/volume)Ordered By: Dr. Ramachandran on 04-01-2022 Urea nitrogen [Mass/Vol] 18 mg/dL 7-18 [facility] Thin prep Papanicolaou smear with manual screeningOrdered By: Dr. Ramachandran on 04-01-2022 Thin prep Papanicolaou smear with manual screening 37 U/L 15-37 [facility] Thin prep Papanicolaou smear with manual screening 7 5-15 [facility] Thin prep Papanicolaou smear with manual screening 8.8 mg/L NO RANGE EST. [facility] Urine creatinine measurement (mass/volume)Ordered By: Dr. Ramachandran on 04-01-2022 Creatinine (U) [Mass/Vol] 144.00 mg/dL NO RANGE EST. [facility] Whole blood hemoglobin A1c/t otal hemoglobin ratio (mass fraction)Ordered By: Dr. Ramachandran on 04-01-2022 HbA1c (Bld) [Mass fraction] 8.2 % 3.8-5.6 [facility] Comment on above: Normal < 5.7 % Predi abetic 5.7 - 6.4 % Diabetic >or= 6.5 % Please note range changes. Absolute lymphocyte counton 01-01-2022 Lymphocytes Auto (Unsp spec) [#/Vol] 1.24 10*3/uL 0.83-4.51 [facility] Work Phone: Basophil percentageon 2021 Basophil percentage 0 SEEN /hpf 0-5 [facility] Work Phone: Basophils/100 WBC (Bld) 0.9 % 0-[address] [facility] Work Phone: Bilirubin [Mass/Vol] 0.80 mg/dL 0.20-1.00 [facility] Work Phone: Comment on above: For patients on eltr ombopag therapy, use of Dimension [place] TBIL is not recommended. Chloride [Moles/Vol] 106 mmol/L 98-107 [facility] Work Phone: Cholesterol [Mass/Vol] 139 mg/dL <200 [facility] Work Phone: Comment on above: <200 mg/dL Desirable 200-240 mg/dL Borderline >240 mg/dL High Risk Eosinophils/100 WBC (Bld) 2.8 % 0-5 [facility] Work Phone: Glucose [Mass/Vol] 201 mg/dL 74-106 [facility] Work Phone: Comment on above: Glucose result great er than or equal to 200 mg/dLsuggests DIABETES MELLITUS per A.D.A. criteria. Neutrophils (Bld) [#/Vol] 4.2 10*3/uL 2.0-7.7 [facility] Work Phone: [phone] Neutrophils/100 WBC (Bld) 65.8 % 47-70 [facility] Work Phone: Potassium [Moles/Vol] 3.8 mmol/L 3.5-5.1 [facility] Work Phone: Protein [Mass/Vol] 7.3 g/dL 6.4-8.2 [facility] Work Phone: Sodium [Moles/Vol] 141 mmol/L 136-145 [facility] Work Phone: Triglyceride [Mass/Vol] 200 mg/dL <[address] [facility] Work Phone: Comment on above: The drugs N-Acetylcy steine and Metamizole may falsely depress this assay.Serum Triglycerides Reference Interval Normal <150 mg/dL Borderline high 150 - 199 mg/dL High 200 - 499 mg/dL Very High > or = 500 mg/dL WBC (Bld) [#/Vol] 6.4 10*3/uL 4.4-11.0 [facility] Work Phone: Bilirubin Test strip Ql (U)o n 01-01-2022 Bilirubin Ql (U) Negative Negative [facility] Work Phone: [phone] Blood erythrocytes count (nu mber/volume)on 01-01-2022 RBC (Bld) [#/Vol] 4.92 10*6/uL 4.6-6.2 [facility] Work Phone: Blood hemoglobin measurement (mass/volume)on 01-01-2022 Hemoglobin (Bld) [Mass/Vol] 15.8 g/dL 13.0-16.5 [facility] Work Phone: Blood lymphocytes/100 leukoc yteson 01-01-2022 Lymphocytes/100 WBC (Bld) 19.4 % 19-41 [facility] Work Phone: [phone] Blood monocytes/100 leukocyt eson 01-01-2022 Monocytes/100 WBC (Bld) 10.2 % 0-[address] [facility] Work Phone: Blood platelet mean volumeon 01-01-2022 Platelet mean volume (Bld) [Entitic vol] 11.2 fL 6.2-12.0 [facility] Work Phone: [phone] Determination of erythrocyte mean corpuscular volume (MCV)on 01-01-2022 MCV (RBC) [Entitic vol] 96.5 fL 80-[address] [facility] Work Phone: [phone] Hematocrit Auto (Bld) [Volum e fraction]on 01-01-2022 Hematocrit (Bld) [Volume fraction] 47.5 % 40-54 [facility] Work Phone: Ketones Test strip Ql (U)on 01-01-2022 Ketones Ql (U) Negative Negative [facility] Work Phone: Laboratory - Chemistry and C hemistry - challengeon 01-01-2022 ALP [Catalytic activity/Vol] 64 U/L 45-117 [facility] Work Phone: [phone] ALT [Catalytic activity/Vol] 66 U/L 16-61 [facility] Work Phone: [phone] CO2 [Moles/Vol] 28.0 mmol/L 21.0-32.0 [facility] Work Phone: Globulin (S) [Mass/Vol] 3.4 g/dL 2.2-4.[address] [facility] Work Phone: [phone] Urea nitrogen/Creatinine [Mass ratio] 18.5 mg/mg 10-20 [facility] Work Phone: [phone] Laboratory - Hematology and Cell countson 01-01-2022 Erythrocyte distribution width (RBC) [Entitic vol] 45.1 fL 35.1-43.9 [facility] Work Phone: [phone] Erythrocyte distribution width (RBC) [Ratio] 12.7 % 11.6-14.6 [facility] Work Phone: [phone] Immature granulocytes/100 WBC (Bld) 0.900 % 0.0-0.9 [facility] Work Phone: [phone] Comment on above: IG% - Immature Granu locytes (promyelocytes, myelocytes and metamyelocytes) > 1% indicates that a LEFT SHIFT is Present. MCH (RBC) [Entitic mass] 32.1 pg 27.0-32.0 [facility] Work Phone: [phone] Nucleated RBC/100 WBC (Bld) [Ratio] 0 % 0-5 [facility] Work Phone: [phone] MCHC Auto (RBC) [Mass/Vol]on 01-01-2022 MCHC (RBC) [Mass/Vol] 33.3 g/dL 32-36 [facility] Work Phone: Mucus LM Ql (Urine sed)on Mucus Ql (Urine sed) 0 SEEN /hpf [facility] Work Phone: [phone] Nitrite Test strip Ql (U)on 01-01-2022 Nitrite Ql (U) Negative Negative [facility] Work Phone: [phone] No Panel Informationon 01-01 Estimated GFR (MDRD) Amer 89 mL/min >60 [facility] Work Phone: [phone] Comment on above: GFR Calc Estimated GFR (MDRD) Non-Af Amer 73 mL/min >60 [facility] Work Phone: [phone] Comment on above: Non- GFR Calc Platelets bldon 01-01-2022 Platelets (Bld) [#/Vol] 160 10*3/uL 150-450 [facility] Work Phone: [phone] Protein Test strip Ql (U)on 01-01-2022 Protein Ql (U) Negative Negative [facility] Work Phone: Serum or plasma albumin luis urement (mass/volume)on 01-01-2022 Albumin [Mass/Vol] 3.9 g/dL 3.2-5.0 [facility] Work Phone: Serum or plasma albumin/glob ulin mass ratioon 01-01-2022 Albumin/Globulin [Mass ratio] 1.1 {ratio} 0.9-2.4 [facility] Work Phone: Serum or plasma calcium luis urement (mass/volume)on 01-01-2022 Calcium [Mass/Vol] 9.1 mg/dL 8.5-10.1 [facility] Work Phone: Serum or plasma cholesterol in HDL measurement (mass/volume)on 01-01-2022 Cholesterol in HDL [Mass/Vol] 40 mg/dL >40 [facility] Work Phone: Comment on above: The drugs N-Acetylcy steine and Metamizole may falsely depress this assay. Reference Range HDL <40 mg/dL Low HDL Cholesterol HDL >or= 60 mg/dL High HDL Cholesterol Serum or plasma cholesterol in VLDL measurement (mass/volume)on 01-01-2022 Cholesterol in VLDL [Mass/Vol] 40 mg/dL 5-40 [facility] Work Phone: Serum or plasma creatinine m easurement (mass/volume)on 01-01-2022 Creatinine [Mass/Vol] 1.08 mg/dL 0.70-1.30 [facility] Work Phone: Comment on above: The validity of the calculated GFR & GFRAA in patients over 70 years has not been determined. Clinical correlation is essential. Serum or plasma low density lipoprotein (LDL) cholesterol measurement (mass/volume)on 01-01-2022 Cholesterol in LDL [Mass/Vol] 59 mg/dL 0-130 [facility] Work Phone: Serum or plasma urea nitroge n measurement (mass/volume)on 01-01-2022 Urea nitrogen [Mass/Vol] 20 mg/dL 7-18 [facility] Work Phone: Squamous epithelial cells de tection in urine sediment by light microscopyon 01-01-2022 Epithelial cells.squamous LM Ql (Urine sed) 0 SEEN /hpf 0-5 [facility] Work Phone: Thin prep Papanicolaou smear with manual screeningon 01-01-2022 Thin prep Papanicolaou smear with manual screening 30 U/L 15-37 [facility] Work Phone: Thin prep Papanicolaou smear with manual screening 7 5-15 [facility] Work Phone: Urine blood detectionon 12-17 RBC Ql (U) Negative Negative [facility] Work Phone: RBC Ql (U) 0 SEEN /hpf 0-5 [facility] Work Phone: Urine clarityon 01-01-2022 Clarity (U) Clear Clear [facility] Work Phone: Urine color determinationon 01-01-2022 Color (U) Yellow Yellow [facility] Work Phone: Urine glucose detectionon Glucose Ql (U) 1000 mg/dl Normal [facility] Work Phone: Urine leukocyte esterase det ection by dipstickon 01-01-2022 Leukocyte esterase Test strip Ql (U) Negative Negative [facility] Work Phone: Urine pHon 01-01-2022 pH (U) 5.0 [pH] 5.0 - 8.0 [facility] Work Phone: Urine sediment bacteria coun t by microscopy (number/high power field)on 01-01-2022 Bacteria LM.HPF (Urine sed) [#/Area] 0 /[HPF] None Seen [facility] Work Phone: Urine specific gravity measu rementon 01-01-2022 Specific gravity (U) [Rel density] 1.020 1.002-1.030 [facility] Work Phone: Urobilinogen Auto test strip Ql (U)on 01-01-2022 Urobilinogen Ql (U) Normal mg/dl Normal [facility] Work Phone: Whole blood hemoglobin A1c/t otal hemoglobin ratio (mass fraction)on 01-01-2022 HbA1c (Bld) [Mass fraction] 9.5 % 3.8-5.6 [facility] Work Phone: Comment on above: Normal < 5.7 % Predi abetic 5.7 - 6.4 % Diabetic >or= 6.5 % Please note range changes. Basophil percentageon 2021 Chloride [Moles/Vol] 105 mmol/L 98-107 [facility] Work Phone: Glucose [Mass/Vol] 278 mg/dL 74-106 [facility] Work Phone: Comment on above: Glucose result great er than or equal to 200 mg/dLsuggests DIABETES MELLITUS per A.D.A. criteria. Potassium [Moles/Vol] 4.3 mmol/L 3.5-5.1 [facility] Work Phone: Sodium [Moles/Vol] 139 mmol/L 136-145 [facility] Work Phone: Laboratory - Chemistry and C hemistry - challengeon 10-14-2021 CO2 [Moles/Vol] 23.0 mmol/L 21.0-32.0 [facility] Work Phone: Urea nitrogen/Creatinine [Mass ratio] 22.4 mg/mg 10-20 [facility] Work Phone: No Panel Informationon 10-14 Estimated GFR (MDRD) Amer 75 mL/min >60 [facility] Work Phone: Comment on above: GFR Calc Estimated GFR (MDRD) Non-Af Amer 62 mL/min >60 [facility] Work Phone: Comment on above: Non- GFR Calc Serum or plasma calcium luis urement (mass/volume)on 10-14-2021 Calcium [Mass/Vol] 9.4 mg/dL 8.5-10.1 [facility] Work Phone: Serum or plasma creatinine m easurement (mass/volume)on 10-14-2021 Creatinine [Mass/Vol] 1.25 mg/dL 0.70-1.30 [facility] Work Phone: Comment on above: The validity of the calculated GFR & GFRAA in patients over 70 years has not been determined. Clinical correlation is essential. Serum or plasma urea nitroge n measurement (mass/volume)on 10-14-2021 Urea nitrogen [Mass/Vol] 28 mg/dL 7-18 [facility] Work Phone: Thin prep Papanicolaou smear with manual screeningon 10-14-2021 Thin prep Papanicolaou smear with manual screening 11 5-15 [facility] Work Phone: Absolute lymphocyte counton 10-02-2021 Lymphocytes Auto (Unsp spec) [#/Vol] 1.06 10*3/uL 0.83-4.51 [facility] Work Phone: Basophil percentageon 2021 Basophil percentage 0 SEEN /hpf 0-5 [facility] Work Phone: Basophils/100 WBC (Bld) 0.5 % 0-1 [facility] Work Phone: Bilirubin [Mass/Vol] 0.90 mg/dL 0.20-1.00 [facility] Work Phone: Comment on above: For patients on eltr ombopag therapy, use of Dimension [place] TBIL is not recommended. Chloride [Moles/Vol] 98 mmol/L 98-107 [facility] Work Phone: Cholesterol [Mass/Vol] 115 mg/dL <200 [facility] Work Phone: Comment on above: <200 mg/dL Desirable 200-240 mg/dL Borderline >240 mg/dL High Risk Eosinophils/100 WBC (Bld) 6.1 % 0-5 [facility] Work Phone: Glucose [Mass/Vol] 321 mg/dL 74-106 [facility] Work Phone: Comment on above: Glucose result great er than or equal to 200 mg/dLsuggests DIABETES MELLITUS per A.D.A. criteria. Neutrophils (Bld) [#/Vol] 3.8 10*3/uL 2.0-7.7 [facility] Work Phone: Neutrophils/100 WBC (Bld) 60.7 % 47-70 [facility] Work Phone: [phone] Potassium [Moles/Vol] 4.1 mmol/L 3.5-5.1 [facility] Work Phone: Protein [Mass/Vol] 6.8 g/dL 6.4-8.2 [facility] Work Phone: Sodium [Moles/Vol] 134 mmol/L 136-145 [facility] Work Phone: [phone] Triglyceride [Mass/Vol] 174 mg/dL <[address] [facility] Work Phone: Comment on above: The drugs N-Acetylcy steine and Metamizole may falsely depress this assay.Serum Triglycerides Reference Interval Normal <150 mg/dL Borderline high 150 - 199 mg/dL High 200 - 499 mg/dL Very High > or = 500 mg/dL WBC (Bld) [#/Vol] 6.2 10*3/uL 4.4-11.0 [facility] Work Phone: Bilirubin Test strip Ql (U)o n 10-02-2021 Bilirubin Ql (U) Negative Negative [facility] Work Phone: [phone] Blood erythrocytes count (nu mber/volume)on 10-02-2021 RBC (Bld) [#/Vol] 4.74 10*6/uL 4.6-6.2 [facility] Work Phone: [phone] Blood hemoglobin measurement (mass/volume)on 10-02-2021 Hemoglobin (Bld) [Mass/Vol] 15.0 g/dL 13.0-16.5 [facility] Work Phone: Blood lymphocytes/100 leukoc yteson 10-02-2021 Lymphocytes/100 WBC (Bld) 17.0 % 19-41 [facility] Work Phone: Blood monocytes/100 leukocyt eson 10-02-2021 Monocytes/100 WBC (Bld) 14.1 % 0-[address] [facility] Work Phone: Blood platelet mean volumeon 10-02-2021 Platelet mean volume (Bld) [Entitic vol] 10.9 fL 6.2-12.0 [facility] Work Phone: Determination of erythrocyte mean corpuscular volume (MCV)on 10-02-2021 MCV (RBC) [Entitic vol] 93.9 fL 80-[address] [facility] Work Phone: Hematocrit Auto (Bld) [Volum e fraction]on 10-02-2021 Hematocrit (Bld) [Volume fraction] 44.5 % 40-54 [facility] Work Phone: Ketones Test strip Ql (U)on 10-02-2021 Ketones Ql (U) 5 mg/dl Negative [facility] Work Phone: Laboratory - Chemistry and C hemistry - challengeon 10-02-2021 ALP [Catalytic activity/Vol] 65 U/L 45-117 [facility] Work Phone: ALT [Catalytic activity/Vol] 94 U/L 16-61 [facility] Work Phone: CO2 [Moles/Vol] 30.0 mmol/L 21.0-32.0 [facility] Work Phone: Globulin (S) [Mass/Vol] 3.3 g/dL 2.2-4.[address] [facility] Work Phone: Urea nitrogen/Creatinine [Mass ratio] 13.3 mg/mg 10-20 [facility] Work Phone: Laboratory - Hematology and Cell countson 10-02-2021 Erythrocyte distribution width (RBC) [Entitic vol] 42.7 fL 35.1-43.9 [facility] Work Phone: Erythrocyte distribution width (RBC) [Ratio] 12.3 % 11.6-14.6 [facility] Work Phone: Immature granulocytes/100 WBC (Bld) 1.600 % 0.0-0.9 [facility] Work Phone: Comment on above: IG% - Immature Granu locytes (promyelocytes, myelocytes and metamyelocytes) > 1% indicates that a LEFT SHIFT is Present. MCH (RBC) [Entitic mass] 31.6 pg 27.0-32.0 [facility] Work Phone: [phone] Nucleated RBC/100 WBC (Bld) [Ratio] 0 % 0-5 [facility] Work Phone: [phone] MCHC Auto (RBC) [Mass/Vol]on 10-02-2021 MCHC (RBC) [Mass/Vol] 33.7 g/dL 32-36 [facility] Work Phone: [phone] Mucus LM Ql (Urine sed)on Mucus Ql (Urine sed) 0 SEEN /hpf [facility] Work Phone: [phone] Nitrite Test strip Ql (U)on 10-02-2021 Nitrite Ql (U) Negative Negative [facility] Work Phone: No Panel Informationon 10-02 Estimated GFR (MDRD) Amer 73 mL/min >60 [facility] Work Phone: Comment on above: GFR Calc Estimated GFR (MDRD) Non-Af Amer 60 mL/min >60 [facility] Work Phone: Comment on above: Non- GFR Calc Platelets bldon 10-02-2021 Platelets (Bld) [#/Vol] 149 10*3/uL 150-450 [facility] Work Phone: [phone] Protein Test strip Ql (U)on 10-02-2021 Protein Ql (U) Negative Negative [facility] Work Phone: [phone] Serum or plasma albumin luis urement (mass/volume)on 10-02-2021 Albumin [Mass/Vol] 3.5 g/dL 3.2-5.0 [facility] Work Phone: Serum or plasma albumin/glob ulin mass ratioon 10-02-2021 Albumin/Globulin [Mass ratio] 1.1 {ratio} 0.9-2.4 [facility] Work Phone: Serum or plasma calcium luis urement (mass/volume)on 10-02-2021 Calcium [Mass/Vol] 9.0 mg/dL 8.5-10.1 [facility] Work Phone: Serum or plasma cholesterol in HDL measurement (mass/volume)on 10-02-2021 Cholesterol in HDL [Mass/Vol] 32 mg/dL >40 [facility] Work Phone: Comment on above: The drugs N-Acetylcy steine and Metamizole may falsely depress this assay. Reference Range HDL <40 mg/dL Low HDL Cholesterol HDL >or= 60 mg/dL High HDL Cholesterol Serum or plasma cholesterol in VLDL measurement (mass/volume)on 10-02-2021 Cholesterol in VLDL [Mass/Vol] 35 mg/dL 5-40 [facility] Work Phone: Serum or plasma creatinine m easurement (mass/volume)on 10-02-2021 Creatinine [Mass/Vol] 1.28 mg/dL 0.70-1.30 [facility] Work Phone: Comment on above: The validity of the calculated GFR & GFRAA in patients over 70 years has not been determined. Clinical correlation is essential. Serum or plasma low density lipoprotein (LDL) cholesterol measurement (mass/volume)on 10-02-2021 Cholesterol in LDL [Mass/Vol] 48 mg/dL 0-130 [facility] Work Phone: Serum or plasma urea nitroge n measurement (mass/volume)on 10-02-2021 Urea nitrogen [Mass/Vol] 17 mg/dL 7-18 [facility] Work Phone: [phone] Squamous epithelial cells de tection in urine sediment by light microscopyon 10-02-2021 Epithelial cells.squamous LM Ql (Urine sed) 0 SEEN /hpf 0-5 [facility] Work Phone: Thin prep Papanicolaou smear with manual screeningon 10-02-2021 Thin prep Papanicolaou smear with manual screening 37 U/L 15-37 [facility] Work Phone: Thin prep Papanicolaou smear with manual screening 6 5-15 [facility] Work Phone: Urine blood detectionon 09-16 RBC Ql (U) Negative Negative [facility] Work Phone: RBC Ql (U) 0 SEEN /hpf 0-5 [facility] Work Phone: Urine clarityon 10-02-2021 Clarity (U) Clear Clear [facility] Work Phone: Urine color determinationon 10-02-2021 Color (U) Yellow Yellow [facility] Work Phone: Urine glucose detectionon Glucose Ql (U) 1000 mg/dl Normal [facility] Work Phone: Urine leukocyte esterase det ection by dipstickon 10-02-2021 Leukocyte esterase Test strip Ql (U) Negative Negative [facility] Work Phone: Urine pHon 10-02-2021 pH (U) 6.0 [pH] 5.0 - 8.0 [facility] Work Phone: Urine sediment bacteria coun t by microscopy (number/high power field)on 10-02-2021 Bacteria LM.HPF (Urine sed) [#/Area] 0 /[HPF] None Seen [facility] Work Phone: Urine specific gravity measu rementon 10-02-2021 Specific gravity (U) [Rel density] 1.020 1.002-1.030 [facility] Work Phone: Urobilinogen Auto test strip Ql (U)on 10-02-2021 Urobilinogen Ql (U) Normal mg/dl Normal [facility] Work Phone: Whole blood hemoglobin A1c/t otal hemoglobin ratio (mass fraction)on 10-02-2021 HbA1c (Bld) [Mass fraction] 8.1 % 3.8-5.6 [facility] Work Phone: Comment on above: Normal < 5.7 % Predi abetic 5.7 - 6.4 % Diabetic >or= 6.5 % Please note range changes. Absolute lymphocyte counton 07-03-2021 Lymphocytes Auto (Unsp spec) [#/Vol] 1.40 10*3/uL 0.83-4.51 [facility] Work Phone: Basophil percentageon 2021 Basophils/100 WBC (Bld) 1.1 % 0-[address] [facility] Work Phone: Bilirubin [Mass/Vol] 1.20 mg/dL 0.20-1.00 [facility] Work Phone: Comment on above: For patients on eltr ombopag therapy, use of Dimension [place] TBIL is not recommended. Chloride [Moles/Vol] 104 mmol/L 98-107 [facility] Work Phone: Cholesterol [Mass/Vol] 145 mg/dL <200 [facility] Work Phone: Comment on above: <200 mg/dL Desirable 200-240 mg/dL Borderline >240 mg/dL High Risk Eosinophils/100 WBC (Bld) 3.9 % 0-5 [facility] Work Phone: Glucose [Mass/Vol] 175 mg/dL 74-106 [facility] Work Phone: Comment on above: Fasting Glucose resu lt greater than or equal to 126 mg/dL suggests DIABETES MELLITUS per A.D.A. criteria. Neutrophils (Bld) [#/Vol] 4.1 10*3/uL 2.0-7.7 [facility] Work Phone: Neutrophils/100 WBC (Bld) 61.0 % 47-70 [facility] Work Phone: Potassium [Moles/Vol] 3.9 mmol/L 3.5-5.1 [facility] Work Phone: Comment on above: Slight Hemolysis, Re sult may be falsely increased. Protein [Mass/Vol] 7.7 g/dL 6.4-8.2 [facility] Work Phone: [phone] Sodium [Moles/Vol] 137 mmol/L 136-145 [facility] Work Phone: [phone] Triglyceride [Mass/Vol] 122 mg/dL <[address] [facility] Work Phone: [phone] Comment on above: The drugs N-Acetylcy steine and Metamizole may falsely depress this assay.Serum Triglycerides Reference Interval Normal <150 mg/dL Borderline high 150 - 199 mg/dL High 200 - 499 mg/dL Very High > or = 500 mg/dL WBC (Bld) [#/Vol] 6.7 10*3/uL 4.4-11.0 [facility] Work Phone: [phone] Blood erythrocytes count (nu mber/volume)on 07-03-2021 RBC (Bld) [#/Vol] 5.00 10*6/uL 4.6-6.2 [facility] Work Phone: [phone] Blood hemoglobin measurement (mass/volume)on 07-03-2021 Hemoglobin (Bld) [Mass/Vol] 16.0 g/dL 13.0-16.5 [facility] Work Phone: [phone] Blood lymphocytes/100 leukoc yteson 07-03-2021 Lymphocytes/100 WBC (Bld) 21.1 % 19-41 [facility] Work Phone: [phone] Blood monocytes/100 leukocyt eson 07-03-2021 Monocytes/100 WBC (Bld) 12.0 % 0-[address] [facility] Work Phone: [phone] Blood platelet mean volumeon 07-03-2021 Platelet mean volume (Bld) [Entitic vol] 12.2 fL 6.2-12.0 [facility] Work Phone: [phone] Determination of erythrocyte mean corpuscular volume (MCV)on 07-03-2021 MCV (RBC) [Entitic vol] 97.4 fL 80-[address] [facility] Work Phone: [phone] Hematocrit Auto (Bld) [Volum e fraction]on 07-03-2021 Hematocrit (Bld) [Volume fraction] 48.7 % 40-54 [facility] Work Phone: [phone] Laboratory - Chemistry and C hemistry - challengeon 07-03-2021 ALP [Catalytic activity/Vol] 58 U/L 45-117 [facility] Work Phone: [phone] ALT [Catalytic activity/Vol] 97 U/L 16-61 [facility] Work Phone: [phone] CO2 [Moles/Vol] 32.0 mmol/L 21.0-32.0 [facility] Work Phone: [phone] Globulin (S) [Mass/Vol] 3.5 g/dL 2.2-4.[address] [facility] Work Phone: [phone] Urea nitrogen/Creatinine [Mass ratio] 16.0 mg/mg 10-20 [facility] Work Phone: [phone] Laboratory - Hematology and Cell countson 07-03-2021 Erythrocyte distribution width (RBC) [Entitic vol] 46.0 fL 35.1-43.9 [facility] Work Phone: [phone] Erythrocyte distribution width (RBC) [Ratio] 12.9 % 11.6-14.6 [facility] Work Phone: [phone] Immature granulocytes/100 WBC (Bld) 0.900 % 0.0-0.9 [facility] Work Phone: [phone] Comment on above: IG% - Immature Granu locytes (promyelocytes, myelocytes and metamyelocytes) > 1% indicates that a LEFT SHIFT is Present. MCH (RBC) [Entitic mass] 32.0 pg 27.0-32.0 [facility] Work Phone: [phone] Nucleated RBC/100 WBC (Bld) [Ratio] 0 % 0-5 [facility] Work Phone: [phone] MCHC Auto (RBC) [Mass/Vol]on 07-03-2021 MCHC (RBC) [Mass/Vol] 32.9 g/dL 32-36 [facility] Work Phone: No Panel Informationon 07-03 Estimated GFR (MDRD) Amer 80 mL/min >60 [facility] Work Phone: Comment on above: GFR Calc Estimated GFR (MDRD) Non-Af Amer 66 mL/min >60 [facility] Work Phone: Comment on above: Non- GFR Calc Urine Microalbumin/Creatinine Ratio 8.7 mg/g CRE <30 [facility] Work Phone: Platelets bldon 07-03-2021 Platelets (Bld) [#/Vol] 175 10*3/uL 150-450 [facility] Work Phone: Serum or plasma albumin luis urement (mass/volume)on 07-03-2021 Albumin [Mass/Vol] 4.2 g/dL 3.2-5.0 [facility] Work Phone: Serum or plasma albumin/glob ulin mass ratioon 07-03-2021 Albumin/Globulin [Mass ratio] 1.2 {ratio} 0.9-2.4 [facility] Work Phone: Serum or plasma calcium luis urement (mass/volume)on 07-03-2021 Calcium [Mass/Vol] 9.2 mg/dL 8.5-10.1 [facility] Work Phone: Serum or plasma cholesterol in HDL measurement (mass/volume)on 07-03-2021 Cholesterol in HDL [Mass/Vol] 37 mg/dL >40 [facility] Work Phone: Comment on above: The drugs N-Acetylcy steine and Metamizole may falsely depress this assay. Reference Range HDL <40 mg/dL Low HDL Cholesterol HDL >or= 60 mg/dL High HDL Cholesterol Serum or plasma cholesterol in VLDL measurement (mass/volume)on 07-03-2021 Cholesterol in VLDL [Mass/Vol] 24 mg/dL 5-40 [facility] Work Phone: Serum or plasma creatinine m easurement (mass/volume)on 07-03-2021 Creatinine [Mass/Vol] 1.19 mg/dL 0.70-1.30 [facility] Work Phone: Comment on above: The validity of the calculated GFR & GFRAA in patients over 70 years has not been determined. Clinical correlation is essential. Serum or plasma low density lipoprotein (LDL) cholesterol measurement (mass/volume)on 07-03-2021 Cholesterol in LDL [Mass/Vol] 84 mg/dL 0-130 [facility] Work Phone: [phone] Serum or plasma urea nitroge n measurement (mass/volume)on 07-03-2021 Urea nitrogen [Mass/Vol] 19 mg/dL 7-18 [facility] Work Phone: [phone] Thin prep Papanicolaou smear with manual screeningon 07-03-2021 Thin prep Papanicolaou smear with manual screening 42 U/L 15-37 [facility] Work Phone: [phone] Comment on above: Slight Hemolysis, Re sult may be falsely increased. Thin prep Papanicolaou smear with manual screening 1 5-15 [facility] Work Phone: [phone] Thin prep Papanicolaou smear with manual screening 13.7 mg/L NO RANGE EST. [facility] Work Phone: [phone] Urine creatinine measurement (mass/volume)on 07-03-2021 Creatinine (U) [Mass/Vol] 158.00 mg/dL NO RANGE EST. [facility] Work Phone: [phone] Whole blood hemoglobin A1c/t otal hemoglobin ratio (mass fraction)on 07-03-2021 HbA1c (Bld) [Mass fraction] 6.6 % 3.8-5.6 [facility] Work Phone: Comment on above: Normal < 5.7 % Predi abetic 5.7 - 6.4 % Diabetic >or= 6.5 % Please note range changes. Absolute lymphocyte counton 04-01-2021 Lymphocytes Auto (Unsp spec) [#/Vol] 1.23 10*3/uL 0.83-4.51 [facility] Work Phone: [phone] Basophil percentageon 2020 Basophil percentage 0 SEEN /hpf [facility] Work Phone: Bilirubin [Mass/Vol] 1.20 mg/dL 0.20-1.00 [facility] Work Phone: Comment on above: For patients on eltr ombopag therapy, use of Dimension [place] TBIL is not recommended. Chloride [Moles/Vol] 108 mmol/L 98-107 [facility] Work Phone: [phone] Cholesterol [Mass/Vol] 134 mg/dL <200 [facility] Work Phone: Comment on above: <200 mg/dL Desirable 200-240 mg/dL Borderline >240 mg/dL High Risk Eosinophils/100 WBC (Bld) 2.4 % 0-5 [facility] Work Phone: [phone] Glucose [Mass/Vol] 209 mg/dL 74-106 [facility] Work Phone: [phone] Comment on above: Glucose result great er than or equal to 200 mg/dLsuggests DIABETES MELLITUS per A.D.A. criteria.Please note revised GLUCOSE reference range effective 2017. Neutrophils (Bld) [#/Vol] 4.3 10*3/uL 2.0-7.7 [facility] Work Phone: [phone] Potassium [Moles/Vol] 3.7 mmol/L 3.5-5.1 [facility] Work Phone: [phone] Protein [Mass/Vol] 7.5 g/dL 6.4-8.2 [facility] Work Phone: Sodium [Moles/Vol] 139 mmol/L 136-145 [facility] Work Phone: Triglyceride [Mass/Vol] 160 mg/dL [facility] Work Phone: [phone] Comment on above: The drugs N-Acetylcy steine and Metamizole may falsely depress this assay.Serum Triglycerides Reference Interval Normal <150 mg/dL Borderline high 150 - 199 mg/dL High 200 - 499 mg/dL Very High > or = 500 mg/dL WBC (Bld) [#/Vol] 6.4 10*3/uL 4.4-11.0 [facility] Work Phone: Bilirubin Test strip Ql (U)o n 04-01-2021 Bilirubin Ql (U) Negative Negative [facility] Work Phone: Blood erythrocytes count (nu mber/volume)on 04-01-2021 RBC (Bld) [#/Vol] 4.66 10*6/uL 4.6-6.2 [facility] Work Phone: Blood hemoglobin measurement (mass/volume)on 04-01-2021 Hemoglobin (Bld) [Mass/Vol] 15.3 g/dL 13.0-16.5 [facility] Work Phone: Blood lymphocytes/100 leukoc yteson 04-01-2021 Lymphocytes/100 WBC (Bld) 19.3 % 19-41 [facility] Work Phone: Blood monocytes/100 leukocyt eson 04-01-2021 Monocytes/100 WBC (Bld) 9.4 % 0-[address] [facility] Work Phone: Blood platelet mean volumeon 04-01-2021 Platelet mean volume (Bld) [Entitic vol] 11.3 fL 6.2-12.0 [facility] Work Phone: Determination of erythrocyte mean corpuscular volume (MCV)on 04-01-2021 MCV (RBC) [Entitic vol] 94.6 fL 80-[address] [facility] Work Phone: Hematocrit Auto (Bld) [Volum e fraction]on 04-01-2021 Hematocrit (Bld) [Volume fraction] 44.1 % 40-54 [facility] Work Phone: Ketones Test strip Ql (U)on 04-01-2021 Ketones Ql (U) Negative Negative [facility] Work Phone: Laboratory - Chemistry and C hemistry - challengeon 04-01-2021 ALP [Catalytic activity/Vol] 67 U/L 45-117 [facility] Work Phone: [phone] ALT [Catalytic activity/Vol] 99 U/L 16-61 [facility] Work Phone: CO2 [Moles/Vol] 26.0 mmol/L 21.0-32.0 [facility] Work Phone: Globulin (S) [Mass/Vol] 3.6 g/dL 2.2-4.[address] [facility] Work Phone: [phone] Urea nitrogen/Creatinine [Mass ratio] 17.0 mg/mg 10-20 [facility] Work Phone: [phone] Laboratory - Hematology and Cell countson 04-01-2021 Basophils/100 WBC (Unsp spec) 0.6 % 0-1 [facility] Work Phone: Erythrocyte distribution width (RBC) [Entitic vol] 43.3 fL 35.1-43.9 [facility] Work Phone: [phone] Erythrocyte distribution width (RBC) [Ratio] 12.6 % 11.6-14.6 [facility] Work Phone: Immature granulocytes/100 WBC (Bld) 0.500 % 0.0-0.9 [facility] Work Phone: Comment on above: IG% - Immature Granu locytes (promyelocytes, myelocytes and metamyelocytes) > 1% indicates that a LEFT SHIFT is Present. MCH (RBC) [Entitic mass] 32.8 pg 27.0-32.0 [facility] Work Phone: Neutrophils/100 WBC (Bld) 67.8 % 47-70 [facility] Work Phone: [phone] Nucleated RBC/100 WBC (Bld) [Ratio] 0 % 0-5 [facility] Work Phone: [phone] MCHC Auto (RBC) [Mass/Vol]on 04-01-2021 MCHC (RBC) [Mass/Vol] 34.7 g/dL 32-36 [facility] Work Phone: Mucus LM Ql (Urine sed)on Mucus Ql (Urine sed) 0 SEEN /hpf [facility] Work Phone: [phone] Nitrite Test strip Ql (U)on 04-01-2021 Nitrite Ql (U) Negative Negative [facility] Work Phone: No Panel Informationon 04-01 Estimated GFR (MDRD) Amer 97 mL/min >60 [facility] Work Phone: [phone] Comment on above: GFR Calc Estimated GFR (MDRD) Non-Af Amer 80 mL/min >60 [facility] Work Phone: [phone] Comment on above: Non- GFR Calc Prostate Specific Antigen Screen 1.32 ng/mL 0.00-4.00 [facility] Work Phone: Comment on above: This test was perfor med using the TPSA assay method for [employer] chemistry system. Values obtained with differentassay methods cannot be used interchangably.When changing PSA assays in the course of monitoring apatient, additional sequential testing should be carriedout to confirm baseline values. Thyroid Stimulating Hormone (TSH) 1.47 uIU/mL 0.358-3.74 [facility] Work Phone: [phone] Platelets bldon 04-01-2021 Platelets (Bld) [#/Vol] 166 10*3/uL 150-450 [facility] Work Phone: [phone] Protein Test strip Ql (U)on 04-01-2021 Protein Ql (U) 15 mg/dl Negative [facility] Work Phone: [phone] Serum or plasma albumin luis urement (mass/volume)on 04-01-2021 Albumin [Mass/Vol] 3.9 g/dL 3.2-5.0 [facility] Work Phone: [phone] Serum or plasma albumin/glob ulin mass ratioon 04-01-2021 Albumin/Globulin [Mass ratio] 1.1 {ratio} 0.9-2.4 [facility] Work Phone: [phone] Serum or plasma calcium luis urement (mass/volume)on 04-01-2021 Calcium [Mass/Vol] 9.4 mg/dL 8.5-10.1 [facility] Work Phone: [phone] Serum or plasma cholesterol in HDL measurement (mass/volume)on 04-01-2021 Cholesterol in HDL [Mass/Vol] 39 mg/dL [facility] Work Phone: Comment on above: The drugs N-Acetylcy steine and Metamizole may falsely depress this assay. Reference Range HDL <40 mg/dL Low HDL Cholesterol HDL >or= 60 mg/dL High HDL Cholesterol Serum or plasma cholesterol in VLDL measurement (mass/volume)on 04-01-2021 Cholesterol in VLDL [Mass/Vol] 32 mg/dL 5-40 [facility] Work Phone: [phone] Serum or plasma creatinine m easurement (mass/volume)on 04-01-2021 Creatinine [Mass/Vol] 1.00 mg/dL 0.70-1.30 [facility] Work Phone: Comment on above: The validity of the calculated GFR & GFRAA in patients over 70 years has not been determined. Clinical correlation is essential. Serum or plasma low density lipoprotein (LDL) cholesterol measurement (mass/volume)on 04-01-2021 Cholesterol in LDL [Mass/Vol] 63 mg/dL 0-130 [facility] Work Phone: [phone] Serum or plasma urea nitroge n measurement (mass/volume)on 04-01-2021 Urea nitrogen [Mass/Vol] 17 mg/dL 7-18 [facility] Work Phone: [phone] Squamous epithelial cells de tection in urine sediment by light microscopyon 04-01-2021 Epithelial cells.squamous LM Ql (Urine sed) 0 SEEN /hpf [facility] Work Phone: [phone] Thin prep Papanicolaou smear with manual screeningon 04-01-2021 Thin prep Papanicolaou smear with manual screening 58 U/L 15- [facility] Work Phone: [phone] Thin prep Papanicolaou smear with manual screening 08-30 [facility] Work Phone: [phone] Urine blood detectionon 03-18 RBC Ql (U) Negative Negative [facility] Work Phone: [phone] RBC Ql (U) 0 SEEN /hpf [facility] Work Phone: Urine clarityon 04-01-2021 Clarity (U) Clear Clear [facility] Work Phone: Urine color determinationon 04-01-2021 Color (U) Yellow Yellow [facility] Work Phone: Urine glucose detectionon Glucose Ql (U) 1000 mg/dl Normal [facility] Work Phone: Urine leukocyte esterase det ection by dipstickon 04-01-2021 Leukocyte esterase Test strip Ql (U) Negative Negative [facility] Work Phone: [phone] Urine pHon 04-01-2021 pH (U) 5.0 [pH] [facility] Work Phone: Urine sediment bacteria coun t by microscopy (number/high power field)on 04-01-2021 Bacteria LM.HPF (Urine sed) [#/Area] 0 /[HPF] None Seen [facility] Work Phone: Urine specific gravity measu rementon 04-01-2021 Specific gravity (U) [Rel density] 1.025 [facility] Work Phone: Urobilinogen Auto test strip Ql (U)on 04-01-2021 Urobilinogen Ql (U) Normal mg/dl Normal [facility] Work Phone: Whole blood hemoglobin A1c/t otal hemoglobin ratio (mass fraction)on 04-01-2021 HbA1c (Bld) [Mass fraction] 7.5 % 3.8-5.6 [facility] Work Phone: Comment on above: Normal < 5.7 % Predi abetic 5.7 - 6.4 % Diabetic >or= 6.5 % Please note range changes. AMYLASEon 12-04-2016 Amylase 33 U/L Normal 25-115 [facility] Comment on above: Performed By: #### 2 4323-8, 68703-7, 26517-9, 3040-3, 1798-8, 2324-2 ####[facility] [address]Medical Director - Blanca Booth [id number] CBC with DIFFERENTIALon 11-16 Basophils Auto #/vol (Bld) 0.04 10*3/uL Normal <=0.70 [facility] Comment on above: Performed By: #### 5 7021-8 ####[facility] Director - Blanca FarrellCLIA [id number] Basophils/100 WBC Auto (Bld) 0.6 % Normal <=2.0 [facility] Comment on above: Performed By: #### 5 7021-8 ####[facility] Director - Blanca FarrellCLIA [id number] Eosinophils 0.29 10*3/uL Normal <=0.70 [facility] Comment on above: Performed By: #### 5 7021-8 ####[place] [address] Director - Blanca FarrellCLIA [id number] Eosinophils/100 leukocytes 4.7 % Normal <=10.0 [facility] Comment on above: Performed By: #### 5 7021-8 ####[facility] Director - Blanca FarrellCLIA [id number] Erythrocyte distribution width Auto Entitic volume (RBC) 44.0 fL High 35.1-43.9 [facility] Comment on above: Performed By: #### 5 7021-8 ####[facility] Director - Blanca FarrellCLIA [id number] Erythrocytes (RBC) 5.03 10*6/uL Normal 4.00-6.30 [facility] Comment on above: Performed By: #### 5 7021-8 ####[facility] Director - Blanca FarrellCLIA [id number] Hematocrit (HCT) 47.3 % Normal 40.0-54.0 [facility] Comment on above: Performed By: #### 5 7021-8 ####[facility] Director - Blanca FarrellCLIA [id number] Hemoglobin mass conc (Bld) 16.2 g/dL Normal 14.0-18.0 [facility] Comment on above: Performed By: #### 5 7021-8 ####[facility] Director - Blanca FarrellCLIA [id number] Immature granulocytes #/vol (Bld) 0.04 10*3/uL Normal <=0.10 [facility] Comment on above: Performed By: #### 5 7021-8 ####[facility] Director - Blanca FarrellCLIA [id number] Immature granulocytes/100 WBC (Bld) 0.60 % Normal <=1.50 [facility] Comment on above: Performed By: #### 5 7021-8 ####[facility] Director - Blanca FarrellCLIA [id number] Lymphocytes 1.67 10*3/uL Normal 1.20-3.40 [facility] Comment on above: Performed By: #### 5 7021-8 ####[facility] Director - Blanca FarrellCLIA [id number] Lymphocytes/100 leukocytes 26.9 % Normal 20.0-40.0 [facility] Comment on above: Performed By: #### 5 7021-8 ####[facility] Director - Blanca FarrellCLIA [id number] MCH 32.2 pg High 27.0-31.0 [facility] Comment on above: Performed By: #### 5 7021-8 ####[facility] Director - Blanca FarrellCLIA [id number] MCHC mass conc (RBC) 34.2 g/dL Normal 32.0-36.0 [facility] Comment on above: Performed By: #### 5 7021-8 ####[facility] Director - Blanca FarrellCLIA [id number] MCV 94.0 fL Normal 80.0-100.0 [facility] Comment on above: Performed By: #### 5 7021-8 ####[facility] Director - Blanca FarrellCLIA [id number] Monocytes 0.86 10*3/uL High 0.10-0.60 [facility] Comment on above: Performed By: #### 5 7021-8 ####[place] [address] Director - Blanca FarrellCLIA [id number] Monocytes/100 leukocytes 13.9 % High <=8.0 [facility] Comment on above: Performed By: #### 5 7021-8 ####[facility] Director - Blanca FarrellCLIA [id number] Neutrophils 3.30 10*3/uL Normal 1.40-6.50 [facility] Comment on above: Performed By: #### 5 7021-8 ####[facility] Director - Blanca FarrellCLIA [id number] Neutrophils/100 WBC Auto (Bld) 53.3 % Normal 50.0-70.0 [facility] Comment on above: Performed By: #### 5 7021-8 ####[facility] Director - Blanca FarrellCLIA [id number] Nucleated erythrocytes 0.00 10*3/uL Normal <=0.10 [facility] Comment on above: Performed By: #### 5 7021-8 ####[facility] [place], [place] [address] - [facility] [id number] Platelet mean volume (PMV) 11.3 fL Normal 9.0-13.0 [facility] Comment on above: Performed By: #### 5 7021-8 ####[facility] - [facility] [id number] Platelets 152 10*3/uL Normal 130-400 [facility] Comment on above: Performed By: #### 5 7021-8 ####[facility] [id number] WBC (Leukocytes) 6.20 10*3/uL Normal 4.80-10.80 [facility] Comment on above: Performed By: #### 5 7021-8 ####[facility] - [facility] [id number] CHEST AP PORTABLEon 12-05-19 17 CHEST AP PORTABLE CLINICAL HISTORY: Chest pain. Shortness breath.PORTABLE CHEST: 12/04/2016 AT 0333 HOURS.COMPARISON: None.FINDINGS: The patient is somewhat rotated, lordotic. The visualized osseousstructures are normal. There is elevated right hemidiaphragm. The heart size isnormal. The aorta has normal contour. The lungs are clear. There is nopneumothorax.IMPRESS ION: Except for elevated right hemidiaphragm, no acute cardiopulmonary disease. Normal [facility] COMPREHENSIVE METABOLIC PANE Morgan 12-04-2016 Alanine aminotransferase (ALT) 115 U/L High 16-63 [facility] Comment on above: Performed By: #### 2 4323-8, 12131-2, 92617-6, 3040-3, 1798-8, 2324-2 ####[facility] - [facility] [id number] Albumin 4.3 g/dL Normal 3.4-5.0 [facility] Comment on above: Performed By: #### 2 4323-8, 47923-0, 28961-2, 3040-3, 8-8, 4-2 ####[facility], [place] [address]Mguvmcv Director - Blanca Booth [id number] Alkaline phosphatase (ALP) 59 U/L Normal 50-136 [facility] Comment on above: Performed By: #### 2 4323-8, 60242-3, 29608-8, 3040-3, 1797-8, 4-2 ####[facility], [place] [address]Jpbioxz Director - Blanca Booth [id number] Anion gap 5.0 mmol/L Normal <=15.0 [facility] Comment on above: Performed By: #### 2 4323-8, 27806-2, 73802-7, 3040-3, 1797-8, 2323-2 ####[facility] Director - Blanca Booth [id number] Aspartate aminotransferase (AST) 98 U/L High 15-37 [facility] Comment on above: Result Comment: Spec imen moderately hemolyzed. Test results may be affected. Performed By: #### 2 4323-8, 42899-6, 90103-5, 3040-3, 1797-8, 4-2 ####[facility] Director - Blanca Booth [id number] Bilirubin (total) 1.1 mg/dL High 0.2-1.0 [facility] Comment on above: Performed By: #### 2 4323-8, 57184-2, 75947-2, 3040-3, 1797-8, 4-2 ####[facility], [place] [address]Fezlzkp Director - Blanca QuintanillaALFRED [id number] Calcium 8.9 mg/dL Normal 8.5-10.1 [facility] Comment on above: Performed By: #### 2 4323-8, 95729-1, 17442-1, 3040-3, 1798-8, 2324-2 ####[facility] Director - Blanca Booth [id number] Chloride 105 mmol/L Normal 98-107 [facility] Comment on above: Performed By: #### 2 4323-8, 71791-8, 11208-3, 3040-3, 1798-8, 2324-2 ####[facility] Director - Blanca Booth [id number] CO2 31 mmol/L Normal 21-32 [facility] Comment on above: Performed By: #### 2 4323-8, 00185-9, 49372-8, 3040-3, 1797-8, 4-2 ####[facility] Director - Blanca Booth [id number] Creatinine 1.06 mg/dL Normal 0.67-1.17 [facility] Comment on above: Performed By: #### 2 4323-8, 12057-4, 10676-6, 3040-3, 8-8, 4-2 ####[facility] Director - Blanca Booth [id number] eGFR (MDRD) mL/min/{1.73_m2} Normal >=59 [facility] Comment on above: Performed By: #### 2 4323-8, 12382-6, 12550-1, 3040-3, 1798-8, 2324-2 ####[facility] Director - Blanca Booth [id number] eGFR (non-black) GLOMERULAR FILTRATIO N RATE INTERPRETATION~The eGFR is calculated using the MDRD equation.~This equation has been validated in patients with chronic kidney disease;~however, it underestimates the GFR in healthy patients with GFR's over 60 mL/min.~The equation is not valid in children under the age of 18.~NOTE: Criteria for Chronic Kidney Disease:~ ~1. Kidney damage for at least three months, as defined~by structural or functional abnormalities of the kidney,~with or without decreased glomerular filtration rate, manifested by either:~* Pathological abnormalities or~* Markers of Kidney damage, including abnormalities in~the composition of the blood or urine or abnormalities in imaging tests.~ ~2. GFR <60 mL/min/1.73 m squared for at least three months, with or without kidney damage.~ Normal [facility] Comment on above: Performed By: #### 2 4323-8, 80678-1, 20962-7, 3040-3, 1797-8, 2323-2 ####[facility] Director - [facility] [id number] Glucose mass conc 92 mg/dL Normal 74-106 [facility] Comment on above: Performed By: #### 2 4323-8, 00646-4, 17103-7, 3040-3, 1797-8, 2323-2 ####[facility] Director [place] [id number] Potassium molar conc 3.9 mmol/L Normal 3.5-5.1 [facility] Comment on above: Result Comment: Spec imen moderately hemolyzed. Test results may be affected. Performed By: #### 2 4323-8, 32388-5, 54574-0, 3040-3, 8-8, 2323-2 ####[facility] Director - [facility] [id number] Protein 7.5 g/dL Normal 6.4-8.2 [facility] Comment on above: Performed By: #### 2 4323-8, 09978-5, 01374-0, 3040-3, 1798-8, 2324-2 ####[facility], [place] [address]Fmlrngm Director - Blanca Booth [id number] Sodium 141 mmol/L Normal 136-145 [facility] Comment on above: Performed By: #### 2 4323-8, 96396-7, 24516-2, 3040-3, 1798-8, 2324-2 ####[facility], [place] [address]Qmlyisg Director - Blanca Leobardo [id number] Urea nitrogen 16 mg/dL Normal 9-20 [facility] Comment on above: Performed By: #### 2 4323-8, 71358-1, 16587-3, 3040-3, 1798-8, 4-2 ####[facility], [place] [address]Czntlkf Director - Blanca Booth [id number] GGTon 12-04-2016 Gamma glutamyl transferase 129 U/L High 15-85 [facility] Comment on above: Performed By: #### 2 4323-8, 36452-7, 72666-4, 3040-3, 1798-8, 4-2 ####[facility], [place] [address]Ggwzpxk Director - Blanca Booth [id number] LIPASEon 12-04-2016 Lipase 303 U/L Normal 73-393 [facility] Comment on above: Performed By: #### 2 4323-8, 02108-9, 64471-6, 3040-3, 1798-8, 2324-2 ####[facility], [place] [address]Hhskhlq Director - Blanca CarlaNJ [id number] MAGNESIUMon 12-04-2016 Magnesium 2.3 mg/dL Normal 1.6-2.6 [facility] Comment on above: Result Comment: Spec imen moderately hemolyzed. Test results may be affected. Performed By: #### 2 4323-8, 47160-8, 16891-9, 3040-3, 1798-8, 2324-2 ####[facility], [place] [address]Pcaqyzz Director - Blanca Booth [id number] PT and PTTon 12-04-2016 aPTT 25.3 Sec Normal 23.5-31.3 [facility] Comment on above: Performed By: #### 3 4529-8 ####[facility] Director - Blanca Booth [id number] INR Coag RelTime (Bld) INR REFERENCE RAN GE INTERPRETATION Patients on Coumadin 2.0 - 3.0 Patients with mechanical heart valves 2.5 - 3.5 Normal [facility] Comment on above: Performed By: #### 3 4529-8 ####[facility] Director - Blanca Booth [id number] INR Coag RelTime (PPP) 1.0 {INR} Normal 0.8-1.1 [facility] Comment on above: Performed By: #### 3 4529-8 ####[facility] Director - Blanca Booth [id number] Prothrombin time (PT) Coag time (PPP) 10.9 Secs Normal 9.3-11.5 [facility] Comment on above: Performed By: #### 3 4529-8 ####[place] [address] Director - Blanca Booth [id number] TROPONIN Ion 12-04-2016 Troponin I.cardiac mass conc ng/mL Normal <=0.045 [facility] Comment on above: Performed By: #### 2 4323-8, 71185-6, 48162-8, 3040-3, 1797-8, 2 ####[facility] Director - Blanca Booth [id number] Gram stain for investigation of transfusion reaction Microscopic observation Gram stain Nom (Unsp spec) [facility] Work Phone: Vital Signs Date Time Vital Sign Value Performing Clinician Faci lity 03-14-2023 13:48-0500 Body height 185.[address] mAado Ramachandran Work Phone: [facility] 03-14-2023 13:48-0500 Body mass index (BMI) [Ratio] 29 kg/m2 Dr. Amado Ramachandran Work Phone: [facility] 03-14-2023 13:48-0500 Body weight 99.[address] Amado Ramachandran Work Phone: [facility] 03-14-2023 13:48-0500 Diastolic blood pressure 83 mm[Hg] Dr. Amado Ramachandran Work Phone: [facility] 03-14-2023 13:48-0500 Heart rate 59 /min Dr. Amado Ramachandran Work Phone: [facility] 03-14-2023 13:48-0500 Respiratory rate 16 /min Dr. Amado Ramachandran Work Phone: [facility] 03-14-2023 13:48-0500 Systolic blood pressure 123 mm[Hg] Dr. Amado Ramachandran Work Phone: [facility] 07-01-2021 13:52-0400 Body height 185.42 cm [facility] Work Phone: 07-01-2021 13:52-0400 Body weight 101.78 kg [facility] Work Phone: 06-10-2021 17:54-0500 Body weight 100.69 kg [facility] Work Phone: 06-10-2021 16:54-0500 Body weight 100.69 kg [facility] Work Phone: 05-06-2021 12:47-0500 Body weight 102.69 kg [facility] Work Phone: Encounters Encounter Date Encounter Type Care Provider Facility Start: 09-25-2024 End: 09-25-[address] Amado Ramachandran MD Work Phone: [facility] Work Phone: Start: 09-25-2024 End: 09-25-[address] Amado Ramachandran MD -Radiology [place] Work Phone: Start: 09-24-2024 End: 09-25-[address] Amado Ramachandran MD Work Phone: [facility] Work Phone: Start: 09-24-2024 End: 09-24-[address] Amado Ramachandran MD -Laboratory [facility] Start: 09-24-2024 End: 09-24-2024 ambulatory Amado Ramachandran Facility:[facility] Start: 04-20-2024 End: 04-20-2024 ambulatory Amado Ramachandran Facility:[facility] Start: 01-11-2024 End: 01-11-2024 ambulatory Amado Ramachandran Facility:[facility] Start: 05-31-2023 End: 05-31-[address] Amado Ramachandran Work Phone: [facility] Work Phone: Start: 05-31-2023 End: 05-31-[address] Amado Ramachandran [facility] Start: 04-07-2023 Non-patient / Non-visit Dr. Iris Ramachandran Work Phone: [facility] Start: 04-07-2023 End: 04-07-[address] Amado Ramachandran Work Phone: [facility] Work Phone: Start: 04-07-2023 End: 04-07-[address] Amado Ramachandran Work Phone: [facility]Cardi[facility] Work Phone: Start: 03-14-2023 End: 03-14-[address] Amado Ramachandran Work Phone: [facility] Work Phone: Start: 03-04-2023 End: 03-04-[address] Amado Ramachandran Work Phone: [facility] Work Phone: Start: 03-04-2023 End: 03-04-[address] Amado Ramachandran Work Phone: [facility] Start: 01-25-2023 Non-patient / Non-visit Dr. Iris Ramachandran Work Phone: [facility] Start: 01-25-2023 End: 01-25-[address] Amado Ramachandran Work Phone: [facility] Work Phone: Start: 01-25-2023 End: 01-25-[address] [facility] Work [facility] Start: 01-19-2023 Non-patient / Non-visit Dr. Iris Ramachandran Work Phone: [facility] Start: 01-19-2023 End: 01-19-[address] Amado [facility]achandran [facility] Work [facility]: Start: 12-29-2022 End: 12-29-2022 ambulatory [facility] Work Phone: Start: 12-29-2022 End: 12-29-2022 Patient encounter procedure [facility] Start: 12-09-2022 End: 12-09-2022 ambulatory [facility] Work Phone: Start: 12-09-2022 End: 12-09-2022 [facility] Start: 11-04-2022 End: 11-04-2022 [facility] Start: 11-03-2022 End: 11-03-2022 Patient encounter procedure [facility] Work Phone: Start: 07-06-2022 End: 07-06-[address] Amado Ramachandran Work Phone: [facility] Work Phone: Start: 07-06-2022 End: 07-06-[address] Amado Ramachandran Work Phone: [facility] Start: 06-30-2022 End: 06-30-[address] Amado Ramachandran Work Phone: [facility] Work Phone: Start: 06-30-2022 End: 06-30-[address] Amado Ramachandran Work Phone: [facility] Start: 04-26-2022 Non-patient / Non-visit Dr. Iris Ramachandran Work Phone: [facility] Start: 04-26-2022 End: 04-26-[address] Amado Ramachandran Work Phone: [facility] Work Phone: Start: 04-26-2022 End: 04-26-[address] [facility] Start: 04-01-2022 End: 04-01-2022 ambulatory [facility] Work Phone: Start: 04-01-2022 End: 04-01-2022 [facility] Start: 01-19-2022 Registered [facility] Start: 01-01-2022 End: 01-01-2022 ambulatory [facility] Work Phone: Start: 01-01-2022 End: 01-01-2022 Patient encounter procedure [facility] Start: 10-14-2021 End: 10-14-2021 [facility] Start: 10-07-2021 End: 10-07-2021 [facility] Start: 10-02-2021 End: 10-02-2021 [facility] Start: 09-25-2021 End: 09-25-2021 [facility] Start: 07-03-2021 End: 07-03-2021 [facility] Start: 07-01-2021 End: 07-16-2021 Discharged Recurring [facility] Start: 06-10-2021 End: 06-15-2021 [facility] Start: 05-06-2021 End: 05-18-2021 [facility] Start: 04-01-2021 Patient encounter procedure [facility] Start: 12-04-2016 End: 12-04-2016 Ambulatory NONE NONE Facility:[facility] Procedures Date Procedure Procedure Detail Performing Clinician Start: 09-25-2024 Plain X-ray of finger D wood Ramachandran MD Work Phone: Start: 09-24-2024 Vitamin D, 25-hydrox y measurement Dr. Amado Ramachandran MD Work Phone: Comment on above: Vitamin D StatusDefi ciency: <20 ng/mL (50nmol/L)Insufficiency: 20-30 ng/mL (50-75 nmol/L)Sufficiency: 30-100 ng/mL (75-250 nmol/L)Toxicity: >100 ng/mL (>250 nmol/L) Start: 04-07-2023 Radionuclide imaging of perfusion of myocardium under exercise stress Dr. Amado Ramachandran Work Phone: Start: 03-04-2023 X-ray of both feet Dr. Amado Ramachandran Work Phone: Start: 12-09-2022 X-ray of cervical spine Start: 11-04-2022 X-ray of lumbar spin e, two or three views Start: 01-01-2022 End: 01-01-2022 Radiologic examination of knee Start: 10-02-2021 Plain chest X-ray Start: 09-25-2021 Plain chest X-ray Investigation of transfusion reaction Respiratory microbia l culture Plan of Treatment Date Care Activity Detail Author Patient referral [facility] Work Phone: Payers Date Payer Category Payer Private Health Insurance [id number] 2024 Self-pay [id number] 2006 Unknown [id number] 1959 Unknown [id number] Unknown [id number] Unknown [id number] Unknown [facility] PACK[employer] PLAN [id number] Unknown [id number] Unknown [id number] Unknown [id number] Unknown [id number] Social History Date Type Detail Facility Start: 07-19-2016 End: 03-14-2023 Tobacco smoking status NHIS Unknown if ever smoked [facility] Start: 1960 Sex Assigned At Male W [facility] Start: 03-14-2023 Tobacco smoking stat us NHIS Never smoked tobacco (finding) [facility] Radiology Diagnostic study note 09-25-2024 Note Date & Type Note Facility 09-25-2024 Radiology Diagnostic study note [facility] Imaging Services [address] [id number] Finger(s) Min 2 Views MR#: [id number] Acct: [id number] Name: CECILIA BRAXTON Jr. Rep #: [id number] : 1960 M 64 From: Germain Hoffman MD PCP: Dr. Amado Ramachandran MD Status: RE G CLI Study:Finger(s) Min 2 Views Date of Exam: 09/25/24 Exam# [id number] Ordering Dr: Amado Ramachandran MD PROCEDURE: FINGER(S) MIN 2 VIEWS 09/25/2024 REASON FOR EXAM: RIGHT SECOND DIGIT PAIN, MCP JOINT AREA TECHNIQUE: 3 view(s) of the right 2nd finger COMPARISON: None. RAD/Finger(s) Min 2 Views IMPRESSION: Minimal degenerative changes are seen in the right 2nd and 3rd metacarpophalangeal joints, without associated joint narrowing. Limited imaging of the right 3rd distal interphalangeal joint shows [id number] degenerative changes. Mild degenerative changes are seen of the right 2nd proximal interphalangeal joint. Moderate degenerative changes are seen of the right 2nd distal interphalangeal joint, with significant joint narrowing and osteophyte formation, most prominent at the dorsal base of the distal phalanx. No acute fracture or dislocation is seen. Reading Location: [address] CC: Dr. Amado Ramachandran MD ~ Cow Trimmer: Signed [facility] Procedure note 01-25-2023 Note Date & Type Note Facility 01-25-2023 Procedure note [facility] Evaluation note Note Date & Type Note Facility Evaluation note No assessment information availa ble [facility] Work Phone: Evaluation note Note Date & Type Note Facility Evaluation note Diagnosis Onset Date Chest pain acute Hypertension complicating diabetes acute Palpitations acute [facility] Work Phone: Reason for referral (narrative) Note Date & Type Note Facility Reason for referral (narrative) No reason for referral information available [facility] Work Phone: Summary Purpose Family History No Family History Records FoundNo Family History Records Found Advance Directives No Advanced Directives Records Found Advance Directive Response Recorded Date/ Time Living Will No July 19, 2016 5:00am Power of Histopathology Technician No July 19 5:00am Advance Directive Response Recorded Date/ Time Living Will No July 19, 2016 4:00am Power of Histopathology Technician No July 19 4:00am Chief Complaint and Reason for Visit Chief Complaint TYPE 2 DM TYPE 2 DM TYPE 2 DM Chief Complaint TYPE 2 DM TYPE 2 DM Chief Complaint TYPE 2 DM TYPE 2 DM EORDER LABS AND XRAY- BRONCHITIS Chief Complaint TYPE 2 DM EORDER LABS AND XRAY- BRONCHITIS Chief Complaint EORDER LABS AND XRAY - BRONCHITIS LABS/ XRAY- KNEE Chief Complaint LABS/ XRAY- KNEE L KNEE PN/RX HERE EORDER Chief Complaint L KNEE PN/RX HERE EORDER CHEST PAIN CHEST PAIN Chief Complaint EORDER CHEST PAIN CHEST PAIN 2 DRS/ 2 ORDERS- EORDER WINIFREDNER Chief Complaint E ORDER Chief Complaint E ORDER NEUROPATHY Neuropathy NEUROPATHY Neuropathy Chief Complaint NEUROPATHY Neuropathy NEUROPATHY Neuropathy ADD FOOT XRAY- LEFT HEEL PAIN Chief Complaint NEUROPATHY Neuropathy NEUROPATHY Neuropathy ADD FOOT XRAY- LEFT HEEL PAIN PALP (DEBI) CHEST PAIN; HTN Reason for Visit Chest pain Hypertension complicating diabetes Palpitations Chief Complaint ADD FOOT XRAY- LEFT HEEL PAIN PALP (DEBI) CHEST PAIN; HTN Reason for Visit Chest pain Hypertension complicating diabetes Palpitations Chief Complaint Admit Date EORDER- FINGER-RIGHT HAND September 25 8:50am Additional Source Comments (unrecognized sect ion and content) No Status Records FoundNo Status Records Found INFORMATION SOURCE (unrecogn ized section and content) DATE CREATED AUTHOR 10/12/2017 [facility] DATE CREATED AUTHOR AUTHOR'S ORGANIZ ATION 10/05/2024 [facility] Goals (unrecognized section and content) Goals may be documented in a n alternate sectionGoals may be documented in an alternate sectionGoals may be documented in an alternate sectionGoals may be documented in an alternate sectionGoals may be documented in an alternate sectionGoals may be documented in an alternate sectionGoals may be documented in an alternate sectionGoals may be documented in an alternate sectionGoals may be documented in an alternate sectionGoals may be documented in an alternate sectionGoals may be documented in an alternate sectionGoals may be documented in an alternate sectionGoals may be documented in an alternate sectionGoals may be documented in an alternate sectionGoals may be documented in an alternate sectionGoals may be documented in an alternate sectionGoals may be documented in an alternate sectionGoals may be documented in an alternate section Care Teams (unrecognized sec tion and content) Team Status: Active Member Role Status Dates Dr. Amado Vyas MD Family Provider Active Dr. Amado Ramachandran MD Primary Care Provider Active Team Status: Active Member Role Status Dates Dr. Amado Ramachandran MD Primary Care Provider, Other Provider Active Dr. Yoshi Lawler MD Attending Provider Active Team Status: Active Member Role Status Dates Dr. Amado Ramachandran MD Primary Care Pr ovider, Attending Provider, Referring Provider Active Team Status: Inactive Member Role Status Dates Dr. Amado Ramachandran MD Primary Care Pr ovider, Attending Provider, Referring Provider Active Team Status: Inactive Member Role Status Dates Dr. Amado Ramachandran MD Primary Care Provider, Attend ing Provider Active Team Status: Inactive Member Role Status Dates Dr. Amado Ramachandran MD Primary Care Pr ovider, Attending Provider, Referring Provider Active Dr. Benito Funez MD Other Provider Active Team Status: Inactive Member Role Status Dates Dr. Amado Ramachandran MD Primary Care Provider Active Dr. Rashard Hernández MD Attending Provider Active Team Status: Active Member Role Status Dates Dr. Amado Ramachandran MD Primary Care Pr ovider, Referring Provider, Other Provider Active Dr. Heather Ferreira MD Attending Provider Active Team Status: Active Member Role Status Dates Dr. Amado Ramachandran MD Primary Care Pr ovider, Referring Provider, Other Provider Active Dr. Hanna Fair MD Attending Provider Active Team Status: Inactive Member Role Status Dates Dr. Amado Ramachandran MD Primary Care Provider, Referr ing Provider Active Dr. Yoshi Lawler MD Attending Provider Active Team Status: Active Member Role Status Dates Dr. Amado Ramachandran MD Primary Care Provider Active Dr. Yoshi Lawler MD Attending Provider Active Team Status: Inactive Member Role Status Dates Dr. Amado Ramachandran MD Primary Care Provider Active Dr. Yoshi Lawler MD Attending Provider, Referring Pro vider Active Team Status: Inactive Member Role Status Dates Dr. Amado Ramachandran MD Primary Care Provider Active Start: September 24, 2024 End: September 24, 2024 Dr. Amado Ramachandran MD Attending Provider Active Start: September 24, 2024 End: September 24, 2024 Dr. Amado Ramachandran MD Referring Provider Active Start: September 24, 2024 End: September 24, 2024 Team Status: Active Member Role Status Dates Dr. Amado Ramachandran MD Primary Care Provider Active Start: September 25, 2024 Dr. Amado Ramachandran MD Attending Provider Active Start: September 25, 2024 Dr. Amado Ramachandran MD Referring Provider Active Start: September 25, 2024 Team Status: Inactive Member Role Status Dates Dr. Amado Ramachandran MD Primary Care Provider Active Start: September 25, 2024 End: September 25, 2024 Dr. Amado Ramachandran MD Attending Provider Active Start: September 25, 2024 End: September 25, 2024 Dr. Amado Ramachandran MD Referring Provider Active Start: September 25, 2024 End: September 25, 2024 FOR RECORDS PERTAINING TO PATIENTS WHO ARE OR HAVE BEEN ENROLLED IN A CHEMICAL DEPENDENCY/SUBSTANCEABUSE PROGRAM, SOME INFORMATION MAY BE OMITTED. This clinical summary was aggregated from multiple sources. Caution should be exercised in using it in the provision of clinical care. This summary normalizes information from multiple sources, and as a consequence, information in this document may materially change the coding, format and clinical context of patient data. In addition, data may be omitted in some cases. CLINICAL DECISIONS SHOULD BE BASED ON THE PRIMARY CLINICAL RECORDS. [facility] provides no warranty or guarantee of the accuracy or completeness of information in this document.
[2024-12-25 10:22] LABS: Color, Urine Yellow (Yellow); Glucose, Dipstick Normal (Normal); Hematocrit 42.9 % (40-54); Hemoglobin 14.7 g/dL (13.0-16.5); Immature Granulocytes Count 0.030 X10^3/uL (0.0-0.0); Ketone-Dipstick Negative (Negative); Leukocyte Esterase-Dipstick Negative /ul (Negative); Mean Corp Hgb Conc 34.3 g/dL (32-36); Mean Corpuscular Volume 92.9 fL (80-94); Mean Platelet Vol. 11.4 fl (6.2-12.0); NRBC Flagged by Analyzer 0 % (0-5); Nitrite-Dipstick Negative (Negative); Occult Blood-Urine Negative /ul (Negative); Platelet Count 194 K/mm3 (150-450); Protein-Dipstick 30 mg/dl (Negative); RBC Distribution Width CV 12.6 % (11.6-14.6); RBC Distribution Width SD 42.9 fl (35.1-43.9); Red Blood Count 4.62 M/mm3 (4.6-6.2); Specific Gravity, Urine 1.025 (1.002-1.030); Urine Bilirubin Dipstick Negative (Negative); White Blood Count 6.8 K/mm3 (4.4-11.0)
[2024-12-25 10:31] LABS: Red Blood Cells-Urine 0-5 SEEN /hpf (0-5)
[2024-12-25 10:32] LABS: Mucous, Urine 1+ /hpf (<or=2+); Squamous Epithelial Cells - UA 0-5 SEEN /hpf (0-5)
[2024-12-25 10:50] LABS: Creatinine, Urine (random) 336.00 mg/dL (39.00-259.00); Microalbumin,Random Urine < 12.0 mg/L (<20 mg/L)
[2024-12-25 11:41] LABS: AST(SGOT) 37 U/L (<=37); Alanine Aminotransfer ALT/SGPT 53 U/L (<=46); Albumin, Serum 4.2 g/dL (3.4-4.8); Alkaline Phosphatase 73 U/L (40-129); Anion Gap 11 (5-15); BUN 13 mg/dL (4-19); BUN/Creat Ratio 11.7 RATIO (10-20); Calcium,Total 9.5 mg/dL (7.6-11.0); Carbon Dioxide 24.9 mmol/L (21.0-32.0); Chloride 105 mmol/L (98-108); Cholesterol 108 mg/dL (<=200); Globulin 2.5 g/dL (2.2-4.2); Glucose 104 mg/dL (70-99); Low Density Lipoprotein Calc. 55 mg/dL; Potassium 3.7 mmol/L (3.3-5.1); Triglycerides 88 mg/dL; Very Low Density Lipoprotein 18 mg/dL (5-40); cholesterol:hdl ratio screen 3.05
== END | disposition home or self-care (01) ==
LOC: MFPLAB 08:15
PROVIDERS: PCP Family Medicine; Referring Provider Family Medicine; Visit Provider Family Medicine
DX: E11.59 Type 2 diabetes mellitus with other circulatory complications (principal); E11.69 Type 2 diabetes mellitus with other specified complication
CPT/HCPCS: 80053; 80061; 81001; 82043; 82570; 83036; 85025

== ENCOUNTER 2025-02-05 19:55 | Outpatient (CLI) | payer MEDICARE, SELFPAY ==
--- OUTSIDE RECORDS SUMMARY | 2025-02-05 19:59 | XMS RPT_ITS | CCD ---
Author Organization [facility] Care Team Providers Care Pallet Assembler Name Role Phone NONE, NONE Unavailable Unavailable JAYJAY GARCIA Unavailable Unavailable JAYJAY GARCIA Unavailable Unavailable Mandi ANTOINE Unavailable Unavailable JAYJAY GARCIA Unavailable Unavailable NONE, NONE Unavailable Unavailable Dr. Amado Ramachandran Primary Care Provider [phone] Dr. Amado Ramachandran Other Provider Dr. Yoshi Lawler Attending Provider 1([phone] Amado Ramachandran Primary Care Provider [phone] Dr. Amado Ramachandran Other Provider Dr. Yoshi Lawler Attending Provider [phone] Amado Ramachandran Primary Care Provider [phone] Dr. Amado Ramachandran Referring Provider Dr. Amado Ramachandran Other Provider [phone] Heather Ferreira Attending Provider Dr. Hanna Fair Attending Provider [phone] Dr. Amado Ramachandran Primary Care Provider [phone] Dr. Amado Ramachandran Referring Provider Dr. Amado Ramachandran Other Provider Dr. Heather Ferreira Attending Provider Dr. Hanna Fair Attending Provider [phone] Yoshi Lawler Attending Provider 1([facility])-[phone] Amado Ramachandran Primary Care Provider [phone] Dr. Amado Ramachandran Referring Provider Dr. Amado Ramachandran MD Primary Care Provider [phone] Madie GONZALEZ, Dr. Amado Longoria Attending Provider Dr. Amado Ramachandran MD Referring Provider Dr. Amado Ramachandran MD Primary Care Physician Madie GONZALEZ, Dr. Amado Longoria Attending Physician Amado Ramachandran Primary Care Unavailable Amado Ramachandran Attending Unavailable Amado Ramachandran Referring Unavailable Amado Ramachandran Primary Care Unavailable Amado Ramachandran Attending Unavailable Amado Ramachandran Referring Unavailable Amado Ramachandran Primary Care Unavailable Amado Ramachandran Attending Unavailable Amado Ramachandran Primary Care Unavailable Amado Ramachandran Attending Unavailable Amado Ramachandran Referring Unavailable Amado Ramachandran Primary Care Unavailable Amado Ramachandran Attending Unavailable Amado Ramachandran Referring Unavailable Allergies Allergy Classification Reported Allergen(s) Allergy Type Date of Onset Reaction(s) Facility (1 source) celecoxib; Translations: [Celebrex] Drug Allergy [facility] Repository (19 sources) celecoxib Drug Allergy 7 Itching [facility] Comment on above: Parasthesias (20 sources) Sulfonamides (Antibiotic); Translations: [Sulfa (Sulfonamide Antibiotics)] Propensity to adverse reactions 7 Itching [facility] (6 sources) amLODIPine Drug Allergy 3 leg edema [facility] (6 sources) Doxycycline Drug Allergy 3 parasthesia [facility] (6 sources) metFORMIN Drug Allergy 3 Rash [facility] Comment on above: and foot pain (6 sources) Propranolol Drug Allergy 3 fatigue [facility] (1 source) amLODIPine Drug Allergy 3 [facility] Repository (1 source) celecoxib Drug Allergy 3 [facility] Repository (1 source) Doxycycline Drug Allergy 3 [facility] Repository (1 source) metFORMIN Drug Allergy 3 [facility] Repository (1 source) Propranolol Drug Allergy 3 [facility] Repository Medications Current Medications Medication Drug Class(es) Dates Sig (Normalized) Sig (Original) 0.5 ml dulaglutide 3 mg/ml auto-injector (5 sources) GLP-1 Receptor Agonist Start: 03-14-2023 30 actuat fluticasone furoate 0.1 mg/actuat dry powder inhaler (6 sources) Corticosteroid Start: 02-09-2023 take 100 ug by inhalation once daily 24 hr metoprolol succinate 50 mg extended release oral tablet (5 sources) beta-Adrenergic Hu Start: 03-14-2023 take 1 tablet by mouth once daily omeprazole 20 mg delayed release oral capsule (5 sources) Proton Pump Inhibitor Start: 03-14-2023 take 1 capsule by mouth once daily ramipril 10 mg oral capsule (19 sources) Angiotensin Converting Enzyme Inhibitor Start: 07-19-2016 24 hr rOPINIRole 4 mg extended release oral tablet (19 sources) Nonergot Dopamine Agonist Start: 03-16-2014 take 1 tablet by mouth once daily rosuvastatin calcium 5 mg oral tablet (6 sources) HMG-CoA Reductase Inhibitor Start: 02-09-2023 take 1 tablet by mouth once daily Completed/Discontinued Medications Medication Drug Class(es) Dates Sig (Normalized) Sig (Original) nadolol 40 mg oral tablet (19 sources) beta-Adrenergic Hu Start: 03-16-2014 End: 03-14-2023 take 1 tablet by mouth once daily Nadolol 40 MG tablet Discontinued 40 mg PO DAILY March 16, 2014 1:00am March 14, 2023 3:25pm Problems Active Problems Problem Classification Problem Date Documented Da te Episodic/Chronic Cardiac dysrhythmias (7 sources) Palpitations; Translations: [Palpitations] 03-14-2023 Episodic Diabetes mellitus with complications (9 sources) Hypertensive disorder; 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] Onset: 09-28-2024 03-14-2023 Chronic Essential hypertension (1 source) Essential (primary) hypertension; Translations: [ESSENTIAL PRIMARY HYPERTENSION] Onset: 12-07-2016 Chronic Nonspecific chest pain (9 sources) Chest pain, unspecified; Translations: [Chest pain] Onset: 12-04-2016 03-14-2023 Episodic Past or Other Problems Problem Classification Problem Date Documented Date Episodic/Chronic Abdominal pain (1 source) Unspecified abdominal pain; Translations: [UNSPECIFIED ABDOMINAL PAIN] Onset: 12-07-2016 Episodic Acute bronchitis (1 source) Acute bronchitis, unspecified; Translations: [Acute bronchitis, unspecified] Onset: 05-17-2024 Episodic Biliary tract disease (1 source) Other cholelithiasis without obstruction; Translations: [OTH CHOLELITHIASIS W/O OBSTRUCTION] Onset: 12-07-2016 Episodic Other connective tissue disease (1 source) Pain in right finger(s); Translations: [Pain in right finger(s)] Onset: 10-02-2024 Episodic Other screening for suspected conditions (not mental disorders or infectious disease) (1 source) Encounter for screening for malignant neoplasm of prostate; Translations: [Encounter for screening for malignant neoplasm of prostate] Onset: 02-09-2024 Episodic Results Test Name Value Interpretation Reference Range Facility Absolute lymphocyte countOrd ered By: Amado Ramachandran on 12-25-2024 Lymphocytes Auto (Unsp spec) [#/Vol] 1.42 10*3/uL 0.83-4.51 [facility] Absolute neutrophil countOrd ered By: Amado Ramachandran on 12-25-2024 Neutrophils (Bld) [#/Vol] 4.2 10*3/uL 2.0-7.7 [facility] Anion gap in Serum or Plasma Ordered By: Amado Ramachandran on 12-25-2024 Anion gap [Moles/Vol] 11 mmol/L 5-15 [facility] Automated lymphocyte count a s percentage of total leukocytesOrdered By: Amado Ramachandran on 12-25-2024 Lymphocytes/100 WBC Auto (Unsp spec) 21.0 % 19-41 [facility] BUN/creatinine ratioOrdered By: Amado Ramachandran on 12-25-2024 Urea nitrogen/Creatinine [Mass ratio] 11.7 mg/mg 10-20 [facility] Basophil percentageOrdered B y: Amado Ramachandran on 12-25-2024 Basophils/100 WBC (Bld) 0.7 % 0-1 [facility] Bilirubin Test strip Ql (U)O rdered By: Amado Ramachandran on 12-25-2024 Bilirubin Ql (U) Negative Negative [facility] Bilirubin, totalOrdered By: Amado Ramachandran on 12-25-2024 Bilirubin [Mass/Vol] 0.62 mg/dL 0.00-1.30 [facility] CBC W/Diff, Automatedon 09-0 9-2024 Absolute Lymph 1.42 X10 3/uL Normal 0.83-4.51 [facility] Comment on above: Order Comment: Order Date: 09/25/24 Order Info: [id number] - CBCD Performed By: #### L 500.4050, L500.4100, L100.0100 #### [facility] [address] [place], [address] Absolute Neut 4.2 X10 3/uL Normal 2.0-7.7 [facility] Comment on above: Order Comment: Order Date: 09/25/24 Order Info: [id number] - CBCD Performed By: #### L 500.4050, L500.4100, L100.0100 #### [facility] [address] [place], [address] Basophils/100 WBC (Bld) 0.7 % Normal 0-1 [facility] Comment on above: Order Comment: Order Date: 09/25/24 Order Info: [id number] - CBCD Performed By: #### L 500.4050, L500.4100, L100.0100 #### [facility] [address] [place], [address] Eosinophils/100 WBC (Bld) 6.6 % High 0-5 [facility] Comment on above: Order Comment: Order Date: 09/25/24 Order Info: [id number] - CBCD Performed By: #### L 500.4050, L500.4100, L100.0100 #### [facility] [address] [place], [address] Erythrocyte distribution width (RBC) [Ratio] 12.6 % Normal 11.6-14.6 [facility] Comment on above: Order Comment: Order Date: 09/25/24 Order Info: [id number] - CBCD Performed By: #### L 500.4050, L500.4100, L100.0100 #### [facility] [address] [place], [address] Hematocrit (Bld) [Volume fraction] 42.9 % Normal 40-54 [facility] Comment on above: Order Comment: Order Date: 09/25/24 Order Info: [id number] - CBCD Performed By: #### L 500.4050, L500.4100, L100.0100 #### [facility] [address] [place], [address] Hemoglobin (Bld) [Mass/Vol] 14.7 g/dL Normal 13.0-16.5 [facility] Comment on above: Order Comment: Order Date: 09/25/24 Order Info: [id number] - CBCD Performed By: #### L 500.4050, L500.4100, L100.0100 #### [facility] [address] [place], [address] IG% 0.400 Normal 0.0-0.9 [facility] Comment on above: Order Comment: Order Date: 09/25/24 Order Info: [id number] - CBCD Result Comment: IG% - Immature Granulocytes (promyelocytes, myelocytes and metamyelocytes) > 1% indicates that a LEFT SHIFT is Present. Performed By: #### L 500.4050, L500.4100, L100.0100 #### [facility] [address] [place], [address] Lymphocytes/100 WBC (Bld) 21.0 % Normal 19-41 [facility] Comment on above: Order Comment: Order Date: 09/25/24 Order Info: [id number] - CBCD Performed By: #### L 500.4050, L500.4100, L100.0100 #### [facility] [address] [place], [address] MCH (RBC) [Entitic mass] 31.8 pg Normal 27.0-32.0 [facility] Comment on above: Order Comment: Order Date: 09/25/24 Order Info: [id number] - CBCD Performed By: #### L 500.4050, L500.4100, L100.0100 #### [facility] [address] [place], [address] MCHC (RBC) [Mass/Vol] 34.3 g/dL Normal 32-36 [facility] Comment on above: Order Comment: Order Date: 09/25/24 Order Info: [id number] - CBCD Performed By: #### L 500.4050, L500.4100, L100.0100 #### [facility] [address] [place], [address] MCV (RBC) [Entitic vol] 92.9 fL Normal 80-94 [facility] Comment on above: Order Comment: Order Date: 09/25/24 Order Info: [id number] - CBCD Performed By: #### L 500.4050, L500.4100, L100.0100 #### [facility] [address] [place], [address] Monocytes/100 WBC (Bld) 9.7 % Normal 0-10 [facility] Comment on above: Order Comment: Order Date: 09/25/24 Order Info: [id number] - CBCD Performed By: #### L 500.4050, L500.4100, L100.0100 #### [facility] [address] [place], [address] Neutrophils/100 WBC (Bld) 61.6 % Normal 47-70 [facility] Comment on above: Order Comment: Order Date: 09/25/24 Order Info: [id number] - CBCD Performed By: #### L 500.4050, L500.4100, L100.0100 #### [facility] [address] [place], [address] Nucleated RBC (Bld) [#/Vol] 0 10*3/uL Normal 0-5 [facility] Comment on above: Order Comment: Order Date: 09/25/24 Order Info: [id number] - CBCD Performed By: #### L 500.4050, L500.4100, L100.0100 #### [facility] [address] [place], [address] Platelet mean volume (Bld) [Entitic vol] 11.4 fL Normal 6.2-12.0 [facility] Comment on above: Order Comment: Order Date: 09/25/24 Order Info: [id number] - CBCD Performed By: #### L 500.4050, L500.4100, L100.0100 #### [facility] [address] [place], [address] Platelets (Bld) [#/Vol] 194 10*3/uL Normal 150-450 [facility] Comment on above: Order Comment: Order Date: 09/25/24 Order Info: [id number] - CBCD Performed By: #### L 500.4050, L500.4100, L100.0100 #### [facility] [address] [place], [address] RBC (Bld) [#/Vol] 4.62 10*6/uL Normal 4.6-6.2 [facility] Comment on above: Order Comment: Order Date: 09/25/24 Order Info: [id number] - CBCD Performed By: #### L 500.4050, L500.4100, L100.0100 #### [facility] [address] [place], [address] RDW SD 42.9 fl Normal 35.1-43.9 [facility] Comment on above: Order Comment: Order Date: 09/25/24 Order Info: [id number] - CBCD Performed By: #### L 500.4050, L500.4100, L100.0100 #### [facility] [address] [place], [address] WBC (Bld) [#/Vol] 6.8 10*3/uL Normal 4.4-11.0 [facility] Comment on above: Order Comment: Order Date: 09/25/24 Order Info: [id number] - CBCD Performed By: #### L 500.4050, L500.4100, L100.0100 #### [facility] [address] [place], [place], [id number] Calculated very low density lipoprotein (VLDL) cholesterol measurementOrdered By: Amado Ramachandran on 12-25-2024 Calculated very low density lipoprotein (VLDL) cholesterol measurement 18 mg/dL 5-40 [facility] Carbon dioxide, total [Moles /volume] in Central venous bloodOrdered By: Amado Ramachandran on 12-25-2024 CO2 [Moles/Vol] 24.9 mmol/L 21.0-32.0 [facility] Chloride assayOrdered By: Iris Ramachandran on 12-25-2024 Chloride [Moles/Vol] 105 mmol/L 98-108 [facility] Comprehensive Metabolic Prof ilon 12-25-2024 Albumin [Mass/Vol] 4.2 g/dL Normal 3.4-4.8 [facility] Comment on above: Order Comment: Order Date: 09/25/24 Order Info: [id number] - CMP Order Info: [id number] - LIPID Performed By: #### L 500.4050, L500.4100, L100.0100 #### [facility] [address] [place], [address] Albumin/Globulin [Mass ratio] 1.7 {ratio} Normal 0.9-2.4 [facility] Comment on above: Order Comment: Order Date: 09/25/24 Order Info: [id number] - CMP Order Info: [id number] - LIPID Performed By: #### L 500.4050, L500.4100, L100.0100 #### [facility] [address] [place], [address] ALK PHOS 73 U/L Normal 40-129 [facility] Comment on above: Order Comment: Order Date: 09/25/24 Order Info: [id number] - CMP Order Info: [id number] - LIPID Performed By: #### L 500.4050, L500.4100, L100.0100 #### [facility] [address] [place], [address] ALT [Catalytic activity/Vol] 53 U/L High <=46 [facility] Comment on above: Order Comment: Order Date: 09/25/24 Order Info: [id number] - CMP Order Info: [id number] - LIPID Performed By: #### L 500.4050, L500.4100, L100.0100 #### [facility] [address] [place], [address] AST [Catalytic activity/Vol] 37 U/L Normal <=37 [facility] Comment on above: Order Comment: Order Date: 09/25/24 Order Info: [id number] - CMP Order Info: [id number] - LIPID Performed By: #### L 500.4050, L500.4100, L100.0100 #### [facility] [address] [place], [address] Bilirubin [Mass/Vol] 0.62 mg/dL Normal 0.00-1.30 [facility] Comment on above: Order Comment: Order Date: 09/25/24 Order Info: [id number] - CMP Order Info: [id number] - LIPID Performed By: #### L 500.4050, L500.4100, L100.0100 #### [facility] [address] [place], [address] BUN/CRE 11.7 RATIO Normal 10-20 [facility] Comment on above: Order Comment: Order Date: 09/25/24 Order Info: [id number] - CMP Order Info: [id number] - LIPID Performed By: #### L 500.4050, L500.4100, L100.0100 #### [facility] [address] [place], [address] Calcium [Mass/Vol] 9.5 mg/dL Normal 7.6-11.0 [facility] Comment on above: Order Comment: Order Date: 09/25/24 Order Info: [id number] - CMP Order Info: [id number] - LIPID Performed By: #### L 500.4050, L500.4100, L100.0100 #### [facility] [address] [place], [address] Chloride [Moles/Vol] 105 mmol/L Normal 98-108 [facility] Comment on above: Order Comment: Order Date: 09/25/24 Order Info: [id number] - CMP Order Info: [id number] - LIPID Performed By: #### L 500.4050, L500.4100, L100.0100 #### [facility] [address] [place], [address] CO2 [Moles/Vol] 24.9 mmol/L Normal 21.0-32.0 [facility] Comment on above: Order Comment: Order Date: 09/25/24 Order Info: [id number] - CMP Order Info: [id number] - LIPID Performed By: #### L 500.4050, L500.4100, L100.0100 #### [facility] [address] [place], [address] Creatinine [Mass/Vol] 1.10 mg/dL Normal 0.70-1.20 [facility] Comment on above: Order Comment: Order Date: 09/25/24 Order Info: [id number] - CMP Order Info: [id number] - LIPID Performed By: #### L 500.4050, L500.4100, L100.0100 #### [facility] [address] [place], [address] GAP 11 Normal 5-15 [facility] Comment on above: Order Comment: Order Date: 09/25/24 Order Info: [id number] - CMP Order Info: [id number] - LIPID Performed By: #### L 500.4050, L500.4100, L100.0100 #### [facility] [address] [place], [address] GFR/1.73 sq M.predicted among non-blacks MDRD (S/P/Bld) [Vol rate/Area] 74 mL/min/{1.73_m2} Normal >60 [facility] Comment on above: Order Comment: Order Date: 09/25/24 Order Info: [id number]- - CMP Order Info: [id number] - LIPID Result Comment: mL/m in/1.73m2 CKD-EPI Creatinine Equation (2020) Performed By: #### L 500.4050, L500.4100, L100.0100 #### [facility] [address] [place], [address] Globulin (S) [Mass/Vol] 2.5 g/dL Normal 2.2-4.2 [facility] Comment on above: Order Comment: Order Date: 09/25/24 Order Info: [id number]- - CMP Order Info: [id number] - LIPID Performed By: #### L 500.4050, L500.4100, L100.0100 #### [facility] [address] [place], [address] Glucose [Mass/Vol] 104 mg/dL High 70-99 [facility] Comment on above: Order Comment: Order Date: 09/25/24 Order Info: [id number] - CMP Order Info: [id number] - LIPID Performed By: #### L 500.4050, L500.4100, L100.0100 #### [facility] [address] [place], [address] Potassium [Moles/Vol] 3.7 mmol/L Normal 3.3-5.1 [facility] Comment on above: Order Comment: Order Date: 09/25/24 Order Info: [id number] - CMP Order Info: [id number] - LIPID Performed By: #### L 500.4050, L500.4100, L100.0100 #### [facility] [address] [place], [address] Sodium [Moles/Vol] 141 mmol/L Normal 133-145 [facility] Comment on above: Order Comment: Order Date: 09/25/24 Order Info: [id number] - CMP Order Info: [id number] - LIPID Performed By: #### L 500.4050, L500.4100, L100.0100 #### [facility] [address] [place], [address] T PROT 6.7 g/dL Normal 5.9-8.4 [facility] Comment on above: Order Comment: Order Date: 09/25/24 Order Info: [id number]- - CMP Order Info: [id number] - LIPID Performed By: #### L 500.4050, L500.4100, L100.0100 #### [facility] [address] [place], [address] Urea nitrogen [Mass/Vol] 13 mg/dL Normal 4-19 [facility] Comment on above: Order Comment: Order Date: 09/25/24 Order Info: [id number] - CMP Order Info: [id number] - LIPID Performed By: #### L 500.4050, L500.4100, L100.0100 #### [facility] [address] [place], [address] Eosinophil percentageOrdered By: Amado Ramachandran on 12-25-2024 Eosinophils/100 WBC (Bld) 6.6 % High 0-5 [facility] Erythrocyte distribution wid th ratioOrdered By: Amado Ramachandran on 12-25-2024 Erythrocyte distribution width (RBC) [Ratio] 12.6 % 11.6-14.6 [facility] Erythrocyte distribution wid th standard deviationOrdered By: Amado Ramachandran on 12-25-2024 Erythrocyte distribution width (RBC) [Ratio] 42.9 fl 35.1-43.9 [facility] Glomerular filtration rate ( GFR) estimation/1.73 sq m using serum, plasma, or whole bOrdered By: Amado Ramachandran on 12-25-2024 GFR/1.73 sq M.predicted among non-blacks MDRD (S/P/Bld) [Vol rate/Area] 74 mL/min/{1.73_m2} >60 [facility] Comment on above: mL/min/1.73m2 CKD-EP I Creatinine Equation (2020) Hematocrit Auto (Bld) [Volum e fraction]Ordered By: Amado Ramachandran on 12-25-2024 Hematocrit (Bld) [Volume fraction] 42.9 % 40-54 [facility] Hemoglobin A1con 12-25-2024 HbA1c (Bld) [Mass fraction] 6.4 % High <=5.6 [facility] Comment on above: Order Comment: Order Date: 09/25/24 Order Info: [id number] - CBCD Result Comment: Norm al < 5.7 % Prediabetic 5.7 - 6.4 % Diabetic >or= 6.5 % Please note range changes. Performed By: #### L 500.4050, L500.4100, L100.0100 #### [facility] [address] [place], [place], [id number] Hemoglobin A1c percentageOrd ered By: Amado Ramachandran on 12-25-2024 HbA1c (Bld) [Mass fraction] 6.4 % High <5.7 [facility] Comment on above: Normal < 5.7 % Predi abetic 5.7 - 6.4 % Diabetic >or= 6.5 % Please note range changes. Hemoglobin measurementOrdere d By: Amado Ramachandran on 12-25-2024 Hemoglobin (Bld) [Mass/Vol] 14.7 g/dL 13.0-16.5 [facility] Immature granulocytes/100 WB C Auto (Bld)Ordered By: Amado Ramachandran on 12-25-2024 Immature granulocytes/100 WBC (Bld) 0.400 % 0.0-0.9 [facility] Comment on above: IG% - Immature Granu locytes (promyelocytes, myelocytes and metamyelocytes) > 1% indicates that a LEFT SHIFT is Present. Ketones Test strip Ql (U)Ord ered By: Amado Ramachandran on 12-25-2024 Ketones Ql (U) Negative Negative [facility] LDL calc ser/plasOrdered By: Amado Ramachandran on 12-25-2024 Cholesterol in LDL [Mass/Vol] 55 mg/dL [facility] Comment on above: Rexupulevn=363-745 m g/dL & Higher Thji=143 mg/dL or greaterFriedwald Equation for LDL-C Laboratory - Chemistry and C hemistry - challengeOrdered By: Amado Ramachandran on 12-25-2024 AST [Catalytic activity/Vol] 37 U/L <38 [facility] Lipid Profileon 12-25-2024 CHOL:HDL 3.05 Normal [facility] Comment on above: Order Comment: Order Date: 09/25/24 Order Info: [id number] - CMP Order Info: [id number] - LIPID Performed By: #### L 500.4050, L500.4100, L100.0100 #### [facility] [address] [place], [address] Cholesterol [Mass/Vol] 108 mg/dL Normal <=200 [facility] Comment on above: Order Comment: Order Date: 09/25/24 Order Info: [id number] - CMP Order Info: [id number] - LIPID Result Comment: Chol esterol level, Desirable <200 mg/dL Borderline high cholesterol 200-239 mg/dL High cholesterol >=240 mg/dL Recommendations of the NCEP Adult Treatment Panel for the following risk-cutoff thresholds for the [place] population. Performed By: #### L 500.4050, L500.4100, L100.0100 #### [facility] [address] [place], [address] Cholesterol in HDL [Mass/Vol] 35 mg/dL Low [facility] Comment on above: Order Comment: Order Date: 09/25/24 Order Info: [id number] - CMP Order Info: [id number] - LIPID Result Comment: Mariya onal Cholesterol Education Program (NCEP) guidelines: <40 mg/dL: Low HDL-cholesterol (major risk factor for CHD) >= 60 mg/dL: High HDL-cholesterol (negative risk factor for CHD) HDL-cholesterol is affected by a number of factors, e.g. smoking, exercise, hormones, sex and age. Performed By: #### L 500.4050, L500.4100, L100.0100 #### [facility] [address] [place], [address] Cholesterol in LDL [Mass/Vol] 55 mg/dL Normal [facility] Comment on above: Order Comment: Order Date: 09/25/24 Order Info: [id number] - CMP Order Info: [id number] - LIPID Result Comment: Bord gooawc=437-215 mg/dL Higher Ujzx=645 mg/dL or greater Friedwald Equation for LDL-C Performed By: #### L 500.4050, L500.4100, L100.0100 #### [facility] [address] [place], [address] Cholesterol in VLDL [Mass/Vol] 18 mg/dL Normal 5-40 [facility] Comment on above: Order Comment: Order Date: 09/25/24 Order Info: [id number] - CMP Order Info: [id number] - LIPID Performed By: #### L 500.4050, L500.4100, L100.0100 #### [facility] [address] [place], [address] Triglyceride [Mass/Vol] 88 mg/dL Normal [facility] Comment on above: Order Comment: Order Date: 09/25/24 Order Info: [id number] - CMP Order Info: [id number] - LIPID Result Comment: The drugs N-Acetylcysteine and Metamizole may falsely depress this assay. Normal range: <150 mg/dL Borderline High: 150-199 mg/dL High: 200-499 mg/dL Very High: >500 mg/dL Performed By: #### L 500.4050, L500.4100, L100.0100 #### [facility] [address] [place], [address] MCV (mean corpuscular volume ) determinationOrdered By: Amado Ramachandran on 12-25-2024 MCV (RBC) [Entitic vol] 92.9 fL 80-94 [facility] Mean corpuscular hemoglobin (MCH) determinationOrdered By: Amado Ramachandran on 12-25-2024 MCH (RBC) [Entitic mass] 31.8 pg 27.0-32.0 [facility] Mean corpuscular hemoglobin concentration (MCHC) determinationOrdered By: Amado Ramachandran on 12-25-2024 MCHC (RBC) [Mass/Vol] 34.3 g/dL 32-36 [facility] Mean platelet volume determi nationOrdered By: Amado Ramachandran on 12-25-2024 Platelet mean volume (Bld) [Entitic vol] 11.4 fL 6.2-12.0 [facility] Microalb:Creat Ratio,Random URon 12-25-2024 Creatinine [Mass/Vol] 336.00 mg/dL High 39.00-259.00 [facility] Comment on above: Order Comment: Order Date: 09/25/24 Order Info: [id number] - CBCD Performed By: #### L 500.4050, L500.4100, L100.0100 #### [facility] [address] [place], [address] MALB:CREAT UNABLE TO CALCULATE Normal <30 mg/g CRE [facility] Comment on above: Order Comment: Order Date: 09/25/24 Order Info: [id number] - CBCD Performed By: #### L 500.4050, L500.4100, L100.0100 #### [facility] [address] [place], [address] MICROALBUMIN,UR < 12.0 Normal <20 mg/L [facility] Comment on above: Order Comment: Order Date: 09/25/24 Order Info: [id number] - CBCD Performed By: #### L 500.4050, L500.4100, L100.0100 #### [facility] [address] [place], [address] Microalbumin/creat ratio urO rdered By: Amado Ramachandran on 12-25-2024 Urine microalbumin/creatinine ratio measurement UNABLE TO CALCULATE mg/g CRE <30 [facility] Microscopic analysis of urin e for red blood cells (RBC)Ordered By: Amado Ramachandran on 12-25-2024 Microscopic analysis of urine for red blood cells (RBC) 0-5 SEEN /hpf 0-5 [facility] Monocyte percentageOrdered B y: Amado Ramachandran on 12-25-2024 Monocytes/100 WBC (Bld) 9.7 % 0-10 [facility] Mucus LM Ql (Urine sed)Order ed By: Amado Ramachandran on 12-25-2024 Mucus Ql (Urine sed) 1+ /hpf [facility] Neutrophil percentageOrdered By: Amado Ramachandran on 12-25-2024 Neutrophils/100 WBC (Bld) 61.6 % 47-70 [facility] Nitrite Test strip Ql (U)Ord ered By: Amado Ramachandran on 12-25-2024 Nitrite Ql (U) Negative Negative [facility] Nucleated red blood cell per centageOrdered By: Amado Ramachandran on 12-25-2024 Nucleated RBC/100 WBC (Bld) [Ratio] 0 % 0-5 [facility] Platelet countOrdered By: Iris Ramachandran on 12-25-2024 Platelets (Bld) [#/Vol] 194 10*3/uL 150-450 [facility] Potassium measurement (mass/ volume)Ordered By: Amado Ramachandran on 12-25-2024 Potassium (Unsp spec) [Mass/Vol] 3.7 mmol/L 3.3-5.1 [facility] Protein Test strip Ql (U)Ord ered By: Amado Ramachandran on 12-25-2024 Protein Ql (U) 30 mg/dl High Negative [facility] RBC Auto (Bld) [#/Vol]Ordere d By: Amado Ramachandran on 12-25-2024 RBC (Bld) [#/Vol] 4.62 10*6/uL 4.6-6.2 [facility] Random urine creatinine luis urement (mass/volume)Ordered By: Amado Ramachandran on 12-25-2024 Creatinine Unsp time (U) [Mass/Vol] 336.00 mg/dL High 39.00-259.00 [facility] Screening total cholesterol/ high density lipoprotein (HDL) cholesterol ratioOrdered By: Amado Ramachandran on 12-25-2024 Cholesterol.total/Choles terol in HDL [Mass ratio] 3.05 {ratio} [facility] Serum creatinine measurement (mass/volume)Ordered By: Amado Ramachandran on 12-25-2024 Creatinine [Mass/Vol] 1.10 mg/dL 0.70-1.20 [facility] Serum globulin measurementOr dered By: Amado Ramachandran on 12-25-2024 Globulin (S) [Mass/Vol] 2.5 g/dL 2.2-4.2 [facility] Serum glucose measurement (m ass/volume)Ordered By: Amado Ramachandran on 12-25-2024 Glucose [Mass/Vol] 104 mg/dL High 70-99 [facility] Serum or plasma alanine bello otransferase (ALT) measurementOrdered By: Amado Ramachandran on 12-25-2024 ALT [Catalytic activity/Vol] 53 U/L High <47 [facility] Serum or plasma albumin luis urement (mass/volume)Ordered By: Amado Ramachandran on 12-25-2024 Albumin [Mass/Vol] 4.2 g/dL 3.4-4.8 [facility] Serum or plasma albumin/glob ulin mass ratioOrdered By: Amado Ramachandran on 12-25-2024 Albumin/Globulin [Mass ratio] 1.7 {ratio} 0.9-2.4 [facility] Serum or plasma alkaline marilu sphatase measurementOrdered By: Amado Ramachandran on 12-25-2024 ALP [Catalytic activity/Vol] 73 U/L 40-129 [facility] Serum or plasma calcium luis urement (mass/volume)Ordered By: Amado Ramachandran on 12-25-2024 Calcium [Mass/Vol] 9.5 mg/dL 7.6-11.0 [facility] Serum or plasma cholesterol in HDL measurement (mass/volume)Ordered By: Amado Ramachandran on 12-25-2024 Cholesterol in HDL [Mass/Vol] 35 mg/dL Low >40 [facility] Comment on above: National Cholesterol Education Program (NCEP) guidelines:<40 mg/dL: Low HDL-cholesterol (major risk factor for CHD)>= 60 mg/dL: High HDL-cholesterol (negative risk factor for CHD)HDL-cholesterol is affected by a number of factors, e.g. smoking, exercise, hormones, sex and age. Serum or plasma cholesterol measurement (mass/volume)Ordered By: Amado Ramachandran on 12-25-2024 Cholesterol [Mass/Vol] 108 mg/dL <[address] [facility] Comment on above: Cholesterol level, D esirable <200 mg/dLBorderline high cholesterol 200-239 mg/dLHigh cholesterol >=240 mg/dLRecommendations of the NCEP Adult Treatment Panel for the following risk-cutoff thresholds for the [place] population. Serum or plasma urea nitroge n measurement (mass/volume)Ordered By: Amado Ramachandran on 12-25-2024 Urea nitrogen [Mass/Vol] 13 mg/dL 4-19 [facility] Sodium levelOrdered By: Amado Ramachandran on 12-25-2024 Sodium [Moles/Vol] 141 mmol/L 133-145 [facility] Squamous epithelial cells de tection in urine sediment by light microscopyOrdered By: Amado Ramachandran on 12-25-2024 Epithelial cells.squamous LM Ql (Urine sed) 0-5 SEEN /hpf 0-5 [facility] Total proteinOrdered By: Isidro Ramachandran on 12-25-2024 Protein [Mass/Vol] 6.7 g/dL 5.9-8.4 [facility] Triglycerides measurementOrd ered By: Amado Ramachandran on 12-25-2024 Triglyceride [Mass/Vol] 88 mg/dL <199 [facility] Comment on above: The drugs N-Acetylcy steine and Metamizole may falsely depress this assay. Normal range: <150 mg/dLBorderline High: 150-199 mg/dLHigh: 200-499 mg/dLVery High: >500 mg/dL Urinalysis, Completeon 12-25 EPI,SQUAMOUS 0-5 SEEN Normal 0-5 [facility] Comment on above: Order Comment: Order Date: 09/25/24 Order Info: [id number] - CBCD Performed By: #### L 500.4050, L500.4100, L100.0100 #### [facility] [address] [place], [address] Mucus Ql (Urine sed) 1+ /hpf Normal [facility] Comment on above: Order Comment: Order Date: 09/25/24 Order Info: [id number] - CBCD Performed By: #### L 500.4050, L500.4100, L100.0100 #### [facility] [address] [place], [address] RBC 0-5 SEEN Normal 0-5 [facility] Comment on above: Order Comment: Order Date: 09/25/24 Order Info: [id number]- - CBCD Performed By: #### L 500.4050, L500.4100, L100.0100 #### [facility] [address] [place], [address] BACTERIA 0 SEEN Normal None Seen [facility] Comment on above: Order Comment: Order Date: 09/25/24 Order Info: [id number] - CBCD Performed By: #### L 500.4050, L500.4100, L100.0100 #### [facility] [address] [place], [address] WBC 0 SEEN Normal 0-5 [facility] Comment on above: Order Comment: Order Date: 09/25/24 Order Info: [id number] - CBCD Performed By: #### L 500.4050, L500.4100, L100.0100 #### [facility] [address] [place], [address] Urine albumin measurement [facility] detection limit of 20 mg/L or less (mass/volume)Ordered By: Amado Ramachandran on 12-25-2024 Albumin DL <= 20 mg/L (U) [Mass/Vol] < 12.0 mg/L <20 mg/L [facility] Urine clarityOrdered By: Isidro Ramachandran on 12-25-2024 Clarity (U) Clear Clear [facility] Urine color determinationOrd ered By: Amado Ramachandran on 12-25-2024 Color (U) Yellow Yellow [facility] Urine glucose detectionOrder ed By: Amado Ramachandran on 12-25-2024 Glucose Ql (U) Normal mg/dl Normal [facility] Urine leukocyte esterase det ection by dipstickOrdered By: Amado Ramachandran on 12-25-2024 Leukocyte esterase Test strip Ql (U) Negative Negative [facility] Urine pHOrdered By: Amado jarrell on 12-25-2024 pH (U) 6.0 [pH] 5.0 - 8.0 [facility] Urine sediment bacteria coun t by microscopy (number/high power field)Ordered By: Amado Ramachandran on 12-25-2024 Bacteria LM.HPF (Urine sed) [#/Area] 0 /[HPF] None Seen [facility] Urine specific gravity measu rementOrdered By: Amado Ramachandran on 12-25-2024 Specific gravity (U) [Rel density] 1.025 1.002-1.030 [facility] Urine urobilinogen measureme ntOrdered By: Amado Ramachandran on 12-25-2024 Urobilinogen Ql (U) 1 mg/dl High Normal [facility] White blood cell (WBC) count Ordered By: Amado Ramachandran on 12-25-2024 WBC (Bld) [#/Vol] 6.8 10*3/uL 4.4-11.0 [facility] White blood cell countOrdere d By: Amado Ramachandran on 12-25-2024 White blood cell count 0 SEEN /hpf 0-5 [facility] Finger(s) Min 2 Viewson 09-16 Finger(s) Min 2 Views [facility] Imaging Services [address] [id number] [phone] Finger(s) Min 2 Views MR#: [id number] Acct: [id number] Name: CECILIA BRAXTON JrIbis Rep #: [id number] : 1960 M 64 From: Jayjay Zhang PCP: Dr. Amado Ramachandran MD Status: REG CLI Study: Finger(s) Min 2 Views Date of Exam: 09/25/24 Exam# [id number] Ordering Dr: Amado Ramachandran MD PROCEDURE: FINGER(S) MIN 2 VIEWS 09/25/2024 REASON FOR EXAM: RIGHT SECOND DIGIT PAIN, MCP JOINT AREA TECHNIQUE: 3 view(s) of the right 2nd finger COMPARISON: None. RAD/Finger(s) Min 2 Views IMPRESSION: Minimal degenerative changes are seen in the right 2nd and 3rd metacarpophalangeal joints, without associated joint narrowing. Limited imaging of the right 3rd distal interphalangeal joint shows [id number] degenerative changes. Mild degenerative changes are seen of the right 2nd proximal interphalangeal joint. Moderate degenerative changes are seen of the right 2nd distal interphalangeal joint, with significant joint narrowing and osteophyte formation, most prominent at the dorsal base of the distal phalanx. No acute fracture or dislocation is seen. Reading Location: [address] CC: Dr. Amado Ramachandran MD [facility] Supervisor: Signed Normal [facility] Absolute lymphocyte countOrd ered By: Amado Ramachandran on 09-24-2024 Lymphocytes Auto (Unsp spec) [#/Vol] 1.21 10*3/uL 0.83-4.51 [facility] Absolute neutrophil countOrd ered By: Amado Ramachandran on 09-24-2024 Neutrophils (Bld) [#/Vol] 4.4 10*3/uL 2.0-7.7 [facility] Anion gap in Serum or Plasma Ordered By: Amado Ramachandran on 09-24-2024 Anion gap [Moles/Vol] 11 mmol/L 5-15 [facility] Automated lymphocyte count a s percentage of total leukocytesOrdered By: Amado Ramachandran on 09-24-2024 Lymphocytes/100 WBC Auto (Unsp spec) 18.7 % Low 19-41 [facility] BUN/creatinine ratioOrdered By: Amado Ramachandran on 09-24-2024 Urea nitrogen/Creatinine [Mass ratio] 12.3 mg/mg 10-20 [facility] Basophil percentageOrdered B y: Amado Ramachandran on 09-24-2024 Basophils/100 WBC (Bld) 1.1 % High 0-1 [facility] Bilirubin, totalOrdered By: Amado Ramachandran on 09-24-2024 Bilirubin [Mass/Vol] 0.85 mg/dL 0.00-1.30 [facility] CBC W/Diff, Automatedon Absolute Lymph 1.21 X10 3/uL Normal 0.83-4.51 [facility] Comment on above: Order Comment: Order Date: 09/25/24 Order Info: [id number] - CBCD Performed By: #### L 500.4050, L500.4100, L100.0100 #### [facility] [address] [place], [address] Absolute Neut 4.4 X10 3/uL Normal 2.0-7.7 [facility] Comment on above: Order Comment: Order Date: 09/25/24 Order Info: 0184-1 - CBCD Performed By: #### L 500.4050, L500.4100, L100.0100 #### [facility] [address] [place], [address] Basophils/100 WBC (Bld) 1.1 % High 0-1 [facility] Comment on above: Order Comment: Order Date: 09/25/24 Order Info: 0184-1 - CBCD Performed By: #### L 500.4050, L500.4100, L100.0100 #### [facility] [address] [place], [address] Eosinophils/100 WBC (Bld) 2.0 % Normal 0-5 [facility] Comment on above: Order Comment: Order Date: 09/25/24 Order Info: [id number] - CBCD Performed By: #### L 500.4050, L500.4100, L100.0100 #### [facility] [address] [place], [address] Erythrocyte distribution width (RBC) [Ratio] 13.6 % Normal 11.6-14.6 [facility] Comment on above: Order Comment: Order Date: 09/25/24 Order Info: 0184-1 - CBCD Performed By: #### L 500.4050, L500.4100, L100.0100 #### [facility] [address] [place], [address] Hematocrit (Bld) [Volume fraction] 43.8 % Normal 40-54 [facility] Comment on above: Order Comment: Order Date: 09/25/24 Order Info: 0184- - CBCD Performed By: #### L 500.4050, L500.4100, L100.0100 #### [facility] [address] [place], [address] Hemoglobin (Bld) [Mass/Vol] 15.0 g/dL Normal 13.0-16.5 [facility] Comment on above: Order Comment: Order Date: 09/25/24 Order Info: 0184- - CBCD Performed By: #### L 500.4050, L500.4100, L100.0100 #### [facility] [address] [place], [address] IG% 0.600 Normal 0.0-0.9 [facility] Comment on above: Order Comment: Order Date: 09/25/24 Order Info: [id number]- - CBCD Result Comment: IG% - Immature Granulocytes (promyelocytes, myelocytes and metamyelocytes) > 1% indicates that a LEFT SHIFT is Present. Performed By: #### L 500.4050, L500.4100, L100.0100 #### [facility] [address] [place], [address] Lymphocytes/100 WBC (Bld) 18.7 % Low 19-41 [facility] Comment on above: Order Comment: Order Date: 09/25/24 Order Info: 0184-1 - CBCD Performed By: #### L 500.4050, L500.4100, L100.0100 #### [facility] [address] [place], [address] MCH (RBC) [Entitic mass] 31.2 pg Normal 27.0-32.0 [facility] Comment on above: Order Comment: Order Date: 09/25/24 Order Info: 0184-1 - CBCD Performed By: #### L 500.4050, L500.4100, L100.0100 #### [facility] [address] [place], [address] MCHC (RBC) [Mass/Vol] 34.2 g/dL Normal 32-36 [facility] Comment on above: Order Comment: Order Date: 09/25/24 Order Info: 0184-1 - CBCD Performed By: #### L 500.4050, L500.4100, L100.0100 #### [facility] [address] [place], [address] MCV (RBC) [Entitic vol] 91.1 fL Normal 80-94 [facility] Comment on above: Order Comment: Order Date: 09/25/24 Order Info: 0184-1 - CBCD Performed By: #### L 500.4050, L500.4100, L100.0100 #### [facility] [address] [place], [address] Monocytes/100 WBC (Bld) 9.4 % Normal 0-10 [facility] Comment on above: Order Comment: Order Date: 09/25/24 Order Info: 0184-1 - CBCD Performed By: #### L 500.4050, L500.4100, L100.0100 #### [facility] [address] [place], [address] Neutrophils/100 WBC (Bld) 68.2 % Normal 47-70 [facility] Comment on above: Order Comment: Order Date: 09/25/24 Order Info: 0184-1 - CBCD Performed By: #### L 500.4050, L500.4100, L100.0100 #### [facility] [address] [place], [address] Nucleated RBC (Bld) [#/Vol] 0 10*3/uL Normal 0-5 [facility] Comment on above: Order Comment: Order Date: 09/25/24 Order Info: 0184-1 - CBCD Performed By: #### L 500.4050, L500.4100, L100.0100 #### [facility] [address] [place], [address] Platelet mean volume (Bld) [Entitic vol] 11.6 fL Normal 6.2-12.0 [facility] Comment on above: Order Comment: Order Date: 09/25/24 Order Info: 0184-1 - CBCD Performed By: #### L 500.4050, L500.4100, L100.0100 #### [facility] [address] [place], [address] Platelets (Bld) [#/Vol] 160 10*3/uL Normal 150-450 [facility] Comment on above: Order Comment: Order Date: 09/25/24 Order Info: 0184-1 - CBCD Performed By: #### L 500.4050, L500.4100, L100.0100 #### [facility] [address] [place], [address] RBC (Bld) [#/Vol] 4.81 10*6/uL Normal 4.6-6.2 [facility] Comment on above: Order Comment: Order Date: 09/25/24 Order Info: 0184-1 - CBCD Performed By: #### L 500.4050, L500.4100, L100.0100 #### [facility] [address] [place], [address] RDW SD 45.4 fl High 35.1-43.9 [facility] Comment on above: Order Comment: Order Date: 09/25/24 Order Info: 0184-1 - CBCD Performed By: #### L 500.4050, L500.4100, L100.0100 #### [facility] [address] [place], [address] WBC (Bld) [#/Vol] 6.5 10*3/uL Normal 4.4-11.0 [facility] Comment on above: Order Comment: Order Date: 09/25/24 Order Info: [id number] - CBCD Performed By: #### L 500.4050, L500.4100, L100.0100 #### [facility] [address] [place], [address] Calculated very low density lipoprotein (VLDL) cholesterol measurementOrdered By: Amado Ramachandran on 09-24-2024 Calculated very low density lipoprotein (VLDL) cholesterol measurement 24 mg/dL 5-40 [facility] Carbon dioxide, total [Moles /volume] in Central venous bloodOrdered By: Amado Ramachandran on 09-24-2024 CO2 [Moles/Vol] 23.9 mmol/L 21.0-32.0 [facility] Chloride assayOrdered By: Iris Ramachandran on 09-24-2024 Chloride [Moles/Vol] 105 mmol/L 98-108 [facility] Comprehensive Metabolic Prof ilon 09-24-2024 Albumin [Mass/Vol] 4.3 g/dL Normal 3.4-4.8 [facility] Comment on above: Order Comment: Order Date: 09/25/24 Order Info: [id number] - CMP Order Info: [id number] - LIPID Performed By: #### L 500.4050, L500.4100, L100.0100 #### [facility] [address] [place], [address] Albumin/Globulin [Mass ratio] 1.6 {ratio} Normal 0.9-2.4 [facility] Comment on above: Order Comment: Order Date: 09/25/24 Order Info: [id number] - CMP Order Info: [id number] - LIPID Performed By: #### L 500.4050, L500.4100, L100.0100 #### [facility] [address] [place], [address] ALK PHOS 66 U/L Normal 40-129 [facility] Comment on above: Order Comment: Order Date: 09/25/24 Order Info: [id number] - CMP Order Info: [id number] - LIPID Performed By: #### L 500.4050, L500.4100, L100.0100 #### [facility] [address] [place], [address] ALT [Catalytic activity/Vol] 65 U/L High <=46 [facility] Comment on above: Order Comment: Order Date: 09/25/24 Order Info: [id number] - CMP Order Info: [id number] - LIPID Performed By: #### L 500.4050, L500.4100, L100.0100 #### [facility] [address] [place], [address] AST [Catalytic activity/Vol] 46 U/L High <=37 [facility] Comment on above: Order Comment: Order Date: 09/25/24 Order Info: [id number] - CMP Order Info: [id number] - LIPID Performed By: #### L 500.4050, L500.4100, L100.0100 #### [facility] [address] [place], [address] Bilirubin [Mass/Vol] 0.85 mg/dL Normal 0.00-1.30 [facility] Comment on above: Order Comment: Order Date: 09/25/24 Order Info: [id number] - CMP Order Info: [id number] - LIPID Performed By: #### L 500.4050, L500.4100, L100.0100 #### [facility] [address] [place], [address] BUN/CRE 12.3 RATIO Normal 10-20 [facility] Comment on above: Order Comment: Order Date: 09/25/24 Order Info: [id number] - CMP Order Info: [id number] - LIPID Performed By: #### L 500.4050, L500.4100, L100.0100 #### [facility] [address] [place], [address] Calcium [Mass/Vol] 9.4 mg/dL Normal 7.6-11.0 [facility] Comment on above: Order Comment: Order Date: 09/25/24 Order Info: [id number] - CMP Order Info: [id number] - LIPID Performed By: #### L 500.4050, L500.4100, L100.0100 #### [facility] [address] [place], [address] Chloride [Moles/Vol] 105 mmol/L Normal 98-108 [facility] Comment on above: Order Comment: Order Date: 09/25/24 Order Info: [id number] - CMP Order Info: [id number] - LIPID Performed By: #### L 500.4050, L500.4100, L100.0100 #### [facility] [address] [place], [address] CO2 [Moles/Vol] 23.9 mmol/L Normal 21.0-32.0 [facility] Comment on above: Order Comment: Order Date: 09/25/24 Order Info: [id number] - CMP Order Info: [id number] - LIPID Performed By: #### L 500.4050, L500.4100, L100.0100 #### [facility] [address] [place], [address] Creatinine [Mass/Vol] 1.19 mg/dL Normal 0.70-1.20 [facility] Comment on above: Order Comment: Order Date: 09/25/24 Order Info: [id number] - CMP Order Info: [id number] - LIPID Performed By: #### L 500.4050, L500.4100, L100.0100 #### [facility] [address] [place], [address] GAP 11 Normal 5-15 [facility] Comment on above: Order Comment: Order Date: 09/25/24 Order Info: [id number]- - CMP Order Info: [id number] - LIPID Performed By: #### L 500.4050, L500.4100, L100.0100 #### [facility] [address] [place], [address] GFR/1.73 sq M.predicted among non-blacks MDRD (S/P/Bld) [Vol rate/Area] 67 mL/min/{1.73_m2} Normal >60 [facility] Comment on above: Order Comment: Order Date: 09/25/24 Order Info: 07 - CMP Order Info: [id number] - LIPID Result Comment: mL/m in/1.73m2 CKD-EPI Creatinine Equation (2020) Performed By: #### L 500.4050, L500.4100, L100.0100 #### [facility] [address] [place], [address] Globulin (S) [Mass/Vol] 2.7 g/dL Normal 2.2-4.2 [facility] Comment on above: Order Comment: Order Date: 09/25/24 Order Info: 0786- - CMP Order Info: [id number] - LIPID Performed By: #### L 500.4050, L500.4100, L100.0100 #### [facility] [address] [place], [address] Glucose [Mass/Vol] 146 mg/dL High 70-99 [facility] Comment on above: Order Comment: Order Date: 09/25/24 Order Info: [id number]- - CMP Order Info: [id number] - LIPID Performed By: #### L 500.4050, L500.4100, L100.0100 #### [facility] [address] [place], [address] Potassium [Moles/Vol] 4.4 mmol/L Normal 3.3-5.1 [facility] Comment on above: Order Comment: Order Date: 09/25/24 Order Info: [id number] - CMP Order Info: [id number] - LIPID Performed By: #### L 500.4050, L500.4100, L100.0100 #### [facility] [address] [place], [address] Sodium [Moles/Vol] 140 mmol/L Normal 133-145 [facility] Comment on above: Order Comment: Order Date: 09/25/24 Order Info: [id number] - CMP Order Info: [id number] - LIPID Performed By: #### L 500.4050, L500.4100, L100.0100 #### [facility] [address] [place], [address] T PROT 6.9 g/dL Normal 5.9-8.4 [facility] Comment on above: Order Comment: Order Date: 09/25/24 Order Info: [id number] - CMP Order Info: [id number] - LIPID Performed By: #### L 500.4050, L500.4100, L100.0100 #### [facility] [address] [place], [address] Urea nitrogen [Mass/Vol] 15 mg/dL Normal 4-19 [facility] Comment on above: Order Comment: Order Date: 09/25/24 Order Info: [id number] - CMP Order Info: [id number] - LIPID Performed By: #### L 500.4050, L500.4100, L100.0100 #### [facility] [address] [place], [address] Eosinophil percentageOrdered By: Amado Ramachandran on 09-24-2024 Eosinophils/100 WBC (Bld) 2.0 % 0-5 [facility] Erythrocyte distribution wid th ratioOrdered By: Amado Ramachandran on 09-24-2024 Erythrocyte distribution width (RBC) [Ratio] 13.6 % 11.6-14.6 [facility] Erythrocyte distribution wid th standard deviationOrdered By: Amado Ramachandran on 09-24-2024 Erythrocyte distribution width (RBC) [Ratio] 45.4 fl High 35.1-43.9 [facility] Glomerular filtration rate ( GFR) estimation/1.73 sq m using serum, plasma, or whole bOrdered By: Amado Ramachandran on 09-24-2024 GFR/1.73 sq M.predicted among non-blacks MDRD (S/P/Bld) [Vol rate/Area] 67 mL/min/{1.73_m2} >60 [facility] Comment on above: mL/min/1.73m2 CKD-EP I Creatinine Equation (2020) Hematocrit Auto (Bld) [Volum e fraction]Ordered By: Amado Ramachandran on 09-24-2024 Hematocrit (Bld) [Volume fraction] 43.8 % 40-54 [facility] Hemoglobin A1con 09-24-2024 HbA1c (Bld) [Mass fraction] 7.0 % High <=5.6 [facility] Comment on above: Order Comment: Order Date: 09/25/24 Order Info: [id number] - CMP Order Info: [id number] - LIPID Result Comment: Norm al < 5.7 % Prediabetic 5.7 - 6.4 % Diabetic >or= 6.5 % Please note range changes. Performed By: #### L 500.4050, L500.4100, L100.0100 #### [facility] [address] [place] [address], [address] Hemoglobin A1c percentageOrd ered By: Amado Ramachandran on 09-24-2024 HbA1c (Bld) [Mass fraction] 7.0 % High <5.7 [facility] Comment on above: Normal < 5.7 % Predi abetic 5.7 - 6.4 % Diabetic >or= 6.5 % Please note range changes. Hemoglobin measurementOrdere d By: Amado Ramachandran on 09-24-2024 Hemoglobin (Bld) [Mass/Vol] 15.0 g/dL 13.0-16.5 [facility] Immature granulocytes/100 WB C Auto (Bld)Ordered By: Amado Ramachandran on 09-24-2024 Immature granulocytes/100 WBC (Bld) 0.600 % 0.0-0.9 [facility] Comment on above: IG% - Immature Granu locytes (promyelocytes, myelocytes and metamyelocytes) > 1% indicates that a LEFT SHIFT is Present. LDL calc ser/plasOrdered By: Amado Ramachandran on 09-24-2024 Cholesterol in LDL [Mass/Vol] 80 mg/dL [facility] Comment on above: Uhjgxwsfdz=591-820 m g/dL & Higher Adop=607 mg/dL or greater Laboratory - Chemistry and C hemistry - challengeOrdered By: Amado Ramachandran on 09-24-2024 AST [Catalytic activity/Vol] 46 U/L High <38 [facility] Lipid Profileon 09-24-2024 CHOL:HDL 4.13 Normal [facility] Comment on above: Order Comment: Order Date: 09/25/24 Order Info: [id number] - CMP Order Info: [id number] - LIPID Performed By: #### L 500.4050, L500.4100, L100.0100 #### [facility] [address] [facility] [place], [address] Cholesterol [Mass/Vol] 137 mg/dL Normal <=200 [facility] Comment on above: Order Comment: Order Date: 09/25/24 Order Info: [id number] - CMP Order Info: [id number] - LIPID Result Comment: Chol esterol level, Desirable <200 mg/dL Borderline high cholesterol 200-239 mg/dL High cholesterol >=240 mg/dL Recommendations of the NCEP Adult Treatment Panel for the following risk-cutoff thresholds for the [place] population. Performed By: #### L 500.4050, L500.4100, L100.0100 #### [facility] [address] [place], [address] Cholesterol in HDL [Mass/Vol] 33 mg/dL Low [facility] Comment on above: Order Comment: Order Date: 09/25/24 Order Info: [id number] - CMP Order Info: [id number] - LIPID Result Comment: Mariya onal Cholesterol Education Program (NCEP) guidelines: <40 mg/dL: Low HDL-cholesterol (major risk factor for CHD) >= 60 mg/dL: High HDL-cholesterol (negative risk factor for CHD) HDL-cholesterol is affected by a number of factors, e.g. smoking, exercise, hormones, sex and age. Performed By: #### L 500.4050, L500.4100, L100.0100 #### [facility] [address] [place], [address] Cholesterol in LDL [Mass/Vol] 80 mg/dL Normal [facility] Comment on above: Order Comment: Order Date: 09/25/24 Order Info: [id number] - CMP Order Info: [id number] - LIPID Result Comment: Bord hqxvje=954-292 mg/dL Higher Dajo=396 mg/dL or greater Performed By: #### L 500.4050, L500.4100, L100.0100 #### [facility] [address] [place], [address] Cholesterol in VLDL [Mass/Vol] 24 mg/dL Normal 5-40 [facility] Comment on above: Order Comment: Order Date: 09/25/24 Order Info: [id number] - CMP Order Info: [id number] - LIPID Performed By: #### L 500.4050, L500.4100, L100.0100 #### [facility] [address] [place], [address] Triglyceride [Mass/Vol] 118 mg/dL Normal [facility] Comment on above: Order Comment: Order Date: 09/25/24 Order Info: [id number] - CMP Order Info: [id number] - LIPID Result Comment: The drugs N-Acetylcysteine and Metamizole may falsely depress this assay. Normal range: <150 mg/dL Borderline High: 150-199 mg/dL High: 200-499 mg/dL Very High: >500 mg/dL Performed By: #### L 500.4050, L500.4100, L100.0100 #### [facility] [address] [place], [place], [address] MCV (mean corpuscular volume ) determinationOrdered By: Amado Ramachandran on 09-24-2024 MCV (RBC) [Entitic vol] 91.1 fL 80-94 [facility] Mean corpuscular hemoglobin (MCH) determinationOrdered By: Amado Ramachandran on 09-24-2024 MCH (RBC) [Entitic mass] 31.2 pg 27.0-32.0 [facility] Mean corpuscular hemoglobin concentration (MCHC) determinationOrdered By: Amado Ramachandran on 09-24-2024 MCHC (RBC) [Mass/Vol] 34.2 g/dL 32-36 [facility] Mean platelet volume determi nationOrdered By: Amado Ramachandran on 09-24-2024 Platelet mean volume (Bld) [Entitic vol] 11.6 fL 6.2-12.0 [facility] Microalb:Creat Ratio,Random URon 09-24-2024 Creatinine [Mass/Vol] 273.00 mg/dL High 39.00-259.00 [facility] Comment on above: Order Comment: Order Date: 09/25/24 Order Info: [id number] - CMP Order Info: [id number] - LIPID Performed By: #### L 500.4050, L500.4100, L100.0100 #### [facility] [address] [place], [address] MALB:CREAT UNABLE TO CALCULATE Normal [facility] Comment on above: Order Comment: Order Date: 09/25/24 Order Info: [id number] - CMP Order Info: [id number] - LIPID Performed By: #### L 500.4050, L500.4100, L100.0100 #### [facility] [address] [place], [address] MICROALBUMIN,UR < 12.0 Normal NO RANGE EST. [facility] Comment on above: Order Comment: Order Date: 09/25/24 Order Info: [id number] - CMP Order Info: [id number] - LIPID Performed By: #### L 500.4050, L500.4100, L100.0100 #### [facility] [place], [address] Microalbumin/creat ratio urO rdered By: Amado Ramachandran on 09-24-2024 Urine microalbumin/creatinine ratio measurement UNABLE TO CALCULATE mg/g CRE [facility] Monocyte percentageOrdered B y: Amado Ramachandran on 09-24-2024 Monocytes/100 WBC (Bld) 9.4 % 0-10 [facility] Neutrophil percentageOrdered By: Amado Ramachandran on 09-24-2024 Neutrophils/100 WBC (Bld) 68.2 % 47-70 [facility] Nucleated red blood cell per centageOrdered By: Amado Ramachandran on 09-24-2024 Nucleated RBC/100 WBC (Bld) [Ratio] 0 % 0-5 [facility] Platelet countOrdered By: Iris Ramachandran on 09-24-2024 Platelets (Bld) [#/Vol] 160 10*3/uL 150-450 [facility] Potassium measurement (mass/ volume)Ordered By: Amado Ramachandran on 09-24-2024 Potassium (Unsp spec) [Mass/Vol] 4.4 mmol/L 3.3-5.1 [facility] RBC Auto (Bld) [#/Vol]Ordere d By: Amado Ramachandran on 09-24-2024 RBC (Bld) [#/Vol] 4.81 10*6/uL 4.6-6.2 [facility] Random urine creatinine luis urement (mass/volume)Ordered By: Amado Ramachandran on 09-24-2024 Creatinine Unsp time (U) [Mass/Vol] 273.00 mg/dL High 39.00-259.00 [facility] Screening total cholesterol/ high density lipoprotein (HDL) cholesterol ratioOrdered By: Amado Ramachandran on 09-24-2024 Cholesterol.total/Choles terol in HDL [Mass ratio] 4.13 {ratio} [facility] Serum creatinine measurement (mass/volume)Ordered By: Amado Ramachandran on 09-24-2024 Creatinine [Mass/Vol] 1.19 mg/dL 0.70-1.20 [facility] Serum globulin measurementOr dered By: Amado Ramachandran on 09-24-2024 Globulin (S) [Mass/Vol] 2.7 g/dL 2.2-4.2 [facility] Serum glucose measurement (m ass/volume)Ordered By: Amado Ramachandran on 09-24-2024 Glucose [Mass/Vol] 146 mg/dL High 70-99 [facility] Serum or plasma alanine bello otransferase (ALT) measurementOrdered By: Amado Ramachandran on 09-24-2024 ALT [Catalytic activity/Vol] 65 U/L High <47 [facility] Serum or plasma albumin luis urement (mass/volume)Ordered By: Amado Ramachandran on 09-24-2024 Albumin [Mass/Vol] 4.3 g/dL 3.4-4.8 [facility] Serum or plasma albumin/glob ulin mass ratioOrdered By: Amado Ramachandran on 09-24-2024 Albumin/Globulin [Mass ratio] 1.6 {ratio} 0.9-2.4 [facility] Serum or plasma alkaline marilu sphatase measurementOrdered By: Amado Ramachandran on 09-24-2024 ALP [Catalytic activity/Vol] 66 U/L 40-129 [facility] Serum or plasma calcium luis urement (mass/volume)Ordered By: Amado Ramachandran on 09-24-2024 Calcium [Mass/Vol] 9.4 mg/dL 7.6-11.0 [facility] Serum or plasma cholesterol in HDL measurement (mass/volume)Ordered By: Amado Ramachandran on 09-24-2024 Cholesterol in HDL [Mass/Vol] 33 mg/dL Low >40 [facility] Comment on above: National Cholesterol Education Program (NCEP) guidelines:<40 mg/dL: Low HDL-cholesterol (major risk factor for CHD)>= 60 mg/dL: High HDL-cholesterol (negative risk factor for CHD)HDL-cholesterol is affected by a number of factors, e.g. smoking, exercise, hormones, sex and age. Serum or plasma cholesterol measurement (mass/volume)Ordered By: Amado Ramachandran on 09-24-2024 Cholesterol [Mass/Vol] 137 mg/dL <201 [facility] Comment on above: Cholesterol level, D esirable <200 mg/dLBorderline high cholesterol 200-239 mg/dLHigh cholesterol >=240 mg/dLRecommendations of the NCEP Adult Treatment Panel for the following risk-cutoff thresholds for the [place] population. Serum or plasma urea nitroge n measurement (mass/volume)Ordered By: Amado Ramachandran on 09-24-2024 Urea nitrogen [Mass/Vol] 15 mg/dL 4-19 [facility] Sodium levelOrdered By: Amado Ramachandran on 09-24-2024 Sodium [Moles/Vol] 140 mmol/L 133-145 [facility] Total proteinOrdered By: Isidro Ramachandran on 09-24-2024 Protein [Mass/Vol] 6.9 g/dL 5.9-8.4 [facility] Triglycerides measurementOrd ered By: Amado Ramachandran on 09-24-2024 Triglyceride [Mass/Vol] 118 mg/dL <199 [facility] Comment on above: The drugs N-Acetylcy steine and Metamizole may falsely depress this assay. Normal range: <150 mg/dLBorderline High: 150-199 mg/dLHigh: 200-499 mg/dLVery High: >500 mg/dL Urine albumin measurement [facility] detection limit of 20 mg/L or less (mass/volume)Ordered By: Amado Ramachandran on 09-24-2024 Albumin DL <= 20 mg/L (U) [Mass/Vol] < 12.0 mg/L NO RANGE EST. [facility] Vitamin D,25 Hydroxyon 09-24 Vitamin D 25-OH 43.9 ng/mL Normal 30-100 [facility] Comment on above: Order Comment: Order Date: 05/31/24 Order Info: [id number] - CMP Order Info: [id number] - LIPID Result Comment: [place] min D Status Deficiency: <20 ng/mL (50nmol/L) Insufficiency: 20-30 ng/mL (50-75 nmol/L) Sufficiency: 30-100 ng/mL (75-250 nmol/L) Toxicity: >100 ng/mL (>250 nmol/L) Performed By: #### L 506.1001 #### [facility] [address] [place], [place], [id number] White blood cell (WBC) count Ordered By: Amado Ramachandran on 09-24-2024 WBC (Bld) [#/Vol] 6.5 10*3/uL 4.4-11.0 [facility] CBC W/Diff, Automatedon 01-0 Absolute Lymph 1.13 X10 3/uL Normal 0.83-4.51 [facility] Comment on above: Order Comment: Order Date: 01/13/24 Order Info: [id number]- - CBCD Performed By: #### L 100.0100, L500.4100, L501.9985, L502.0250, L500.4050 #### [facility] [address] [place], [address] Absolute Neut 6.9 X10 3/uL Normal 2.0-7.7 [facility] Comment on above: Order Comment: Order Date: 01/13/24 Order Info: [id number]- - CBCD Performed By: #### L 100.0100, L500.4100, L501.9985, L502.0250, L500.4050 #### [facility] [address] [place], [address] Basophils/100 WBC (Bld) 0.6 % Normal 0-1 [facility] Comment on above: Order Comment: Order Date: 01/13/24 Order Info: 0184- - CBCD Performed By: #### L 100.0100, L500.4100, L501.9985, L502.0250, L500.4050 #### [facility] [address] [place], [address] Eosinophils/100 WBC (Bld) 1.7 % Normal 0-5 [facility] Comment on above: Order Comment: Order Date: 01/13/24 Order Info: 0184-1 - CBCD Performed By: #### L 100.0100, L500.4100, L501.9985, L502.0250, L500.4050 #### [facility] [address] [place], [address] Erythrocyte distribution width (RBC) [Ratio] 13.5 % Normal 11.6-14.6 [facility] Comment on above: Order Comment: Order Date: 01/13/24 Order Info: 0184-1 - CBCD Performed By: #### L 100.0100, L500.4100, L501.9985, L502.0250, L500.4050 #### [facility] [address] [place], [address] Hematocrit (Bld) [Volume fraction] 46.0 % Normal 40-54 [facility] Comment on above: Order Comment: Order Date: 01/13/24 Order Info: 0184-1 - CBCD Performed By: #### L 100.0100, L500.4100, L501.9985, L502.0250, L500.4050 #### [facility] [address] [facility] [place], [address] Hemoglobin (Bld) [Mass/Vol] 15.2 g/dL Normal 13.0-16.5 [facility] Comment on above: Order Comment: Order Date: 01/13/24 Order Info: 0184-1 - CBCD Performed By: #### L 100.0100, L500.4100, L501.9985, L502.0250, L500.4050 #### [facility] [address] [place], [address] IG% 1.000 High 0.0-0.9 [facility] Comment on above: Order Comment: Order Date: 01/13/24 Order Info: [id number] - CBCD Result Comment: IG% - Immature Granulocytes (promyelocytes, myelocytes and metamyelocytes) > 1% indicates that a LEFT SHIFT is Present. Performed By: #### L 100.0100, L500.4100, L501.9985, L502.0250, L500.4050 #### [facility] [address] [facility] [place], [address] Lymphocytes/100 WBC (Bld) 12.5 % Low 19-41 [facility] Comment on above: Order Comment: Order Date: 01/13/24 Order Info: 0184-1 - CBCD Performed By: #### L 100.0100, L500.4100, L501.9985, L502.0250, L500.4050 #### [facility] [address] [place], [address] MCH (RBC) [Entitic mass] 31.6 pg Normal 27.0-32.0 [facility] Comment on above: Order Comment: Order Date: 01/13/24 Order Info: 0184- - CBCD Performed By: #### L 100.0100, L500.4100, L501.9985, L502.0250, L500.4050 #### [facility] [address] [place], [address] MCHC (RBC) [Mass/Vol] 33.0 g/dL Normal 32-36 [facility] Comment on above: Order Comment: Order Date: 01/13/24 Order Info: 0184- - CBCD Performed By: #### L 100.0100, L500.4100, L501.9985, L502.0250, L500.4050 #### [facility] [address] [place], [address] MCV (RBC) [Entitic vol] 95.6 fL High 80-94 [facility] Comment on above: Order Comment: Order Date: 01/13/24 Order Info: 0184- - CBCD Performed By: #### L 100.0100, L500.4100, L501.9985, L502.0250, L500.4050 #### [facility] [address] [place], [address] Monocytes/100 WBC (Bld) 8.1 % Normal 0-10 [facility] Comment on above: Order Comment: Order Date: 01/13/24 Order Info: 0184-1 - CBCD Performed By: #### L 100.0100, L500.4100, L501.9985, L502.0250, L500.4050 #### [facility] [address] [place], [address] Neutrophils/100 WBC (Bld) 76.1 % High 47-70 [facility] Comment on above: Order Comment: Order Date: 01/13/24 Order Info: 0184-1 - CBCD Performed By: #### L 100.0100, L500.4100, L501.9985, L502.0250, L500.4050 #### [facility] [address] [place], [address] Nucleated RBC (Bld) [#/Vol] 0 10*3/uL Normal 0-5 [facility] Comment on above: Order Comment: Order Date: 01/13/24 Order Info: [id number] - CBCD Performed By: #### L 100.0100, L500.4100, L501.9985, L502.0250, L500.4050 #### [facility] [address] [place], [address] Platelet mean volume (Bld) [Entitic vol] 10.5 fL Normal 6.2-12.0 [facility] Comment on above: Order Comment: Order Date: 01/13/24 Order Info: 0184-1 - CBCD Performed By: #### L 100.0100, L500.4100, L501.9985, L502.0250, L500.4050 #### [facility] [address] [place], [address] Platelets (Bld) [#/Vol] 194 10*3/uL Normal 150-450 [facility] Comment on above: Order Comment: Order Date: 01/13/24 Order Info: 0184-1 - CBCD Performed By: #### L 100.0100, L500.4100, L501.9985, L502.0250, L500.4050 #### [facility] [address] [place], [address] RBC (Bld) [#/Vol] 4.81 10*6/uL Normal 4.6-6.2 [facility] Comment on above: Order Comment: Order Date: 01/13/24 Order Info: 0184-1 - CBCD Performed By: #### L 100.0100, L500.4100, L501.9985, L502.0250, L500.4050 #### [facility] [address] [place], [address] RDW SD 47.4 fl High 35.1-43.9 [facility] Comment on above: Order Comment: Order Date: 01/13/24 Order Info: 0184-1 - CBCD Performed By: #### L 100.0100, L500.4100, L501.9985, L502.0250, L500.4050 #### [facility] [address] [place], [address] WBC (Bld) [#/Vol] 9.1 10*3/uL Normal 4.4-11.0 [facility] Comment on above: Order Comment: Order Date: 01/13/24 Order Info: 0184-1 - CBCD Performed By: #### L 100.0100, L500.4100, L501.9985, L502.0250, L500.4050 #### [facility] [address] [place], [address] Chest PA and Lateralon 04-20 Chest PA and Lateral [facility] [address] [facility] [place] [address] Chest PA and Lateral MR#: [id number] Acct: [id number] Name: CECILIA BRAXTON Jr. Rep #: [id number] : 1960 Lee 63 From: Jose Antonio Rock MD PCP: Dr. Amado Ramachandran MD Status: REG CLI Study: Chest PA and Lateral Date of Exam: 04/20/24 Exam# [id number] Ordering Dr: Amado Ramachandran MD [id number] STUDY: X-RAY CHEST REASON FOR EXAM: Male, [...] Jose Antonio Rock MD at 11:41 EST Reading Location ID and State: [address] [place] [address] , Service support , CC: Dr. Amado Ramachandran MD [facility] Supervisor: Signed Normal [facility] Comprehensive Metabolic Prof ilon 04-20-2024 Albumin [Mass/Vol] 3.7 g/dL Normal 3.2-5.0 [facility] Comment on above: Order Comment: Order Date: 01/13/24 Order Info: [id number] - CMP Order Info: [id number] - LIPID Performed By: #### L 100.0100, L500.4100, L501.9985, L502.0250, L500.4050 #### [facility] [address] [place], [place], [id number] [phone] Albumin/Globulin [Mass ratio] 1.1 {ratio} Normal 0.9-2.4 [facility] Comment on above: Order Comment: Order Date: 01/13/24 Order Info: [id number] - CMP Order Info: [id number] - LIPID Performed By: #### L 100.0100, L500.4100, L501.9985, L502.0250, L500.4050 #### [facility] [address] [place], [address] ALK P 54 U/L Normal 45-117 [facility] Comment on above: Order Comment: Order Date: 01/13/24 Order Info: 0786- - CMP Order Info: [id number] - LIPID Performed By: #### L 100.0100, L500.4100, L501.9985, L502.0250, L500.4050 #### [facility] [address] [place], [address] ALT [Catalytic activity/Vol] 47 U/L Normal 16-61 [facility] Comment on above: Order Comment: Order Date: 01/13/24 Order Info: [id number] - CMP Order Info: [id number] - LIPID Performed By: #### L 100.0100, L500.4100, L501.9985, L502.0250, L500.4050 #### [facility] [address] [place], [address] AST [Catalytic activity/Vol] 21 U/L Normal 15-37 [facility] Comment on above: Order Comment: Order Date: 01/13/24 Order Info: [id number] - CMP Order Info: [id number] - LIPID Performed By: #### L 100.0100, L500.4100, L501.9985, L502.0250, L500.4050 #### [facility] [address] [place], [address] Bilirubin [Mass/Vol] 1.00 mg/dL Normal 0.20-1.00 [facility] Comment on above: Order Comment: Order Date: 01/13/24 Order Info: [id number] - CMP Order Info: [id number] - LIPID Result Comment: For patients on eltrombopag therapy, use of Dimension [place] TBIL is not recommended. Performed By: #### L 100.0100, L500.4100, L501.9985, L502.0250, L500.4050 #### [facility] [address] [place], [address] BUN/CRE 9.2 RATIO Low 10-20 [facility] Comment on above: Order Comment: Order Date: 01/13/24 Order Info: [id number] - CMP Order Info: [id number] - LIPID Performed By: #### L 100.0100, L500.4100, L501.9985, L502.0250, L500.4050 #### [facility] [address] [place], [address] CA,Total 9.2 mg/dL Normal 8.5-10.1 [facility] Comment on above: Order Comment: Order Date: 01/13/24 Order Info: [id number] - CMP Order Info: [id number] - LIPID Performed By: #### L 100.0100, L500.4100, L501.9985, L502.0250, L500.4050 #### [facility] [address] [place], [address] Chloride [Moles/Vol] 103 mmol/L Normal 98-107 [facility] Comment on above: Order Comment: Order Date: 01/13/24 Order Info: [id number] - CMP Order Info: [id number] - LIPID Performed By: #### L 100.0100, L500.4100, L501.9985, L502.0250, L500.4050 #### [facility] [address] [place], [address] CO2 [Moles/Vol] 30.0 mmol/L Normal 21.0-32.0 [facility] Comment on above: Order Comment: Order Date: 01/13/24 Order Info: [id number] - CMP Order Info: [id number] - LIPID Performed By: #### L 100.0100, L500.4100, L501.9985, L502.0250, L500.4050 #### [facility] [address] [place], [address] Creatinine [Mass/Vol] 1.09 mg/dL Normal 0.70-1.30 [facility] Comment on above: Order Comment: Order Date: 01/13/24 Order Info: [id number] - CMP Order Info: [id number] - LIPID Result Comment: The validity of the calculated GFR GFRAA in patients over 70 years has not been determined. Clinical correlation is essential. Performed By: #### L 100.0100, L500.4100, L501.9985, L502.0250, L500.4050 #### [facility] [address] [place], [address] EST GFR - AA 87 mL/min Normal >60 [facility] Comment on above: Order Comment: Order Date: 01/13/24 Order Info: 0786- - CMP Order Info: [id number] - LIPID Result Comment: Afri can Taiwanese GFR Calc Performed By: #### L 100.0100, L500.4100, L501.9985, L502.0250, L500.4050 #### [facility] [address] [place], [address] GAP 5 Normal 5-15 [facility] Comment on above: Order Comment: Order Date: 01/13/24 Order Info: 0786- - CMP Order Info: [id number] - LIPID Performed By: #### L 100.0100, L500.4100, L501.9985, L502.0250, L500.4050 #### [facility] [address] [place], [address] GFR/1.73 sq M.predicted among non-blacks MDRD (S/P/Bld) [Vol rate/Area] 72 mL/min/{1.73_m2} Normal >60 [facility] Comment on above: Order Comment: Order Date: 01/13/24 Order Info: 07- - CMP Order Info: [id number] - LIPID Result Comment: Non- GFR Calc Performed By: #### L 100.0100, L500.4100, L501.9985, L502.0250, L500.4050 #### [facility] [address] [place], [address] Globulin (S) [Mass/Vol] 3.4 g/dL Normal 2.2-4.2 [facility] Comment on above: Order Comment: Order Date: 01/13/24 Order Info: 07 - CMP Order Info: [id number] - LIPID Performed By: #### L 100.0100, L500.4100, L501.9985, L502.0250, L500.4050 #### [facility] [address] [place], [address] Glucose [Mass/Vol] 202 mg/dL High 74-106 [facility] Comment on above: Order Comment: Order Date: 01/13/24 Order Info: 0786- - CMP Order Info: [id number] - LIPID Result Comment: Gluc ose result greater than or equal to 200 mg/dL suggests DIABETES MELLITUS per A.D.A. criteria. Performed By: #### L 100.0100, L500.4100, L501.9985, L502.0250, L500.4050 #### [facility] [address] [place], [address] Potassium [Moles/Vol] 3.7 mmol/L Normal 3.5-5.1 [facility] Comment on above: Order Comment: Order Date: 01/13/24 Order Info: 0786 - CMP Order Info: [id number] - LIPID Performed By: #### L 100.0100, L500.4100, L501.9985, L502.0250, L500.4050 #### [facility] [address] [place], [address] Sodium [Moles/Vol] 137 mmol/L Normal 136-145 [facility] Comment on above: Order Comment: Order Date: 01/13/24 Order Info: [id number] - CMP Order Info: [id number] - LIPID Performed By: #### L 100.0100, L500.4100, L501.9985, L502.0250, L500.4050 #### [facility] [address] [place], [address] T PROT 7.1 g/dL Normal 6.4-8.2 [facility] Comment on above: Order Comment: Order Date: 01/13/24 Order Info: [id number] - CMP Order Info: [id number] - LIPID Performed By: #### L 100.0100, L500.4100, L501.9985, L502.0250, L500.4050 #### [facility] [address] [place], [address] Urea nitrogen [Mass/Vol] 10 mg/dL Normal 7-18 [facility] Comment on above: Order Comment: Order Date: 01/13/24 Order Info: [id number] - CMP Order Info: [id number] - LIPID Performed By: #### L 100.0100, L500.4100, L501.9985, L502.0250, L500.4050 #### [facility] [address] [place], [address] Hemoglobin A1con 04-20-2024 HbA1c (Bld) [Mass fraction] 6.3 % High 3.8-5.6 [facility] Comment on above: Order Comment: Order Date: 01/13/24 Order Info: [id number] - A1C Result Comment: Norm al < 5.7 % Prediabetic 5.7 - 6.4 % Diabetic >or= 6.5 % Please note range changes. Performed By: #### L 100.0100, L500.4100, L501.9985, L502.0250, L500.4050 #### [facility] [address] [place], [address] Lipid Profileon 04-20-2024 Cholesterol [Mass/Vol] 137 mg/dL Normal 200 [facility] Comment on above: Order Comment: Order Date: 01/13/24 Order Info: [id number] - CMP Order Info: [id number] - LIPID Result Comment: <200 mg/dL Desirable 200-240 mg/dL Borderline >240 mg/dL High Risk Performed By: #### L 100.0100, L500.4100, L501.9985, L502.0250, L500.4050 #### [facility] [address] [place], [address] Cholesterol in HDL [Mass/Vol] 41 mg/dL Normal [facility] Comment on above: Order Comment: Order Date: 01/13/24 Order Info: [id number] - CMP Order Info: [id number] - LIPID Result Comment: The drugs N-Acetylcysteine and Metamizole may falsely depress this assay. Reference Range HDL <40 mg/dL Low HDL Cholesterol HDL >or= 60 mg/dL High HDL Cholesterol Performed By: #### L 100.0100, L500.4100, L501.9985, L502.0250, L500.4050 #### [facility] [address] [place], [address] Cholesterol in LDL [Mass/Vol] 77 mg/dL Normal 0-130 [facility] Comment on above: Order Comment: Order Date: 01/13/24 Order Info: [id number] - CMP Order Info: [id number] - LIPID Performed By: #### L 100.0100, L500.4100, L501.9985, L502.0250, L500.4050 #### [facility] [address] [place], [address] Cholesterol in VLDL [Mass/Vol] 19 mg/dL Normal 5-40 [facility] Comment on above: Order Comment: Order Date: 01/13/24 Order Info: [id number] - CMP Order Info: [id number] - LIPID Performed By: #### L 100.0100, L500.4100, L501.9985, L502.0250, L500.4050 #### [facility] [address] [place], [place], [address] Triglyceride [Mass/Vol] 95 mg/dL Normal [facility] Comment on above: Order Comment: Order Date: 01/13/24 Order Info: [id number] - CMP Order Info: [id number] - LIPID Result Comment: The drugs N-Acetylcysteine and Metamizole may falsely depress this assay. Serum Triglycerides Reference Interval Normal <150 mg/dL Borderline high 150 - 199 mg/dL High 200 - 499 mg/dL Very High > or = 500 mg/dL Performed By: #### L 100.0100, L500.4100, L501.9985, L502.0250, L500.4050 #### [facility] [address] [place], [address] Microalb:Creat Ratio,Random URon 04-20-2024 Creatinine [Mass/Vol] 261.00 mg/dL Normal NO RAN GE EST. [facility] Comment on above: Order Comment: Order Date: 01/13/24 Order Info: [id number] - MIACRE Performed By: #### L 100.0100, L500.4100, L501.9985, L502.0250, L500.4050 #### [facility] [address] [place], [address] MALB:CRE 13.0 mg/g CRE Normal <30 mg/g CRE [facility] Comment on above: Order Comment: Order Date: 01/13/24 Order Info: [id number] - MIACRE Performed By: #### L 100.0100, L500.4100, L501.9985, L502.0250, L500.4050 #### [facility] [address] [place], [address] MICROALBUMIN,UR 33.8 mg/L Normal NO RANGE EST. [facility] Comment on above: Order Comment: Order Date: 01/13/24 Order Info: [id number] - MIACRE Performed By: #### L 100.0100, L500.4100, L501.9985, L502.0250, L500.4050 #### [facility] [address] [place], [address] CBC W/Diff, Automatedon 12-18 Absolute Lymph 1.30 X10 3/uL Normal 0.83-4.51 [facility] Comment on above: Order Comment: Order Date: 09/25/24 Order Info: 0184-1 - CBCD Performed By: #### L 500.4050, L500.4100, L100.0100 #### [facility] [address] [place], [address] Absolute Neut 3.8 X10 3/uL Normal 2.0-7.7 [facility] Comment on above: Order Comment: Order Date: 09/25/24 Order Info: 0184-1 - CBCD Performed By: #### L 500.4050, L500.4100, L100.0100 #### [facility] [address] [place], [address] Basophils/100 WBC (Bld) 0.8 % Normal 0-1 [facility] Comment on above: Order Comment: Order Date: 09/25/24 Order Info: 0184-1 - CBCD Performed By: #### L 500.4050, L500.4100, L100.0100 #### [facility] [address] [place], [address] Eosinophils/100 WBC (Bld) 2.3 % Normal 0-5 [facility] Comment on above: Order Comment: Order Date: 09/25/24 Order Info: 0184- - CBCD Performed By: #### L 500.4050, L500.4100, L100.0100 #### [facility] [address] [place], [address] Erythrocyte distribution width (RBC) [Ratio] 12.8 % Normal 11.6-14.6 [facility] Comment on above: Order Comment: Order Date: 09/25/24 Order Info: 018- - CBCD Performed By: #### L 500.4050, L500.4100, L100.0100 #### [facility] [address] [place], [address] Hematocrit (Bld) [Volume fraction] 44.1 % Normal 40-54 [facility] Comment on above: Order Comment: Order Date: 09/25/24 Order Info: 0184- - CBCD Performed By: #### L 500.4050, L500.4100, L100.0100 #### [facility] [address] [place], [address] Hemoglobin (Bld) [Mass/Vol] 14.8 g/dL Normal 13.0-16.5 [facility] Comment on above: Order Comment: Order Date: 09/25/24 Order Info: 0184- - CBCD Performed By: #### L 500.4050, L500.4100, L100.0100 #### [facility] [address] [place], [address] IG% 0.700 Normal 0.0-0.9 [facility] Comment on above: Order Comment: Order Date: 09/25/24 Order Info: 0184- - CBCD Result Comment: IG% - Immature Granulocytes (promyelocytes, myelocytes and metamyelocytes) > 1% indicates that a LEFT SHIFT is Present. Performed By: #### L 500.4050, L500.4100, L100.0100 #### [facility] [address] [place], [address] Lymphocytes/100 WBC (Bld) 21.6 % Normal 19-41 [facility] Comment on above: Order Comment: Order Date: 09/25/24 Order Info: 0184-1 - CBCD Performed By: #### L 500.4050, L500.4100, L100.0100 #### [facility] [address] [place], [address] MCH (RBC) [Entitic mass] 31.5 pg Normal 27.0-32.0 [facility] Comment on above: Order Comment: Order Date: 09/25/24 Order Info: 0184-1 - CBCD Performed By: #### L 500.4050, L500.4100, L100.0100 #### [facility] [address] [place], [address] MCHC (RBC) [Mass/Vol] 33.6 g/dL Normal 32-36 [facility] Comment on above: Order Comment: Order Date: 09/25/24 Order Info: 0184-1 - CBCD Performed By: #### L 500.4050, L500.4100, L100.0100 #### [facility] [address] [place], [address] MCV (RBC) [Entitic vol] 93.8 fL Normal 80-94 [facility] Comment on above: Order Comment: Order Date: 09/25/24 Order Info: 0184-1 - CBCD Performed By: #### L 500.4050, L500.4100, L100.0100 #### [facility] [address] [place], [address] Monocytes/100 WBC (Bld) 10.9 % High 0-10 [facility] Comment on above: Order Comment: Order Date: 09/25/24 Order Info: 0184-1 - CBCD Performed By: #### L 500.4050, L500.4100, L100.0100 #### [facility] [address] [place], [address] Neutrophils/100 WBC (Bld) 63.7 % Normal 47-70 [facility] Comment on above: Order Comment: Order Date: 09/25/24 Order Info: 0184-1 - CBCD Performed By: #### L 500.4050, L500.4100, L100.0100 #### [facility] [address] [place], [address] Nucleated RBC (Bld) [#/Vol] 0 10*3/uL Normal 0-5 [facility] Comment on above: Order Comment: Order Date: 09/25/24 Order Info: 0184-1 - CBCD Performed By: #### L 500.4050, L500.4100, L100.0100 #### [facility] [address] [place], [address] Platelet mean volume (Bld) [Entitic vol] 11.3 fL Normal 6.2-12.0 [facility] Comment on above: Order Comment: Order Date: 09/25/24 Order Info: 0184-1 - CBCD Performed By: #### L 500.4050, L500.4100, L100.0100 #### [facility] [address] [place], [address] Platelets (Bld) [#/Vol] 175 10*3/uL Normal 150-450 [facility] Comment on above: Order Comment: Order Date: 09/25/24 Order Info: 0184-1 - CBCD Performed By: #### L 500.4050, L500.4100, L100.0100 #### [facility] [address] [place], [address] RBC (Bld) [#/Vol] 4.70 10*6/uL Normal 4.6-6.2 [facility] Comment on above: Order Comment: Order Date: 09/25/24 Order Info: 0184-1 - CBCD Performed By: #### L 500.4050, L500.4100, L100.0100 #### [facility] [address] [place], [address] RDW SD 44.3 fl High 35.1-43.9 [facility] Comment on above: Order Comment: Order Date: 09/25/24 Order Info: 0184-1 - CBCD Performed By: #### L 500.4050, L500.4100, L100.0100 #### [facility] [address] [place], [address] WBC (Bld) [#/Vol] 6.0 10*3/uL Normal 4.4-11.0 [facility] Comment on above: Order Comment: Order Date: 09/25/24 Order Info: 0184- - CBCD Performed By: #### L 500.4050, L500.4100, L100.0100 #### [facility] [address] [place], [address] Comprehensive Metabolic Prof [facility] 01-11-2024 Albumin [Mass/Vol] 3.8 g/dL Normal 3.2-5.0 [facility] Comment on above: Order Comment: Order Date: 09/25/24 Order Info: 0184- - CBCD Performed By: #### L 500.4050, L500.4100, L100.0100 #### [facility] [address] [place], [address] Albumin/Globulin [Mass ratio] 1.1 {ratio} Normal 0.9-2.4 [facility] Comment on above: Order Comment: Order Date: 09/25/24 Order Info: 0184-1 - CBCD Performed By: #### L 500.4050, L500.4100, L100.0100 #### [facility] [address] [place], [address] ALK P 63 U/L Normal 45-117 [facility] Comment on above: Order Comment: Order Date: 09/25/24 Order Info: 0184-1 - CBCD Performed By: #### L 500.4050, L500.4100, L100.0100 #### [facility] [address] [place], [address] ALT [Catalytic activity/Vol] 61 U/L Normal 16-61 [facility] Comment on above: Order Comment: Order Date: 09/25/24 Order Info: 0184-1 - CBCD Performed By: #### L 500.4050, L500.4100, L100.0100 #### [facility] [address] [place], [address] AST [Catalytic activity/Vol] 29 U/L Normal 15-37 [facility] Comment on above: Order Comment: Order Date: 09/25/24 Order Info: 0184-1 - CBCD Performed By: #### L 500.4050, L500.4100, L100.0100 #### [facility] [address] [place], [address] Bilirubin [Mass/Vol] 0.70 mg/dL Normal 0.20-1.00 [facility] Comment on above: Order Comment: Order Date: 09/25/24 Order Info: 0184-1 - CBCD Result Comment: For patients on eltrombopag therapy, use of Dimension [place] TBIL is not recommended. Performed By: #### L 500.4050, L500.4100, L100.0100 #### [facility] [address] [place], [address] BUN/CRE 9.1 RATIO Low 10-20 [facility] Comment on above: Order Comment: Order Date: 09/25/24 Order Info: 0184-1 - CBCD Performed By: #### L 500.4050, L500.4100, L100.0100 #### [facility] [address] [place], [address] CA,Total 9.4 mg/dL Normal 8.5-10.1 [facility] Comment on above: Order Comment: Order Date: 09/25/24 Order Info: 018- - CBCD Performed By: #### L 500.4050, L500.4100, L100.0100 #### [facility] [address] [place], [address] Chloride [Moles/Vol] 105 mmol/L Normal 98-107 [facility] Comment on above: Order Comment: Order Date: 09/25/24 Order Info: 018- - CBCD Performed By: #### L 500.4050, L500.4100, L100.0100 #### [facility] [address] [place], [address] CO2 [Moles/Vol] 26.0 mmol/L Normal 21.0-32.0 [facility] Comment on above: Order Comment: Order Date: 09/25/24 Order Info: 018- - CBCD Performed By: #### L 500.4050, L500.4100, L100.0100 #### [facility] [address] [place], [address] Creatinine [Mass/Vol] 1.21 mg/dL Normal 0.70-1.30 [facility] Comment on above: Order Comment: Order Date: 09/25/24 Order Info: 018- - CBCD Result Comment: The validity of the calculated GFR GFRAA in patients over 70 years has not been determined. Clinical correlation is essential. Performed By: #### L 500.4050, L500.4100, L100.0100 #### [facility] [address] [place], [address] EST GFR - AA 77 mL/min Normal >60 [facility] Comment on above: Order Comment: Order Date: 09/25/24 Order Info: 018- - CBCD Result Comment: Afri can Taiwanese GFR Calc Performed By: #### L 500.4050, L500.4100, L100.0100 #### [facility] [address] [place], [address] GAP 7 Normal 5-15 [facility] Comment on above: Order Comment: Order Date: 09/25/24 Order Info: 0184- - CBCD Performed By: #### L 500.4050, L500.4100, L100.0100 #### [facility] [address] [place], [address] GFR/1.73 sq M.predicted among non-blacks MDRD (S/P/Bld) [Vol rate/Area] 64 mL/min/{1.73_m2} Normal >60 [facility] Comment on above: Order Comment: Order Date: 09/25/24 Order Info: 018- - CBCD Result Comment: Non- GFR Calc Performed By: #### L 500.4050, L500.4100, L100.0100 #### [facility] [address] [place], [address] Globulin (S) [Mass/Vol] 3.5 g/dL Normal 2.2-4.2 [facility] Comment on above: Order Comment: Order Date: 09/25/24 Order Info: 0184- - CBCD Performed By: #### L 500.4050, L500.4100, L100.0100 #### [facility] [address] [place], [address] Glucose [Mass/Vol] 151 mg/dL High 74-106 [facility] Comment on above: Order Comment: Order Date: 09/25/24 Order Info: 018- - CBCD Result Comment: Fast ing Glucose result greater than or equal to 126 mg/dL suggests DIABETES MELLITUS per A.D.A. criteria. Performed By: #### L 500.4050, L500.4100, L100.0100 #### [facility] [address] [place], [address] Potassium [Moles/Vol] 3.9 mmol/L Normal 3.5-5.1 [facility] Comment on above: Order Comment: Order Date: 09/25/24 Order Info: 0184-1 - CBCD Performed By: #### L 500.4050, L500.4100, L100.0100 #### [facility] [address] [place], [address] Sodium [Moles/Vol] 138 mmol/L Normal 136-145 [facility] Comment on above: Order Comment: Order Date: 09/25/24 Order Info: 0184-1 - CBCD Performed By: #### L 500.4050, L500.4100, L100.0100 #### [facility] [address] [place], [address] T PROT 7.3 g/dL Normal 6.4-8.2 [facility] Comment on above: Order Comment: Order Date: 09/25/24 Order Info: 0184-1 - CBCD Performed By: #### L 500.4050, L500.4100, L100.0100 #### [facility] [address] [place], [address] Urea nitrogen [Mass/Vol] 11 mg/dL Normal 7-18 [facility] Comment on above: Order Comment: Order Date: 09/25/24 Order Info: 0184-1 - CBCD Performed By: #### L 500.4050, L500.4100, L100.0100 #### [facility] [address] [place], [address] Hemoglobin A1con 01-11-2024 HbA1c (Bld) [Mass fraction] 6.0 % High 3.8-5.6 [facility] Comment on above: Order Comment: Order Date: 09/25/24 Order Info: 0184-1 - CBCD Result Comment: Norm al < 5.7 % Prediabetic 5.7 - 6.4 % Diabetic >or= 6.5 % Please note range changes. Performed By: #### L 500.4050, L500.4100, L100.0100 #### [facility] [address] [place], [address] Lipid Profileon 01-11-2024 Cholesterol [Mass/Vol] 149 mg/dL Normal 200 [facility] Comment on above: Order Comment: Order Date: 09/25/24 Order Info: 0184-1 - CBCD Result Comment: <200 mg/dL Desirable 200-240 mg/dL Borderline >240 mg/dL High Risk Performed By: #### L 500.4050, L500.4100, L100.0100 #### [facility] [address] [place], [address] Cholesterol in HDL [Mass/Vol] 38 mg/dL Low [facility] Comment on above: Order Comment: Order Date: 09/25/24 Order Info: 018-1 - CBCD Result Comment: The drugs N-Acetylcysteine and Metamizole may falsely depress this assay. Reference Range HDL <40 mg/dL Low HDL Cholesterol HDL >or= 60 mg/dL High HDL Cholesterol Performed By: #### L 500.4050, L500.4100, L100.0100 #### [facility] [address] [place], [address] Cholesterol in LDL [Mass/Vol] 86 mg/dL Normal 0-130 [facility] Comment on above: Order Comment: Order Date: 09/25/24 Order Info: 0184-1 - CBCD Performed By: #### L 500.4050, L500.4100, L100.0100 #### [facility] [address] [place], [address] Cholesterol in VLDL [Mass/Vol] 25 mg/dL Normal 5-40 [facility] Comment on above: Order Comment: Order Date: 09/25/24 Order Info: 0184-1 - CBCD Performed By: #### L 500.4050, L500.4100, L100.0100 #### [facility] [address] [place], [address] Triglyceride [Mass/Vol] 127 mg/dL Normal [facility] Comment on above: Order Comment: Order Date: 09/25/24 Order Info: [id number] - CBCD Result Comment: The drugs N-Acetylcysteine and Metamizole may falsely depress this assay. Serum Triglycerides Reference Interval Normal <150 mg/dL Borderline high 150 - 199 mg/dL High 200 - 499 mg/dL Very High > or = 500 mg/dL Performed By: #### L 500.4050, L500.4100, L100.0100 #### [facility] [address] [place], [address] PSA,Total - Annual Screenon 01-11-2024 PSA,TOT SCREEN 1.19 ng/mL Normal 0.00-4.00 [facility] Comment on above: Order Comment: Order Date: 09/25/24 Order Info: [id number] - CBCD Result Comment: This test was performed using the TPSA assay method for the [employer] chemistry system. Values obtained with different assay methods cannot be used interchangably. When changing PSA assays in the course of monitoring a patient, additional sequential testing should be carried out to confirm baseline values. Performed By: #### L 500.4050, L500.4100, L100.0100 #### [facility] [address] [place], [address] Absolute lymphocyte countOrd ered By: Amado Ramachandran on 05-31-2023 Lymphocytes Auto (Unsp spec) [#/Vol] 1.12 10*3/uL 0.83-4.51 [facility] Automated lymphocyte count a s percentage of total leukocytesOrdered By: Amado Ramachandran on 05-31-2023 Lymphocytes/100 WBC Auto (Unsp spec) 19.0 % 19-41 [facility] Basophil percentageOrdered B y: Amado Ramachandran on 05-31-2023 Basophil percentage 2.4 mg/dL 2.5-4.9 [facility] Basophils/100 WBC (Bld) 1.0 % 0-1 [facility] Bilirubin [Mass/Vol] 1.10 mg/dL 0.20-1.00 [facility] Comment on above: For patients on eltr ombopag therapy, use of Dimension [place] TBIL is not recommended. Chloride [Moles/Vol] 111 mmol/L 98-107 [facility] Cholesterol [Mass/Vol] 153 mg/dL <200 [facility] Comment on above: <200 mg/dL Desirable 200-240 mg/dL Borderline >240 mg/dL High Risk Eosinophils/100 WBC (Bld) 3.2 % 0-5 [facility] Glucose [Mass/Vol] 110 mg/dL 74-106 [facility] Comment on above: Fasting Glucose resu lt from 100 to 125 mg/dL suggests IMPAIRED HOMEOSTASIS per A.D.A. criteria. Hemoglobin (Bld) [Mass/Vol] 15.0 g/dL 13.0-16.5 [facility] Monocytes/100 WBC (Bld) 11.7 % 0-10 [facility] Neutrophils (Bld) [#/Vol] 3.8 10*3/uL 2.0-7.7 [facility] Neutrophils/100 WBC (Bld) 64.1 % 47-70 [facility] Potassium [Moles/Vol] 3.8 mmol/L 3.5-5.1 [facility] Protein [Mass/Vol] 6.6 g/dL 6.4-8.2 [facility] Sodium [Moles/Vol] 143 mmol/L 136-145 [facility] Triglyceride [Mass/Vol] 89 mg/dL <199 [facility] Comment on above: The drugs N-Acetylcy steine and Metamizole may falsely depress this assay.Serum Triglycerides Reference Interval Normal <150 mg/dL Borderline high 150 - 199 mg/dL High 200 - 499 mg/dL Very High > or = 500 mg/dL WBC (Bld) [#/Vol] 5.9 10*3/uL 4.4-11.0 [facility] Determination of erythrocyte mean corpuscular volume (MCV)Ordered By: Amado Ramachandran on 05-31-2023 MCV (RBC) [Entitic vol] 99.0 fL 80-94 [facility] Erythrocyte distribution wid th ratioOrdered By: Amado Ramachandran on 05-31-2023 Erythrocyte distribution width (RBC) [Ratio] 13.6 % 11.6-14.6 [facility] Erythrocyte distribution wid th standard deviationOrdered By: Amado Ramachandran on 05-31-2023 Erythrocyte distribution width (RBC) [Entitic vol] 50.4 fL 35.1-43.9 [facility] Hematocrit Auto (Bld) [Volum e fraction]Ordered By: Amado Ramachandran on 05-31-2023 Hematocrit (Bld) [Volume fraction] 47.5 % 40-54 [facility] Immature granulocytes/100 WB C Auto (Bld)Ordered By: Amado Ramachandran on 05-31-2023 Immature granulocytes/100 WBC (Bld) 1.000 % 0.0-0.9 [facility] Comment on above: IG% - Immature Granu locytes (promyelocytes, myelocytes and metamyelocytes) > 1% indicates that a LEFT SHIFT is Present. Laboratory - Chemistry and C hemistry - challengeOrdered By: Amado Ramachandran on 05-31-2023 Albumin/Globulin [Mass ratio] 1.2 {ratio} 0.9-2.4 [facility] ALP [Catalytic activity/Vol] 50 U/L 45-117 [facility] ALT [Catalytic activity/Vol] 92 U/L 16-61 [facility] Cholesterol in HDL [Mass/Vol] 26 mg/dL >40 [facility] Comment on above: The drugs N-Acetylcy steine and Metamizole may falsely depress this assay. Reference Range HDL <40 mg/dL Low HDL Cholesterol HDL >or= 60 mg/dL High HDL Cholesterol Cholesterol in LDL [Mass/Vol] 109 mg/dL 0-130 [facility] CO2 [Moles/Vol] 27.0 mmol/L 21.0-32.0 [facility] Globulin (S) [Mass/Vol] 3.0 g/dL 2.2-4.2 [facility] Urea nitrogen/Creatinine [Mass ratio] 8.3 mg/mg 10-20 [facility] - Hematology and Cell countsOrdered By: Amado Ramachandran on 05-31-2023 MCH (RBC) [Entitic mass] 31.3 pg 27.0-32.0 [facility] MCHC (RBC) [Mass/Vol] 31.6 g/dL 32-36 [facility] Nucleated RBC/100 WBC (Bld) [Ratio] 0 % 0-5 [facility] Platelet mean volume (Bld) [Entitic vol] 11.1 fL 6.2-12.0 [facility] Platelets (Bld) [#/Vol] 173 10*3/uL 150-450 [facility] No Panel InformationOrdered By: Amado Ramachandran on 05-31-2023 Estimated GFR (MDRD) Amer 87 mL/min >60 [facility] Comment on above: GFR Calc Estimated GFR (MDRD) Non-Af Amer 72 mL/min >60 [facility] Comment on above: Non- GFR Calc Vitamin D 25-Hydroxy 55.8 ng/mL [facility] Comment on above: Vitamin D 25(OH) Sta tus Range Deficiency <20 ng/mL (50nmol/L) Insufficiency 20 - 30 ng/mL (50 - 75 nmol/L) Sufficiency 30 - 100 ng/mL (75 - 250 nmol/L) Toxicity >100 ng/mL (>250 nmol/L) VLDL Cholesterol 18 mg/dL 5-40 [facility] RBC Auto (Bld) [#/Vol]Ordere d By: Amado Ramachandran on 05-31-2023 RBC (Bld) [#/Vol] 4.80 10*6/uL 4.6-6.2 [facility] Serum or plasma calcium luis urement (mass/volume)Ordered By: Amado Ramachandran on 05-31-2023 Calcium [Mass/Vol] 8.7 mg/dL 8.5-10.1 [facility] Serum or plasma creatinine m easurement (mass/volume)Ordered By: Amado Ramachandran on 05-31-2023 Creatinine [Mass/Vol] 1.09 mg/dL 0.70-1.30 [facility] Comment on above: The validity of the calculated GFR & GFRAA in patients over 70 years has not been determined. Clinical correlation is essential. Serum or plasma urea nitroge n measurement (mass/volume)Ordered By: Amado Ramachandran on 05-31-2023 Urea nitrogen [Mass/Vol] 9 mg/dL 7-18 [facility] Thin prep Papanicolaou smear with manual screeningOrdered By: Amado Ramachandran on 05-31-2023 Protein (U) [Mass/Vol] 27.7 mg/dL 0.0-11.8 [facility] Thin prep Papanicolaou smear with manual screening 3.6 g/dL 3.2-5.0 [facility] Thin prep Papanicolaou smear with manual screening 48 U/L 15-37 [facility] Thin prep Papanicolaou smear with manual screening 5 5-15 [facility] Urine creatinine measurement (mass/volume)Ordered By: Amado Ramachandran on 05-31-2023 Creatinine (U) [Mass/Vol] 310.00 mg/dL NO RANGE EST. [facility] Urine protein/creatinine mas s ratioOrdered By: Amado Ramachandran on 05-31-2023 Protein/Creatinine (U) [Mass ratio] 89 mg/g CRE 0-200 [facility] Whole blood hemoglobin A1c/t otal hemoglobin ratio (mass fraction)Ordered By: Amado Ramachandran on 05-31-2023 HbA1c (Bld) [Mass fraction] 6.2 % 3.8-5.6 [facility] Comment on above: Normal < 5.7 % Predi abetic 5.7 - 6.4 % Diabetic >or= 6.5 % Please note range changes. Absolute lymphocyte countOrd ered By: Amado Ramachandran on 03-04-2023 Lymphocytes Auto (Unsp spec) [#/Vol] 1.36 10*3/uL 0.83-4.51 [facility] Basophil percentageOrdered B y: Amado Ramachandran on 03-04-2023 Basophil percentage 0 SEEN /hpf 0-5 [facility] Basophils/100 WBC (Bld) 0.8 % 0-1 [facility] Bilirubin [Mass/Vol] 1.10 mg/dL 0.20-1.00 [facility] Comment on above: For patients on eltr ombopag therapy, use of Dimension [place] TBIL is not recommended. Chloride [Moles/Vol] 105 mmol/L 98-107 [facility] Cholesterol [Mass/Vol] 156 mg/dL <200 [facility] Comment on above: <200 mg/dL Desirable 200-240 mg/dL Borderline >240 mg/dL High Risk Eosinophils/100 WBC (Bld) 2.5 % 0-5 [facility] Glucose [Mass/Vol] 162 mg/dL 74-106 [facility] Comment on above: Fasting Glucose resu lt greater than or equal to 126 mg/dL suggests DIABETES MELLITUS per A.D.A. criteria. Neutrophils (Bld) [#/Vol] 4.9 10*3/uL 2.0-7.7 [facility] Neutrophils/100 WBC (Bld) 67.7 % 47-70 [facility] Potassium [Moles/Vol] 4.2 mmol/L 3.5-5.1 [facility] Protein [Mass/Vol] 7.6 g/dL 6.4-8.2 [facility] Sodium [Moles/Vol] 140 mmol/L 136-145 [facility] Triglyceride [Mass/Vol] 376 mg/dL <199 [facility] Comment on above: The drugs N-Acetylcy steine and Metamizole may falsely depress this assay.Serum Triglycerides Reference Interval Normal <150 mg/dL Borderline high 150 - 199 mg/dL High 200 - 499 mg/dL Very High > or = 500 mg/dL WBC (Bld) [#/Vol] 7.3 10*3/uL 4.4-11.0 [facility] Bilirubin Test strip Ql (U)O rdered By: Amado Ramachandran on 03-04-2023 Bilirubin Ql (U) Negative Negative [facility] Blood erythrocytes count (nu mber/volume)Ordered By: Amado Ramachandran on 03-04-2023 RBC (Bld) [#/Vol] 5.25 10*6/uL 4.6-6.2 [facility] Blood hemoglobin measurement (mass/volume)Ordered By: Amado Ramachandran on 03-04-2023 Hemoglobin (Bld) [Mass/Vol] 16.6 g/dL 13.0-16.5 [facility] Blood lymphocytes/100 leukoc ytesOrdered By: Amado Ramachandran on 03-04-2023 Lymphocytes/100 WBC (Bld) 18.7 % 19-41 [facility] Blood monocytes/100 leukocyt esOrdered By: Amado Ramachandran on 03-04-2023 Monocytes/100 WBC (Bld) 9.6 % 0-10 [facility] Blood platelet mean volumeOr dered By: Amado Ramachandran on 03-04-2023 Platelet mean volume (Bld) [Entitic vol] 12.7 fL 6.2-12.0 [facility] Determination of erythrocyte mean corpuscular volume (MCV)Ordered By: Amado Ramachandran on 03-04-2023 MCV (RBC) [Entitic vol] 94.5 fL 80-94 [facility] Hematocrit Auto (Bld) [Volum e fraction]Ordered By: Amado Ramachandran on 03-04-2023 Hematocrit (Bld) [Volume fraction] 49.6 % 40-54 [facility] Ketones Test strip Ql (U)Ord ered By: Amado Ramachandran on 03-04-2023 Ketones Ql (U) 5 mg/dl Negative [facility] Laboratory - Chemistry and C hemistry - challengeOrdered By: Amado Ramachandran on 03-04-2023 ALP [Catalytic activity/Vol] 65 U/L 45-117 [facility] ALT [Catalytic activity/Vol] 83 U/L 16-61 [facility] CO2 [Moles/Vol] 28.0 mmol/L 21.0-32.0 [facility] Globulin (S) [Mass/Vol] 3.5 g/dL 2.2-4.2 [facility] Urea nitrogen/Creatinine [Mass ratio] 16.9 mg/mg 10-20 [facility] - Hematology and Cell countsOrdered By: Amado Ramachandran on 03-04-2023 Erythrocyte distribution width (RBC) [Entitic vol] 41.7 fL 35.1-43.9 [facility] Erythrocyte distribution width (RBC) [Ratio] 12.0 % 11.6-14.6 [facility] Immature granulocytes/100 WBC (Bld) 0.700 % 0.0-0.9 [facility] Comment on above: IG% - Immature Granu locytes (promyelocytes, myelocytes and metamyelocytes) > 1% indicates that a LEFT SHIFT is Present. MCH (RBC) [Entitic mass] 31.6 pg 27.0-32.0 [facility] Nucleated RBC/100 WBC (Bld) [Ratio] 0 % 0-5 [facility] MCHC Auto (RBC) [Mass/Vol]Or dered By: Amado Ramachandran on 03-04-2023 MCHC (RBC) [Mass/Vol] 33.5 g/dL 32-36 [facility] Mucus LM Ql (Urine sed)Order ed By: Amado Ramachandran on 03-04-2023 Mucus Ql (Urine sed) RARE /hpf [facility] Nitrite Test strip Ql (U)Ord ered By: Amado Ramachandran on 03-04-2023 Nitrite Ql (U) Negative Negative [facility] No Panel InformationOrdered By: Amado Ramachandran on 03-04-2023 Estimated GFR (MDRD) Amer 80 mL/min >60 [facility] Comment on above: GFR Calc Estimated GFR (MDRD) Non-Af Amer 66 mL/min >60 [facility] Comment on above: Non- GFR Calc Vitamin D 25-Hydroxy 40.1 ng/mL [facility] Comment on above: Vitamin D 25(OH) Sta tus Range Deficiency <20 ng/mL (50nmol/L) Insufficiency 20 - 30 ng/mL (50 - 75 nmol/L) Sufficiency 30 - 100 ng/mL (75 - 250 nmol/L) Toxicity >100 ng/mL (>250 nmol/L) Platelets bldOrdered By: Isidro Ramachandran on 03-04-2023 Platelets (Bld) [#/Vol] 188 10*3/uL 150-450 [facility] Protein Test strip Ql (U)Ord ered By: Amado Ramachandran on 03-04-2023 Protein Ql (U) 15 mg/dl Negative [facility] Serum or plasma albumin luis urement (mass/volume)Ordered By: Amado Ramachandran on 03-04-2023 Albumin [Mass/Vol] 4.1 g/dL 3.2-5.0 [facility] Serum or plasma albumin/glob ulin mass ratioOrdered By: Amado Ramachandran on 03-04-2023 Albumin/Globulin [Mass ratio] 1.2 {ratio} 0.9-2.4 [facility] Serum or plasma calcium luis urement (mass/volume)Ordered By: Amado Ramachandran on 03-04-2023 Calcium [Mass/Vol] 9.1 mg/dL 8.5-10.1 [facility] Serum or plasma cholesterol in HDL measurement (mass/volume)Ordered By: Amado Ramachandran on 03-04-2023 Cholesterol in HDL [Mass/Vol] 35 mg/dL >40 [facility] Comment on above: The drugs N-Acetylcy steine and Metamizole may falsely depress this assay. Reference Range HDL <40 mg/dL Low HDL Cholesterol HDL >or= 60 mg/dL High HDL Cholesterol Serum or plasma cholesterol in VLDL measurement (mass/volume)Ordered By: Amado Ramachandran on 03-04-2023 Cholesterol in VLDL [Mass/Vol] 75 mg/dL 5-40 [facility] Serum or plasma creatinine m easurement (mass/volume)Ordered By: Amado Ramachandran on 03-04-2023 Creatinine [Mass/Vol] 1.18 mg/dL 0.70-1.30 [facility] Comment on above: The validity of the calculated GFR & GFRAA in patients over 70 years has not been determined. Clinical correlation is essential. Serum or plasma low density lipoprotein (LDL) cholesterol measurement (mass/volume)Ordered By: Amado Ramachandran on 03-04-2023 Cholesterol in LDL [Mass/Vol] 46 mg/dL 0-130 [facility] Serum or plasma urea nitroge n measurement (mass/volume)Ordered By: Amado Ramachandran on 03-04-2023 Urea nitrogen [Mass/Vol] 20 mg/dL 7-18 [facility] Squamous epithelial cells de tection in urine sediment by light microscopyOrdered By: Amado Ramachandran on 03-04-2023 Epithelial cells.squamous LM Ql (Urine sed) 0 SEEN /hpf 0-5 [facility] Thin prep Papanicolaou smear with manual screeningOrdered By: Amado Ramachandran on 03-04-2023 Thin prep Papanicolaou smear with manual screening 42 U/L 15-37 [facility] Thin prep Papanicolaou smear with manual screening 7 5-15 [facility] Urine blood detectionOrdered By: Amado Ramachandran on 03-04-2023 RBC Ql (U) Negative Negative [facility] RBC Ql (U) 0 SEEN /hpf 0-5 [facility] Urine clarityOrdered By: Isidro Ramachandran on 03-04-2023 Clarity (U) Clear Clear [facility] Urine color determinationOrd ered By: Amado Ramachandran on 03-04-2023 Color (U) Yellow Yellow [facility] Urine creatinine measurement (mass/volume)Ordered By: Amado Ramachandran on 03-04-2023 Creatinine (U) [Mass/Vol] 168.00 mg/dL NO RANGE EST. [facility] Urine glucose detectionOrder ed By: Amado Ramachandran on 03-04-2023 Glucose Ql (U) 100 mg/dl Normal [facility] Urine leukocyte esterase det ection by dipstickOrdered By: Amado Ramachandran on 03-04-2023 Leukocyte esterase Test strip Ql (U) Negative Negative [facility] Urine pHOrdered By: Amado jarrell on 03-04-2023 pH (U) 6.0 [pH] 5.0 - 8.0 [facility] Urine protein measurement (m ass/volume)Ordered By: Amado Ramachandran on 03-04-2023 Protein (U) [Mass/Vol] 15.2 mg/dL 0.0-11.8 [facility] Urine protein/creatinine mas s ratioOrdered By: Amado Ramachandran on 03-04-2023 Protein/Creatinine (U) [Mass ratio] 90 mg/g CRE 0-200 [facility] Urine sediment bacteria coun t by microscopy (number/high power field)Ordered By: Amado Ramachandran on 03-04-2023 Bacteria LM.HPF (Urine sed) [#/Area] 0 /[HPF] None Seen [facility] Urine specific gravity measu rementOrdered By: Amado Ramachandran on 03-04-2023 Specific gravity (U) [Rel density] 1.020 1.002-1.030 [facility] Urobilinogen Auto test strip Ql (U)Ordered By: Amado Ramachandran on 03-04-2023 Urobilinogen Ql (U) Normal mg/dl Normal [facility] Whole blood hemoglobin A1c/t otal hemoglobin ratio (mass fraction)Ordered By: Amado Ramachandran on 03-04-2023 HbA1c (Bld) [Mass fraction] 8.1 % 3.8-5.6 [facility] Comment on above: Normal < 5.7 % Predi abetic 5.7 - 6.4 % Diabetic >or= 6.5 % Please note range changes. Basophil percentageOrdered B y: Rashard Hernández on 12-29-2022 Chloride [Moles/Vol] 104 mmol/L 98-107 [facility] Glucose [Mass/Vol] 283 mg/dL 74-106 [facility] Comment on above: Glucose result great er than or equal to 200 mg/dLsuggests DIABETES MELLITUS per A.D.A. criteria. Potassium [Moles/Vol] 4.3 mmol/L 3.5-5.1 [facility] Sodium [Moles/Vol] 137 mmol/L 136-145 [facility] Testosterone [Mass/Vol] 686.01 ng/dL [facility] Comment on above: CENTRAL 90% REFERENC E RANGES MALE AGE <50 197.44 - 669.58 ng/dL MALE AGE > or = 50 187.72 - 684.19 ng/dL FEMALE AGE <50 8.38 - 35.01 ng/dL FEMALE AGE > or = 50 <7.00 - 35.92 ng/dL Effective as of 11/11/20 WBC (Bld) [#/Vol] 6.3 10*3/uL 4.4-11.0 [facility] Blood erythrocytes count (nu mber/volume)Ordered By: Rashard Hernández on 12-29-2022 RBC (Bld) [#/Vol] 5.02 10*6/uL 4.6-6.2 [facility] Blood hemoglobin measurement (mass/volume)Ordered By: Rashard Hernández on 12-29-2022 Hemoglobin (Bld) [Mass/Vol] 16.3 g/dL 13.0-16.5 [facility] Blood platelet mean volumeOr dered By: Rashard Hernández on 12-29-2022 Platelet mean volume (Bld) [Entitic vol] 12.4 fL 6.2-12.0 [facility] Determination of erythrocyte mean corpuscular volume (MCV)Ordered By: Rashard Hernández on 12-29-2022 MCV (RBC) [Entitic vol] 100.4 fL 80-94 [facility] Hematocrit Auto (Bld) [Volum e fraction]Ordered By: Rashard Hernández on 12-29-2022 Hematocrit (Bld) [Volume fraction] 50.4 % 40-54 [facility] - Chemistry and C hemistry - challengeOrdered By: Rashard Hernández on 12-29-2022 CO2 [Moles/Vol] 28.0 mmol/L 21.0-32.0 [facility] Magnesium [Mass/Vol] 2.5 mg/dL 1.6-2.6 [facility] Urea nitrogen/Creatinine [Mass ratio] 9.8 mg/mg 10-20 [facility] - Hematology and Cell countsOrdered By: Rashard Hernández on 12-29-2022 Erythrocyte distribution width (RBC) [Entitic vol] 49.6 fL 35.1-43.9 [facility] Erythrocyte distribution width (RBC) [Ratio] 13.5 % 11.6-14.6 [facility] MCH (RBC) [Entitic mass] 32.5 pg 27.0-32.0 [facility] MCHC Auto (RBC) [Mass/Vol]Or dered By: Rashard Hernández on 12-29-2022 MCHC (RBC) [Mass/Vol] 32.3 g/dL 32-36 [facility] No Panel InformationOrdered By: Rashard Hernández on 12-29-2022 Estimated GFR (MDRD) Amer 76 mL/min >60 [facility] Comment on above: GFR Calc Estimated GFR (MDRD) Non-Af Amer 63 mL/min >60 [facility] Comment on above: Non- GFR Calc Thyroid Stimulating Hormone (TSH) 1.56 uIU/mL 0.358-3.74 [facility] Platelets bldOrdered By: Owen Hernández on 12-29-2022 Platelets (Bld) [#/Vol] 159 10*3/uL 150-450 [facility] Serum or plasma calcium luis urement (mass/volume)Ordered By: Rashard Hernández on 12-29-2022 Calcium [Mass/Vol] 9.2 mg/dL 8.5-10.1 [facility] Serum or plasma creatinine m easurement (mass/volume)Ordered By: Rashard Hernández on 12-29-2022 Creatinine [Mass/Vol] 1.23 mg/dL 0.70-1.30 [facility] Comment on above: The validity of the calculated GFR & GFRAA in patients over 70 years has not been determined. Clinical correlation is essential. Serum or plasma urea nitroge n measurement (mass/volume)Ordered By: Rashard Hernández on 12-29-2022 Urea nitrogen [Mass/Vol] 12 mg/dL -18 [facility] Thin prep Papanicolaou smear with manual screeningOrdered By: Rashard Hernández on 12-29-2022 Thin prep Papanicolaou smear with manual screening 5 -15 [facility] Laboratory - Chemistry and C hemistry - challengeOrdered By: Amado Ramachandran on 11-04-2022 Cobalamin (Vitamin B12) [Mass/Vol] 557 pg/mL 211-911 [facility] No Panel InformationOrdered By: Amado Ramachandran on 11-04-2022 Vitamin B6 Level 10.2 ug/L 3.4-65.2 [facility] Comment on above: Deficiency: <3.4 Mar ginal: 3.4 - 5.1 Adequate: >5.1 Whole Blood Vitamin B1 Level 163.7 nmol/L 66.5-200.0 [facility] Comment on above: Performed at: [address] [id number] Director: Rachelle Kumar MD, Phone: [phone] Basophil percentageOrdered B y: Amado Ramachandran on 11-03-2022 Bilirubin [Mass/Vol] 1.40 mg/dL 0.20-1.00 [facility] Comment on above: For patients on eltr ombopag therapy, use of Dimension [place] TBIL is not recommended. Chloride [Moles/Vol] 105 mmol/L 98-107 [facility] Cholesterol [Mass/Vol] 139 mg/dL <200 [facility] Comment on above: <200 mg/dL Desirable 200-240 mg/dL Borderline >240 mg/dL High Risk Glucose [Mass/Vol] 167 mg/dL 74-106 [facility] Comment on above: Fasting Glucose resu lt greater than or equal to 126 mg/dL suggests DIABETES MELLITUS per A.D.A. criteria. Potassium [Moles/Vol] 4.0 mmol/L 3.5-5.1 [facility] Protein [Mass/Vol] 7.2 g/dL 6.4-8.2 [facility] Sodium [Moles/Vol] 140 mmol/L 136-145 [facility] Triglyceride [Mass/Vol] 142 mg/dL <199 [facility] Comment on above: The drugs N-Acetylcy steine and Metamizole may falsely depress this assay.Serum Triglycerides Reference Interval Normal <150 mg/dL Borderline high 150 - 199 mg/dL High 200 - 499 mg/dL Very High > or = 500 mg/dL Laboratory - Chemistry and C hemistry - challengeOrdered By: Amado Ramachandran on 11-03-2022 ALP [Catalytic activity/Vol] 62 U/L 45-117 [facility] ALT [Catalytic activity/Vol] 79 U/L 16-61 [facility] CO2 [Moles/Vol] 31.0 mmol/L 21.0-32.0 [facility] Globulin (S) [Mass/Vol] 3.2 g/dL 2.2-4.2 [facility] Urea nitrogen/Creatinine [Mass ratio] 11.3 mg/mg 10-20 [facility] No Panel InformationOrdered By: Amado Ramachandran on 11-03-2022 Estimated GFR (MDRD) Amer 82 mL/min >60 [facility] Comment on above: GFR Calc Estimated GFR (MDRD) Non-Af Amer 68 mL/min >60 [facility] Comment on above: Non- GFR Calc Thyroid Stimulating Hormone (TSH) 1.72 uIU/mL 0.358-3.74 [facility] Vitamin D 25-Hydroxy 63.6 ng/mL [facility] Comment on above: Vitamin D 25(OH) Sta tus Range Deficiency <20 ng/mL (50nmol/L) Insufficiency 20 - 30 ng/mL (50 - 75 nmol/L) Sufficiency 30 - 100 ng/mL (75 - 250 nmol/L) Toxicity >100 ng/mL (>250 nmol/L) Serum or plasma albumin luis urement (mass/volume)Ordered By: Amado Ramachandran on 11-03-2022 Albumin [Mass/Vol] 4.0 g/dL 3.2-5.0 [facility] Serum or plasma albumin/glob ulin mass ratioOrdered By: Amado Ramachandran on 11-03-2022 Albumin/Globulin [Mass ratio] 1.2 {ratio} 0.9-2.4 [facility] Serum or plasma calcium luis urement (mass/volume)Ordered By: Amado Ramachandran on 11-03-2022 Calcium [Mass/Vol] 9.0 mg/dL 8.5-10.1 [facility] Serum or plasma cholesterol in HDL measurement (mass/volume)Ordered By: Amado Ramachandran on 11-03-2022 Cholesterol in HDL [Mass/Vol] 41 mg/dL >40 [facility] Comment on above: The drugs N-Acetylcy steine and Metamizole may falsely depress this assay. Reference Range HDL <40 mg/dL Low HDL Cholesterol HDL >or= 60 mg/dL High HDL Cholesterol Serum or plasma cholesterol in VLDL measurement (mass/volume)Ordered By: Amado Ramachandran on 11-03-2022 Cholesterol in VLDL [Mass/Vol] 28 mg/dL 5-40 [facility] Serum or plasma creatinine m easurement (mass/volume)Ordered By: Amado Ramachandran on 11-03-2022 Creatinine [Mass/Vol] 1.15 mg/dL 0.70-1.30 [facility] Comment on above: The validity of the calculated GFR & GFRAA in patients over 70 years has not been determined. Clinical correlation is essential. Serum or plasma low density lipoprotein (LDL) cholesterol measurement (mass/volume)Ordered By: Amado Ramachandran on 11-03-2022 Cholesterol in LDL [Mass/Vol] 70 mg/dL 0-130 [facility] Serum or plasma urea nitroge n measurement (mass/volume)Ordered By: Amado Ramachandran on 11-03-2022 Urea nitrogen [Mass/Vol] 13 mg/dL 7-18 [facility] Thin prep Papanicolaou smear with manual screeningOrdered By: Amado Ramachandran on 11-03-2022 Thin prep Papanicolaou smear with manual screening 45 U/L 15-37 [facility] Thin prep Papanicolaou smear with manual screening 4 5-15 [facility] Urine creatinine measurement (mass/volume)Ordered By: Amado Ramachandran on 11-03-2022 Creatinine (U) [Mass/Vol] 238.00 mg/dL NO RANGE EST. [facility] Urine protein measurement (m ass/volume)Ordered By: Amado Ramachandran on 11-03-2022 Protein (U) [Mass/Vol] 13.5 mg/dL 0.0-11.8 [facility] Urine protein/creatinine mas s ratioOrdered By: Amado Ramachandarn on 11-03-2022 Protein/Creatinine (U) [Mass ratio] 57 mg/g CRE 0-200 [facility] Whole blood hemoglobin A1c/t otal hemoglobin ratio (mass fraction)Ordered By: Amado Ramachandran on 11-03-2022 HbA1c (Bld) [Mass fraction] 6.0 % 3.8-5.6 [facility] Comment on above: Normal < 5.7 % Predi abetic 5.7 - 6.4 % Diabetic >or= 6.5 % Please note range changes. Basophil percentageOrdered B y: Dr. Ramachandran on 07-06-2022 Bilirubin [Mass/Vol] 1.00 mg/dL 0.20-1.00 [facility] Comment on above: For patients on eltr ombopag therapy, use of Dimension [place] TBIL is not recommended. Chloride [Moles/Vol] 107 mmol/L 98-107 [facility] Cholesterol [Mass/Vol] 99 mg/dL <200 [facility] Comment on above: <200 mg/dL Desirable 200-240 mg/dL Borderline >240 mg/dL High Risk Glucose [Mass/Vol] 98 mg/dL 74-106 [facility] Potassium [Moles/Vol] 3.7 mmol/L 3.5-5.1 [facility] Protein [Mass/Vol] 7.1 g/dL 6.4-8.2 [facility] Sodium [Moles/Vol] 142 mmol/L 136-145 [facility] Triglyceride [Mass/Vol] 94 mg/dL <199 [facility] Comment on above: The drugs N-Acetylcy steine and Metamizole may falsely depress this assay.Serum Triglycerides Reference Interval Normal <150 mg/dL Borderline high 150 - 199 mg/dL High 200 - 499 mg/dL Very High > or = 500 mg/dL Laboratory - Chemistry and C hemistry - challengeOrdered By: Dr. Ramachandran on 07-06-2022 ALP [Catalytic activity/Vol] 51 U/L 45-117 [facility] ALT [Catalytic activity/Vol] 66 U/L 16-61 [facility] CO2 [Moles/Vol] 29.0 mmol/L 21.0-32.0 [facility] Globulin (S) [Mass/Vol] 3.1 g/dL 2.2-4.2 [facility] Urea nitrogen/Creatinine [Mass ratio] 17.1 mg/mg 10-20 [facility] No Panel InformationOrdered By: Dr. Ramachandran on 07-06-2022 Estimated GFR (MDRD) Amer 86 mL/min >60 [facility] Comment on above: GFR Calc Estimated GFR (MDRD) Non-Af Amer 71 mL/min >60 [facility] Comment on above: Non- GFR Calc Thyroid Stimulating Hormone (TSH) 1.28 uIU/mL 0.358-3.74 [facility] Vitamin D 25-Hydroxy 62.9 ng/mL [facility] Comment on above: Vitamin D 25(OH) Sta tus Range Deficiency <20 ng/mL (50nmol/L) Insufficiency 20 - 30 ng/mL (50 - 75 nmol/L) Sufficiency 30 - 100 ng/mL (75 - 250 nmol/L) Toxicity >100 ng/mL (>250 nmol/L) Serum or plasma albumin luis urement (mass/volume)Ordered By: Dr. Ramachandran on 07-06-2022 Albumin [Mass/Vol] 4.0 g/dL 3.2-5.0 [facility] Serum or plasma albumin/glob ulin mass ratioOrdered By: Dr. Ramachandran on 07-06-2022 Albumin/Globulin [Mass ratio] 1.3 {ratio} 0.9-2.4 [facility] Serum or plasma calcium luis urement (mass/volume)Ordered By: Dr. Ramachandran on 07-06-2022 Calcium [Mass/Vol] 9.2 mg/dL 8.5-10.1 [facility] Serum or plasma cholesterol in HDL measurement (mass/volume)Ordered By: Dr. Ramachandran on 07-06-2022 Cholesterol in HDL [Mass/Vol] 39 mg/dL >40 [facility] Comment on above: The drugs N-Acetylcy steine and Metamizole may falsely depress this assay. Reference Range HDL <40 mg/dL Low HDL Cholesterol HDL >or= 60 mg/dL High HDL Cholesterol Serum or plasma cholesterol in VLDL measurement (mass/volume)Ordered By: Dr. Ramachandran on 07-06-2022 Cholesterol in VLDL [Mass/Vol] 19 mg/dL 5-40 [facility] Serum or plasma creatinine m easurement (mass/volume)Ordered By: Dr. Ramachandran on 07-06-2022 Creatinine [Mass/Vol] 1.11 mg/dL 0.70-1.30 [facility] Comment on above: The validity of the calculated GFR & GFRAA in patients over 70 years has not been determined. Clinical correlation is essential. Serum or plasma low density lipoprotein (LDL) cholesterol measurement (mass/volume)Ordered By: Dr. Ramachandran on 07-06-2022 Cholesterol in LDL [Mass/Vol] 41 mg/dL 0-130 [facility] Serum or plasma urea nitroge n measurement (mass/volume)Ordered By: Dr. Ramachandran on 07-06-2022 Urea nitrogen [Mass/Vol] 19 mg/dL 7-18 [facility] Thin prep Papanicolaou smear with manual screeningOrdered By: Dr. Ramachandran on 07-06-2022 Thin prep Papanicolaou smear with manual screening 32 U/L 15-37 [facility] Thin prep Papanicolaou smear with manual screening 6 5-15 [facility] Urine creatinine measurement (mass/volume)Ordered By: Dr. Ramachandran on 07-06-2022 Creatinine (U) [Mass/Vol] 168.00 mg/dL NO RANGE EST. [facility] Urine protein measurement (m ass/volume)Ordered By: Dr. Ramachandran on 07-06-2022 Protein (U) [Mass/Vol] 13.6 mg/dL 0.0-11.8 [facility] Urine protein/creatinine mas s ratioOrdered By: Dr. Ramachandran on 07-06-2022 Protein/Creatinine (U) [Mass ratio] 81 mg/g CRE 0-200 [facility] Whole blood hemoglobin A1c/t otal hemoglobin ratio (mass fraction)Ordered By: Dr. Ramachandran on 07-06-2022 HbA1c (Bld) [Mass fraction] 5.8 % 3.8-5.6 [facility] Comment on above: Normal < 5.7 % Predi abetic 5.7 - 6.4 % Diabetic >or= 6.5 % Please note range changes. Basophil percentageOrdered B y: Dr. Ramachandran on 06-30-2022 Bilirubin [Mass/Vol] 1.30 mg/dL 0.20-1.00 [facility] Comment on above: For patients on eltr ombopag therapy, use of Dimension [place] TBIL is not recommended. Chloride [Moles/Vol] 104 mmol/L 98-107 [facility] Cholesterol [Mass/Vol] 113 mg/dL <200 [facility] Comment on above: <200 mg/dL Desirable 200-240 mg/dL Borderline >240 mg/dL High Risk Glucose [Mass/Vol] 74 mg/dL 74-106 [facility] Potassium [Moles/Vol] 4.2 mmol/L 3.5-5.1 [facility] Comment on above: Slight Hemolysis, Re sult may be falsely increased. Protein [Mass/Vol] 7.5 g/dL 6.4-8.2 [facility] Sodium [Moles/Vol] 140 mmol/L 136-145 [facility] Triglyceride [Mass/Vol] 99 mg/dL <199 [facility] Comment on above: The drugs N-Acetylcy steine and Metamizole may falsely depress this assay.Serum Triglycerides Reference Interval Normal <150 mg/dL Borderline high 150 - 199 mg/dL High 200 - 499 mg/dL Very High > or = 500 mg/dL Iron measurement (mass/mass) Ordered By: Dr. Ramachandran on 06-30-2022 Iron (Unsp spec) [Mass/Mass] 98 ug/dL 65-175 [facility] Comment on above: Slight Hemolysis, Re sult may be falsely increased. Laboratory - Chemistry and C hemistry - challengeOrdered By: Dr. Ramachandran on 06-30-2022 ALP [Catalytic activity/Vol] 53 U/L 45-117 [facility] ALT [Catalytic activity/Vol] 86 U/L 16-61 [facility] CO2 [Moles/Vol] 30.0 mmol/L 21.0-32.0 [facility] Globulin (S) [Mass/Vol] 3.5 g/dL 2.2-4.2 [facility] Urea nitrogen/Creatinine [Mass ratio] 17.5 mg/mg 10-20 [facility] No Panel InformationOrdered By: Dr. Ramachandran on 06-30-2022 Estimated GFR (MDRD) Amer 78 mL/min >60 [facility] Comment on above: GFR Calc Estimated GFR (MDRD) Non-Af Amer 65 mL/min >60 [facility] Comment on above: Non- GFR Calc Total Iron Binding Capacity 420 ug/dL 250-450 [facility] Urine Microalbumin/Creatinine Ratio 7.0 mg/g CRE <30 [facility] Serum or plasma albumin luis urement (mass/volume)Ordered By: Dr. Ramachandran on 06-30-2022 Albumin [Mass/Vol] 4.0 g/dL 3.2-5.0 [facility] Serum or plasma albumin/glob ulin mass ratioOrdered By: Dr. Ramachandran on 06-30-2022 Albumin/Globulin [Mass ratio] 1.1 {ratio} 0.9-2.4 [facility] Serum or plasma calcium luis urement (mass/volume)Ordered By: Dr. Ramachandran on 06-30-2022 Calcium [Mass/Vol] 9.1 mg/dL 8.5-10.1 [facility] Serum or plasma cholesterol in HDL measurement (mass/volume)Ordered By: Dr. Ramachandran on 06-30-2022 Cholesterol in HDL [Mass/Vol] 38 mg/dL >40 [facility] Comment on above: The drugs N-Acetylcy steine and Metamizole may falsely depress this assay. Reference Range HDL <40 mg/dL Low HDL Cholesterol HDL >or= 60 mg/dL High HDL Cholesterol Serum or plasma cholesterol in VLDL measurement (mass/volume)Ordered By: Dr. Ramachandran on 06-30-2022 Cholesterol in VLDL [Mass/Vol] 20 mg/dL 5-40 [facility] Serum or plasma creatinine m easurement (mass/volume)Ordered By: Dr. Ramachandran on 06-30-2022 Creatinine [Mass/Vol] 1.20 mg/dL 0.70-1.30 [facility] Comment on above: The validity of the calculated GFR & GFRAA in patients over 70 years has not been determined. Clinical correlation is essential. Serum or plasma ferritin max surement (mass/volume)Ordered By: Dr. Ramachandran on 06-30-2022 Ferritin [Mass/Vol] 340 ng/mL 26-388 [facility] Serum or plasma iron saturat ion measurement (mass fraction)Ordered By: Dr. Ramachandran on 06-30-2022 Iron saturation [Mass fraction] 23.3 % 15.0-55.0 [facility] Serum or plasma low density lipoprotein (LDL) cholesterol measurement (mass/volume)Ordered By: Dr. Ramachandran on 06-30-2022 Cholesterol in LDL [Mass/Vol] 55 mg/dL 0-130 [facility] Serum or plasma urea nitroge n measurement (mass/volume)Ordered By: Dr. Ramachandran on 06-30-2022 Urea nitrogen [Mass/Vol] 21 mg/dL 7-18 [facility] Thin prep Papanicolaou smear with manual screeningOrdered By: Dr. Ramachandran on 06-30-2022 Thin prep Papanicolaou smear with manual screening 42 U/L 15-37 [facility] Comment on above: Slight Hemolysis, Re sult may be falsely increased. Thin prep Papanicolaou smear with manual screening 6 5-15 [facility] Thin prep Papanicolaou smear with manual screening 15.5 mg/L NO RANGE EST. [facility] Urine creatinine measurement (mass/volume)Ordered By: Dr. Ramachandran on 06-30-2022 Creatinine (U) [Mass/Vol] 221.00 mg/dL NO RANGE EST. [facility] Whole blood hemoglobin A1c/t otal hemoglobin ratio (mass fraction)Ordered By: Dr. Ramachandran on 06-30-2022 HbA1c (Bld) [Mass fraction] 5.8 % 3.8-5.6 [facility] Comment on above: Normal < 5.7 % Predi abetic 5.7 - 6.4 % Diabetic >or= 6.5 % Please note range changes. Absolute lymphocyte countOrd ered By: Dr. Ramachandran on 04-01-2022 Lymphocytes Auto (Unsp spec) [#/Vol] 1.19 10*3/uL 0.83-4.51 [facility] Basophil percentageOrdered B y: Dr. Ramachandran on 04-01-2022 Basophils/100 WBC (Bld) 0.8 % 0-1 [facility] Bilirubin [Mass/Vol] 0.90 mg/dL 0.20-1.00 [facility] Comment on above: For patients on eltr ombopag therapy, use of Dimension [place] TBIL is not recommended. Chloride [Moles/Vol] 105 mmol/L 98-107 [facility] Cholesterol [Mass/Vol] 132 mg/dL <200 [facility] Comment on above: <200 mg/dL Desirable 200-240 mg/dL Borderline >240 mg/dL High Risk Eosinophils/100 WBC (Bld) 2.3 % 0-5 [facility] Glucose [Mass/Vol] 166 mg/dL 74-106 [facility] Comment on above: Fasting Glucose resu lt greater than or equal to 126 mg/dL suggests DIABETES MELLITUS per A.D.A. criteria. Neutrophils (Bld) [#/Vol] 4.5 10*3/uL 2.0-7.7 [facility] Neutrophils/100 WBC (Bld) 68.0 % 47-70 [facility] Potassium [Moles/Vol] 4.1 mmol/L 3.5-5.1 [facility] Protein [Mass/Vol] 6.8 g/dL 6.4-8.2 [facility] Sodium [Moles/Vol] 140 mmol/L 136-145 [facility] Triglyceride [Mass/Vol] 160 mg/dL <199 [facility] Comment on above: The drugs N-Acetylcy steine and Metamizole may falsely depress this assay.Serum Triglycerides Reference Interval Normal <150 mg/dL Borderline high 150 - 199 mg/dL High 200 - 499 mg/dL Very High > or = 500 mg/dL WBC (Bld) [#/Vol] 6.6 10*3/uL 4.4-11.0 [facility] Blood erythrocytes count (nu mber/volume)Ordered By: Dr. Ramachandran on 04-01-2022 RBC (Bld) [#/Vol] 5.18 10*6/uL 4.6-6.2 [facility] Blood hemoglobin measurement (mass/volume)Ordered By: Dr. Ramachandran on 04-01-2022 Hemoglobin (Bld) [Mass/Vol] 16.1 g/dL 13.0-16.5 [facility] Blood lymphocytes/100 leukoc ytesOrdered By: Dr. Ramachandran on 04-01-2022 Lymphocytes/100 WBC (Bld) 18.1 % 19-41 [facility] Blood monocytes/100 leukocyt esOrdered By: Dr. Ramachandran on 04-01-2022 Monocytes/100 WBC (Bld) 10.2 % 0-10 [facility] Blood platelet mean volumeOr dered By: Dr. Ramachandran on 04-01-2022 Platelet mean volume (Bld) [Entitic vol] 11.5 fL 6.2-12.0 [facility] Determination of erythrocyte mean corpuscular volume (MCV)Ordered By: Dr. Ramachandran on 04-01-2022 MCV (RBC) [Entitic vol] 94.8 fL 80-94 [facility] Hematocrit Auto (Bld) [Volum e fraction]Ordered By: Dr. Ramachandran on 04-01-2022 Hematocrit (Bld) [Volume fraction] 49.1 % 40-54 [facility] Laboratory - Chemistry and C hemistry - challengeOrdered By: Dr. Ramachandran on 04-01-2022 ALP [Catalytic activity/Vol] 62 U/L 45-117 [facility] ALT [Catalytic activity/Vol] 78 U/L 16-61 [facility] CO2 [Moles/Vol] 28.0 mmol/L 21.0-32.0 [facility] Globulin (S) [Mass/Vol] 2.9 g/dL 2.2-4.2 [facility] Urea nitrogen/Creatinine [Mass ratio] 15.8 mg/mg 10-20 [facility] Laboratory - Hematology and Cell countsOrdered By: Dr. Ramachandran on 04-01-2022 Erythrocyte distribution width (RBC) [Entitic vol] 43.6 fL 35.1-43.9 [facility] Erythrocyte distribution width (RBC) [Ratio] 12.6 % 11.6-14.6 [facility] Immature granulocytes/100 WBC (Bld) 0.600 % 0.0-0.9 [facility] Comment on above: IG% - Immature Granu locytes (promyelocytes, myelocytes and metamyelocytes) > 1% indicates that a LEFT SHIFT is Present. MCH (RBC) [Entitic mass] 31.1 pg 27.0-32.0 [facility] Nucleated RBC/100 WBC (Bld) [Ratio] 0 % 0-5 [facility] MCHC Auto (RBC) [Mass/Vol]Or dered By: Dr. Ramachandran on 04-01-2022 MCHC (RBC) [Mass/Vol] 32.8 g/dL 32-36 [facility] No Panel InformationOrdered By: Dr. Ramachandran on 04-01-2022 Estimated GFR (MDRD) Amer 83 mL/min >60 [facility] Comment on above: GFR Calc Estimated GFR (MDRD) Non-Af Amer 69 mL/min >60 [facility] Comment on above: Non- GFR Calc Urine Microalbumin/Creatinine Ratio 6.1 mg/g CRE <30 [facility] Platelets bldOrdered By: Dr. Ramachandran on 04-01-2022 Platelets (Bld) [#/Vol] 153 10*3/uL 150-450 [facility] Serum or plasma albumin luis urement (mass/volume)Ordered By: Dr. Ramachandran on 04-01-2022 Albumin [Mass/Vol] 3.9 g/dL 3.2-5.0 [facility] Serum or plasma albumin/glob ulin mass ratioOrdered By: Dr. Ramachandran on 04-01-2022 Albumin/Globulin [Mass ratio] 1.3 {ratio} 0.9-2.4 [facility] Serum or plasma calcium luis urement (mass/volume)Ordered By: Dr. Ramachandran on 04-01-2022 Calcium [Mass/Vol] 8.9 mg/dL 8.5-10.1 [facility] Serum or plasma cholesterol in HDL measurement (mass/volume)Ordered By: Dr. Ramachandran on 04-01-2022 Cholesterol in HDL [Mass/Vol] 35 mg/dL >40 [facility] Comment on above: The drugs N-Acetylcy steine and Metamizole may falsely depress this assay. Reference Range HDL <40 mg/dL Low HDL Cholesterol HDL >or= 60 mg/dL High HDL Cholesterol Serum or plasma cholesterol in VLDL measurement (mass/volume)Ordered By: Dr. Ramachandran on 04-01-2022 Cholesterol in VLDL [Mass/Vol] 32 mg/dL 5-40 [facility] Serum or plasma creatinine m easurement (mass/volume)Ordered By: Dr. Ramachandran on 04-01-2022 Creatinine [Mass/Vol] 1.14 mg/dL 0.70-1.30 [facility] Comment on above: The validity of the calculated GFR & GFRAA in patients over 70 years has not been determined. Clinical correlation is essential. Serum or plasma low density lipoprotein (LDL) cholesterol measurement (mass/volume)Ordered By: Dr. Ramachandran on 04-01-2022 Cholesterol in LDL [Mass/Vol] 65 mg/dL 0-130 [facility] Serum or plasma urea nitroge n measurement (mass/volume)Ordered By: Dr. Ramachandran on 04-01-2022 Urea nitrogen [Mass/Vol] 18 mg/dL 7-18 [facility] Thin prep Papanicolaou smear with manual screeningOrdered By: Dr. Ramachandran on 04-01-2022 Thin prep Papanicolaou smear with manual screening 37 U/L 15-37 [facility] Thin prep Papanicolaou smear with manual screening 7 5-15 [facility] Thin prep Papanicolaou smear with manual screening 8.8 mg/L NO RANGE EST. [facility] Urine creatinine measurement (mass/volume)Ordered By: Dr. Ramachandran on 04-01-2022 Creatinine (U) [Mass/Vol] 144.00 mg/dL NO RANGE EST. [facility] Whole blood hemoglobin A1c/t otal hemoglobin ratio (mass fraction)Ordered By: Dr. Ramachandran on 04-01-2022 HbA1c (Bld) [Mass fraction] 8.2 % 3.8-5.6 [facility] Comment on above: Normal < 5.7 % Predi abetic 5.7 - 6.4 % Diabetic >or= 6.5 % Please note range changes. Absolute lymphocyte counton 01-01-2022 Lymphocytes Auto (Unsp spec) [#/Vol] 1.24 10*3/uL 0.83-4.51 [facility] Work Phone: Basophil percentageon 2021 Basophil percentage 0 SEEN /hpf 0-5 [facility] Work Phone: Basophils/100 WBC (Bld) 0.9 % 0-1 [facility] Work Phone: Bilirubin [Mass/Vol] 0.80 mg/dL 0.20-1.00 [facility] Work Phone: Comment on above: For patients on eltr ombopag therapy, use of Dimension [place] TBIL is not recommended. Chloride [Moles/Vol] 106 mmol/L 98-107 [facility] Work Phone: Cholesterol [Mass/Vol] 139 mg/dL <200 [facility] Work Phone: Comment on above: <200 mg/dL Desirable 200-240 mg/dL Borderline >240 mg/dL High Risk Eosinophils/100 WBC (Bld) 2.8 % 0-5 [facility] Work Phone: Glucose [Mass/Vol] 201 mg/dL 74-106 [facility] Work Phone: Comment on above: Glucose result great er than or equal to 200 mg/dLsuggests DIABETES MELLITUS per A.D.A. criteria. Neutrophils (Bld) [#/Vol] 4.2 10*3/uL 2.0-7.7 [facility] Work Phone: Neutrophils/100 WBC (Bld) 65.8 % 47-70 [facility] Work Phone: Potassium [Moles/Vol] 3.8 mmol/L 3.5-5.1 [facility] Work Phone: Protein [Mass/Vol] 7.3 g/dL 6.4-8.2 [facility] Work Phone: Sodium [Moles/Vol] 141 mmol/L 136-145 [facility] Work Phone: Triglyceride [Mass/Vol] 200 mg/dL <199 [facility] Work Phone: Comment on above: The drugs N-Acetylcy steine and Metamizole may falsely depress this assay.Serum Triglycerides Reference Interval Normal <150 mg/dL Borderline high 150 - 199 mg/dL High 200 - 499 mg/dL Very High > or = 500 mg/dL WBC (Bld) [#/Vol] 6.4 10*3/uL 4.4-11.0 [facility] Work Phone: Bilirubin Test strip Ql (U)o n 01-01-2022 Bilirubin Ql (U) Negative Negative [facility] Work Phone: Blood erythrocytes count (nu mber/volume)on 01-01-2022 RBC (Bld) [#/Vol] 4.92 10*6/uL 4.6-6.2 [facility] Work Phone: Blood hemoglobin measurement (mass/volume)on 01-01-2022 Hemoglobin (Bld) [Mass/Vol] 15.8 g/dL 13.0-16.5 [facility] Work Phone: Blood lymphocytes/100 leukoc yteson 01-01-2022 Lymphocytes/100 WBC (Bld) 19.4 % 19-41 [facility] Work Phone: Blood monocytes/100 leukocyt eson 01-01-2022 Monocytes/100 WBC (Bld) 10.2 % 0-10 [facility] Work Phone: Blood platelet mean volumeon 01-01-2022 Platelet mean volume (Bld) [Entitic vol] 11.2 fL 6.2-12.0 [facility] Work Phone: Determination of erythrocyte mean corpuscular volume (MCV)on 01-01-2022 MCV (RBC) [Entitic vol] 96.5 fL 80-94 [facility] Work Phone: [phone] Hematocrit Auto (Bld) [Volum e fraction]on 01-01-2022 Hematocrit (Bld) [Volume fraction] 47.5 % 40-54 [facility] Work Phone: Ketones Test strip Ql (U)on 01-01-2022 Ketones Ql (U) Negative Negative [facility] Work Phone: [phone] Laboratory - Chemistry and C hemistry - challengeon 01-01-2022 ALP [Catalytic activity/Vol] 64 U/L 45-117 [facility] Work Phone: [phone] ALT [Catalytic activity/Vol] 66 U/L 16-61 [facility] Work Phone: [phone] CO2 [Moles/Vol] 28.0 mmol/L 21.0-32.0 [facility] Work Phone: [phone] Globulin (S) [Mass/Vol] 3.4 g/dL 2.2-4.2 [facility] Work Phone: [phone] Urea nitrogen/Creatinine [Mass ratio] 18.5 mg/mg 10-20 [facility] Work Phone: [phone] Laboratory - Hematology and Cell countson 01-01-2022 Erythrocyte distribution width (RBC) [Entitic vol] 45.1 fL 35.1-43.9 [facility] Work Phone: [phone] Erythrocyte distribution width (RBC) [Ratio] 12.7 % 11.6-14.6 [facility] Work Phone: [phone] Immature granulocytes/100 WBC (Bld) 0.900 % 0.0-0.9 [facility] Work Phone: [phone] Comment on above: IG% - Immature Granu locytes (promyelocytes, myelocytes and metamyelocytes) > 1% indicates that a LEFT SHIFT is Present. MCH (RBC) [Entitic mass] 32.1 pg 27.0-32.0 [facility] Work Phone: [phone] Nucleated RBC/100 WBC (Bld) [Ratio] 0 % 0-5 [facility] Work Phone: [phone] MCHC Auto (RBC) [Mass/Vol]on 01-01-2022 MCHC (RBC) [Mass/Vol] 33.3 g/dL 32-36 [facility] Work Phone: [phone] Mucus LM Ql (Urine sed)on Mucus Ql (Urine sed) 0 SEEN /hpf [facility] Work Phone: Nitrite Test strip Ql (U)on 01-01-2022 Nitrite Ql (U) Negative Negative [facility] Work Phone: No Panel Informationon 01-01 Estimated GFR (MDRD) Amer 89 mL/min >60 [facility] Work Phone: Comment on above: GFR Calc Estimated GFR (MDRD) Non-Af Amer 73 mL/min >60 [facility] Work Phone: Comment on above: Non- GFR Calc Platelets bldon 01-01-2022 Platelets (Bld) [#/Vol] 160 10*3/uL 150-450 [facility] Work Phone: Protein Test strip Ql (U)on 01-01-2022 Protein Ql (U) Negative Negative [facility] Work Phone: Serum or plasma albumin luis urement (mass/volume)on 01-01-2022 Albumin [Mass/Vol] 3.9 g/dL 3.2-5.0 [facility] Work Phone: Serum or plasma albumin/glob ulin mass ratioon 01-01-2022 Albumin/Globulin [Mass ratio] 1.1 {ratio} 0.9-2.4 [facility] Work Phone: Serum or plasma calcium luis urement (mass/volume)on 01-01-2022 Calcium [Mass/Vol] 9.1 mg/dL 8.5-10.1 [facility] Work Phone: [phone] Serum or plasma cholesterol in HDL measurement (mass/volume)on 01-01-2022 Cholesterol in HDL [Mass/Vol] 40 mg/dL >40 [facility] Work Phone: Comment on above: The drugs N-Acetylcy steine and Metamizole may falsely depress this assay. Reference Range HDL <40 mg/dL Low HDL Cholesterol HDL >or= 60 mg/dL High HDL Cholesterol Serum or plasma cholesterol in VLDL measurement (mass/volume)on 01-01-2022 Cholesterol in VLDL [Mass/Vol] 40 mg/dL 5-40 [facility] Work Phone: Serum or plasma creatinine m easurement (mass/volume)on 01-01-2022 Creatinine [Mass/Vol] 1.08 mg/dL 0.70-1.30 [facility] Work Phone: Comment on above: The validity of the calculated GFR & GFRAA in patients over 70 years has not been determined. Clinical correlation is essential. Serum or plasma low density lipoprotein (LDL) cholesterol measurement (mass/volume)on 01-01-2022 Cholesterol in LDL [Mass/Vol] 59 mg/dL 0-130 [facility] Work Phone: Serum or plasma urea nitroge n measurement (mass/volume)on 01-01-2022 Urea nitrogen [Mass/Vol] 20 mg/dL 7-18 [facility] Work Phone: Squamous epithelial cells de tection in urine sediment by light microscopyon 01-01-2022 Epithelial cells.squamous LM Ql (Urine sed) 0 SEEN /hpf 0-5 [facility] Work Phone: Thin prep Papanicolaou smear with manual screeningon 01-01-2022 Thin prep Papanicolaou smear with manual screening 30 U/L 15-37 [facility] Work Phone: Thin prep Papanicolaou smear with manual screening 7 5-15 [facility] Work Phone: Urine blood detectionon 12-17 RBC Ql (U) Negative Negative [facility] Work Phone: RBC Ql (U) 0 SEEN /hpf 0-5 [facility] Work Phone: Urine clarityon 01-01-2022 Clarity (U) Clear Clear [facility] Work Phone: Urine color determinationon 01-01-2022 Color (U) Yellow Yellow [facility] Work Phone: Urine glucose detectionon Glucose Ql (U) 1000 mg/dl Normal [facility] Work Phone: Urine leukocyte esterase det ection by dipstickon 01-01-2022 Leukocyte esterase Test strip Ql (U) Negative Negative [facility] Work Phone: Urine pHon 01-01-2022 pH (U) 5.0 [pH] 5.0 - 8.0 [facility] Work Phone: Urine sediment bacteria coun t by microscopy (number/high power field)on 01-01-2022 Bacteria LM.HPF (Urine sed) [#/Area] 0 /[HPF] None Seen [facility] Work Phone: Urine specific gravity measu rementon 01-01-2022 Specific gravity (U) [Rel density] 1.020 1.002-1.030 [facility] Work Phone: Urobilinogen Auto test strip Ql (U)on 01-01-2022 Urobilinogen Ql (U) Normal mg/dl Normal [facility] Work Phone: Whole blood hemoglobin A1c/t otal hemoglobin ratio (mass fraction)on 01-01-2022 HbA1c (Bld) [Mass fraction] 9.5 % 3.8-5.6 [facility] Work Phone: Comment on above: Normal < 5.7 % Predi abetic 5.7 - 6.4 % Diabetic >or= 6.5 % Please note range changes. Basophil percentageon 2021 Chloride [Moles/Vol] 105 mmol/L 98-107 [facility] Work Phone: Glucose [Mass/Vol] 278 mg/dL 74-106 [facility] Work Phone: Comment on above: Glucose result great er than or equal to 200 mg/dLsuggests DIABETES MELLITUS per A.D.A. criteria. Potassium [Moles/Vol] 4.3 mmol/L 3.5-5.1 [facility] Work Phone: Sodium [Moles/Vol] 139 mmol/L 136-145 [facility] Work Phone: [phone] Laboratory - Chemistry and C hemistry - challengeon 10-14-2021 CO2 [Moles/Vol] 23.0 mmol/L 21.0-32.0 [facility] Work Phone: Urea nitrogen/Creatinine [Mass ratio] 22.4 mg/mg 10-20 [facility] Work Phone: [phone] No Panel Informationon 10-14 Estimated GFR (MDRD) Amer 75 mL/min >60 [facility] Work Phone: Comment on above: GFR Calc Estimated GFR (MDRD) Non-Af Amer 62 mL/min >60 [facility] Work Phone: Comment on above: Non- GFR Calc Serum or plasma calcium luis urement (mass/volume)on 10-14-2021 Calcium [Mass/Vol] 9.4 mg/dL 8.5-10.1 [facility] Work Phone: Serum or plasma creatinine m easurement (mass/volume)on 10-14-2021 Creatinine [Mass/Vol] 1.25 mg/dL 0.70-1.30 [facility] Work Phone: Comment on above: The validity of the calculated GFR & GFRAA in patients over 70 years has not been determined. Clinical correlation is essential. Serum or plasma urea nitroge n measurement (mass/volume)on 10-14-2021 Urea nitrogen [Mass/Vol] 28 mg/dL 7-18 [facility] Work Phone: Thin prep Papanicolaou smear with manual screeningon 10-14-2021 Thin prep Papanicolaou smear with manual screening 11 5-15 [facility] Work Phone: Absolute lymphocyte counton 10-02-2021 Lymphocytes Auto (Unsp spec) [#/Vol] 1.06 10*3/uL 0.83-4.51 [facility] Work Phone: Basophil percentageon 2021 Basophil percentage 0 SEEN [facility]: Basophils/100 WBC (Bld) 0.5 % 0-1 [facility] Work Phone: [phone] Bilirubin [Mass/Vol] 0.90 mg/dL 0.20-1.00 [facility] Work Phone: [phone] Comment on above: For patients on eltr ombopag therapy, use of Dimension [place] TBIL is not recommended. Chloride [Moles/Vol] 98 mmol/L 98-107 [facility] Work Phone: [phone] Cholesterol [Mass/Vol] 115 mg/dL <200 [facility] Work Phone: [phone] Comment on above: <200 mg/dL Desirable 200-240 mg/dL Borderline >240 mg/dL High Risk Eosinophils/100 WBC (Bld) 6.1 % 0-5 [facility] Work Phone: [phone] Glucose [Mass/Vol] 321 mg/dL 74-106 [facility] Work Phone: [phone] Comment on above: Glucose result great er than or equal to 200 mg/dLsuggests DIABETES MELLITUS per A.D.A. criteria. Neutrophils (Bld) [#/Vol] 3.8 10*3/uL 2.0-7.7 [facility] Work Phone: Neutrophils/100 WBC (Bld) 60.7 % 47-70 [facility] Work Phone: [phone] Potassium [Moles/Vol] 4.1 mmol/L 3.5-5.1 [facility] Work Phone: [phone] Protein [Mass/Vol] 6.8 g/dL 6.4-8.2 [facility] Work Phone: [phone] Sodium [Moles/Vol] 134 mmol/L 136-145 [facility] Work Phone: [phone] Triglyceride [Mass/Vol] 174 mg/dL <199 [facility] Work Phone: [phone] Comment on above: The drugs N-Acetylcy steine and Metamizole may falsely depress this assay.Serum Triglycerides Reference Interval Normal <150 mg/dL Borderline high 150 - 199 mg/dL High 200 - 499 mg/dL Very High > or = 500 mg/dL WBC (Bld) [#/Vol] 6.2 10*3/uL 4.4-11.0 [facility] Work Phone: Bilirubin Test strip Ql (U)o n 10-02-2021 Bilirubin Ql (U) Negative Negative [facility] Work Phone: Blood erythrocytes count (nu mber/volume)on 10-02-2021 RBC (Bld) [#/Vol] 4.74 10*6/uL 4.6-6.2 [facility] Work Phone: Blood hemoglobin measurement (mass/volume)on 10-02-2021 Hemoglobin (Bld) [Mass/Vol] 15.0 g/dL 13.0-16.5 [facility] Work Phone: Blood lymphocytes/100 leukoc yteson 10-02-2021 Lymphocytes/100 WBC (Bld) 17.0 % 19-41 [facility] Work Phone: Blood monocytes/100 leukocyt eson 10-02-2021 Monocytes/100 WBC (Bld) 14.1 % 0-10 [facility] Work Phone: Blood platelet mean volumeon 10-02-2021 Platelet mean volume (Bld) [Entitic vol] 10.9 fL 6.2-12.0 [facility] Work Phone: Determination of erythrocyte mean corpuscular volume (MCV)on 10-02-2021 MCV (RBC) [Entitic vol] 93.9 fL 80-94 [facility] Work Phone: Hematocrit Auto (Bld) [Volum e fraction]on 10-02-2021 Hematocrit (Bld) [Volume fraction] 44.5 % 40-54 [facility] Work Phone: Ketones Test strip Ql (U)on 10-02-2021 Ketones Ql (U) 5 mg/dl Negative [facility] Work Phone: [phone] Laboratory - Chemistry and C hemistry - challengeon 10-02-2021 ALP [Catalytic activity/Vol] 65 U/L 45-117 [facility] Work Phone: ALT [Catalytic activity/Vol] 94 U/L 16-61 [facility] Work Phone: [phone] CO2 [Moles/Vol] 30.0 mmol/L 21.0-32.0 [facility] Work Phone: [phone] Globulin (S) [Mass/Vol] 3.3 g/dL 2.2-4.2 [facility] Work Phone: [phone] Urea nitrogen/Creatinine [Mass ratio] 13.3 mg/mg 10-20 [facility] Work Phone: [phone] Laboratory - Hematology and Cell countson 10-02-2021 Erythrocyte distribution width (RBC) [Entitic vol] 42.7 fL 35.1-43.9 [facility] Work Phone: [phone] Erythrocyte distribution width (RBC) [Ratio] 12.3 % 11.6-14.6 [facility] Work Phone: [phone] Immature granulocytes/100 WBC (Bld) 1.600 % 0.0-0.9 [facility] Work Phone: [phone] Comment on above: IG% - Immature Granu locytes (promyelocytes, myelocytes and metamyelocytes) > 1% indicates that a LEFT SHIFT is Present. MCH (RBC) [Entitic mass] 31.6 pg 27.0-32.0 [facility] Work Phone: Nucleated RBC/100 WBC (Bld) [Ratio] 0 % 0-5 [facility] Work Phone: [phone] MCHC Auto (RBC) [Mass/Vol]on 10-02-2021 MCHC (RBC) [Mass/Vol] 33.7 g/dL 32-36 [facility] Work Phone: [phone] Mucus LM Ql (Urine sed)on Mucus Ql (Urine sed) 0 SEEN /hpf [facility] Work Phone: [phone] Nitrite Test strip Ql (U)on 10-02-2021 Nitrite Ql (U) Negative Negative [facility] Work Phone: [phone] No Panel Informationon 10-02 Estimated GFR (MDRD) Amer 73 mL/min >60 [facility] Work Phone: Comment on above: GFR Calc Estimated GFR (MDRD) Non-Af Amer 60 mL/min >60 [facility] Work Phone: Comment on above: Non- GFR Calc Platelets bldon 10-02-2021 Platelets (Bld) [#/Vol] 149 10*3/uL 150-450 [facility] Work Phone: Protein Test strip Ql (U)on 10-02-2021 Protein Ql (U) Negative Negative [facility] Work Phone: Serum or plasma albumin luis urement (mass/volume)on 10-02-2021 Albumin [Mass/Vol] 3.5 g/dL 3.2-5.0 [facility] Work Phone: Serum or plasma albumin/glob ulin mass ratioon 10-02-2021 Albumin/Globulin [Mass ratio] 1.1 {ratio} 0.9-2.4 [facility] Work Phone: Serum or plasma calcium luis urement (mass/volume)on 10-02-2021 Calcium [Mass/Vol] 9.0 mg/dL 8.5-10.1 [facility] Work Phone: Serum or plasma cholesterol in HDL measurement (mass/volume)on 10-02-2021 Cholesterol in HDL [Mass/Vol] 32 mg/dL >40 [facility] Work Phone: Comment on above: The drugs N-Acetylcy steine and Metamizole may falsely depress this assay. Reference Range HDL <40 mg/dL Low HDL Cholesterol HDL >or= 60 mg/dL High HDL Cholesterol Serum or plasma cholesterol in VLDL measurement (mass/volume)on 10-02-2021 Cholesterol in VLDL [Mass/Vol] 35 mg/dL 5-40 [facility] Work Phone: Serum or plasma creatinine m easurement (mass/volume)on 10-02-2021 Creatinine [Mass/Vol] 1.28 mg/dL 0.70-1.30 [facility] Work Phone: Comment on above: The validity of the calculated GFR & GFRAA in patients over 70 years has not been determined. Clinical correlation is essential. Serum or plasma low density lipoprotein (LDL) cholesterol measurement (mass/volume)on 10-02-2021 Cholesterol in LDL [Mass/Vol] 48 mg/dL 0-130 [facility] Work Phone: Serum or plasma urea nitroge n measurement (mass/volume)on 10-02-2021 Urea nitrogen [Mass/Vol] 17 mg/dL 7-18 [facility] Work Phone: Squamous epithelial cells de tection in urine sediment by light microscopyon 10-02-2021 Epithelial cells.squamous LM Ql (Urine sed) 0 SEEN /hpf 0-5 [facility] Work Phone: Thin prep Papanicolaou smear with manual screeningon 10-02-2021 Thin prep Papanicolaou smear with manual screening 37 U/L 15-37 [facility] Work Phone: Thin prep Papanicolaou smear with manual screening 6 5-15 [facility] Work Phone: Urine blood detectionon 09-16 RBC Ql (U) Negative Negative [facility] Work Phone: RBC Ql (U) 0 SEEN /hpf 0-5 [facility] Work Phone: Urine clarityon 10-02-2021 Clarity (U) Clear Clear [facility] Work Phone: Urine color determinationon 10-02-2021 Color (U) Yellow Yellow [facility] Work Phone: Urine glucose detectionon Glucose Ql (U) 1000 mg/dl Normal [facility] Work Phone: Urine leukocyte esterase det ection by dipstickon 10-02-2021 Leukocyte esterase Test strip Ql (U) Negative Negative [facility] Work Phone: [phone] Urine pHon 10-02-2021 pH (U) 6.0 [pH] 5.0 - 8.0 [facility] Work Phone: [phone] Urine sediment bacteria coun t by microscopy (number/high power field)on 10-02-2021 Bacteria LM.HPF (Urine sed) [#/Area] 0 /[HPF] None Seen [facility] Work Phone: [phone] Urine specific gravity measu rementon 10-02-2021 Specific gravity (U) [Rel density] 1.020 1.002-1.030 [facility] Work Phone: [phone] Urobilinogen Auto test strip Ql (U)on 10-02-2021 Urobilinogen Ql (U) Normal mg/dl Normal [facility] Work Phone: [phone] Whole blood hemoglobin A1c/t otal hemoglobin ratio (mass fraction)on 10-02-2021 HbA1c (Bld) [Mass fraction] 8.1 % 3.8-5.6 [facility] Work Phone: [phone] Comment on above: Normal < 5.7 % Predi abetic 5.7 - 6.4 % Diabetic >or= 6.5 % Please note range changes. Absolute lymphocyte counton 07-03-2021 Lymphocytes Auto (Unsp spec) [#/Vol] 1.40 10*3/uL 0.83-4.51 [facility] Work Phone: [phone] Basophil percentageon 2021 Basophils/100 WBC (Bld) 1.1 % 0-1 [facility] Work Phone: [phone] Bilirubin [Mass/Vol] 1.20 mg/dL 0.20-1.00 [facility] Work Phone: [phone] Comment on above: For patients on eltr ombopag therapy, use of Dimension [place] TBIL is not recommended. Chloride [Moles/Vol] 104 mmol/L 98-107 [facility] Work Phone: [phone] Cholesterol [Mass/Vol] 145 mg/dL <200 [facility] Work Phone: [phone] Comment on above: <200 mg/dL Desirable 200-240 mg/dL Borderline >240 mg/dL High Risk Eosinophils/100 WBC (Bld) 3.9 % 0-5 [facility] Work Phone: Glucose [Mass/Vol] 175 mg/dL 74-106 [facility] Work Phone: [phone] Comment on above: Fasting Glucose resu lt greater than or equal to 126 mg/dL suggests DIABETES MELLITUS per A.D.A. criteria. Neutrophils (Bld) [#/Vol] 4.1 10*3/uL 2.0-7.7 [facility] Work Phone: [phone] Neutrophils/100 WBC (Bld) 61.0 % 47-70 [facility] Work Phone: [phone] Potassium [Moles/Vol] 3.9 mmol/L 3.5-5.1 [facility] Work Phone: [phone] Comment on above: Slight Hemolysis, Re sult may be falsely increased. Protein [Mass/Vol] 7.7 g/dL 6.4-8.2 [facility] Work Phone: [phone] Sodium [Moles/Vol] 137 mmol/L 136-145 [facility] Work Phone: [phone] Triglyceride [Mass/Vol] 122 mg/dL <199 [facility] Work Phone: [phone] Comment on above: The drugs N-Acetylcy steine and Metamizole may falsely depress this assay.Serum Triglycerides Reference Interval Normal <150 mg/dL Borderline high 150 - 199 mg/dL High 200 - 499 mg/dL Very High > or = 500 mg/dL WBC (Bld) [#/Vol] 6.7 10*3/uL 4.4-11.0 [facility] Work Phone: [phone] Blood erythrocytes count (nu mber/volume)on 07-03-2021 RBC (Bld) [#/Vol] 5.00 10*6/uL 4.6-6.2 [facility] Work Phone: [phone] Blood hemoglobin measurement (mass/volume)on 07-03-2021 Hemoglobin (Bld) [Mass/Vol] 16.0 g/dL 13.0-16.5 [facility] Work Phone: Blood lymphocytes/100 leukoc yteson 07-03-2021 Lymphocytes/100 WBC (Bld) 21.1 % 19-41 [facility] Work Phone: Blood monocytes/100 leukocyt eson 07-03-2021 Monocytes/100 WBC (Bld) 12.0 % 0-10 [facility] Work Phone: Blood platelet mean volumeon 07-03-2021 Platelet mean volume (Bld) [Entitic vol] 12.2 fL 6.2-12.0 [facility] Work Phone: Determination of erythrocyte mean corpuscular volume (MCV)on 07-03-2021 MCV (RBC) [Entitic vol] 97.4 fL 80-94 [facility] Work Phone: Hematocrit Auto (Bld) [Volum e fraction]on 07-03-2021 Hematocrit (Bld) [Volume fraction] 48.7 % 40-54 [facility] Work Phone: Laboratory - Chemistry and C hemistry - challengeon 07-03-2021 ALP [Catalytic activity/Vol] 58 U/L 45-117 [facility] Work Phone: ALT [Catalytic activity/Vol] 97 U/L 16-61 [facility] Work Phone: CO2 [Moles/Vol] 32.0 mmol/L 21.0-32.0 [facility] Work Phone: Globulin (S) [Mass/Vol] 3.5 g/dL 2.2-4.2 [facility] Work Phone: Urea nitrogen/Creatinine [Mass ratio] 16.0 mg/mg 10-20 [facility] Work Phone: Laboratory - Hematology and Cell countson 07-03-2021 Erythrocyte distribution width (RBC) [Entitic vol] 46.0 fL 35.1-43.9 [facility] Work Phone: Erythrocyte distribution width (RBC) [Ratio] 12.9 % 11.6-14.6 [facility] Work Phone: Immature granulocytes/100 WBC (Bld) 0.900 % 0.0-0.9 [facility] Work Phone: [phone] Comment on above: IG% - Immature Granu locytes (promyelocytes, myelocytes and metamyelocytes) > 1% indicates that a LEFT SHIFT is Present. MCH (RBC) [Entitic mass] 32.0 pg 27.0-32.0 [facility] Work Phone: [phone] Nucleated RBC/100 WBC (Bld) [Ratio] 0 % 0-5 [facility] Work Phone: [phone] MCHC Auto (RBC) [Mass/Vol]on 07-03-2021 MCHC (RBC) [Mass/Vol] 32.9 g/dL 32-36 [facility] Work Phone: No Panel Informationon 07-03 Estimated GFR (MDRD) Amer 80 mL/min >60 [facility] Work Phone: [phone] Comment on above: GFR Calc Estimated GFR (MDRD) Non-Af Amer 66 mL/min >60 [facility] Work Phone: [phone] Comment on above: Non- GFR Calc Urine Microalbumin/Creatinine Ratio 8.7 mg/g CRE <30 [facility] Work Phone: Platelets bldon 07-03-2021 Platelets (Bld) [#/Vol] 175 10*3/uL 150-450 [facility] Work Phone: [phone] Serum or plasma albumin luis urement (mass/volume)on 07-03-2021 Albumin [Mass/Vol] 4.2 g/dL 3.2-5.0 [facility] Work Phone: [phone] Serum or plasma albumin/glob ulin mass ratioon 07-03-2021 Albumin/Globulin [Mass ratio] 1.2 {ratio} 0.9-2.4 [facility] Work Phone: [phone] Serum or plasma calcium luis urement (mass/volume)on 07-03-2021 Calcium [Mass/Vol] 9.2 mg/dL 8.5-10.1 [facility] Work Phone: Serum or plasma cholesterol in HDL measurement (mass/volume)on 07-03-2021 Cholesterol in HDL [Mass/Vol] 37 mg/dL >40 [facility] Work Phone: Comment on above: The drugs N-Acetylcy steine and Metamizole may falsely depress this assay. Reference Range HDL <40 mg/dL Low HDL Cholesterol HDL >or= 60 mg/dL High HDL Cholesterol Serum or plasma cholesterol in VLDL measurement (mass/volume)on 07-03-2021 Cholesterol in VLDL [Mass/Vol] 24 mg/dL 5-40 [facility] Work Phone: [phone] Serum or plasma creatinine m easurement (mass/volume)on 07-03-2021 Creatinine [Mass/Vol] 1.19 mg/dL 0.70-1.30 [facility] Work Phone: Comment on above: The validity of the calculated GFR & GFRAA in patients over 70 years has not been determined. Clinical correlation is essential. Serum or plasma low density lipoprotein (LDL) cholesterol measurement (mass/volume)on 07-03-2021 Cholesterol in LDL [Mass/Vol] 84 mg/dL 0-130 [facility] Work Phone: [phone] Serum or plasma urea nitroge n measurement (mass/volume)on 07-03-2021 Urea nitrogen [Mass/Vol] 19 mg/dL 7-18 [facility] Work Phone: [phone] Thin prep Papanicolaou smear with manual screeningon 07-03-2021 Thin prep Papanicolaou smear with manual screening 42 U/L 15-37 [facility] Work Phone: Comment on above: Slight Hemolysis, Re sult may be falsely increased. Thin prep Papanicolaou smear with manual screening 1 5-15 [facility] Work Phone: [phone] Thin prep Papanicolaou smear with manual screening 13.7 mg/L NO RANGE EST. [facility] Work Phone: [phone] Urine creatinine measurement (mass/volume)on 07-03-2021 Creatinine (U) [Mass/Vol] 158.00 mg/dL NO RANGE EST. [facility] Work Phone: Whole blood hemoglobin A1c/t otal hemoglobin ratio (mass fraction)on 07-03-2021 HbA1c (Bld) [Mass fraction] 6.6 % 3.8-5.6 [facility] Work Phone: Comment on above: Normal < 5.7 % Predi abetic 5.7 - 6.4 % Diabetic >or= 6.5 % Please note range changes. Absolute lymphocyte counton 04-01-2021 Lymphocytes Auto (Unsp spec) [#/Vol] 1.23 10*3/uL 0.83-4.51 [facility] Work Phone: Basophil percentageon 2020 Basophil percentage 0 SEEN /hpf [facility] Work Phone: Bilirubin [Mass/Vol] 1.20 mg/dL 0.20-1.00 [facility] Work Phone: Comment on above: For patients on eltr ombopag therapy, use of Dimension [place] TBIL is not recommended. Chloride [Moles/Vol] 108 mmol/L 98-107 [facility] Work Phone: Cholesterol [Mass/Vol] 134 mg/dL <200 [facility] Work Phone: Comment on above: <200 mg/dL Desirable 200-240 mg/dL Borderline >240 mg/dL High Risk Eosinophils/100 WBC (Bld) 2.4 % 0-5 [facility] Work Phone: Glucose [Mass/Vol] 209 mg/dL 74-106 [facility] Work Phone: Comment on above: Glucose result great er than or equal to 200 mg/dLsuggests DIABETES MELLITUS per A.D.A. criteria.Please note revised GLUCOSE reference range effective 2017. Neutrophils (Bld) [#/Vol] 4.3 10*3/uL 2.0-7.7 [facility] Work Phone: Potassium [Moles/Vol] 3.7 mmol/L 3.5-5.1 [facility] Work Phone: Protein [Mass/Vol] 7.5 g/dL 6.4-8.2 [facility] Work Phone: [phone] Sodium [Moles/Vol] 139 mmol/L 136-145 [facility] Work Phone: [phone] Triglyceride [Mass/Vol] 160 mg/dL [facility] Work Phone: [phone] Comment on above: The drugs N-Acetylcy steine and Metamizole may falsely depress this assay.Serum Triglycerides Reference Interval Normal <150 mg/dL Borderline high 150 - 199 mg/dL High 200 - 499 mg/dL Very High > or = 500 mg/dL WBC (Bld) [#/Vol] 6.4 10*3/uL 4.4-11.0 [facility] Work Phone: [phone] Bilirubin Test strip Ql (U)o n 04-01-2021 Bilirubin Ql (U) Negative Negative [facility] Work Phone: [phone] Blood erythrocytes count (nu mber/volume)on 04-01-2021 RBC (Bld) [#/Vol] 4.66 10*6/uL 4.6-6.2 [facility] Work Phone: [phone] Blood hemoglobin measurement (mass/volume)on 04-01-2021 Hemoglobin (Bld) [Mass/Vol] 15.3 g/dL 13.0-16.5 [facility] Work Phone: [phone] Blood lymphocytes/100 leukoc yteson 04-01-2021 Lymphocytes/100 WBC (Bld) 19.3 % 19-41 [facility] Work Phone: [phone] Blood monocytes/100 leukocyt eson 04-01-2021 Monocytes/100 WBC (Bld) 9.4 % 0-10 [facility] Work Phone: [phone] Blood platelet mean volumeon 04-01-2021 Platelet mean volume (Bld) [Entitic vol] 11.3 fL 6.2-12.0 [facility] Work Phone: Determination of erythrocyte mean corpuscular volume (MCV)on 04-01-2021 MCV (RBC) [Entitic vol] 94.6 fL 80-94 [facility] Work Phone: [phone] Hematocrit Auto (Bld) [Volum e fraction]on 04-01-2021 Hematocrit (Bld) [Volume fraction] 44.1 % 40-54 [facility] Work Phone: [phone] Ketones Test strip Ql (U)on 04-01-2021 Ketones Ql (U) Negative Negative [facility] Work Phone: [phone] Laboratory - Chemistry and C hemistry - challengeon 04-01-2021 ALP [Catalytic activity/Vol] 67 U/L 45-117 [facility] Work Phone: [phone] ALT [Catalytic activity/Vol] 99 U/L 16-61 [facility] Work Phone: [phone] CO2 [Moles/Vol] 26.0 mmol/L 21.0-32.0 [facility] Work Phone: [phone] Globulin (S) [Mass/Vol] 3.6 g/dL 2.2-4.2 [facility] Work Phone: [phone] Urea nitrogen/Creatinine [Mass ratio] 17.0 mg/mg 10-20 [facility] Work Phone: [phone] Laboratory - Hematology and Cell countson 04-01-2021 Basophils/100 WBC (Unsp spec) 0.6 % 0-1 [facility] Work Phone: [phone] Erythrocyte distribution width (RBC) [Entitic vol] 43.3 fL 35.1-43.9 [facility] Work Phone: [phone] Erythrocyte distribution width (RBC) [Ratio] 12.6 % 11.6-14.6 [facility] Work Phone: [phone] Immature granulocytes/100 WBC (Bld) 0.500 % 0.0-0.9 [facility] Work Phone: [phone] Comment on above: IG% - Immature Granu locytes (promyelocytes, myelocytes and metamyelocytes) > 1% indicates that a LEFT SHIFT is Present. MCH (RBC) [Entitic mass] 32.8 pg 27.0-32.0 [facility] Work Phone: [phone] Neutrophils/100 WBC (Bld) 67.8 % 47-70 [facility] Work Phone: [phone] Nucleated RBC/100 WBC (Bld) [Ratio] 0 % 0-5 [facility] Work Phone: [phone] MCHC Auto (RBC) [Mass/Vol]on 04-01-2021 MCHC (RBC) [Mass/Vol] 34.7 g/dL 32-36 [facility] Work Phone: [phone] Mucus LM Ql (Urine sed)on Mucus Ql (Urine sed) 0 SEEN /hpf [facility] Work Phone: [phone] Nitrite Test strip Ql (U)on 04-01-2021 Nitrite Ql (U) Negative Negative [facility] Work Phone: No Panel Informationon 04-01 Estimated GFR (MDRD) Amer 97 mL/min >60 [facility] Work Phone: [phone] Comment on above: GFR Calc Estimated GFR (MDRD) Non-Af Amer 80 mL/min >60 [facility] Work Phone: Comment on above: Non- GFR Calc Prostate Specific Antigen Screen 1.32 ng/mL 0.00-4.00 [facility] Work Phone: Comment on above: This test was perfor med using the TPSA assay method for the[facility] system. Values obtained with differentassay methods cannot be used interchangably.When changing PSA assays in the course of monitoring apatient, additional sequential testing should be carriedout to confirm baseline values. Thyroid Stimulating Hormone (TSH) 1.47 uIU/mL 0.358-3.74 [facility] Work Phone: Platelets bldon 04-01-2021 Platelets (Bld) [#/Vol] 166 10*3/uL 150-450 [facility] Work Phone: [phone] Protein Test strip Ql (U)on 04-01-2021 Protein Ql (U) 15 mg/dl Negative [facility] Work Phone: Serum or plasma albumin luis urement (mass/volume)on 04-01-2021 Albumin [Mass/Vol] 3.9 g/dL 3.2-5.0 [facility] Work Phone: [phone] Serum or plasma albumin/glob ulin mass ratioon 04-01-2021 Albumin/Globulin [Mass ratio] 1.1 {ratio} 0.9-2.4 [facility] Work Phone: Serum or plasma calcium luis urement (mass/volume)on 04-01-2021 Calcium [Mass/Vol] 9.4 mg/dL 8.5-10.1 [facility] Work Phone: Serum or plasma cholesterol in HDL measurement (mass/volume)on 04-01-2021 Cholesterol in HDL [Mass/Vol] 39 mg/dL [facility] Work Phone: Comment on above: The drugs N-Acetylcy steine and Metamizole may falsely depress this assay. Reference Range HDL <40 mg/dL Low HDL Cholesterol HDL >or= 60 mg/dL High HDL Cholesterol Serum or plasma cholesterol in VLDL measurement (mass/volume)on 04-01-2021 Cholesterol in VLDL [Mass/Vol] 32 mg/dL 5-40 [facility] Work Phone: Serum or plasma creatinine m easurement (mass/volume)on 04-01-2021 Creatinine [Mass/Vol] 1.00 mg/dL 0.70-1.30 [facility] Work Phone: Comment on above: The validity of the calculated GFR & GFRAA in patients over 70 years has not been determined. Clinical correlation is essential. Serum or plasma low density lipoprotein (LDL) cholesterol measurement (mass/volume)on 04-01-2021 Cholesterol in LDL [Mass/Vol] 63 mg/dL 0-130 [facility] Work Phone: Serum or plasma urea nitroge n measurement (mass/volume)on 04-01-2021 Urea nitrogen [Mass/Vol] 17 mg/dL 7-18 [facility] Work Phone: Squamous epithelial cells de tection in urine sediment by light microscopyon 04-01-2021 Epithelial cells.squamous LM Ql (Urine sed) 0 SEEN /hpf [facility] Work Phone: Thin prep Papanicolaou smear with manual screeningon 04-01-2021 Thin prep Papanicolaou smear with manual screening 58 U/L 15-37 [facility] Work Phone: Thin prep Papanicolaou smear with manual screening 5 -15 [facility] Work Phone: Urine blood detectionon 03-18 RBC Ql (U) Negative Negative [facility] Work Phone: RBC Ql (U) 0 SEEN /hpf [facility] Work Phone: Urine clarityon 04-01-2021 Clarity (U) Clear Clear [facility] Work Phone: Urine color determinationon 04-01-2021 Color (U) Yellow Yellow [facility] Work Phone: Urine glucose detectionon Glucose Ql (U) 1000 mg/dl Normal [facility] Work Phone: Urine leukocyte esterase det ection by dipstickon 04-01-2021 Leukocyte esterase Test strip Ql (U) Negative Negative [facility] Work Phone: Urine pHon 04-01-2021 pH (U) 5.0 [pH] [facility] Work Phone: Urine sediment bacteria coun t by microscopy (number/high power field)on 04-01-2021 Bacteria LM.HPF (Urine sed) [#/Area] 0 /[HPF] None Seen [facility] Work Phone: Urine specific gravity measu rementon 04-01-2021 Specific gravity (U) [Rel density] 1.025 [facility] Work Phone: Urobilinogen Auto test strip Ql (U)on 04-01-2021 Urobilinogen Ql (U) Normal mg/dl Normal [facility] Work Phone: Whole blood hemoglobin A1c/t otal hemoglobin ratio (mass fraction)on 04-01-2021 HbA1c (Bld) [Mass fraction] 7.5 % 3.8-5.6 [facility] Work Phone: Comment on above: Normal < 5.7 % Predi abetic 5.7 - 6.4 % Diabetic >or= 6.5 % Please note range changes. AMYLASEon 12-04-2016 Amylase 33 U/L Normal 25-[address] [facility] Comment on above: Performed By: #### 2 4323-8, 21994-9, 42473-1, 3040-3, 1798-8, 2324-2 ####[facility] Director - Blanca Booth [id number] CBC with DIFFERENTIALon 11-16 Basophils Auto #/vol (Bld) 0.04 10*3/uL Normal <=0.[address] [facility] Comment on above: Performed By: #### 5 7021-8 ####[facility] Director - Blanca Booth [id number] Basophils/100 WBC Auto (Bld) 0.6 % Normal <=2.[address] [facility] Comment on above: Performed By: #### 5 7021-8 ####[facility] Director - Blanca Booth [id number] Eosinophils 0.29 10*3/uL Normal <=0.[address] [facility] Comment on above: Performed By: #### 5 7021-8 ####[facility] Director - Blanca Booth [id number] Eosinophils/100 leukocytes 4.7 % Normal <=10.[address] [facility] Comment on above: Performed By: #### 5 7021-8 ####[place] [address] Director - Blancabianca QuintanillaCLIA [id number] Erythrocyte distribution width Auto Entitic volume (RBC) 44.0 fL High 35.1-43.[address] [facility] Comment on above: Performed By: #### 5 7021-8 ####[facility] Director - Blancabianca QuintanillaCLIA [id number] Erythrocytes (RBC) 5.03 10*6/uL Normal 4.00-6.[address] [facility] Comment on above: Performed By: #### 5 7021-8 ####[facility] Director - Blancabianca QuintanillaCLIA [id number] Hematocrit (HCT) 47.3 % Normal 40.0-54.[address] [facility] Comment on above: Performed By: #### 5 7021-8 ####[place] [address] Director - Blanca DwightCLIA [id number] Hemoglobin mass conc (Bld) 16.2 g/dL Normal 14.0-18.[address] [facility] Comment on above: Performed By: #### 5 7021-8 ####[facility] Director - Blancabianca TapiarellCLIA [id number] Immature granulocytes #/vol (Bld) 0.04 10*3/uL Normal <=0.[address] [facility] Comment on above: Performed By: #### 5 7021-8 ####[facility] Director - Blanca WillierellCLIA [id number] Immature granulocytes/100 WBC (Bld) 0.60 % Normal <=1.[address] [facility] Comment on above: Performed By: #### 5 7021-8 ####[facility] Director - Blancabianca QuintanillaCLIA [id number] Lymphocytes 1.67 10*3/uL Normal 1.20-3.[address] [facility] Comment on above: Performed By: #### 5 7021-8 ####[facility] Director - Blancabianca QuintanillaCLALFRED [id number] Lymphocytes/100 leukocytes 26.9 % Normal 20.0-40.[address] [facility] Comment on above: Performed By: #### 5 7021-8 ####[facility] Director - Blancabianca TapiarellCLALFRED [id number] MCH 32.2 pg High 27.0-31.[address] [facility] Comment on above: Performed By: #### 5 7021-8 ####[facility] Director - Blancabianca Booth [id number] MCHC mass conc (RBC) 34.2 g/dL Normal 32.0-36.[address] [facility] Comment on above: Performed By: #### 5 7021-8 ####[facility] Director - Blanca WillierellCLIA [id number] MCV 94.0 fL Normal 80.0-100.[address] [facility] Comment on above: Performed By: #### 5 7021-8 ####[facility] Director - Blanca WillierellCLIA [id number] Monocytes 0.86 10*3/uL High 0.10-0.[address] [facility] Comment on above: Performed By: #### 5 7021-8 ####[facility] Director - Lbanca FarrellCLIA [id number] Monocytes/100 leukocytes 13.9 % High <=8.[address] [facility] Comment on above: Performed By: #### 5 7021-8 ####[facility] Director - Blanca FarrellCLIA [id number] Neutrophils 3.30 10*3/uL Normal 1.40-6.[address] [facility] Comment on above: Performed By: #### 5 7021-8 ####[facility] Director - Blanca Booth [id number] Neutrophils/100 WBC Auto (Bld) 53.3 % Normal 50.0-70.[address] [facility] Comment on above: Performed By: #### 5 7021-8 ####[place] [address] Director - Blanca Booth [id number] Nucleated erythrocytes 0.00 10*3/uL Normal <=0.[address] [facility] Comment on above: Performed By: #### 5 7021-8 ####[place] [address] Director - Blanca Booth [id number] Platelet mean volume (PMV) 11.3 fL Normal 9.0-13.[address] [facility] Comment on above: Performed By: #### 5 7021-8 ####[facility] Director - Blanca Booth [id number] Platelets 152 10*3/uL Normal 130-[address] [facility] Comment on above: Performed By: #### 5 7021-8 ####[facility] Director - Blanca Booth [id number] WBC (Leukocytes) 6.20 10*3/uL Normal 4.80-10.[address] [facility] Comment on above: Performed By: #### 5 7021-8 ####[facility] Director - Blanca Booth [id number] CHEST AP PORTABLEon 12-05-19 17 CHEST AP PORTABLE CLINICAL HISTORY: Chest pain. Shortness breath.PORTABLE CHEST: 12/04/2016 AT 0333 HOURS.COMPARISON: None.FINDINGS: The patient is somewhat rotated, lordotic. The visualized osseousstructures are normal. There is elevated right hemidiaphragm. The heart size isnormal. The aorta has normal contour. The lungs are clear. There is nopneumothorax.IMPRESS ION: Except for elevated right hemidiaphragm, no acute cardiopulmonary disease. Normal [facility] COMPREHENSIVE METABOLIC PANE Morgan 12-04-2016 Alanine aminotransferase (ALT) 115 U/L High 16-[address] [facility] Comment on above: Performed By: #### 2 4323-8, 11287-8, 73590-5, 3040-3, 1798-8, 2324-2 ####[facility] Director - [facility] [id number] Albumin 4.3 g/dL Normal 3.4-5.[address] [facility] Comment on above: Performed By: #### 2 4323-8, 51520-0, 38373-5, 3040-3, 1798-8, 2324-2 ####[facility] Director - [facility] [id number] Alkaline phosphatase (ALP) 59 U/L Normal 50-[address] [facility] Comment on above: Performed By: #### 2 4323-8, 32403-7, 27572-7, 3040-3, 1798-8, 2324-2 ####[place] [address] Director - [facility] [id number] Anion gap 5.0 mmol/L Normal <=15.[address] [facility] Comment on above: Performed By: #### 2 4323-8, 30343-7, 34089-4, 3040-3, 1798-8, 2324-2 ####[facility], [place] [address]Uofjmzr Director - [facility] [id number] Aspartate aminotransferase (AST) 98 U/L High 15-[address] [facility] Comment on above: Result Comment: Spec imen moderately hemolyzed. Test results may be affected. Performed By: #### 2 4323-8, 31695-2, 68675-2, 3040-3, 1798-8, 2324-2 ####[facility], [place] [address]Epowxdf Director - Blanca FarrellCLIA [id number] Bilirubin (total) 1.1 mg/dL High 0.2-1.[address] [facility] Comment on above: Performed By: #### 2 4323-8, 61052-1, 96434-7, 3040-3, 8-8, 4-2 ####[facility] Director - Blanca FarrellCLIA [id number] Calcium 8.9 mg/dL Normal 8.5-10.[address] [facility] Comment on above: Performed By: #### 2 4323-8, 09732-9, 66863-2, 3040-3, 1797-8, 4-2 ####[facility], [place] [address]Yibrxtv Director - Blanca FarrellCLIA [id number] Chloride 105 mmol/L Normal 98-[address] [facility] Comment on above: Performed By: #### 2 4323-8, 42081-4, 71943-9, 3040-3, 1797-8, 4-2 ####[facility], [place] [address]Moatcri Director - Blanca FarrellCLIA [id number] CO2 31 mmol/L Normal 21-[address] [facility] Comment on above: Performed By: #### 2 4323-8, 74809-4, 32639-3, 3040-3, 1798-8, 2324-2 ####[facility], [place] [address]Eqcmzsh Director - Blanca FarrellCLIA [id number] Creatinine 1.06 mg/dL Normal 0.67-1.[address] [facility] Comment on above: Performed By: #### 2 4323-8, 65523-6, 98649-7, 3040-3, 1798-8, 2324-2 ####[facility], [place] [address]Cicytnp Director - Blanca Booth [id number] eGFR (MDRD) mL/min/{1.73_m2} Normal >=[address] [facility] Comment on above: Performed By: #### 2 4323-8, 32379-5, 34204-9, 3040-3, 1798-8, 4-2 ####[facility], [place] [address]Vtvfqdj Director - Blanca Booth [id number] eGFR (non-black) GLOMERULAR FILTRATIO N RATE INTERPRETATION~The [...] months, with or without kidney damage.~ Normal [facility] Comment on above: Performed By: #### 2 4323-8, 96693-0, 22137-6, 3040-3, 1798-8, 4-2 ####[facility], [place] [address]Yjrdcfc Director - Blanca Booth [id number] Glucose mass conc 92 mg/dL Normal 74-[address] [facility] Comment on above: Performed By: #### 2 4323-8, 26623-0, 28086-8, 3040-3, 1798-8, 2324-2 ####[facility] Director - Blanca Booth [id number] Potassium molar conc 3.9 mmol/L Normal 3.5-5.[address] [facility] Comment on above: Result Comment: Spec imen moderately hemolyzed. Test results may be affected. Performed By: #### 2 4323-8, 02451-2, 21096-9, 3040-3, 1798-8, 2324-2 ####[facility] Director - Blanca Booth [id number] Protein 7.5 g/dL Normal 6.4-8.[address] [facility] Comment on above: Performed By: #### 2 4323-8, 56012-0, 92600-5, 3040-3, 8-8, 2324-2 ####[facility] Director - Blanca Booth [id number] Sodium 141 mmol/L Normal 136-[address] [facility] Comment on above: Performed By: #### 2 4323-8, 81056-1, 81086-0, 3040-3, 1798-8, 2324-2 ####[facility] Director - Blanca Booth [id number] Urea nitrogen 16 mg/dL Normal 9-[address] [facility] Comment on above: Performed By: #### 2 4323-8, 83876-8, 59583-9, 3040-3, 1798-8, 2324-2 ####[facility] Director - Blanca Booth [id number] GGTon 12-04-2016 Gamma glutamyl transferase 129 U/L High 15-[address] [facility] Comment on above: Performed By: #### 2 4323-8, 50368-8, 20234-6, 3040-3, 1798-8, 2324-2 ####[facility], [place] [address]Ldpmexx Director - Blanca Booth [id number] LIPASEon 12-04-2016 Lipase 303 U/L Normal 73-[address] [facility] Comment on above: Performed By: #### 2 4323-8, 52729-5, 57598-5, 3040-3, 1798-8, 4-2 ####[facility] Director - Blanca Booth [id number] MAGNESIUMon 12-04-2016 Magnesium 2.3 mg/dL Normal 1.6-2.[address] [facility] Comment on above: Result Comment: Spec imen moderately hemolyzed. Test results may be affected. Performed By: #### 2 4323-8, 65763-3, 26664-4, 3040-3, 1798-8, 4-2 ####[facility] [facility] Director - Blanca Booth [id number] PT and PTTon 12-04-2016 aPTT 25.3 Sec Normal 23.5-31.[address] [facility] Comment on above: Performed By: #### 3 4529-8 ####[facility] Director - Blanca Booth [id number] INR Coag RelTime (Bld) INR REFERENCE RAN GE INTERPRETATION Patients on Coumadin 2.0 - 3.0 Patients with mechanical heart valves 2.5 - 3.[address] [facility] Comment on above: Performed By: #### 3 4529-8 ####[facility] - Blanca Booth [id number] INR Coag RelTime (PPP) 1.0 {INR} Normal 0.8-1.1 [facility] Comment on above: Performed By: #### 3 4529-8 ####[facility] Director - Blanca Booth [id number] Prothrombin time (PT) Coag time (PPP) 10.9 Secs Normal 9.3-11.[address] [facility] Comment on above: Performed By: #### 3 4529-8 ####[facility], [place] [address]Jkudccv Director - Blanca Booth [id number] TROPONIN Ion 12-04-2016 Troponin I.cardiac mass conc ng/mL Normal <=0.[address] [facility] Comment on above: Performed By: #### 2 4323-8, 25015-7, 40476-5, 3040-3, 1798-8, 2324-2 ####[facility], [place] [address]Zvoplft Director - Blanca Booth [id number] Gram stain for investigation of transfusion reaction Microscopic observation Gram stain Nom (Unsp spec) [facility] Work Phone: Vital Signs Date Time Vital Sign Value Performing Clinician Faci lity 03-14-2023 13:48-0500 Body height 185.[address] Amado Ramachandran Work Phone: [facility] 03-14-2023 13:48-0500 Body mass index (BMI) [Ratio] 29 kg/m2 Dr. Amado Ramachandran Work Phone: [facility] 03-14-2023 13:48-0500 Body weight 99.[address] Amado Ramachandran Work Phone: [facility] 03-14-2023 13:48-0500 Diastolic blood pressure 83 mm[Hg] Dr. Amado Ramachandran Work Phone: [facility] 03-14-2023 13:48-0500 Heart rate 59 /min Dr. Amado Ramachandran Work Phone: [facility] 03-14-2023 13:48-0500 Respiratory rate 16 /min Dr. Amado Ramachandran Work Phone: [facility] 03-14-2023 13:48-0500 Systolic blood pressure 123 mm[Hg] Dr. Amado Ramachandran Work Phone: [facility] 07-01-2021 13:52-0400 Body height 185.42 cm [facility] Work Phone: 07-01-2021 13:52-0400 Body weight 101.78 kg [facility] Work Phone: 06-10-2021 17:54-0500 Body weight 100.69 kg [facility] Work Phone: 06-10-2021 16:54-0500 Body weight 100.69 kg [facility] Work Phone: 05-06-2021 12:47-0500 Body weight 102.69 kg [facility] Work Phone: Encounters Encounter Date Encounter Type Care Provider Facility Start: 12-25-2024 End: 12-25-[address] Amado Ramachandran MD Work Phone: -[facility] Start: 12-25-2024 End: 12-25-[address] Amado Ramachandran MD -Laboratory [facility] Start: 12-25-2024 End: 12-25-2024 ambulatory Amado Ramachandran Facility:[facility] Start: 09-25-2024 End: 09-25-[address] Amado Ramachandran MD Work Phone: [facility] Work Phone: Start: 09-25-2024 End: 09-25-[address] Amado Ramachandran MD -Radiology [place] Work Phone: Start: 09-24-2024 End: 09-25-[address] Amado Ramachandran MD Work Phone: [facility] Work Phone: Start: 09-24-2024 End: 09-24-[address] Amado Ramachandran MD -Laboratory [facility] Start: 09-24-2024 End: 09-24-2024 ambulatory Amado Ramachandran Facility:[facility] Start: 04-20-2024 End: 04-20-2024 ambulatory Amado Ramachandran Facility:[facility] Start: 01-11-2024 End: 01-11-2024 ambulatory Amado Ramachandran Facility:[facility] Start: 05-31-2023 End: 05-31-[address] Amado Ramachandran Work Phone: [facility] Work Phone: Start: 05-31-2023 End: 05-31-[address] Amado Ramachandran Work Phone: [facility] Start: 04-07-2023 Non-patient / Non-visit Dr. Iris Ramachandran Work Phone: [facility] Start: 04-07-2023 End: 04-07-[address] Amado Ramachandran Work Phone: [facility] Work Phone: Start: 04-07-2023 End: 04-07-[address] [facility] Start: 03-14-2023 End: 03-14-[address] Amado Ramachandran Work Phone: [facility] Work Phone: Start: 03-04-2023 End: 03-04-[address] Amado Ramachandran Work Phone: [facility] Work Phone: Start: 03-04-2023 End: 03-04-[address] Amado Ramachandran Work Phone: [facility] Start: 01-25-2023 Non-patient / Non-visit Dr. Iris Ramachandran Work Phone: [facility] Start: 01-25-2023 End: 01-25-[address] Amado Ramachandran Work Phone: [facility] Work Phone: Start: 01-25-2023 End: 01-25-[address] Amado Ramach[facility] Work [facility]: Start: 01-19-2023 Non-patient / Non-visit Dr. Iris Ramachandran Work Phone: [facility] Start: 01-19-2023 End: 01-19-[address] Amado Ramach[facility]ran [facility] Work [facility]: Start: 12-29-2022 End: 12-29-2022 ambulatory [facility] Work Phone: Start: 12-29-2022 End: 12-29-2022 Patient encounter procedure [facility] Start: 12-09-2022 End: 12-09-2022 ambulatory [facility] Work Phone: Start: 12-09-2022 End: 12-09-2022 [facility] Start: 11-04-2022 End: 11-04-2022 [facility] Start: 11-03-2022 End: 11-03-2022 Patient encounter procedure [facility] Work Phone: Start: 07-06-2022 End: 07-06-[address] Amado Ramachandran Work Phone: [facility] Work Phone: Start: 07-06-2022 End: 07-06-[address] Amado Ramachandran Work Phone: [facility] Start: 06-30-2022 End: 06-30-[address] Amado Ramachandran Work Phone: [facility] Work Phone: Start: 06-30-2022 End: 06-30-[address] Amado Ramachandran Work Phone: [facility] Start: 04-26-2022 Non-patient / Non-visit Dr. Iris Ramachandran Work Phone: [facility] Start: 04-26-2022 End: 04-26-[address] Amado Ramachandran Work Phone: [facility] Work Phone: Start: 04-26-2022 End: 04-26-[address] Amado Ramachandran Work Phone: [facility]Card[facility] Start: 04-01-2022 End: 04-01-2022 ambulatory [facility] Work Phone: Start: 04-01-2022 End: 04-01-2022 Patient encounter procedure [facility] Start: 01-19-2022 Registered [facility] Start: 01-01-2022 End: 01-01-2022 ambulatory [facility] Work Phone: Start: 01-01-2022 End: 01-01-2022 Patient encounter procedure [facility] Start: 10-14-2021 End: 10-14-2021 Patient encounter procedure [facility] Family Start: 10-07-2021 End: 10-07-[address] [facility] Start: 10-02-2021 End: 10-02-2021 Patient encounter procedure [facility] Start: 09-25-2021 End: 09-25-2021 [facility] encounter [facility] Start: 07-03-2021 End: 07-03-2021 [facility] Start: 07-01-2021 End: 07-16-2021 [facility] Start: 06-10-2021 End: 06-15-2021 [facility] Start: 05-06-2021 End: 05-18-2021 [facility] Start: 04-01-2021 [facility] Start: 12-04-2016 End: 12-04-2016 Ambulatory NONE NONE Facility:[facility] Procedures Date Procedure Procedure Detail Performing Clinician Start: 12-25-2024 Urnls dip stick/tabl et reagent auto microscopy Dr. Amado Ramachandran MD Work Phone: Start: 09-25-2024 Plain X-ray of finger D [...] Date Care Activity Detail Author Patient referral [facility] Work Phone: Payers Date Payer Category Payer Private Health Insurance 101 [id number] 2024 Self-pay [id number] 2006 Unknown [id number] 1959 Unknown [id number] Unknown [id number] Unknown [id number] Unknown [facility] P[facility] PLAN [id number] Unknown [id number] Unknown [id number] Unknown [id number] Unknown [id number] Unknown [id number] Social History Date Type Detail Facility Start: 07-19-2016 End: 03-14-2023 Tobacco smoking status NHIS Unknown if ever smoked [facility] Start: 1960 Sex Assigned At Male [facility] Start: 03-14-2023 Tobacco smoking stat us NHIS Never smoked tobacco (finding) [facility] Sex Male [facility] Rad[facility] Diagnostic study note 09-25-2024 Note Date & Type Note Facility 09-25-2024 Radiology Diagnostic study note [facility] Imaging Services [address] [place] [address] Finger(s) Min 2 Views MR#: [id number] Acct: [id number] Name: CECILIA BRAXTON Jr. Rep #: [id number] : [id number] M 64 From: Germain Hoffman MD PCP: Dr. Amado Ramachandran MD Status: RE G CLI Study:Finger(s) Min 2 Views Date of Exam: 09/25/24 Exam# [id number] Ordering Dr: Amado Ramachandran MD PROCEDURE: FINGER(S) MIN 2 VIEWS 09/25/2024 REASON FOR EXAM: RIGHT SECOND DIGIT PAIN, MCP JOINT AREA TECHNIQUE: 3 view(s) of the right 2nd finger COMPARISON: None. RAD/Finger(s) Min 2 Views IMPRESSION: Minimal degenerative changes are seen in the right 2nd and 3rd metacarpophalangeal joints, without associated joint narrowing. Limited imaging of the right 3rd distal interphalangeal joint shows rniy-lh-[id number] degenerative changes. Mild degenerative changes are seen of the right 2nd proximal interphalangeal joint. Moderate degenerative changes are seen of the right 2nd distal interphalangeal joint, with significant joint narrowing and osteophyte formation, most prominent at the dorsal base of the distal phalanx. No acute fracture or dislocation is seen. Reading Location: [address] CC: Dr. Amado Ramachandran MD ~ [facility] Supervisor: Signed [facility] Procedure note 01-25-2023 Note Date & Type Note Facility 01-25-2023 Procedure note [facility] Evaluation note Note Date & Type Note Facility Evaluation note No assessment information availa ble [facility] Work Phone: Evaluation note Note Date & Type Note Facility Evaluation note Diagnosis Onset Date Chest pain acute Hypertension complicating diabetes acute Palpitations acute [facility] Work Phone: Reason for referral (narrative) Note Date & Type Note Facility Reason for referral (narrative) No reason for referral information available [facility] Work Phone: Summary Purpose Family History No Family History Records FoundNo Family History Records Found Advance Directives No Advanced Directives Records Found Advance Directive Response Recorded Date/ Time Living Will No July 19, 2016 5:00am Power of Bladder Blower No July 19 5:00am Advance Directive Response Recorded Date/ Time Living Will No July 19, 2016 4:00am Power of Bladder Blower No July 19 4:00am Chief Complaint and [...] CHEST PAIN 2 DRS/ 2 ORDERS- EORDER SCHINNER Chief Complaint E ORDER Chief Complaint E [...] section and content) DATE CREATED AUTHOR 10/12/2017 [facility] DATE CREATED AUTHOR AUTHOR'S ORGANIZ ATION 01/04/2025 [facility] Goals (unrecognized section and content) Goals may [...] September 25, 2024 End: September 25, 2024 Team Status: Active Member Role/Relationship Status Dates Dr. Amado Vyas MD Primary care physician Active Dr. Amado Ramachandran MD Primary care physician Active Team Status: Inactive Member Role/Relationship Status Dates Dr. Amado Ramachandran MD Primary care physician Active Start: September 24, 2024 End: September 24, 2024 Dr. Amado Ramachandran MD Attending physician Active Start: September 24, 2024 End: September 24, 2024 Dr. Amado Ramachandran MD Referring Provider Active Start: September 24, 2024 End: September 24, 2024 Team Status: Inactive Member Role/Relationship Status Dates Dr. Amado Ramachandran MD Primary care physician Active Start: September 25, 2024 End: September 25, 2024 Dr. Amado Ramachandran MD Attending physician Active Start: September 25, 2024 End: September 25, 2024 Dr. Amado Ramachandran MD Referring Provider Active Start: September 25, 2024 End: September 25, 2024 Team Status: Inactive Member Role/Relationship Status Dates Dr. Amado Ramachandran MD Primary care physician Active Start: December 25, 2024 End: December 25, 2024 Dr. Amado Ramachandran MD Attending physician Active Start: December 25, 2024 End: December 25, 2024 Dr. Amado Ramachandran MD Referring Provider Active Start: December 25, 2024 End: December 25, 2024 FOR RECORDS PERTAINING TO PATIENTS [...] BE BASED ON THE PRIMARY CLINICAL RECORDS. [employer] provides no warranty or guarantee of the accuracy or completeness of information in this document.
== END 2025-02-05 23:59 | disposition home or self-care (01) ==
LOC: LABSPEC 19:55
PROVIDERS: PCP Family Medicine; Visit Provider Family Medicine
DX: B83.9 Helminthiasis, unspecified (principal)
CPT/HCPCS: 83630; 87177; 87209

== ENCOUNTER → 2025-03-07 | Outpatient (CLI) | payer MEDICARE, SELFPAY ==
[2025-03-07 18:29] LABS: PSA,Total - Annual Screen 1.59 ng/mL (0.02-4.00)
== END | disposition home or self-care (01) ==
LOC: MFPLAB 15:49
PROVIDERS: PCP Family Medicine; Visit Provider Family Medicine
DX: Z12.5 Encounter for screening for malignant neoplasm of prostate (principal)
CPT/HCPCS: 36415; 84153; G0103

== ENCOUNTER → 2025-03-07 | Outpatient (CLI) | payer MEDICARE, SELFPAY ==
--- NOTE | 2025-03-07 16:12 | RAD_ITS ---
PROCEDURE: CHEST PA AND LATERAL 03/07/2025 REASON FOR EXAM: ACUTE BRONCHITIS TECHNIQUE: Procedure Code: RADCXR Modality: DX Procedure: CHEST PA AND LATERAL COMPARISON: PA and lateral chest of 04/20/2024 RAD/Chest PA and Lateral IMPRESSION: Persistent marked right hemidiaphragm elevation. No interval osseous change is seen. Lungs appear clear of acute disease. No pleural effusion or pneumothorax is evident. The cardiomediastinal silhouette is stable, without evidence of cardiomegaly. No evidence of acute cardiopulmonary disease. Reading Location: [place] [address]
== END | disposition home or self-care (01) ==
LOC: MTRAD 16:11
PROVIDERS: PCP Family Medicine; Referring Provider Family Medicine; Visit Provider Family Medicine
DX: J20.9 Acute bronchitis, unspecified (principal)
CPT/HCPCS: 71046

== ENCOUNTER → 2025-03-26 | Outpatient (CLI) | payer MEDICARE, SELFPAY ==
--- OUTSIDE RECORDS SUMMARY | 2025-03-06 07:51 | XMS RPT_ITS | CCD ---
Author Organization [facility] Team Providers Care Instrumentation And Controls Technician Name Role Phone NONE, NONE Unavailable Unavailable JAYJAY GARCIA Unavailable Unavailable JAYJAY GRACIA Unavailable Unavailable Mandi ANTOINE Unavailable Unavailable JAYJAY GARCIA Unavailable Unavailable NONE, NONE Unavailable Unavailable Dr. Amado Ramachandran Primary Care Provider 1([facility] )[phone] Dr. Amado Ramachandran Other Provider 1([facility])[phone] Yoshi Lawler Attending Provider 1([facility])-[phone] Amado Ramachandran Primary Care Provider 1([facility] )[phone] Dr. Amado Ramachandran Other Provider 1([facility])[phone] Yoshi Lawler Attending Provider 1([facility])-[phone] Amado Ramachandran Primary Care Provider 1([facility] )[phone] Dr. Amado Ramachandran Referring Provider 1([facility])[phone] Dr. Amado Ramachandran Other Provider 1([facility])[phone] Heather Ferreira Attending Provider 1([facility])[phone] Hanna Fair Attending Provider 1([facility])[phone] Dr. Amado Ramachandran Primary Care Provider 1([facility] )[phone] Dr. Amado Ramachandran Referring Provider 1([facility])[phone] Dr. Amado Ramachandran Other Provider 1([facility])[phone] Heather Ferreira Attending Provider 1([facility])[phone] Hanna Fair Attending Provider 1([facility])[phone] Yoshi Lawler Attending Provider 1([facility])-[phone] Amado Ramachandran Primary Care Provider Dr. Amado Ramachandran Referring Provider Madie GONZALEZ, Dr. Amado Longoria Primary Care Provider Madie GONZALEZ, Dr. Amado Longoria Attending Provider Dr. Amado Ramachandran MD Referring Provider [phone] Dr. Amado Ramachandran MD Primary Care Physician [...] Unavailable Amado Ramachandran Referring Unavailable Amado Ramachandran Attending Unavailable Amado Ramachandran Primary Care Unavailable Amado Ramachandran Primary Care Unavailable Amado Ramachandran Attending Unavailable Amado Ramachandran Referring Unavailable Allergies Allergy Classification Reported Allergen(s) Allergy Type Date of Onset Reaction(s) Facility (1 source) celecoxib; Translations: [Celebrex] Drug Allergy [facility] Repository (19 sources) celecoxib Drug Allergy 7 Itching [facility] Comment on above: Parasthesias (20 sources) Sulfonamides (Antibiotic); Translations: [Sulfa (Sulfonamide Antibiotics)] Propensity to adverse reactions 7 Itching [facility] (6 sources) amLODIPine Drug Allergy 3 leg edema [facility] (6 sources) Doxycycline Drug Allergy 3 parasthesia [facility] (6 sources) metFORMIN Drug Allergy 3 Rash [facility] Comment on above: and foot pain (6 sources) Propranolol Drug Allergy 3 fatigue [facility] (1 source) amLODIPine Drug Allergy 3 [facility] Repository (1 source) celecoxib Drug Allergy 3 [facility] Repository (1 source) Doxycycline Drug Allergy 3 [facility] Repository (1 source) metFORMIN Drug Allergy 3 [facility] Repository (1 source) Propranolol Drug Allergy 3 [facility] Repository Medications Current Medications Medication Drug Class(es) [...] [Chest pain] Onset: 12-04-2016 03-14-2023 Episodic Other infections; including parasitic (1 source) Helminthiasis, unspecified; Translations: [Helminthiasis, unspecified] Onset: 02-25-2025 Episodic Past or Other Problems Problem Classification [...] [Pain in right finger(s)] Onset: 10-02-2024 Episodic Results Test Name Value Interpretation Reference Range Facility [facility] 8623on OP OVA AND PARASITES EXAM, ROUTINE These results were obtained using wet preparation(s) and trichrome stained smear. This test does not include testing for Crytosporidium parvum, Cyclospora, or Microsporidia. One negative specimen does not rule out the possibility of a parasitic infection. TESTING PERFORMED AT [facility]. ORIGINAL REPORT ON FILE IN LAB CONTAINS ADDITIONAL TEST SITE INFORMATION. Ova/Parasite Exam NO OVA, CYSTS, OR PARASITES FOUND. Normal [facility] Comment on above: Performed By: #### L 100.0100, L500.4050, L500.4100 #### [facility] [address] [place], [address] L3410.9992on 02-10-2025 [facility] . [facility] Comment on above: Order Comment: Order Date: 09/25/24 Order Info: [id number] - CBCD Result Comment: Test Ordered: [id number] Stool Culture Salmonella/Shigella Screen Note: CB Final report Reference Range: . Result 1 Comment CB Reference Range: . No Salmonella or Shigella recovered. Campylobacter Culture Note: CB Final report Reference Range: . Result 1 Comment CB Reference Range: . No Campylobacter species isolated. E coli Shiga Toxin EIA Negative Reference Range: Negative Performed at: [facility] [id number] Document Photographer: Justyn Bonds PhD, Phone: [phone] Performed By: #### L 100.0100, L500.4050, L500.4100 #### [facility] [address] [place], [place], [address] Stool Lactoferrin/WBCon 10-2 WBCST Normal Reference Ran ge = Negative Fecal WBC Lactoferrin Negative: No Fecal WBC Lactoferrin present Normal [facility] Comment on above: Performed By: #### L 3410.9992, M100.0605, M600.5000 #### [facility] [address] [place], [place], [address] Absolute lymphocyte countOrd ered By: Amado Ramachandran on 12-25-2024 Lymphocytes Auto (Unsp spec) [#/Vol] 1.42 10*3/uL 0.83-4.51 [facility] Absolute neutrophil countOrd ered By: Amado Ramachandran on 12-25-2024 Neutrophils (Bld) [#/Vol] 4.2 10*3/uL 2.0-7.7 [facility] Anion gap in Serum or Plasma Ordered By: Amado Ramachandran on 12-25-2024 Anion gap [Moles/Vol] 11 mmol/L 5-15 [facility] Automated lymphocyte count a s percentage of total leukocytesOrdered By: Amado Ramachandran on 12-25-2024 Lymphocytes/100 WBC Auto (Unsp spec) 21.0 % 19-41 [facility] BUN/creatinine ratioOrdered By: Amado Ramachandran on 12-25-2024 Urea nitrogen/Creatinine [Mass ratio] 11.7 mg/mg 10- [facility] Basophil percentageOrdered B y: Amado Ramachandran on 12-25-2024 Basophils/100 WBC (Bld) 0.7 % 0-[address] [facility] Bilirubin Test strip Ql (U)O rdered By: Amado Centenocarolynn on 12-25-2024 Bilirubin Ql (U) Negative Negative [facility] Bilirubin, totalOrdered By: Amado Madie on 12-25-2024 Bilirubin [Mass/Vol] 0.62 mg/dL 0.00-1.30 [facility] CBC W/Diff, Automatedon Absolute Lymph 1.42 X10 3/uL Normal 0.83-4.51 [facility] Comment on above: Order Comment: Order Date: 09/25/24 Order Info: [id number] - CBCD Performed By: #### L 100.0100, L500.4050, L500.4100 #### [facility] [address] [place], [address] Absolute Neut 4.2 X10 3/uL Normal 2.0-7.7 [facility] Comment on above: Order Comment: Order Date: 09/25/24 Order Info: [id number] - CBCD Performed By: #### L 100.0100, L500.4050, L500.4100 #### [facility] [address] [place], [address] Basophils/100 WBC (Bld) 0.7 % Normal 0-[address] [facility] Comment on above: Order Comment: Order Date: 09/25/24 Order Info: [id number] - CBCD Performed By: #### L 100.0100, L500.4050, L500.4100 #### [facility] [address] [place], [address] Eosinophils/100 WBC (Bld) 6.6 % High 0-5 [facility] Comment on above: Order Comment: Order Date: 09/25/24 Order Info: [id number] - CBCD Performed By: #### L 100.0100, L500.4050, L500.4100 #### [facility] [address] [place], [address] Erythrocyte distribution width (RBC) [Ratio] 12.6 % Normal 11.6-14.6 [facility] Comment on above: Order Comment: Order Date: 09/25/24 Order Info: [id number] - CBCD Performed By: #### L 100.0100, L500.4050, L500.4100 #### [facility] [address] [place], [address] Hematocrit (Bld) [Volume fraction] 42.9 % Normal 40-54 [facility] Comment on above: Order Comment: Order Date: 09/25/24 Order Info: [id number]- - CBCD Performed By: #### L 100.0100, L500.4050, L500.4100 #### [facility] [address] [place], [address] Hemoglobin (Bld) [Mass/Vol] 14.7 g/dL Normal 13.0-16.5 [facility] Comment on above: Order Comment: Order Date: 09/25/24 Order Info: [id number]- - CBCD Performed By: #### L 100.0100, L500.4050, L500.4100 #### [facility] [address] [place], [address] IG% 0.400 Normal 0.0-0.9 [facility] Comment on above: Order Comment: Order Date: 09/25/24 Order Info: [id number] - CBCD Result Comment: IG% - Immature Granulocytes (promyelocytes, myelocytes and metamyelocytes) > 1% indicates that a LEFT SHIFT is Present. Performed By: #### L 100.0100, L500.4050, L500.4100 #### [facility] [address] [place], [address] Lymphocytes/100 WBC (Bld) 21.0 % Normal 19-41 [facility] Comment on above: Order Comment: Order Date: 09/25/24 Order Info: [id number] - CBCD Performed By: #### L 100.0100, L500.4050, L500.4100 #### [facility] [address] [place], [address] MCH (RBC) [Entitic mass] 31.8 pg Normal 27.0-32.0 [facility] Comment on above: Order Comment: Order Date: 09/25/24 Order Info: [id number] - CBCD Performed By: #### L 100.0100, L500.4050, L500.4100 #### [facility] [address] [place], [address] MCHC (RBC) [Mass/Vol] 34.3 g/dL Normal 32-36 [facility] Comment on above: Order Comment: Order Date: 09/25/24 Order Info: [id number] - CBCD Performed By: #### L 100.0100, L500.4050, L500.4100 #### [facility] [address] [place], [address] MCV (RBC) [Entitic vol] 92.9 fL Normal 80-[address] [facility] Comment on above: Order Comment: Order Date: 09/25/24 Order Info: [id number] - CBCD Performed By: #### L 100.0100, L500.4050, L500.4100 #### [facility] [address] [place], [address] Monocytes/100 WBC (Bld) 9.7 % Normal 0-[address] [facility] Comment on above: Order Comment: Order Date: 09/25/24 Order Info: 0184-1 - CBCD Performed By: #### L 100.0100, L500.4050, L500.4100 #### [facility] [address] [place], [address] Neutrophils/100 WBC (Bld) 61.6 % Normal 47-70 [facility] Comment on above: Order Comment: Order Date: 09/25/24 Order Info: [id number] - CBCD Performed By: #### L 100.0100, L500.4050, L500.4100 #### [facility] [address] [place], [address] Nucleated RBC (Bld) [#/Vol] 0 10*3/uL Normal 0-5 [facility] Comment on above: Order Comment: Order Date: 09/25/24 Order Info: [id number] - CBCD Performed By: #### L 100.0100, L500.4050, L500.4100 #### [facility] [address] [place], [address] Platelet mean volume (Bld) [Entitic vol] 11.4 fL Normal 6.2-12.0 [facility] Comment on above: Order Comment: Order Date: 09/25/24 Order Info: [id number] - CBCD Performed By: #### L 100.0100, L500.4050, L500.4100 #### [facility] [address] [place], [address] Platelets (Bld) [#/Vol] 194 10*3/uL Normal 150-450 [facility] Comment on above: Order Comment: Order Date: 09/25/24 Order Info: [id number] - CBCD Performed By: #### L 100.0100, L500.4050, L500.4100 #### [facility] [address] [place], [address] RBC (Bld) [#/Vol] 4.62 10*6/uL Normal 4.6-6.2 [facility] Comment on above: Order Comment: Order Date: 09/25/24 Order Info: [id number] - CBCD Performed By: #### L 100.0100, L500.4050, L500.4100 #### [facility] [address] [place], [address] RDW SD 42.9 fl Normal 35.1-43.9 [facility] Comment on above: Order Comment: Order Date: 09/25/24 Order Info: [id number] - CBCD Performed By: #### L 100.0100, L500.4050, L500.4100 #### [facility] [address] [place], [address] WBC (Bld) [#/Vol] 6.8 10*3/uL Normal 4.4-11.0 [facility] Comment on above: Order Comment: Order Date: 09/25/24 Order Info: [id number] - CBCD Performed By: #### L 100.0100, L500.4050, L500.4100 #### [facility] [address] [place], [address] Calculated very low density lipoprotein (VLDL) cholesterol measurementOrdered By: Amado Ramachandran on 12-25-2024 Calculated very low density lipoprotein (VLDL) cholesterol measurement 18 mg/dL 5-40 [facility] Carbon dioxide, total [Moles /volume] in Central venous bloodOrdered By: Amado Ramachandran on 12-25-2024 CO2 [Moles/Vol] 24.9 mmol/L 21.0-32.0 [facility] Chloride assayOrdered By: Iris Ramachandran on 12-25-2024 Chloride [Moles/Vol] 105 mmol/L 98-108 [facility] Comprehensive Metabolic Prof ilon 12-25-2024 Albumin [Mass/Vol] 4.2 g/dL Normal 3.4-4.8 [facility] Comment on above: Order Comment: Order Date: 09/25/24 Order Info: [id number] - CMP Order Info: [id number] - LIPID Performed By: #### L 100.0100, L500.4050, L500.4100 #### [facility] [address] [place], [address] Albumin/Globulin [Mass ratio] 1.7 {ratio} Normal 0.9-2.4 [facility] Comment on above: Order Comment: Order Date: 09/25/24 Order Info: [id number] - CMP Order Info: [id number] - LIPID Performed By: #### L 100.0100, L500.4050, L500.4100 #### [facility] [address] [place], [address] ALK PHOS 73 U/L Normal 40-129 [facility] Comment on above: Order Comment: Order Date: 09/25/24 Order Info: [id number] - CMP Order Info: [id number] - LIPID Performed By: #### L 100.0100, L500.4050, L500.4100 #### [facility] [address] [place], [address] ALT [Catalytic activity/Vol] 53 U/L High <=46 [facility] Comment on above: Order Comment: Order Date: 09/25/24 Order Info: [id number] - CMP Order Info: [id number] - LIPID Performed By: #### L 100.0100, L500.4050, L500.4100 #### [facility] [address] [place], [address] AST [Catalytic activity/Vol] 37 U/L Normal <=37 [facility] Comment on above: Order Comment: Order Date: 09/25/24 Order Info: [id number] - CMP Order Info: [id number] - LIPID Performed By: #### L 100.0100, L500.4050, L500.4100 #### [facility] [address] [place], [address] Bilirubin [Mass/Vol] 0.62 mg/dL Normal 0.00-1.30 [facility] Comment on above: Order Comment: Order Date: 09/25/24 Order Info: [id number] - CMP Order Info: [id number] - LIPID Performed By: #### L 100.0100, L500.4050, L500.4100 #### [facility] [address] [place], [address] BUN/CRE 11.7 RATIO Normal 10-20 [facility] Comment on above: Order Comment: Order Date: 09/25/24 Order Info: [id number] - CMP Order Info: [id number] - LIPID Performed By: #### L 100.0100, L500.4050, L500.4100 #### [facility] [address] [place], [address] Calcium [Mass/Vol] 9.5 mg/dL Normal 7.6-11.0 [facility] Comment on above: Order Comment: Order Date: 09/25/24 Order Info: [id number]- - CMP Order Info: [id number] - LIPID Performed By: #### L 100.0100, L500.4050, L500.4100 #### [facility] [address] [place], [address] Chloride [Moles/Vol] 105 mmol/L Normal 98-108 [facility] Comment on above: Order Comment: Order Date: 09/25/24 Order Info: [id number] - CMP Order Info: [id number] - LIPID Performed By: #### L 100.0100, L500.4050, L500.4100 #### [facility] [address] [place], [address] CO2 [Moles/Vol] 24.9 mmol/L Normal 21.0-32.0 [facility] Comment on above: Order Comment: Order Date: 09/25/24 Order Info: [id number] - CMP Order Info: [id number] - LIPID Performed By: #### L 100.0100, L500.4050, L500.4100 #### [facility] [address] [place], [address] Creatinine [Mass/Vol] 1.10 mg/dL Normal 0.70-1.20 [facility] Comment on above: Order Comment: Order Date: 09/25/24 Order Info: [id number] - CMP Order Info: [id number] - LIPID Performed By: #### L 100.0100, L500.4050, L500.4100 #### [facility] [address] [place], [address] GAP 11 Normal 5-15 [facility] Comment on above: Order Comment: Order Date: 09/25/24 Order Info: [id number] - CMP Order Info: [id number] - LIPID Performed By: #### L 100.0100, L500.4050, L500.4100 #### [facility] [address] [place], [address] GFR/1.73 sq M.predicted among non-blacks MDRD (S/P/Bld) [Vol rate/Area] 74 mL/min/{1.73_m2} Normal >60 [facility] Comment on above: Order Comment: Order Date: 09/25/24 Order Info: [id number]- - CMP Order Info: [id number] - LIPID Result Comment: mL/m in/1.73m2 CKD-EPI Creatinine Equation (2020) Performed By: #### L 100.0100, L500.4050, L500.4100 #### [facility] [address] [place], [address] Globulin (S) [Mass/Vol] 2.5 g/dL Normal 2.2-4.2 [facility] Comment on above: Order Comment: Order Date: 09/25/24 Order Info: [id number] - CMP Order Info: [id number] - LIPID Performed By: #### L 100.0100, L500.4050, L500.4100 #### [facility] [address] [place], [address] Glucose [Mass/Vol] 104 mg/dL High 70-99 [facility] Comment on above: Order Comment: Order Date: 09/25/24 Order Info: [id number] - CMP Order Info: [id number] - LIPID Performed By: #### L 100.0100, L500.4050, L500.4100 #### [facility] [address] [place], [address] Potassium [Moles/Vol] 3.7 mmol/L Normal 3.3-5.1 [facility] Comment on above: Order Comment: Order Date: 09/25/24 Order Info: [id number] - CMP Order Info: [id number] - LIPID Performed By: #### L 100.0100, L500.4050, L500.4100 #### [facility] [address] [place], [address] Sodium [Moles/Vol] 141 mmol/L Normal 133-145 [facility] Comment on above: Order Comment: Order Date: 09/25/24 Order Info: [id number]- - CMP Order Info: [id number] - LIPID Performed By: #### L 100.0100, L500.4050, L500.4100 #### [facility] [address] [place], [address] T PROT 6.7 g/dL Normal 5.9-8.4 [facility] Comment on above: Order Comment: Order Date: 09/25/24 Order Info: [id number]- - CMP Order Info: [id number] - LIPID Performed By: #### L 100.0100, L500.4050, L500.4100 #### [facility] [address] [place], [address] Urea nitrogen [Mass/Vol] 13 mg/dL Normal 4-19 [facility] Comment on above: Order Comment: Order Date: 09/25/24 Order Info: [id number] - CMP Order Info: [id number] - LIPID Performed By: #### L 100.0100, L500.4050, L500.4100 #### [facility] [address] [place], [address] Eosinophil percentageOrdered By: Amado Ramachandran on 12-25-2024 Eosinophils/100 WBC (Bld) 6.6 % High 0-5 [facility] Erythrocyte distribution wid th ratioOrdered By: Amado Ramachandran on 12-25-2024 Erythrocyte distribution width (RBC) [Ratio] 12.6 % 11.6-14.6 [facility] Erythrocyte distribution wid th standard deviationOrdered By: Amado Ramachandran on 12-25-2024 Erythrocyte distribution width (RBC) [Ratio] 42.9 fl 35.1-43.9 [facility] Glomerular filtration rate ( GFR) estimation/1.73 sq m using serum, plasma, or whole bOrdered By: Amado Ramachandran on 12-25-2024 GFR/1.73 sq M.predicted among non-blacks MDRD (S/P/Bld) [Vol rate/Area] 74 mL/min/{1.73_m2} >60 [facility] Comment on above: mL/min/1.73m2 CKD-EP I Creatinine Equation (2020) Hematocrit Auto (Bld) [Volum e fraction]Ordered By: Amado Ramachandran on 12-25-2024 Hematocrit (Bld) [Volume fraction] 42.9 % 40-54 [facility] Hemoglobin A1con 12-25-2024 HbA1c (Bld) [Mass fraction] 6.4 % High <=5.6 [facility] Comment on above: Order Comment: Order Date: 09/25/24 Order Info: [id number] - CBCD Result Comment: Norm al < 5.7 % Prediabetic 5.7 - 6.4 % Diabetic >or= 6.5 % Please note range changes. Performed By: #### L 100.0100, L500.4050, L500.4100 #### [facility] [address] [place], [address] Hemoglobin A1c percentageOrd ered By: Amado Ramachandran on 12-25-2024 HbA1c (Bld) [Mass fraction] 6.4 % High <5.7 [facility] Comment on above: Normal < 5.7 % Predi abetic 5.7 - 6.4 % Diabetic >or= 6.5 % Please note range changes. Hemoglobin measurementOrdere d By: Amado Ramachandran on 12-25-2024 Hemoglobin (Bld) [Mass/Vol] 14.7 g/dL 13.0-16.5 [facility] Immature granulocytes/100 WB C Auto (Bld)Ordered By: Amado Ramachandran on 12-25-2024 Immature granulocytes/100 WBC (Bld) 0.400 % 0.0-0.9 [facility] Comment on above: IG% - Immature Granu locytes (promyelocytes, myelocytes and metamyelocytes) > 1% indicates that a LEFT SHIFT is Present. Ketones Test strip Ql (U)Ord ered By: Amado Ramachandran on 12-25-2024 Ketones Ql (U) Negative Negative [facility] LDL calc ser/plasOrdered By: Amado Ramachandran on 12-25-2024 Cholesterol in LDL [Mass/Vol] 55 mg/dL [facility] Comment on above: Vkwscbgkzn=409-052 m g/dL & Higher Stkk=802 mg/dL or greaterFriedwald Equation for LDL-C Laboratory - Chemistry and C hemistry - challengeOrdered By: Amado Ramachandran on 12-25-2024 AST [Catalytic activity/Vol] 37 U/L <38 [facility] Lipid Profileon 12-25-2024 CHOL:HDL 3.05 Normal [facility] Comment on above: Order Comment: Order Date: 09/25/24 Order Info: [id number] - CMP Order Info: [id number] - LIPID Performed By: #### L 100.0100, L500.4050, L500.4100 #### [facility] [address] [place] [address]. [place], [place], [id number] Cholesterol [Mass/Vol] 108 mg/dL Normal <=200 [facility] Comment on above: Order Comment: Order Date: 09/25/24 Order Info: [id number] - CMP Order Info: [id number] - LIPID Result Comment: Chol esterol level, Desirable <200 mg/dL Borderline high cholesterol 200-239 mg/dL High cholesterol >=240 mg/dL Recommendations of the NCEP Adult Treatment Panel for the following risk-cutoff thresholds for the [place] population. Performed By: #### L 100.0100, L500.4050, L500.4100 #### [facility] [address] [place], [address] Cholesterol in HDL [Mass/Vol] 35 mg/dL Low [facility] Comment on above: Order Comment: Order Date: 09/25/24 Order Info: [id number] - CMP Order Info: [id number] - LIPID Result Comment: Mariya onal Cholesterol Education Program (NCEP) guidelines: <40 mg/dL: Low HDL-cholesterol (major risk factor for CHD) >= 60 mg/dL: High HDL-cholesterol (negative risk factor for CHD) HDL-cholesterol is affected by a number of factors, e.g. smoking, exercise, hormones, sex and age. Performed By: #### L 100.0100, L500.4050, L500.4100 #### [facility] [address] [place], [address] Cholesterol in LDL [Mass/Vol] 55 mg/dL Normal [facility] Comment on above: Order Comment: Order Date: 09/25/24 Order Info: [id number] - CMP Order Info: [id number] - LIPID Result Comment: Bord ecghte=960-706 mg/dL Higher Cnyf=948 mg/dL or greater Friedwald Equation for LDL-C Performed By: #### L 100.0100, L500.4050, L500.4100 #### [facility] [address] [place], [address] Cholesterol in VLDL [Mass/Vol] 18 mg/dL Normal 5-40 [facility] Comment on above: Order Comment: Order Date: 09/25/24 Order Info: [id number] - CMP Order Info: [id number] - LIPID Performed By: #### L 100.0100, L500.4050, L500.4100 #### [facility] [address] [place], [address] Triglyceride [Mass/Vol] 88 mg/dL Normal [facility] Comment on above: Order Comment: Order Date: 09/25/24 Order Info: [id number] - CMP Order Info: [id number] - LIPID Result Comment: The drugs N-Acetylcysteine and Metamizole may falsely depress this assay. Normal range: <150 mg/dL Borderline High: 150-199 mg/dL High: 200-499 mg/dL Very High: >500 mg/dL Performed By: #### L 100.0100, L500.4050, L500.4100 #### [facility] [address] [place], [address] MCV (mean corpuscular volume ) determinationOrdered By: Amado Ramachandran on 12-25-2024 MCV (RBC) [Entitic vol] 92.9 fL 80-[address] [facility] Mean corpuscular hemoglobin (MCH) determinationOrdered By: Amado Ramachandran on 12-25-2024 MCH (RBC) [Entitic mass] 31.8 pg 27.0-32.0 [facility] Mean corpuscular hemoglobin concentration (MCHC) determinationOrdered By: Amado Ramachandran on 12-25-2024 MCHC (RBC) [Mass/Vol] 34.3 g/dL 32-36 [facility] Mean platelet volume determi nationOrdered By: Amado Ramachandran on 12-25-2024 Platelet mean volume (Bld) [Entitic vol] 11.4 fL 6.2-12.0 [facility] Microalb:Creat Ratio,Random URon 12-25-2024 Creatinine [Mass/Vol] 336.00 mg/dL High 39.00-259.00 [facility] Comment on above: Order Comment: Order Date: 09/25/24 Order Info: [id number] - CBCD Performed By: #### L 100.0100, L500.4050, L500.4100 #### [facility] [address] [place], [place], [id number] MALB:CREAT UNABLE TO CALCULATE Normal <30 mg/g CRE [facility] Comment on above: Order Comment: Order Date: 09/25/24 Order Info: [id number] - CBCD Performed By: #### L 100.0100, L500.4050, L500.4100 #### [facility] [address] [place], [place], [id number] MICROALBUMIN,UR < 12.0 Normal <20 mg/L [facility] Comment on above: Order Comment: Order Date: 09/25/24 Order Info: [id number] - CBCD Performed By: #### L 100.0100, L500.4050, L500.4100 #### [facility] [address] [place], [place], [address] Microalbumin/creat ratio urO rdered By: Amado Ramachandran on 12-25-2024 Urine microalbumin/creatinine ratio measurement UNABLE TO CALCULATE mg/g CRE <30 [facility] Microscopic analysis of urin e for red blood cells (RBC)Ordered By: Amado Ramachandran on 12-25-2024 Microscopic analysis of urine for red blood cells (RBC) 0-5 SEEN /hpf 0-5 [facility] Monocyte percentageOrdered B y: Amado Ramachandran on 12-25-2024 Monocytes/100 WBC (Bld) 9.7 % 0-[address] [facility] Mucus LM Ql (Urine sed)Order ed By: Amado Ramachandran on 12-25-2024 Mucus Ql (Urine sed) 1+ /hpf [facility] Neutrophil percentageOrdered By: Amado Ramachandran on 12-25-2024 Neutrophils/100 WBC (Bld) 61.6 % 47-70 [facility] Nitrite Test strip Ql (U)Ord ered By: Amado Ramachandran on 12-25-2024 Nitrite Ql (U) Negative Negative [facility] Nucleated red blood cell per centageOrdered By: Amado Ramachandran on 12-25-2024 Nucleated RBC/100 WBC (Bld) [Ratio] 0 % 0-5 [facility] Platelet countOrdered By: Iris Ramachandran on 12-25-2024 Platelets (Bld) [#/Vol] 194 10*3/uL 150-450 [facility] Potassium measurement (mass/ volume)Ordered By: Amado Ramachandran on 12-25-2024 Potassium (Unsp spec) [Mass/Vol] 3.7 mmol/L 3.3-5.1 [facility] Protein Test strip Ql (U)Ord ered By: Amado Ramachandran on 12-25-2024 Protein Ql (U) 30 mg/dl High Negative [facility] RBC Auto (Bld) [#/Vol]Ordere d By: Amado Ramachandran on 12-25-2024 RBC (Bld) [#/Vol] 4.62 10*6/uL 4.6-6.2 [facility] Random urine creatinine luis urement (mass/volume)Ordered By: Amado Ramachandran on 12-25-2024 Creatinine Unsp time (U) [Mass/Vol] 336.00 mg/dL High 39.00-259.00 [facility] Screening total cholesterol/ high density lipoprotein (HDL) cholesterol ratioOrdered By: Amado Ramachandran on 12-25-2024 Cholesterol.total/Choles terol in HDL [Mass ratio] 3.05 {ratio} [facility] Serum creatinine measurement (mass/volume)Ordered By: Amado Ramachandran on 12-25-2024 Creatinine [Mass/Vol] 1.10 mg/dL 0.70-1.20 [facility] Serum globulin measurementOr dered By: Amado Ramachandran on 12-25-2024 Globulin (S) [Mass/Vol] 2.5 g/dL 2.2-4.2 [facility] Serum glucose measurement (m ass/volume)Ordered By: Amado Ramachandran on 12-25-2024 Glucose [Mass/Vol] 104 mg/dL High 70-99 [facility] Serum or plasma alanine bello otransferase (ALT) measurementOrdered By: Amado Ramachandran on 12-25-2024 ALT [Catalytic activity/Vol] 53 U/L High <47 [facility] Serum or plasma albumin luis urement (mass/volume)Ordered By: Amado Ramachandran on 12-25-2024 Albumin [Mass/Vol] 4.2 g/dL 3.4-4.8 [facility] Serum or plasma albumin/glob ulin mass ratioOrdered By: Amado Ramachandran on 12-25-2024 Albumin/Globulin [Mass ratio] 1.7 {ratio} 0.9-2.4 [facility] Serum or plasma alkaline marilu sphatase measurementOrdered By: Amado Ramachandran on 12-25-2024 ALP [Catalytic activity/Vol] 73 U/L 40-129 [facility] Serum or plasma calcium luis urement (mass/volume)Ordered By: Amado Ramachandran on 12-25-2024 Calcium [Mass/Vol] 9.5 mg/dL 7.6-11.0 [facility] Serum or plasma cholesterol in HDL measurement (mass/volume)Ordered By: Amado Ramachandran on 12-25-2024 Cholesterol in HDL [Mass/Vol] 35 mg/dL Low >40 [facility] Comment on above: National Cholesterol Education Program (NCEP) guidelines:<40 mg/dL: Low HDL-cholesterol (major risk factor for CHD)>= 60 mg/dL: High HDL-cholesterol (negative risk factor for CHD)HDL-cholesterol is affected by a number of factors, e.g. smoking, exercise, hormones, sex and age. Serum or plasma cholesterol measurement (mass/volume)Ordered By: Amado Ramachandran on 12-25-2024 Cholesterol [Mass/Vol] 108 mg/dL <201 [facility] Comment on above: Cholesterol level, D esirable <200 mg/dLBorderline high cholesterol 200-239 mg/dLHigh cholesterol >=240 mg/dLRecommendations of the NCEP Adult Treatment Panel for the following risk-cutoff thresholds for the [place] population. Serum or plasma urea nitroge n measurement (mass/volume)Ordered By: Amado Ramachandran on 12-25-2024 Urea nitrogen [Mass/Vol] 13 mg/dL 4-19 [facility] Sodium levelOrdered By: Amado Ramachandran on 12-25-2024 Sodium [Moles/Vol] 141 mmol/L 133-145 [facility] Squamous epithelial cells de tection in urine sediment by light microscopyOrdered By: Amado Ramachandran on 12-25-2024 Epithelial cells.squamous LM Ql (Urine sed) 0-5 SEEN /hpf 0-5 [facility] Total proteinOrdered By: Isidro Ramachandran on 12-25-2024 Protein [Mass/Vol] 6.7 g/dL 5.9-8.4 [facility] Triglycerides measurementOrd ered By: Amado Ramachandran on 09-09-2025 Triglyceride [Mass/Vol] 88 mg/dL <[address] [facility] Comment on above: The drugs N-Acetylcy steine and Metamizole may falsely depress this assay. Normal range: <150 mg/dLBorderline High: 150-199 mg/dLHigh: 200-499 mg/dLVery High: >500 mg/dL Urinalysis, Completeon 12-25 EPI,SQUAMOUS 0-5 SEEN Normal 0-5 [facility] Comment on above: Order Comment: Order Date: 09/25/24 Order Info: 0184-1 - CBCD Performed By: #### L 100.0100, L500.4050, L500.4100 #### [facility] [address] [place], [address] Mucus Ql (Urine sed) 1+ /hpf Normal [facility] Comment on above: Order Comment: Order Date: 09/25/24 Order Info: [id number] - CBCD Performed By: #### L 100.0100, L500.4050, L500.4100 #### [facility] [address] [place], [address] RBC 0-5 SEEN Normal 0-5 [facility] Comment on above: Order Comment: Order Date: 09/25/24 Order Info: 0184-1 - CBCD Performed By: #### L 100.0100, L500.4050, L500.4100 #### [facility] [address] [place], [address] BACTERIA 0 SEEN Normal None Seen [facility] Comment on above: Order Comment: Order Date: 09/25/24 Order Info: 0184-1 - CBCD Performed By: #### L 100.0100, L500.4050, L500.4100 #### [facility] [address] [place], [address] WBC 0 SEEN Normal 0-5 [facility] Comment on above: Order Comment: Order Date: 09/25/24 Order Info: 0184-1 - CBCD Performed By: #### L 100.0100, L500.4050, L500.4100 #### [facility] [place], [address] Urine albumin measurement [facility] detection limit of 20 mg/L or less (mass/volume)Ordered By: Amado Ramachandran on 12-25-2024 Albumin DL <= 20 mg/L (U) [Mass/Vol] < 12.0 mg/L <20 mg/L [facility] Urine clarityOrdered By: Isidro Ramachandran on 12-25-2024 Clarity (U) Clear Clear [facility] Urine color determinationOrd ered By: Amado Ramachandran on 12-25-2024 Color (U) Yellow Yellow [facility] Urine glucose detectionOrder ed By: Amado Ramachandran on 12-25-2024 Glucose Ql (U) Normal mg/dl Normal [facility] Urine leukocyte esterase det ection by dipstickOrdered By: Amado Ramachandran on 12-25-2024 Leukocyte esterase Test strip Ql (U) Negative Negative [facility] Urine pHOrdered By: Amado jarrell on 12-25-2024 pH (U) 6.0 [pH] 5.0 - 8.0 [facility] Urine sediment bacteria coun t by microscopy (number/high power field)Ordered By: Amado Ramachandran on 12-25-2024 Bacteria LM.HPF (Urine sed) [#/Area] 0 /[HPF] None Seen [facility] Urine specific gravity measu rementOrdered By: Amado Ramachandran on 12-25-2024 Specific gravity (U) [Rel density] 1.025 1.002-1.030 [facility] Urine urobilinogen measureme ntOrdered By: Amado Ramachandran on 12-25-2024 Urobilinogen Ql (U) 1 mg/dl High Normal [facility] White blood cell (WBC) count Ordered By: Amado Ramachandran on 12-25-2024 WBC (Bld) [#/Vol] 6.8 10*3/uL 4.4-11.0 [facility] White blood cell countOrdere d By: Amado Ramachandran on 12-25-2024 White blood cell count 0 SEEN /hpf 0-[address] [facility] Finger(s) Min 2 Viewson 09-16 0 Finger(s) Min 2 Views [facility] Imaging Services [address] [place], [place] [address] Finger(s) Min 2 Views MR#: [id number] Acct: [id number] Name: CECILIA BRAXTON Jr. Rep #: [id number] : 1960 M 64 From: Jayjay Zhang PCP: Dr. Amado Ramachandran MD Status: REG CLI Study: Finger(s) Min 2 Views Date of Exam: 09/25/24 Exam# [id number] Ordering Dr: Amado Ramachandran MD PROCEDURE: FINGER(S) MIN 2 VIEWS 09/25/2024 REASON FOR EXAM: RIGHT SECOND DIGIT PAIN, MCP JOINT AREA TECHNIQUE: 3 view(s) of the right 2nd finger COMPARISON: None. RAD/Finger(s) Min 2 Views IMPRESSION: Minimal degenerative changes are seen in the right 2nd and 3rd metacarpophalangeal joints, without associated joint narrowing. Limited imaging of the right 3rd distal interphalangeal joint shows [id number] degenerative changes. Mild degenerative changes are seen of the right 2nd proximal interphalangeal joint. Moderate degenerative changes are seen of the right 2nd distal interphalangeal joint, with significant joint narrowing and osteophyte formation, most prominent at the dorsal base of the distal phalanx. No acute fracture or dislocation is seen. Reading Location: [address] CC: Dr. Amado Ramachandran MD Film Sound Coordinator: Signed Normal [facility] Absolute lymphocyte countOrd ered By: Amado Ramachandran on 09-24-2024 Lymphocytes Auto (Unsp spec) [#/Vol] 1.21 10*3/uL 0.83-4.51 [facility] Absolute neutrophil countOrd ered By: Amado Ramachandran on 09-24-2024 Neutrophils (Bld) [#/Vol] 4.4 10*3/uL 2.0-7.7 [facility] Anion gap in Serum or Plasma Ordered By: Amado Ramachandran on 09-24-2024 Anion gap [Moles/Vol] 11 mmol/L 5-15 [facility] Automated lymphocyte count a s percentage of total leukocytesOrdered By: Amado Ramachandran on 09-24-2024 Lymphocytes/100 WBC Auto (Unsp spec) 18.7 % Low 19-41 [facility] BUN/creatinine ratioOrdered By: Amado Ramachandran on 09-24-2024 Urea nitrogen/Creatinine [Mass ratio] 12.3 mg/mg 10-20 [facility] Basophil percentageOrdered B y: Amado Ramachandran on 09-24-2024 Basophils/100 WBC (Bld) 1.1 % High 0-[address] [facility] Bilirubin, totalOrdered By: Amado Ramachandran on 09-24-2024 Bilirubin [Mass/Vol] 0.85 mg/dL 0.00-1.30 [facility] CBC W/Diff, Automatedon Absolute Lymph 1.21 X10 3/uL Normal 0.83-4.51 [facility] Comment on above: Order Comment: Order Date: 09/25/24 Order Info: 0184-1 - CBCD Performed By: #### L 100.0100, L500.4050, L500.4100 #### [facility] [address] [place], [address] Absolute Neut 4.4 X10 3/uL Normal 2.0-7.7 [facility] Comment on above: Order Comment: Order Date: 09/25/24 Order Info: 0184-1 - CBCD Performed By: #### L 100.0100, L500.4050, L500.4100 #### [facility] [address] [place], [address] Basophils/100 WBC (Bld) 1.1 % High 0-[address] [facility] Comment on above: Order Comment: Order Date: 09/25/24 Order Info: 0184-1 - CBCD Performed By: #### L 100.0100, L500.4050, L500.4100 #### [facility] [address] [place], [address] Eosinophils/100 WBC (Bld) 2.0 % Normal 0-5 [facility] Comment on above: Order Comment: Order Date: 09/25/24 Order Info: 0184-1 - CBCD Performed By: #### L 100.0100, L500.4050, L500.4100 #### [facility] [address] [place], [address] Erythrocyte distribution width (RBC) [Ratio] 13.6 % Normal 11.6-14.6 [facility] Comment on above: Order Comment: Order Date: 09/25/24 Order Info: 0184- - CBCD Performed By: #### L 100.0100, L500.4050, L500.4100 #### [facility] [address] [place], [address] Hematocrit (Bld) [Volume fraction] 43.8 % Normal 40-54 [facility] Comment on above: Order Comment: Order Date: 09/25/24 Order Info: 0184- - CBCD Performed By: #### L 100.0100, L500.4050, L500.4100 #### [facility] [address] [place], [address] Hemoglobin (Bld) [Mass/Vol] 15.0 g/dL Normal 13.0-16.5 [facility] Comment on above: Order Comment: Order Date: 09/25/24 Order Info: 0184- - CBCD Performed By: #### L 100.0100, L500.4050, L500.4100 #### [facility] [address] [place], [address] IG% 0.600 Normal 0.0-0.9 [facility] Comment on above: Order Comment: Order Date: 09/25/24 Order Info: 0184-1 - CBCD Result Comment: IG% - Immature Granulocytes (promyelocytes, myelocytes and metamyelocytes) > 1% indicates that a LEFT SHIFT is Present. Performed By: #### L 100.0100, L500.4050, L500.4100 #### [facility] [address] [place], [address] Lymphocytes/100 WBC (Bld) 18.7 % Low 19-41 [facility] Comment on above: Order Comment: Order Date: 09/25/24 Order Info: 0184-1 - CBCD Performed By: #### L 100.0100, L500.4050, L500.4100 #### [facility] [address] [place], [address] MCH (RBC) [Entitic mass] 31.2 pg Normal 27.0-32.0 [facility] Comment on above: Order Comment: Order Date: 09/25/24 Order Info: 0184- - CBCD Performed By: #### L 100.0100, L500.4050, L500.4100 #### [facility] [address] [place], [address] MCHC (RBC) [Mass/Vol] 34.2 g/dL Normal 32-36 [facility] Comment on above: Order Comment: Order Date: 09/25/24 Order Info: 0184- - CBCD Performed By: #### L 100.0100, L500.4050, L500.4100 #### [facility] [address] [place], [address] MCV (RBC) [Entitic vol] 91.1 fL Normal 80-94 [facility] Comment on above: Order Comment: Order Date: 09/25/24 Order Info: 0184-1 - CBCD Performed By: #### L 100.0100, L500.4050, L500.4100 #### [facility] [address] [place], [address] Monocytes/100 WBC (Bld) 9.4 % Normal 0-10 [facility] Comment on above: Order Comment: Order Date: 09/25/24 Order Info: 0184-1 - CBCD Performed By: #### L 100.0100, L500.4050, L500.4100 #### [facility] [address] [place], [address] Neutrophils/100 WBC (Bld) 68.2 % Normal 47-70 [facility] Comment on above: Order Comment: Order Date: 09/25/24 Order Info: 0184-1 - CBCD Performed By: #### L 100.0100, L500.4050, L500.4100 #### [facility] [address] [place], [address] Nucleated RBC (Bld) [#/Vol] 0 10*3/uL Normal 0-5 [facility] Comment on above: Order Comment: Order Date: 09/25/24 Order Info: 0184-1 - CBCD Performed By: #### L 100.0100, L500.4050, L500.4100 #### [facility] [address] [place], [address] Platelet mean volume (Bld) [Entitic vol] 11.6 fL Normal 6.2-12.0 [facility] Comment on above: Order Comment: Order Date: 09/25/24 Order Info: 0184-1 - CBCD Performed By: #### L 100.0100, L500.4050, L500.4100 #### [facility] [address] [place], [address] Platelets (Bld) [#/Vol] 160 10*3/uL Normal 150-450 [facility] Comment on above: Order Comment: Order Date: 09/25/24 Order Info: 0184-1 - CBCD Performed By: #### L 100.0100, L500.4050, L500.4100 #### [facility] [address] [place], [address] RBC (Bld) [#/Vol] 4.81 10*6/uL Normal 4.6-6.2 [facility] Comment on above: Order Comment: Order Date: 09/25/24 Order Info: 0184-1 - CBCD Performed By: #### L 100.0100, L500.4050, L500.4100 #### [facility] [address] [place], [address] RDW SD 45.4 fl High 35.1-43.9 [facility] Comment on above: Order Comment: Order Date: 09/25/24 Order Info: 0184-1 - CBCD Performed By: #### L 100.0100, L500.4050, L500.4100 #### [facility] [address] [place], [address] WBC (Bld) [#/Vol] 6.5 10*3/uL Normal 4.4-11.0 [facility] Comment on above: Order Comment: Order Date: 09/25/24 Order Info: 0184-1 - CBCD Performed By: #### L 100.0100, L500.4050, L500.4100 #### [facility] [address] [place], [address] Calculated very low density lipoprotein (VLDL) cholesterol measurementOrdered By: Amado Ramachandran on 09-24-2024 Calculated very low density lipoprotein (VLDL) cholesterol measurement 24 mg/dL 5-40 [facility] Carbon dioxide, total [Moles /volume] in Central venous bloodOrdered By: Amado Ramachandran on 09-24-2024 CO2 [Moles/Vol] 23.9 mmol/L 21.0-32.0 [facility] Chloride assayOrdered By: Iris Ramachandran on 09-24-2024 Chloride [Moles/Vol] 105 mmol/L 98-108 [facility] Comprehensive Metabolic Prof ilon 09-24-2024 Albumin [Mass/Vol] 4.3 g/dL Normal 3.4-4.8 [facility] Comment on above: Order Comment: Order Date: 09/25/24 Order Info: [id number] - CMP Order Info: [id number] - LIPID Performed By: #### L 100.0100, L500.4050, L500.4100 #### [facility] [address] [place], [address] Albumin/Globulin [Mass ratio] 1.6 {ratio} Normal 0.9-2.4 [facility] Comment on above: Order Comment: Order Date: 09/25/24 Order Info: [id number] - CMP Order Info: [id number] - LIPID Performed By: #### L 100.0100, L500.4050, L500.4100 #### [facility] [address] [place], [address] ALK PHOS 66 U/L Normal 40-129 [facility] [facility] Comment on above: Order Comment: Order Date: 09/25/24 Order Info: [id number] - CMP Order Info: [id number] - LIPID Performed By: #### L 100.0100, L500.4050, L500.4100 #### [facility] [address] [place], [address] ALT [Catalytic activity/Vol] 65 U/L High <=46 [facility] Comment on above: Order Comment: Order Date: 09/25/24 Order Info: [id number] - CMP Order Info: [id number] - LIPID Performed By: #### L 100.0100, L500.4050, L500.4100 #### [facility] [address] [place], [address] AST [Catalytic activity/Vol] 46 U/L High <=37 [facility] Comment on above: Order Comment: Order Date: 09/25/24 Order Info: [id number] - CMP Order Info: [id number] - LIPID Performed By: #### L 100.0100, L500.4050, L500.4100 #### [facility] [address] [place], [address] Bilirubin [Mass/Vol] 0.85 mg/dL Normal 0.00-1.30 [facility] Comment on above: Order Comment: Order Date: 09/25/24 Order Info: [id number] - CMP Order Info: [id number] - LIPID Performed By: #### L 100.0100, L500.4050, L500.4100 #### [facility] [address] [place], [address] BUN/CRE 12.3 RATIO Normal 10-20 [facility] Comment on above: Order Comment: Order Date: 09/25/24 Order Info: [id number] - CMP Order Info: [id number] - LIPID Performed By: #### L 100.0100, L500.4050, L500.4100 #### [facility] [address] [place], [address] Calcium [Mass/Vol] 9.4 mg/dL Normal 7.6-11.0 [facility] Comment on above: Order Comment: Order Date: 09/25/24 Order Info: [id number] - CMP Order Info: [id number] - LIPID Performed By: #### L 100.0100, L500.4050, L500.4100 #### [facility] [address] [place], [address] Chloride [Moles/Vol] 105 mmol/L Normal 98-108 [facility] Comment on above: Order Comment: Order Date: 09/25/24 Order Info: [id number] - CMP Order Info: [id number] - LIPID Performed By: #### L 100.0100, L500.4050, L500.4100 #### [facility] [address] [place], [address] CO2 [Moles/Vol] 23.9 mmol/L Normal 21.0-32.0 [facility] Comment on above: Order Comment: Order Date: 09/25/24 Order Info: [id number] - CMP Order Info: [id number] - LIPID Performed By: #### L 100.0100, L500.4050, L500.4100 #### [facility] [address] [place], [address] Creatinine [Mass/Vol] 1.19 mg/dL Normal 0.70-1.20 [facility] Comment on above: Order Comment: Order Date: 09/25/24 Order Info: [id number] - CMP Order Info: [id number] - LIPID Performed By: #### L 100.0100, L500.4050, L500.4100 #### [facility] [address] [place], [address] GAP 11 Normal 5-15 [facility] Comment on above: Order Comment: Order Date: 09/25/24 Order Info: 07 - CMP Order Info: [id number] - LIPID Performed By: #### L 100.0100, L500.4050, L500.4100 #### [facility] [address] [place], [address] GFR/1.73 sq M.predicted among non-blacks MDRD (S/P/Bld) [Vol rate/Area] 67 mL/min/{1.73_m2} Normal >60 [facility] Comment on above: Order Comment: Order Date: 09/25/24 Order Info: [id number] - CMP Order Info: [id number] - LIPID Result Comment: mL/m in/1.73m2 CKD-EPI Creatinine Equation (2020) Performed By: #### L 100.0100, L500.4050, L500.4100 #### [facility] [address] [place], [address] Globulin (S) [Mass/Vol] 2.7 g/dL Normal 2.2-4.[address] [facility] Comment on above: Order Comment: Order Date: 09/25/24 Order Info: [id number] - CMP Order Info: [id number] - LIPID Performed By: #### L 100.0100, L500.4050, L500.4100 #### [facility] [address] [place], [address] Glucose [Mass/Vol] 146 mg/dL High 70-99 [facility] Comment on above: Order Comment: Order Date: 09/25/24 Order Info: [id number] - CMP Order Info: [id number] - LIPID Performed By: #### L 100.0100, L500.4050, L500.4100 #### [facility] [address] [place], [address] Potassium [Moles/Vol] 4.4 mmol/L Normal 3.3-5.1 [facility] Comment on above: Order Comment: Order Date: 09/25/24 Order Info: [id number]- - CMP Order Info: [id number] - LIPID Performed By: #### L 100.0100, L500.4050, L500.4100 #### [facility] [address] [place], [address] Sodium [Moles/Vol] 140 mmol/L Normal 133-145 [facility] Comment on above: Order Comment: Order Date: 09/25/24 Order Info: [id number]- - CMP Order Info: [id number] - LIPID Performed By: #### L 100.0100, L500.4050, L500.4100 #### [facility] [address] [place], [address] T PROT 6.9 g/dL Normal 5.9-8.4 [facility] Comment on above: Order Comment: Order Date: 09/25/24 Order Info: [id number] - CMP Order Info: [id number] - LIPID Performed By: #### L 100.0100, L500.4050, L500.4100 #### [facility] [address] [place], [address] Urea nitrogen [Mass/Vol] 15 mg/dL Normal 4-19 [facility] Comment on above: Order Comment: Order Date: 09/25/24 Order Info: [id number] - CMP Order Info: [id number] - LIPID Performed By: #### L 100.0100, L500.4050, L500.4100 #### [facility] [address] [place], [place], [id number] Eosinophil percentageOrdered By: Amado Ramachandran on 09-24-2024 Eosinophils/100 WBC (Bld) 2.0 % 0-5 [facility] Erythrocyte distribution wid th ratioOrdered By: Amado Ramachandran on 09-24-2024 Erythrocyte distribution width (RBC) [Ratio] 13.6 % 11.6-14.6 [facility] Erythrocyte distribution wid th standard deviationOrdered By: Amado Ramachandran on 09-24-2024 Erythrocyte distribution width (RBC) [Ratio] 45.4 fl High 35.1-43.9 [facility] Glomerular filtration rate ( GFR) estimation/1.73 sq m using serum, plasma, or whole bOrdered By: Amado Ramachandran on 09-24-2024 GFR/1.73 sq M.predicted among non-blacks MDRD (S/P/Bld) [Vol rate/Area] 67 mL/min/{1.73_m2} >60 [facility] Comment on above: mL/min/1.73m2 CKD-EP I Creatinine Equation (2020) Hematocrit Auto (Bld) [Volum e fraction]Ordered By: Amado Ramachandran on 09-24-2024 Hematocrit (Bld) [Volume fraction] 43.8 % 40-54 [facility] Hemoglobin A1con 09-24-2024 HbA1c (Bld) [Mass fraction] 7.0 % High <=5.6 [facility] Comment on above: Order Comment: Order Date: 09/25/24 Order Info: [id number] - CBCD Result Comment: Norm al < 5.7 % Prediabetic 5.7 - 6.4 % Diabetic >or= 6.5 % Please note range changes. Performed By: #### L 100.0100, L500.4050, L500.4100 #### [facility] [address] [place], [place], [id number] Hemoglobin A1c percentageOrd ered By: Amado Ramachandran on 09-24-2024 HbA1c (Bld) [Mass fraction] 7.0 % High <5.7 [facility] Comment on above: Normal < 5.7 % Predi abetic 5.7 - 6.4 % Diabetic >or= 6.5 % Please note range changes. Hemoglobin measurementOrdere d By: Amado Ramachandran on 09-24-2024 Hemoglobin (Bld) [Mass/Vol] 15.0 g/dL 13.0-16.5 [facility] Immature granulocytes/100 WB C Auto (Bld)Ordered By: Amado Ramachandran on 09-24-2024 Immature granulocytes/100 WBC (Bld) 0.600 % 0.0-0.9 [facility] Comment on above: IG% - Immature Granu locytes (promyelocytes, myelocytes and metamyelocytes) > 1% indicates that a LEFT SHIFT is Present. LDL calc ser/plasOrdered By: Amado Ramachandran on 09-24-2024 Cholesterol in LDL [Mass/Vol] 80 mg/dL [facility] Comment on above: Tlrtdfnyha=078-277 m g/dL & Higher Jwwh=098 mg/dL or greater Laboratory - Chemistry and C hemistry - challengeOrdered By: Amado Ramachandran on 09-24-2024 AST [Catalytic activity/Vol] 46 U/L High <38 [facility] Lipid Profileon 09-24-2024 CHOL:HDL 4.13 Normal [facility] Comment on above: Order Comment: Order Date: 09/25/24 Order Info: [id number] - CMP Order Info: [id number] - LIPID Performed By: #### L 100.0100, L500.4050, L500.4100 #### [facility] [address] [place], [address] Cholesterol [Mass/Vol] 137 mg/dL Normal <=200 [facility] Comment on above: Order Comment: Order Date: 09/25/24 Order Info: [id number] - CMP Order Info: [id number] - LIPID Result Comment: Chol esterol level, Desirable <200 mg/dL Borderline high cholesterol 200-239 mg/dL High cholesterol >=240 mg/dL Recommendations of the NCEP Adult Treatment Panel for the following risk-cutoff thresholds for the [place] population. Performed By: #### L 100.0100, L500.4050, L500.4100 #### [facility] [address] [place], [address] Cholesterol in HDL [Mass/Vol] 33 mg/dL Low [facility] Comment on above: Order Comment: Order Date: 09/25/24 Order Info: [id number] - CMP Order Info: [id number] - LIPID Result Comment: Mariya onal Cholesterol Education Program (NCEP) guidelines: <40 mg/dL: Low HDL-cholesterol (major risk factor for CHD) >= 60 mg/dL: High HDL-cholesterol (negative risk factor for CHD) HDL-cholesterol is affected by a number of factors, e.g. smoking, exercise, hormones, sex and age. Performed By: #### L 100.0100, L500.4050, L500.4100 #### [facility] [address] [place], [address] Cholesterol in LDL [Mass/Vol] 80 mg/dL Normal [facility] Comment on above: Order Comment: Order Date: 09/25/24 Order Info: [id number] - CMP Order Info: [id number] - LIPID Result Comment: Bord sljwjk=537-898 mg/dL Higher Juoo=550 mg/dL or greater Performed By: #### L 100.0100, L500.4050, L500.4100 #### [facility] [address] [place], [address] Cholesterol in VLDL [Mass/Vol] 24 mg/dL Normal 5-40 [facility] Comment on above: Order Comment: Order Date: 09/25/24 Order Info: [id number] - CMP Order Info: [id number] - LIPID Performed By: #### L 100.0100, L500.4050, L500.4100 #### [facility] [address] [place], [address] Triglyceride [Mass/Vol] 118 mg/dL Normal [facility] Comment on above: Order Comment: Order Date: 09/25/24 Order Info: [id number] - CMP Order Info: [id number] - LIPID Result Comment: The drugs N-Acetylcysteine and Metamizole may falsely depress this assay. Normal range: <150 mg/dL Borderline High: 150-199 mg/dL High: 200-499 mg/dL Very High: >500 mg/dL Performed By: #### L 100.0100, L500.4050, L500.4100 #### [facility] [address] [place], [place], [id number] MCV (mean corpuscular volume ) determinationOrdered By: Amado Ramachandran on 09-24-2024 MCV (RBC) [Entitic vol] 91.1 fL 80-94 [facility] Mean corpuscular hemoglobin (MCH) determinationOrdered By: Amado Ramachandran on 09-24-2024 MCH (RBC) [Entitic mass] 31.2 pg 27.0-32.0 [facility] Mean corpuscular hemoglobin concentration (MCHC) determinationOrdered By: Amado Ramachandran on 09-24-2024 MCHC (RBC) [Mass/Vol] 34.2 g/dL 32-36 [facility] Mean platelet volume determi nationOrdered By: Amado Ramachandran on 09-24-2024 Platelet mean volume (Bld) [Entitic vol] 11.6 fL 6.2-12.0 [facility] Microalb:Creat Ratio,Random URon 09-24-2024 Creatinine [Mass/Vol] 273.00 mg/dL High 39.00-259.00 [facility] Comment on above: Order Comment: Order Date: 09/25/24 Order Info: [id number] - CBCD Performed By: #### L 100.0100, L500.4050, L500.4100 #### [facility] [address] [place], [place], [id number] MALB:CREAT UNABLE TO CALCULATE Normal [facility] Comment on above: Order Comment: Order Date: 09/25/24 Order Info: [id number] - CBCD Performed By: #### L 100.0100, L500.4050, L500.4100 #### [facility] [address] [place], [place], [address] MICROALBUMIN,UR < 12.0 Normal NO RANGE EST. [facility] Comment on above: Order Comment: Order Date: 09/25/24 Order Info: [id number] - CBCD Performed By: #### L 100.0100, L500.4050, L500.4100 #### [facility] [address] [place], [address] Microalbumin/creat ratio urO rdered By: Amado Ramachandran on 09-24-2024 Urine microalbumin/creatinine ratio measurement UNABLE TO CALCULATE mg/g CRE [facility] Monocyte percentageOrdered B y: Amado Ramachandran on 09-24-2024 Monocytes/100 WBC (Bld) 9.4 % 0-[address] [facility] Neutrophil percentageOrdered By: Amado Ramachandran on 09-24-2024 Neutrophils/100 WBC (Bld) 68.2 % 47-70 [facility] Nucleated red blood cell per centageOrdered By: Amado Ramachandran on 09-24-2024 Nucleated RBC/100 WBC (Bld) [Ratio] 0 % 0-5 [facility] Platelet countOrdered By: Iris Ramachandran on 09-24-2024 Platelets (Bld) [#/Vol] 160 10*3/uL 150-450 [facility] Potassium measurement (mass/ volume)Ordered By: Amado Ramachandran on 09-24-2024 Potassium (Unsp spec) [Mass/Vol] 4.4 mmol/L 3.3-5.1 [facility] RBC Auto (Bld) [#/Vol]Ordere d By: Amado Ramachandran on 09-24-2024 RBC (Bld) [#/Vol] 4.81 10*6/uL 4.6-6.2 [facility] Random urine creatinine luis urement (mass/volume)Ordered By: Amado Ramachandran on 09-24-2024 Creatinine Unsp time (U) [Mass/Vol] 273.00 mg/dL High 39.00-259.00 [facility] Screening total cholesterol/ high density lipoprotein (HDL) cholesterol ratioOrdered By: Amado Ramachandran on 09-24-2024 Cholesterol.total/Choles terol in HDL [Mass ratio] 4.13 {ratio} [facility] Serum creatinine measurement (mass/volume)Ordered By: Amado Ramachandran on 09-24-2024 Creatinine [Mass/Vol] 1.19 mg/dL 0.70-1.20 [facility] Serum globulin measurementOr dered By: Amado Ramachandran on 09-24-2024 Globulin (S) [Mass/Vol] 2.7 g/dL 2.2-4.[address] [facility] Serum glucose measurement (m ass/volume)Ordered By: Amado Ramachandran on 09-24-2024 Glucose [Mass/Vol] 146 mg/dL High 70-99 [facility] Serum or plasma alanine bello otransferase (ALT) measurementOrdered By: Amado Ramachandran on 09-24-2024 ALT [Catalytic activity/Vol] 65 U/L High <47 [facility] Serum or plasma albumin luis urement (mass/volume)Ordered By: Amado Ramachandran on 09-24-2024 Albumin [Mass/Vol] 4.3 g/dL 3.4-4.8 [facility] Serum or plasma albumin/glob ulin mass ratioOrdered By: Amado Ramachandran on 09-24-2024 Albumin/Globulin [Mass ratio] 1.6 {ratio} 0.9-2.4 [facility] Serum or plasma alkaline marilu sphatase measurementOrdered By: Amado Ramachandran on 09-24-2024 ALP [Catalytic activity/Vol] 66 U/L 40-129 [facility] Serum or plasma calcium luis urement (mass/volume)Ordered By: Amado Ramachandran on 09-24-2024 Calcium [Mass/Vol] 9.4 mg/dL 7.6-11.0 [facility] Serum or plasma cholesterol in HDL measurement (mass/volume)Ordered By: Amado Ramachandran on 09-24-2024 Cholesterol in HDL [Mass/Vol] 33 mg/dL Low >40 [facility] Comment on above: National Cholesterol Education Program (NCEP) guidelines:<40 mg/dL: Low HDL-cholesterol (major risk factor for CHD)>= 60 mg/dL: High HDL-cholesterol (negative risk factor for CHD)HDL-cholesterol is affected by a number of factors, e.g. smoking, exercise, hormones, sex and age. Serum or plasma cholesterol measurement (mass/volume)Ordered By: Amado Ramachandran on 09-24-2024 Cholesterol [Mass/Vol] 137 mg/dL <201 [facility] Comment on above: Cholesterol level, D esirable <200 mg/dLBorderline high cholesterol 200-239 mg/dLHigh cholesterol >=240 mg/dLRecommendations of the NCEP Adult Treatment Panel for the following risk-cutoff thresholds for the [place] population. Serum or plasma urea nitroge n measurement (mass/volume)Ordered By: Amado Ramachandran on 09-24-2024 Urea nitrogen [Mass/Vol] 15 mg/dL 4-19 [facility] Sodium levelOrdered By: Amado Ramachandran on 09-24-2024 Sodium [Moles/Vol] 140 mmol/L 133-145 [facility] Total proteinOrdered By: Isidro Ramachandran on 09-24-2024 Protein [Mass/Vol] 6.9 g/dL 5.9-8.4 [facility] Triglycerides measurementOrd ered By: Amado Ramachandran on 09-24-2024 Triglyceride [Mass/Vol] 118 mg/dL <[address] [facility] Comment on above: The drugs N-Acetylcy steine and Metamizole may falsely depress this assay. Normal range: <150 mg/dLBorderline High: 150-199 mg/dLHigh: 200-499 mg/dLVery High: >500 mg/dL Urine albumin measurement [facility] detection limit of 20 mg/L or less (mass/volume)Ordered By: Amado Ramachandran on 09-24-2024 Albumin DL <= 20 mg/L (U) [Mass/Vol] < 12.0 mg/L NO RANGE EST. [facility] Vitamin D,25 Hydroxyon 09-24 Vitamin D 25-OH 43.9 ng/mL Normal 30-100 [facility] Comment on above: Order Comment: Order Date: 05/31/24 Order Info: [id number] - CMP Order Info: [id number] - LIPID Result Comment: [place] min D Status Deficiency: <20 ng/mL (50nmol/L) Insufficiency: 20-30 ng/mL (50-75 nmol/L) Sufficiency: 30-100 ng/mL (75-250 nmol/L) Toxicity: >100 ng/mL (>250 nmol/L) Performed By: #### L 506.1001 #### [facility] [address] [place], [address] White blood cell (WBC) count Ordered By: Amado Ramachandran on 09-24-2024 WBC (Bld) [#/Vol] 6.5 10*3/uL 4.4-11.0 [facility] CBC W/Diff, Automatedon 01-0 Absolute Lymph 1.13 X10 3/uL Normal 0.83-4.51 [facility] Comment on above: Order Comment: Order Date: 01/13/24 Order Info: [id number] - CBCD Performed By: #### L 100.0100, L500.4100, L501.9985, L502.0250, L500.4050 #### [facility] [address] [place], [address] Absolute Neut 6.9 X10 3/uL Normal 2.0-7.7 [facility] Comment on above: Order Comment: Order Date: 01/13/24 Order Info: [id number] - CBCD Performed By: #### L 100.0100, L500.4100, L501.9985, L502.0250, L500.4050 #### [facility] [address] [place], [address] Basophils/100 WBC (Bld) 0.6 % Normal 0-[address] [facility] Comment on above: Order Comment: Order Date: 01/13/24 Order Info: [id number] - CBCD Performed By: #### L 100.0100, L500.4100, L501.9985, L502.0250, L500.4050 #### [facility] [address] [place], [address] Eosinophils/100 WBC (Bld) 1.7 % Normal 0-5 [facility] Comment on above: Order Comment: Order Date: 01/13/24 Order Info: [id number] - CBCD Performed By: #### L 100.0100, L500.4100, L501.9985, L502.0250, L500.4050 #### [facility] [address] [place], [address] Erythrocyte distribution width (RBC) [Ratio] 13.5 % Normal 11.6-14.6 [facility] Comment on above: Order Comment: Order Date: 01/13/24 Order Info: 0184- - CBCD Performed By: #### L 100.0100, L500.4100, L501.9985, L502.0250, L500.4050 #### [facility] [address] [place], [address] Hematocrit (Bld) [Volume fraction] 46.0 % Normal 40-54 [facility] Comment on above: Order Comment: Order Date: 01/13/24 Order Info: 0184- - CBCD Performed By: #### L 100.0100, L500.4100, L501.9985, L502.0250, L500.4050 #### [facility] [address] [place], [address] Hemoglobin (Bld) [Mass/Vol] 15.2 g/dL Normal 13.0-16.5 [facility] Comment on above: Order Comment: Order Date: 01/13/24 Order Info: 0184- - CBCD Performed By: #### L 100.0100, L500.4100, L501.9985, L502.0250, L500.4050 #### [facility] [address] [place], [address] IG% 1.000 High 0.0-0.9 [facility] Comment on above: Order Comment: Order Date: 01/13/24 Order Info: 0184-1 - CBCD Result Comment: IG% - Immature Granulocytes (promyelocytes, myelocytes and metamyelocytes) > 1% indicates that a LEFT SHIFT is Present. Performed By: #### L 100.0100, L500.4100, L501.9985, L502.0250, L500.4050 #### [facility] [address] [place], [address] Lymphocytes/100 WBC (Bld) 12.5 % Low 19-41 [facility] Comment on above: Order Comment: Order Date: 01/13/24 Order Info: 018- - CBCD Performed By: #### L 100.0100, L500.4100, L501.9985, L502.0250, L500.4050 #### [facility] [address] [place], [address] MCH (RBC) [Entitic mass] 31.6 pg Normal 27.0-32.0 [facility] Comment on above: Order Comment: Order Date: 01/13/24 Order Info: 0184- - CBCD Performed By: #### L 100.0100, L500.4100, L501.9985, L502.0250, L500.4050 #### [facility] [address] [place], [address] MCHC (RBC) [Mass/Vol] 33.0 g/dL Normal 32-36 [facility] Comment on above: Order Comment: Order Date: 01/13/24 Order Info: 0184- - CBCD Performed By: #### L 100.0100, L500.4100, L501.9985, L502.0250, L500.4050 #### [facility] [address] [place], [address] MCV (RBC) [Entitic vol] 95.6 fL High 80-[address] [facility] Comment on above: Order Comment: Order Date: 01/13/24 Order Info: 0184- - CBCD Performed By: #### L 100.0100, L500.4100, L501.9985, L502.0250, L500.4050 #### [facility] [address] [place], [address] Monocytes/100 WBC (Bld) 8.1 % Normal 0-[address] [facility] Comment on above: Order Comment: Order Date: 01/13/24 Order Info: 0184- - CBCD Performed By: #### L 100.0100, L500.4100, L501.9985, L502.0250, L500.4050 #### [facility] [address] [place], [address] Neutrophils/100 WBC (Bld) 76.1 % High 47-70 [facility] Comment on above: Order Comment: Order Date: 01/13/24 Order Info: 018- - CBCD Performed By: #### L 100.0100, L500.4100, L501.9985, L502.0250, L500.4050 #### [facility] [address] [place], [address] Nucleated RBC (Bld) [#/Vol] 0 10*3/uL Normal 0-5 [facility] Comment on above: Order Comment: Order Date: 01/13/24 Order Info: 0184- - CBCD Performed By: #### L 100.0100, L500.4100, L501.9985, L502.0250, L500.4050 #### [facility] [address] [place], [address] Platelet mean volume (Bld) [Entitic vol] 10.5 fL Normal 6.2-12.0 [facility] Comment on above: Order Comment: Order Date: 01/13/24 Order Info: [id number] - CBCD Performed By: #### L 100.0100, L500.4100, L501.9985, L502.0250, L500.4050 #### [facility] [address] [place], [address] Platelets (Bld) [#/Vol] 194 10*3/uL Normal 150-450 [facility] Comment on above: Order Comment: Order Date: 01/13/24 Order Info: [id number]- - CBCD Performed By: #### L 100.0100, L500.4100, L501.9985, L502.0250, L500.4050 #### [facility] [address] [place], [address] RBC (Bld) [#/Vol] 4.81 10*6/uL Normal 4.6-6.2 [facility] Comment on above: Order Comment: Order Date: 01/13/24 Order Info: [id number]- - CBCD Performed By: #### L 100.0100, L500.4100, L501.9985, L502.0250, L500.4050 #### [facility] [address] [place], [address] RDW SD 47.4 fl High 35.1-43.9 [facility] Comment on above: Order Comment: Order Date: 01/13/24 Order Info: [id number]- - CBCD Performed By: #### L 100.0100, L500.4100, L501.9985, L502.0250, L500.4050 #### [facility] [address] [place], [address] WBC (Bld) [#/Vol] 9.1 10*3/uL Normal 4.4-11.0 [facility] Comment on above: Order Comment: Order Date: 01/13/24 Order Info: [id number]- - CBCD Performed By: #### L 100.0100, L500.4100, L501.9985, L502.0250, L500.4050 #### [facility] [address] [place], [address] Chest PA and Lateralon 01-03 -2025 Chest PA and Lateral [facility] Imaging Services [address] [place], [place] [address] Chest PA and Lateral MR#: [id number] Acct: [id number] Name: CECILIA BRAXTON Jr. Rep #: [id number] : 1960 M 63 From: Jose Antonio Rock MD PCP: Dr. Amado Ramachandran MD Status: REG CLI Study: Chest PA and Lateral Date of Exam: 04/20/24 Exam# [id number] Ordering Dr: Amado Ramachandran MD [id number] STUDY: X-RAY CHEST REASON FOR EXAM: Male, [...] EST , CC: Dr. Amado Ramachandran MD Film Sound Coordinator: Signed Normal [facility] Comprehensive Metabolic Prof ilon 04-20-2024 Albumin [Mass/Vol] 3.7 g/dL Normal 3.2-5.0 [facility] Comment on above: Order Comment: Order Date: 01/13/24 Order Info: [id number] - CMP Order Info: [id number] - LIPID Performed By: #### L 100.0100, L500.4100, L501.9985, L502.0250, L500.4050 #### [facility] [address] [place], [address] Albumin/Globulin [Mass ratio] 1.1 {ratio} Normal 0.9-2.4 [facility] Comment on above: Order Comment: Order Date: 01/13/24 Order Info: [id number] - CMP Order Info: [id number] - LIPID Performed By: #### L 100.0100, L500.4100, L501.9985, L502.0250, L500.4050 #### [facility] [address] [place], [address] ALK P 54 U/L Normal 45-117 [facility] Comment on above: Order Comment: Order Date: 01/13/24 Order Info: [id number] - CMP Order Info: [id number] - LIPID Performed By: #### L 100.0100, L500.4100, L501.9985, L502.0250, L500.4050 #### [facility] [address] [place], [address] ALT [Catalytic activity/Vol] 47 U/L Normal 16-61 [facility] Comment on above: Order Comment: Order Date: 01/13/24 Order Info: [id number] - CMP Order Info: [id number] - LIPID Performed By: #### L 100.0100, L500.4100, L501.9985, L502.0250, L500.4050 #### [facility] [address] [place], [address] AST [Catalytic activity/Vol] 21 U/L Normal 15-37 [facility] Comment on above: Order Comment: Order Date: 01/13/24 Order Info: [id number] - CMP Order Info: [id number] - LIPID Performed By: #### L 100.0100, L500.4100, L501.9985, L502.0250, L500.4050 #### [facility] [address] [place], [address] Bilirubin [Mass/Vol] 1.00 mg/dL Normal 0.20-1.00 [facility] Comment on above: Order Comment: Order Date: 01/13/24 Order Info: [id number] - CMP Order Info: [id number] - LIPID Result Comment: For patients on eltrombopag therapy, use of Dimension [place] TBIL is not recommended. Performed By: #### L 100.0100, L500.4100, L501.9985, L502.0250, L500.4050 #### [facility] [address] [place], [address] BUN/CRE 9.2 RATIO Low 10-20 [facility] Comment on above: Order Comment: Order Date: 01/13/24 Order Info: [id number] - CMP Order Info: [id number] - LIPID Performed By: #### L 100.0100, L500.4100, L501.9985, L502.0250, L500.4050 #### [facility] [address] [place], [address] CA,Total 9.2 mg/dL Normal 8.5-10.1 [facility] Comment on above: Order Comment: Order Date: 01/13/24 Order Info: [id number] - CMP Order Info: [id number] - LIPID Performed By: #### L 100.0100, L500.4100, L501.9985, L502.0250, L500.4050 #### [facility] [address] [place], [address] Chloride [Moles/Vol] 103 mmol/L Normal 98-107 [facility] Comment on above: Order Comment: Order Date: 01/13/24 Order Info: [id number] - CMP Order Info: [id number] - LIPID Performed By: #### L 100.0100, L500.4100, L501.9985, L502.0250, L500.4050 #### [facility] [address] [place], [address] CO2 [Moles/Vol] 30.0 mmol/L Normal 21.0-32.0 [facility] Comment on above: Order Comment: Order Date: 01/13/24 Order Info: [id number]- - CMP Order Info: [id number] - LIPID Performed By: #### L 100.0100, L500.4100, L501.9985, L502.0250, L500.4050 #### [facility] [address] [place], [address] Creatinine [Mass/Vol] 1.09 mg/dL Normal 0.70-1.30 [facility] Comment on above: Order Comment: Order Date: 01/13/24 Order Info: [id number] - CMP Order Info: [id number] - LIPID Result Comment: The validity of the calculated GFR GFRAA in patients over 70 years has not been determined. Clinical correlation is essential. Performed By: #### L 100.0100, L500.4100, L501.9985, L502.0250, L500.4050 #### [facility] [address] [place], [address] EST GFR - AA 87 mL/min Normal >60 [facility] Comment on above: Order Comment: Order Date: 01/13/24 Order Info: [id number]- - CMP Order Info: [id number] - LIPID Result Comment: Afri can [place] GFR Calc Performed By: #### L 100.0100, L500.4100, L501.9985, L502.0250, L500.4050 #### [facility] [address] [place], [address] GAP 5 Normal 5-15 [facility] Comment on above: Order Comment: Order Date: 01/13/24 Order Info: [id number] - CMP Order Info: [id number] - LIPID Performed By: #### L 100.0100, L500.4100, L501.9985, L502.0250, L500.4050 #### [facility] [address] [place], [address] GFR/1.73 sq M.predicted among non-blacks MDRD (S/P/Bld) [Vol rate/Area] 72 mL/min/{1.73_m2} Normal >60 [facility] Comment on above: Order Comment: Order Date: 01/13/24 Order Info: [id number] - CMP Order Info: [id number] - LIPID Result Comment: Non- GFR Calc Performed By: #### L 100.0100, L500.4100, L501.9985, L502.0250, L500.4050 #### [facility] [address] [place], [place], [id number] Globulin (S) [Mass/Vol] 3.4 g/dL Normal 2.2-4.[address] [facility] Comment on above: Order Comment: Order Date: 01/13/24 Order Info: [id number] - [facility] Order Info: [id number] - LIPID Performed By: #### L 100.0100, L500.4100, L501.9985, L502.0250, L500.4050 #### [facility] [address] [place], [address] Glucose [Mass/Vol] 202 mg/dL High 74-106 [facility] Comment on above: Order Comment: Order Date: 01/13/24 Order Info: [id number]- - CMP Order Info: [id number] - LIPID Result Comment: Gluc ose result greater than or equal to 200 mg/dL suggests DIABETES MELLITUS per A.D.A. criteria. Performed By: #### L 100.0100, L500.4100, L501.9985, L502.0250, L500.4050 #### [facility] [address] [place], [address] Potassium [Moles/Vol] 3.7 mmol/L Normal 3.5-5.1 [facility] Comment on above: Order Comment: Order Date: 01/13/24 Order Info: [id number]- - CMP Order Info: [id number] - LIPID Performed By: #### L 100.0100, L500.4100, L501.9985, L502.0250, L500.4050 #### [facility] [address] [place], [address] Sodium [Moles/Vol] 137 mmol/L Normal 136-145 [facility] Comment on above: Order Comment: Order Date: 01/13/24 Order Info: [id number] - CMP Order Info: [id number] - LIPID Performed By: #### L 100.0100, L500.4100, L501.9985, L502.0250, L500.4050 #### [facility] [address] [place], [address] T PROT 7.1 g/dL Normal 6.4-8.2 [facility] Comment on above: Order Comment: Order Date: 01/13/24 Order Info: [id number]- - CMP Order Info: [id number] - LIPID Performed By: #### L 100.0100, L500.4100, L501.9985, L502.0250, L500.4050 #### [facility] [address] [place], [address] Urea nitrogen [Mass/Vol] 10 mg/dL Normal 7-18 [facility] Comment on above: Order Comment: Order Date: 01/13/24 Order Info: [id number]- - CMP Order Info: [id number] - LIPID Performed By: #### L 100.0100, L500.4100, L501.9985, L502.0250, L500.4050 #### [facility] [address] [place], [address] Hemoglobin A1con 04-20-2024 HbA1c (Bld) [Mass fraction] 6.3 % High 3.8-5.6 [facility] Comment on above: Order Comment: Order Date: 01/13/24 Order Info: [id number] - A1C Result Comment: Norm al < 5.7 % Prediabetic 5.7 - 6.4 % Diabetic >or= 6.5 % Please note range changes. Performed By: #### L 100.0100, L500.4100, L501.9985, L502.0250, L500.4050 #### [facility] [address] [place], [address] Lipid Profileon 04-20-2024 Cholesterol [Mass/Vol] 137 mg/dL Normal 200 [facility] Comment on above: Order Comment: Order Date: 01/13/24 Order Info: [id number] - CMP Order Info: [id number] - LIPID Result Comment: <200 mg/dL Desirable 200-240 mg/dL Borderline >240 mg/dL High Risk Performed By: #### L 100.0100, L500.4100, L501.9985, L502.0250, L500.4050 #### [facility] [address] [place], [address] Cholesterol in HDL [Mass/Vol] 41 mg/dL Normal [facility] Comment on above: Order Comment: Order Date: 01/13/24 Order Info: [id number] - CMP Order Info: [id number] - LIPID Result Comment: The drugs N-Acetylcysteine and Metamizole may falsely depress this assay. Reference Range HDL <40 mg/dL Low HDL Cholesterol HDL >or= 60 mg/dL High HDL Cholesterol Performed By: #### L 100.0100, L500.4100, L501.9985, L502.0250, L500.4050 #### [facility] [address] [place], [address] Cholesterol in LDL [Mass/Vol] 77 mg/dL Normal 0-130 [facility] Comment on above: Order Comment: Order Date: 01/13/24 Order Info: [id number] - CMP Order Info: [id number] - LIPID Performed By: #### L 100.0100, L500.4100, L501.9985, L502.0250, L500.4050 #### [facility] [address] [place], [address] Cholesterol in VLDL [Mass/Vol] 19 mg/dL Normal 5-40 [facility] Comment on above: Order Comment: Order Date: 01/13/24 Order Info: [id number] - CMP Order Info: [id number] - LIPID Performed By: #### L 100.0100, L500.4100, L501.9985, L502.0250, L500.4050 #### [facility] [address] [place], [address] Triglyceride [Mass/Vol] 95 mg/dL Normal [facility] Comment on above: Order Comment: Order Date: 01/13/24 Order Info: [id number] - CMP Order Info: [id number] - LIPID Result Comment: The drugs N-Acetylcysteine and Metamizole may falsely depress this assay. Serum Triglycerides Reference Interval Normal <150 mg/dL Borderline high 150 - 199 mg/dL High 200 - 499 mg/dL Very High > or = 500 mg/dL Performed By: #### L 100.0100, L500.4100, L501.9985, L502.0250, L500.4050 #### [facility] [address] [place], [address] Microalb:Creat Ratio,Random URon 04-20-2024 Creatinine [Mass/Vol] 261.00 mg/dL Normal NO RAN GE EST. [facility] Comment on above: Order Comment: Order Date: 01/13/24 Order Info: [id number] - MIACRE Performed By: #### L 100.0100, L500.4100, L501.9985, L502.0250, L500.4050 #### [facility] [address] [place], [place], [address] MALB:CRE 13.0 mg/g CRE Normal <30 mg/g CRE [facility] Comment on above: Order Comment: Order Date: 01/13/24 Order Info: [id number] - MIACRE Performed By: #### L 100.0100, L500.4100, L501.9985, L502.0250, L500.4050 #### [facility] [address] [place], [address] MICROALBUMIN,UR 33.8 mg/L Normal NO RANGE EST. [facility] Comment on above: Order Comment: Order Date: 01/13/24 Order Info: [id number] - MIACRE Performed By: #### L 100.0100, L500.4100, L501.9985, L502.0250, L500.4050 #### [facility] [address] [facility] [address] [place], [place], [address] Absolute lymphocyte countOrd ered By: Amado Ramachandran on 05-31-2023 Lymphocytes Auto (Unsp spec) [#/Vol] 1.12 10*3/uL 0.83-4.51 [facility] Automated lymphocyte count a s percentage of total leukocytesOrdered By: Amado Ramachandran on 05-31-2023 Lymphocytes/100 WBC Auto (Unsp spec) 19.0 % 19-41 [facility] Basophil percentageOrdered B y: Amado Ramachandran on 05-31-2023 Basophil percentage 2.4 mg/dL 2.5-4.9 [facility] Basophils/100 WBC (Bld) 1.0 % 0-[address] [facility] Bilirubin [Mass/Vol] 1.10 mg/dL 0.20-1.00 [facility] Comment on above: For patients on eltr ombopag therapy, use of Dimension [place] TBIL is not recommended. Chloride [Moles/Vol] 111 mmol/L 98-107 [facility] Cholesterol [Mass/Vol] 153 mg/dL <200 [facility] Comment on above: <200 mg/dL Desirable 200-240 mg/dL Borderline >240 mg/dL High Risk Eosinophils/100 WBC (Bld) 3.2 % 0-5 [facility] Glucose [Mass/Vol] 110 mg/dL 74-106 [facility] Comment on above: Fasting Glucose resu lt from 100 to 125 mg/dL suggests IMPAIRED HOMEOSTASIS per A.D.A. criteria. Hemoglobin (Bld) [Mass/Vol] 15.0 g/dL 13.0-16.5 [facility] Monocytes/100 WBC (Bld) 11.7 % 0-[address] [facility] Neutrophils (Bld) [#/Vol] 3.8 10*3/uL 2.0-7.7 [facility] Neutrophils/100 WBC (Bld) 64.1 % 47-70 [facility] Potassium [Moles/Vol] 3.8 mmol/L 3.5-5.1 [facility] Protein [Mass/Vol] 6.6 g/dL 6.4-8.2 [facility] Sodium [Moles/Vol] 143 mmol/L 136-145 [facility] Triglyceride [Mass/Vol] 89 mg/dL <199 [facility] Comment on above: The drugs N-Acetylcy steine and Metamizole may falsely depress this assay.Serum Triglycerides Reference Interval Normal <150 mg/dL Borderline high 150 - 199 mg/dL High 200 - 499 mg/dL Very High > or = 500 mg/dL WBC (Bld) [#/Vol] 5.9 10*3/uL 4.4-11.0 [facility] Determination of erythrocyte mean corpuscular volume (MCV)Ordered By: Amado Ramachandran on 05-31-2023 MCV (RBC) [Entitic vol] 99.0 fL 80-94 [facility] Erythrocyte distribution wid th ratioOrdered By: Amado Ramachandran on 05-31-2023 Erythrocyte distribution width (RBC) [Ratio] 13.6 % 11.6-14.6 [facility] Erythrocyte distribution wid th standard deviationOrdered By: Amado Ramachandran on 05-31-2023 Erythrocyte distribution width (RBC) [Entitic vol] 50.4 fL 35.1-43.9 [facility] Hematocrit Auto (Bld) [Volum e fraction]Ordered By: Amado Ramachandran on 05-31-2023 Hematocrit (Bld) [Volume fraction] 47.5 % 40-54 [facility] Immature granulocytes/100 WB C Auto (Bld)Ordered By: Amado Ramachandran on 05-31-2023 Immature granulocytes/100 WBC (Bld) 1.000 % 0.0-0.9 [facility] Comment on above: IG% - Immature Granu locytes (promyelocytes, myelocytes and metamyelocytes) > 1% indicates that a LEFT SHIFT is Present. Laboratory - Chemistry and C hemistry - challengeOrdered By: Amado Ramachandran on 05-31-2023 Albumin/Globulin [Mass ratio] 1.2 {ratio} 0.9-2.4 [facility] ALP [Catalytic activity/Vol] 50 U/L 45-117 [facility] ALT [Catalytic activity/Vol] 92 U/L 16-61 [facility] Cholesterol in HDL [Mass/Vol] 26 mg/dL >40 [facility] Comment on above: The drugs N-Acetylcy steine and Metamizole may falsely depress this assay. Reference Range HDL <40 mg/dL Low HDL Cholesterol HDL >or= 60 mg/dL High HDL Cholesterol Cholesterol in LDL [Mass/Vol] 109 mg/dL 0-130 [facility] CO2 [Moles/Vol] 27.0 mmol/L 21.0-32.0 [facility] Globulin (S) [Mass/Vol] 3.0 g/dL 2.2-4.2 [facility] Urea nitrogen/Creatinine [Mass ratio] 8.3 mg/mg 10-20 [facility] Laboratory - Hematology and Cell countsOrdered By: Amado Ramachandran on 05-31-2023 MCH (RBC) [Entitic mass] 31.3 pg 27.0-32.0 [facility] MCHC (RBC) [Mass/Vol] 31.6 g/dL 32-36 [facility] Nucleated RBC/100 WBC (Bld) [Ratio] 0 % 0-5 [facility] Platelet mean volume (Bld) [Entitic vol] 11.1 fL 6.2-12.0 [facility] Platelets (Bld) [#/Vol] 173 10*3/uL 150-450 [facility] No Panel InformationOrdered By: Amado Ramachandran on 05-31-2023 Estimated GFR (MDRD) Amer 87 mL/min >60 [facility] Comment on above: GFR Calc Estimated GFR (MDRD) Non-Af Amer 72 mL/min >60 [facility] Comment on above: Non- GFR Calc Vitamin D 25-Hydroxy 55.8 ng/mL [facility] Comment on above: Vitamin D 25(OH) Sta tus Range Deficiency <20 ng/mL (50nmol/L) Insufficiency 20 - 30 ng/mL (50 - 75 nmol/L) Sufficiency 30 - 100 ng/mL (75 - 250 nmol/L) Toxicity >100 ng/mL (>250 nmol/L) VLDL Cholesterol 18 mg/dL 5-40 [facility] RBC Auto (Bld) [#/Vol]Ordere d By: Amado Ramachandran on 05-31-2023 RBC (Bld) [#/Vol] 4.80 10*6/uL 4.6-6.2 [facility] Serum or plasma calcium luis urement (mass/volume)Ordered By: Amado Ramachandran on 05-31-2023 Calcium [Mass/Vol] 8.7 mg/dL 8.5-10.1 [facility] Serum or plasma creatinine m easurement (mass/volume)Ordered By: Amado Ramachandran on 05-31-2023 Creatinine [Mass/Vol] 1.09 mg/dL 0.70-1.30 [facility] Comment on above: The validity of the calculated GFR & GFRAA in patients over 70 years has not been determined. Clinical correlation is essential. Serum or plasma urea nitroge n measurement (mass/volume)Ordered By: Amado Ramachandran on 05-31-2023 Urea nitrogen [Mass/Vol] 9 mg/dL 7-18 [facility] Thin prep Papanicolaou smear with manual screeningOrdered By: Amado Ramachandran on 05-31-2023 Protein (U) [Mass/Vol] 27.7 mg/dL 0.0-11.8 [facility] Thin prep Papanicolaou smear with manual screening 3.6 g/dL 3.2-5.0 [facility] Thin prep Papanicolaou smear with manual screening 48 U/L 15-37 [facility] Thin prep Papanicolaou smear with manual screening 5 5-15 [facility] Urine creatinine measurement (mass/volume)Ordered By: Amado Ramachandran on 05-31-2023 Creatinine (U) [Mass/Vol] 310.00 mg/dL NO RANGE EST. [facility] Urine protein/creatinine mas s ratioOrdered By: Amado Ramachandran on 05-31-2023 Protein/Creatinine (U) [Mass ratio] 89 mg/g CRE 0-200 [facility] Whole blood hemoglobin A1c/t otal hemoglobin ratio (mass fraction)Ordered By: Amado Ramachandran on 05-31-2023 HbA1c (Bld) [Mass fraction] 6.2 % 3.8-5.6 [facility] Comment on above: Normal < 5.7 % Predi abetic 5.7 - 6.4 % Diabetic >or= 6.5 % Please note range changes. Absolute lymphocyte countOrd ered By: Amado Ramachandran on 03-04-2023 Lymphocytes Auto (Unsp spec) [#/Vol] 1.36 10*3/uL 0.83-4.51 [facility] Basophil percentageOrdered B y: Amado Ramachandran on 03-04-2023 Basophil percentage 0 SEEN /hpf 0-5 [facility] Basophils/100 WBC (Bld) 0.8 % 0-[address] [facility] Bilirubin [Mass/Vol] 1.10 mg/dL 0.20-1.00 [facility] Comment on above: For patients on eltr ombopag therapy, use of Dimension [place] TBIL is not recommended. Chloride [Moles/Vol] 105 mmol/L 98-107 [facility] Cholesterol [Mass/Vol] 156 mg/dL <200 [facility] Comment on above: <200 mg/dL Desirable 200-240 mg/dL Borderline >240 mg/dL High Risk Eosinophils/100 WBC (Bld) 2.5 % 0-5 [facility] Glucose [Mass/Vol] 162 mg/dL 74-106 [facility] Comment on above: Fasting Glucose resu lt greater than or equal to 126 mg/dL suggests DIABETES MELLITUS per A.D.A. criteria. Neutrophils (Bld) [#/Vol] 4.9 10*3/uL 2.0-7.7 [facility] Neutrophils/100 WBC (Bld) 67.7 % 47-70 [facility] Potassium [Moles/Vol] 4.2 mmol/L 3.5-5.1 [facility] Protein [Mass/Vol] 7.6 g/dL 6.4-8.2 [facility] Sodium [Moles/Vol] 140 mmol/L 136-145 [facility] Triglyceride [Mass/Vol] 376 mg/dL <[address] [facility] Comment on above: The drugs N-Acetylcy steine and Metamizole may falsely depress this assay.Serum Triglycerides Reference Interval Normal <150 mg/dL Borderline high 150 - 199 mg/dL High 200 - 499 mg/dL Very High > or = 500 mg/dL WBC (Bld) [#/Vol] 7.3 10*3/uL 4.4-11.0 [facility] Bilirubin Test strip Ql (U)O rdered By: Amado Ramachandran on 03-04-2023 Bilirubin Ql (U) Negative Negative [facility] Blood erythrocytes count (nu mber/volume)Ordered By: Amado Ramachandran on 03-04-2023 RBC (Bld) [#/Vol] 5.25 10*6/uL 4.6-6.2 [facility] Blood hemoglobin measurement (mass/volume)Ordered By: Amado Ramachandran on 03-04-2023 Hemoglobin (Bld) [Mass/Vol] 16.6 g/dL 13.0-16.5 [facility] Blood lymphocytes/100 leukoc ytesOrdered By: Amado Ramachandran on 03-04-2023 Lymphocytes/100 WBC (Bld) 18.7 % 19-41 [facility] Blood monocytes/100 leukocyt esOrdered By: Amado Ramachandran on 03-04-2023 Monocytes/100 WBC (Bld) 9.6 % 0-10 [facility] Blood platelet mean volumeOr dered By: Amado Ramachandran on 03-04-2023 Platelet mean volume (Bld) [Entitic vol] 12.7 fL 6.2-12.0 [facility] [facility] Determination of erythrocyte mean corpuscular volume (MCV)Ordered By: Amado Ramachandran on 03-04-2023 MCV (RBC) [Entitic vol] 94.5 fL 80-94 [facility] Hematocrit Auto (Bld) [Volum e fraction]Ordered By: Amado Ramachandran on 03-04-2023 Hematocrit (Bld) [Volume fraction] 49.6 % 40-54 [facility] Ketones Test strip Ql (U)Ord ered By: Amado Ramachandran on 03-04-2023 Ketones Ql (U) 5 mg/dl Negative [facility] Laboratory - Chemistry and C hemistry - challengeOrdered By: Amado Ramachandran on 03-04-2023 ALP [Catalytic activity/Vol] 65 U/L 45-117 [facility] ALT [Catalytic activity/Vol] 83 U/L 16-61 [facility] CO2 [Moles/Vol] 28.0 mmol/L 21.0-32.0 [facility] Globulin (S) [Mass/Vol] 3.5 g/dL 2.2-4.2 [facility] Urea nitrogen/Creatinine [Mass ratio] 16.9 mg/mg 10-20 [facility] Laboratory - Hematology and Cell countsOrdered By: Amado Ramachandran on 03-04-2023 Erythrocyte distribution width (RBC) [Entitic vol] 41.7 fL 35.1-43.9 [facility] Erythrocyte distribution width (RBC) [Ratio] 12.0 % 11.6-14.6 [facility] Immature granulocytes/100 WBC (Bld) 0.700 % 0.0-0.9 [facility] Comment on above: IG% - Immature Granu locytes (promyelocytes, myelocytes and metamyelocytes) > 1% indicates that a LEFT SHIFT is Present. MCH (RBC) [Entitic mass] 31.6 pg 27.0-32.0 [facility] Nucleated RBC/100 WBC (Bld) [Ratio] 0 % 0-5 [facility] MCHC Auto (RBC) [Mass/Vol]Or dered By: Amado Ramachandran on 03-04-2023 MCHC (RBC) [Mass/Vol] 33.5 g/dL 32-36 [facility] Mucus LM Ql (Urine sed)Order ed By: Amado Ramachandran on 03-04-2023 Mucus Ql (Urine sed) RARE /hpf [facility] Nitrite Test strip Ql (U)Ord ered By: Amado Ramachandran on 03-04-2023 Nitrite Ql (U) Negative Negative [facility] No Panel InformationOrdered By: Amado Ramachandran on 03-04-2023 Estimated GFR (MDRD) Amer 80 mL/min >60 [facility] Comment on above: GFR Calc Estimated GFR (MDRD) Non-Af Amer 66 mL/min >60 [facility] Comment on above: Non- GFR Calc Vitamin D 25-Hydroxy 40.1 ng/mL [facility] Comment on above: Vitamin D 25(OH) Sta tus Range Deficiency <20 ng/mL (50nmol/L) Insufficiency 20 - 30 ng/mL (50 - 75 nmol/L) Sufficiency 30 - 100 ng/mL (75 - 250 nmol/L) Toxicity >100 ng/mL (>250 nmol/L) Platelets bldOrdered By: Isidro Ramachandran on 03-04-2023 Platelets (Bld) [#/Vol] 188 10*3/uL 150-450 [facility] Protein Test strip Ql (U)Ord ered By: Amado Ramachandran on 03-04-2023 Protein Ql (U) 15 mg/dl Negative [facility] Serum or plasma albumin luis urement (mass/volume)Ordered By: Amado Ramachandran on 03-04-2023 Albumin [Mass/Vol] 4.1 g/dL 3.2-5.0 [facility] Serum or plasma albumin/glob ulin mass ratioOrdered By: Amado Ramachandran on 03-04-2023 Albumin/Globulin [Mass ratio] 1.2 {ratio} 0.9-2.4 [facility] Serum or plasma calcium luis urement (mass/volume)Ordered By: Amado Ramachandran on 03-04-2023 Calcium [Mass/Vol] 9.1 mg/dL 8.5-10.1 [facility] Serum or plasma cholesterol in HDL measurement (mass/volume)Ordered By: Amado Ramachandran on 03-04-2023 Cholesterol in HDL [Mass/Vol] 35 mg/dL >40 [facility] Comment on above: The drugs N-Acetylcy steine and Metamizole may falsely depress this assay. Reference Range HDL <40 mg/dL Low HDL Cholesterol HDL >or= 60 mg/dL High HDL Cholesterol Serum or plasma cholesterol in VLDL measurement (mass/volume)Ordered By: Amado Ramachandran on 03-04-2023 Cholesterol in VLDL [Mass/Vol] 75 mg/dL 5-40 [facility] Serum or plasma creatinine m easurement (mass/volume)Ordered By: Amado Ramachandran on 03-04-2023 Creatinine [Mass/Vol] 1.18 mg/dL 0.70-1.30 [facility] Comment on above: The validity of the calculated GFR & GFRAA in patients over 70 years has not been determined. Clinical correlation is essential. Serum or plasma low density lipoprotein (LDL) cholesterol measurement (mass/volume)Ordered By: Amado Ramachandran on 03-04-2023 Cholesterol in LDL [Mass/Vol] 46 mg/dL 0-130 [facility] Serum or plasma urea nitroge n measurement (mass/volume)Ordered By: Amado Ramachandran on 03-04-2023 Urea nitrogen [Mass/Vol] 20 mg/dL 7-18 [facility] Squamous epithelial cells de tection in urine sediment by light microscopyOrdered By: Amado Ramachandran on 03-04-2023 Epithelial cells.squamous LM Ql (Urine sed) 0 SEEN /hpf 0-5 [facility] Thin prep Papanicolaou smear with manual screeningOrdered By: Amado Ramachandran on 03-04-2023 Thin prep Papanicolaou smear with manual screening 42 U/L 15-37 [facility] Thin prep Papanicolaou smear with manual screening 7 5-15 [facility] Urine blood detectionOrdered By: Amado Ramachandran on 03-04-2023 RBC Ql (U) Negative Negative [facility] RBC Ql (U) 0 SEEN /hpf 0-5 [facility] Urine clarityOrdered By: Isidro Ramachandran on 03-04-2023 Clarity (U) Clear Clear [facility] Urine color determinationOrd ered By: Amado Ramachandran on 03-04-2023 Color (U) Yellow Yellow [facility] Urine creatinine measurement (mass/volume)Ordered By: Amado Ramachandran on 03-04-2023 Creatinine (U) [Mass/Vol] 168.00 mg/dL NO RANGE EST. [facility] Urine glucose detectionOrder ed By: Amado Ramachandran on 03-04-2023 Glucose Ql (U) 100 mg/dl Normal [facility] Urine leukocyte esterase det ection by dipstickOrdered By: Amado Ramachandran on 03-04-2023 Leukocyte esterase Test strip Ql (U) Negative Negative [facility] Urine pHOrdered By: Amado jarrell on 03-04-2023 pH (U) 6.0 [pH] 5.0 - 8.0 [facility] Urine protein measurement (m ass/volume)Ordered By: Amado Ramachandran on 03-04-2023 Protein (U) [Mass/Vol] 15.2 mg/dL 0.0-11.8 [facility] Urine protein/creatinine mas s ratioOrdered By: Amado Ramachandran on 03-04-2023 Protein/Creatinine (U) [Mass ratio] 90 mg/g CRE 0-200 [facility] Urine sediment bacteria coun t by microscopy (number/high power field)Ordered By: Amado Ramachandran on 03-04-2023 Bacteria LM.HPF (Urine sed) [#/Area] 0 /[HPF] None Seen [facility] Urine specific gravity measu rementOrdered By: Amado Ramachandran on 03-04-2023 Specific gravity (U) [Rel density] 1.020 1.002-1.030 [facility] Urobilinogen Auto test strip Ql (U)Ordered By: Amado Ramachandran on 03-04-2023 Urobilinogen Ql (U) Normal mg/dl Normal [facility] Whole blood hemoglobin A1c/t otal hemoglobin ratio (mass fraction)Ordered By: Amado Ramachandran on 03-04-2023 HbA1c (Bld) [Mass fraction] 8.1 % 3.8-5.6 [facility] Comment on above: Normal < 5.7 % Predi abetic 5.7 - 6.4 % Diabetic >or= 6.5 % Please note range changes. Basophil percentageOrdered B y: Rashard Hernández on 12-29-2022 Chloride [Moles/Vol] 104 mmol/L 98-107 [facility] Glucose [Mass/Vol] 283 mg/dL 74-106 [facility] Comment on above: Glucose result great er than or equal to 200 mg/dLsuggests DIABETES MELLITUS per A.D.A. criteria. Potassium [Moles/Vol] 4.3 mmol/L 3.5-5.1 [facility] Sodium [Moles/Vol] 137 mmol/L 136-145 [facility] Testosterone [Mass/Vol] 686.01 ng/dL [facility] Comment on above: CENTRAL 90% REFERENC E RANGES MALE AGE <50 197.44 - 669.58 ng/dL MALE AGE > or = 50 187.72 - 684.19 ng/dL FEMALE AGE <50 8.38 - 35.01 ng/dL FEMALE AGE > or = 50 <7.00 - 35.92 ng/dL Effective as of 11/11/20 WBC (Bld) [#/Vol] 6.3 10*3/uL 4.4-11.0 [facility] Blood erythrocytes count (nu mber/volume)Ordered By: Rashard Hernández on 12-29-2022 RBC (Bld) [#/Vol] 5.02 10*6/uL 4.6-6.2 [facility] Blood hemoglobin measurement (mass/volume)Ordered By: Rashard Hernández on 12-29-2022 Hemoglobin (Bld) [Mass/Vol] 16.3 g/dL 13.0-16.5 [facility] Blood platelet mean volumeOr dered By: Rashard Hernández on 12-29-2022 Platelet mean volume (Bld) [Entitic vol] 12.4 fL 6.2-12.0 [facility] Determination of erythrocyte mean corpuscular volume (MCV)Ordered By: Rashard Hernández on 12-29-2022 MCV (RBC) [Entitic vol] 100.4 fL 80-[address] [facility] Hematocrit Auto (Bld) [Volum e fraction]Ordered By: Rashard Hernández on 12-29-2022 Hematocrit (Bld) [Volume fraction] 50.4 % 40-54 [facility] Laboratory - Chemistry and C hemistry - challengeOrdered By: Rashard Hernández on 12-29-2022 CO2 [Moles/Vol] 28.0 mmol/L 21.0-32.0 [facility] Magnesium [Mass/Vol] 2.5 mg/dL 1.6-2.6 [facility] Urea nitrogen/Creatinine [Mass ratio] 9.8 mg/mg 10-20 [facility] Laboratory - Hematology and Cell countsOrdered By: Rashard Hernández on 12-29-2022 Erythrocyte distribution width (RBC) [Entitic vol] 49.6 fL 35.1-43.9 [facility] Erythrocyte distribution width (RBC) [Ratio] 13.5 % 11.6-14.6 [facility] MCH (RBC) [Entitic mass] 32.5 pg 27.0-32.0 [facility] MCHC Auto (RBC) [Mass/Vol]Or dered By: Rashard Hernández on 12-29-2022 MCHC (RBC) [Mass/Vol] 32.3 g/dL 32-36 [facility] No Panel InformationOrdered By: Rashard Hernández on 12-29-2022 Estimated GFR (MDRD) Amer 76 mL/min >60 [facility] Comment on above: GFR Calc Estimated GFR (MDRD) Non-Af Amer 63 mL/min >60 [facility] Comment on above: Non- GFR Calc Thyroid Stimulating Hormone (TSH) 1.56 uIU/mL 0.358-3.74 [facility] Platelets bldOrdered By: Owen Hernández on 12-29-2022 Platelets (Bld) [#/Vol] 159 10*3/uL 150-450 [facility] Serum or plasma calcium luis urement (mass/volume)Ordered By: Rashard Hernández on 12-29-2022 Calcium [Mass/Vol] 9.2 mg/dL 8.5-10.1 [facility] Serum or plasma creatinine m easurement (mass/volume)Ordered By: Rashard Hernández on 12-29-2022 Creatinine [Mass/Vol] 1.23 mg/dL 0.70-1.30 [facility] Comment on above: The validity of the calculated GFR & GFRAA in patients over 70 years has not been determined. Clinical correlation is essential. Serum or plasma urea nitroge n measurement (mass/volume)Ordered By: Rashard Hernández on 12-29-2022 Urea nitrogen [Mass/Vol] 12 mg/dL 7-18 [facility] Thin prep Papanicolaou smear with manual screeningOrdered By: Rashard Hernández on 09-13-2023 Thin prep Papanicolaou smear with manual screening 5 5-15 [facility] Laboratory - Chemistry and C hemistry - challengeOrdered By: Amado Ramachandran on 11-04-2022 Cobalamin (Vitamin B12) [Mass/Vol] 557 pg/mL 211-911 [facility] No Panel InformationOrdered By: Amado Ramachandran on 11-04-2022 Vitamin B6 Level 10.2 ug/L 3.4-65.2 [facility] Comment on above: Deficiency: <3.4 Mar ginal: 3.4 - 5.1 Adequate: >5.1 Whole Blood Vitamin B1 Level 163.7 nmol/L 66.5-200.0 [facility] Comment on above: Performed at: [address] [id number] Director: Rachelle Kumar MD, Phone: [phone] Basophil percentageOrdered B y: Amado Ramachandran on 11-03-2022 Bilirubin [Mass/Vol] 1.40 mg/dL 0.20-1.00 [facility] Comment on above: For patients on eltr ombopag therapy, use of Dim[facility] [place] TBIL is not recommended. Chloride [Moles/Vol] 105 mmol/L 98-107 [facility] Cholesterol [Mass/Vol] 139 mg/dL <200 [facility] Comment on above: <200 mg/dL Desirable 200-240 mg/dL Borderline >240 mg/dL High Risk Glucose [Mass/Vol] 167 mg/dL 74-106 [facility] Comment on above: Fasting Glucose resu lt greater than or equal to 126 mg/dL suggests DIABETES MELLITUS per A.D.A. criteria. Potassium [Moles/Vol] 4.0 mmol/L 3.5-5.1 [facility] Protein [Mass/Vol] 7.2 g/dL 6.4-8.2 [facility] Sodium [Moles/Vol] 140 mmol/L 136-145 [facility] Triglyceride [Mass/Vol] 142 mg/dL <199 [facility] Comment on above: The drugs N-Acetylcy steine and Metamizole may falsely depress this assay.Serum Triglycerides Reference Interval Normal <150 mg/dL Borderline high 150 - 199 mg/dL High 200 - 499 mg/dL Very High > or = 500 mg/dL Laboratory - Chemistry and C hemistry - challengeOrdered By: Amado Ramachandran on 11-03-2022 ALP [Catalytic activity/Vol] 62 U/L 45-117 [facility] ALT [Catalytic activity/Vol] 79 U/L 16-61 [facility] CO2 [Moles/Vol] 31.0 mmol/L 21.0-32.0 [facility] Globulin (S) [Mass/Vol] 3.2 g/dL 2.2-4.2 [facility] Urea nitrogen/Creatinine [Mass ratio] 11.3 mg/mg 10-20 [facility] No Panel InformationOrdered By: Amado Ramachandran on 11-03-2022 Estimated GFR (MDRD) Amer 82 mL/min >60 [facility] Comment on above: GFR Calc Estimated GFR (MDRD) Non-Af Amer 68 mL/min >60 [facility] Comment on above: Non- GFR Calc Thyroid Stimulating Hormone (TSH) 1.72 uIU/mL 0.358-3.74 [facility] Vitamin D 25-Hydroxy 63.6 ng/mL [facility] Comment on above: Vitamin D 25(OH) Sta tus Range Deficiency <20 ng/mL (50nmol/L) Insufficiency 20 - 30 ng/mL (50 - 75 nmol/L) Sufficiency 30 - 100 ng/mL (75 - 250 nmol/L) Toxicity >100 ng/mL (>250 nmol/L) Serum or plasma albumin luis urement (mass/volume)Ordered By: Amado Ramachandran on 11-03-2022 Albumin [Mass/Vol] 4.0 g/dL 3.2-5.0 [facility] Serum or plasma albumin/glob ulin mass ratioOrdered By: Amado Ramachandran on 11-03-2022 Albumin/Globulin [Mass ratio] 1.2 {ratio} 0.9-2.4 [facility] Serum or plasma calcium luis urement (mass/volume)Ordered By: Amado Ramachandran on 11-03-2022 Calcium [Mass/Vol] 9.0 mg/dL 8.5-10.1 [facility] Serum or plasma cholesterol in HDL measurement (mass/volume)Ordered By: Amado Ramachandran on 11-03-2022 Cholesterol in HDL [Mass/Vol] 41 mg/dL >40 [facility] Comment on above: The drugs N-Acetylcy steine and Metamizole may falsely depress this assay. Reference Range HDL <40 mg/dL Low HDL Cholesterol HDL >or= 60 mg/dL High HDL Cholesterol Serum or plasma cholesterol in VLDL measurement (mass/volume)Ordered By: Amado Ramachandran on 11-03-2022 Cholesterol in VLDL [Mass/Vol] 28 mg/dL 5-40 [facility] Serum or plasma creatinine m easurement (mass/volume)Ordered By: Amado Ramachandran on 11-03-2022 Creatinine [Mass/Vol] 1.15 mg/dL 0.70-1.30 [facility] Comment on above: The validity of the calculated GFR & GFRAA in patients over 70 years has not been determined. Clinical correlation is essential. Serum or plasma low density lipoprotein (LDL) cholesterol measurement (mass/volume)Ordered By: Amado Ramachandran on 11-03-2022 Cholesterol in LDL [Mass/Vol] 70 mg/dL 0-130 [facility] Serum or plasma urea nitroge n measurement (mass/volume)Ordered By: Amado Ramachandran on 11-03-2022 Urea nitrogen [Mass/Vol] 13 mg/dL 7-18 [facility] Thin prep Papanicolaou smear with manual screeningOrdered By: Amado Ramachandran on 11-03-2022 Thin prep Papanicolaou smear with manual screening 45 U/L 15-37 [facility] Thin prep Papanicolaou smear with manual screening 4 5-15 [facility] Urine creatinine measurement (mass/volume)Ordered By: Amado Ramachandran on 11-03-2022 Creatinine (U) [Mass/Vol] 238.00 mg/dL NO RANGE EST. [facility] Urine protein measurement (m ass/volume)Ordered By: Amado Ramachandran on 11-03-2022 Protein (U) [Mass/Vol] 13.5 mg/dL 0.0-11.8 [facility] Urine protein/creatinine mas s ratioOrdered By: Amado Ramachandran on 11-03-2022 Protein/Creatinine (U) [Mass ratio] 57 mg/g CRE 0-200 [facility] Whole blood hemoglobin A1c/t otal hemoglobin ratio (mass fraction)Ordered By: Amado Ramachandran on 11-03-2022 HbA1c (Bld) [Mass fraction] 6.0 % 3.8-5.6 [facility] Comment on above: Normal < 5.7 % Predi abetic 5.7 - 6.4 % Diabetic >or= 6.5 % Please note range changes. Basophil percentageOrdered B y: Dr. Ramachandran on 07-06-2022 Bilirubin [Mass/Vol] 1.00 mg/dL 0.20-1.00 [facility] Comment on above: For patients on eltr ombopag therapy, use of Dim[facility] [place] TBIL is not recommended. Chloride [Moles/Vol] 107 mmol/L 98-107 [facility] Cholesterol [Mass/Vol] 99 mg/dL <200 [facility] Comment on above: <200 mg/dL Desirable 200-240 mg/dL Borderline >240 mg/dL High Risk Glucose [Mass/Vol] 98 mg/dL 74-106 [facility] Potassium [Moles/Vol] 3.7 mmol/L 3.5-5.1 [facility] Protein [Mass/Vol] 7.1 g/dL 6.4-8.2 [facility] Sodium [Moles/Vol] 142 mmol/L 136-145 [facility] Triglyceride [Mass/Vol] 94 mg/dL <[address] [facility] Comment on above: The drugs N-Acetylcy steine and Metamizole may falsely depress this assay.Serum Triglycerides Reference Interval Normal <150 mg/dL Borderline high 150 - 199 mg/dL High 200 - 499 mg/dL Very High > or = 500 mg/dL Laboratory - Chemistry and C hemistry - challengeOrdered By: Dr. Ramachandran on 07-06-2022 ALP [Catalytic activity/Vol] 51 U/L 45-117 [facility] ALT [Catalytic activity/Vol] 66 U/L 16-61 [facility] CO2 [Moles/Vol] 29.0 mmol/L 21.0-32.0 [facility] Globulin (S) [Mass/Vol] 3.1 g/dL 2.2-4.2 [facility] Urea nitrogen/Creatinine [Mass ratio] 17.1 mg/mg 10-20 [facility] No Panel InformationOrdered By: Dr. Ramachandran on 07-06-2022 Estimated GFR (MDRD) Amer 86 mL/min >60 [facility] Comment on above: GFR Calc Estimated GFR (MDRD) Non-Af Amer 71 mL/min >60 [facility] Comment on above: Non- GFR Calc Thyroid Stimulating Hormone (TSH) 1.28 uIU/mL 0.358-3.74 [facility] Vitamin D 25-Hydroxy 62.9 ng/mL [facility] Comment on above: Vitamin D 25(OH) Sta tus Range Deficiency <20 ng/mL (50nmol/L) Insufficiency 20 - 30 ng/mL (50 - 75 nmol/L) Sufficiency 30 - 100 ng/mL (75 - 250 nmol/L) Toxicity >100 ng/mL (>250 nmol/L) Serum or plasma albumin luis urement (mass/volume)Ordered By: Dr. Ramachandran on 07-06-2022 Albumin [Mass/Vol] 4.0 g/dL 3.2-5.0 [facility] Serum or plasma albumin/glob ulin mass ratioOrdered By: Dr. Ramachandran on 07-06-2022 Albumin/Globulin [Mass ratio] 1.3 {ratio} 0.9-2.4 [facility] Serum or plasma calcium luis urement (mass/volume)Ordered By: Dr. Ramachandran on 07-06-2022 Calcium [Mass/Vol] 9.2 mg/dL 8.5-10.1 [facility] Serum or plasma cholesterol in HDL measurement (mass/volume)Ordered By: Dr. Ramachandran on 07-06-2022 Cholesterol in HDL [Mass/Vol] 39 mg/dL >40 [facility] Comment on above: The drugs N-Acetylcy steine and Metamizole may falsely depress this assay. Reference Range HDL <40 mg/dL Low HDL Cholesterol HDL >or= 60 mg/dL High HDL Cholesterol Serum or plasma cholesterol in VLDL measurement (mass/volume)Ordered By: Dr. Ramachandran on 07-06-2022 Cholesterol in VLDL [Mass/Vol] 19 mg/dL 5-40 [facility] Serum or plasma creatinine m easurement (mass/volume)Ordered By: Dr. Ramachandran on 07-06-2022 Creatinine [Mass/Vol] 1.11 mg/dL 0.70-1.30 [facility] Comment on above: The validity of the calculated GFR & GFRAA in patients over 70 years has not been determined. Clinical correlation is essential. Serum or plasma low density lipoprotein (LDL) cholesterol measurement (mass/volume)Ordered By: Dr. Ramachandran on 07-06-2022 Cholesterol in LDL [Mass/Vol] 41 mg/dL 0-130 [facility] Serum or plasma urea nitroge n measurement (mass/volume)Ordered By: Dr. Ramachandran on 07-06-2022 Urea nitrogen [Mass/Vol] 19 mg/dL 7-18 [facility] Thin prep Papanicolaou smear with manual screeningOrdered By: Dr. Ramachandran on 07-06-2022 Thin prep Papanicolaou smear with manual screening 32 U/L 15-37 [facility] Thin prep Papanicolaou smear with manual screening 6 5-15 [facility] Urine creatinine measurement (mass/volume)Ordered By: Dr. Ramachandran on 07-06-2022 Creatinine (U) [Mass/Vol] 168.00 mg/dL NO RANGE EST. [facility] Urine protein measurement (m ass/volume)Ordered By: Dr. Ramachandran on 07-06-2022 Protein (U) [Mass/Vol] 13.6 mg/dL 0.0-11.8 [facility] Urine protein/creatinine mas s ratioOrdered By: Dr. Ramachandran on 07-06-2022 Protein/Creatinine (U) [Mass ratio] 81 mg/g CRE 0-200 [facility] Whole blood hemoglobin A1c/t otal hemoglobin ratio (mass fraction)Ordered By: Dr. Ramachandran on 07-06-2022 HbA1c (Bld) [Mass fraction] 5.8 % 3.8-5.6 [facility] Comment on above: Normal < 5.7 % Predi abetic 5.7 - 6.4 % Diabetic >or= 6.5 % Please note range changes. Basophil percentageOrdered B y: Dr. Ramachandran on 06-30-2022 Bilirubin [Mass/Vol] 1.30 mg/dL 0.20-1.00 [facility] Comment on above: For patients on eltr ombopag therapy, use of Dimension [place] TBIL is not recommended. Chloride [Moles/Vol] 104 mmol/L 98-107 [facility] Cholesterol [Mass/Vol] 113 mg/dL <200 [facility] Comment on above: <200 mg/dL Desirable 200-240 mg/dL Borderline >240 mg/dL High Risk Glucose [Mass/Vol] 74 mg/dL 74-106 [facility] Potassium [Moles/Vol] 4.2 mmol/L 3.5-5.1 [facility] Comment on above: Slight Hemolysis, Re sult may be falsely increased. Protein [Mass/Vol] 7.5 g/dL 6.4-8.2 [facility] Sodium [Moles/Vol] 140 mmol/L 136-145 [facility] Triglyceride [Mass/Vol] 99 mg/dL <199 [facility] Comment on above: The drugs N-Acetylcy steine and Metamizole may falsely depress this assay.Serum Triglycerides Reference Interval Normal <150 mg/dL Borderline high 150 - 199 mg/dL High 200 - 499 mg/dL Very High > or = 500 mg/dL Iron measurement (mass/mass) Ordered By: Dr. Ramachandran on 06-30-2022 Iron (Unsp spec) [Mass/Mass] 98 ug/dL 65-175 [facility] Comment on above: Slight Hemolysis, Re sult may be falsely increased. Laboratory - Chemistry and C hemistry - challengeOrdered By: Dr. Ramachandran on 06-30-2022 ALP [Catalytic activity/Vol] 53 U/L 45-117 [facility] ALT [Catalytic activity/Vol] 86 U/L 16-61 [facility] CO2 [Moles/Vol] 30.0 mmol/L 21.0-32.0 [facility] Globulin (S) [Mass/Vol] 3.5 g/dL 2.2-4.[address] [facility] Urea nitrogen/Creatinine [Mass ratio] 17.5 mg/mg 10-20 [facility] No Panel InformationOrdered By: Dr. Ramachandran on 06-30-2022 Estimated GFR (MDRD) Amer 78 mL/min >60 [facility] Comment on above: GFR Calc Estimated GFR (MDRD) Non-Af Amer 65 mL/min >60 [facility] Comment on above: Non- GFR Calc Total Iron Binding Capacity 420 ug/dL 250-450 [facility] Urine Microalbumin/Creatinine Ratio 7.0 mg/g CRE <30 [facility] Serum or plasma albumin luis urement (mass/volume)Ordered By: Dr. Ramachandran on 06-30-2022 Albumin [Mass/Vol] 4.0 g/dL 3.2-5.0 [facility] Serum or plasma albumin/glob ulin mass ratioOrdered By: Dr. Ramachandran on 06-30-2022 Albumin/Globulin [Mass ratio] 1.1 {ratio} 0.9-2.4 [facility] Serum or plasma calcium luis urement (mass/volume)Ordered By: Dr. Ramachandran on 06-30-2022 Calcium [Mass/Vol] 9.1 mg/dL 8.5-10.1 [facility] Serum or plasma cholesterol in HDL measurement (mass/volume)Ordered By: Dr. Ramachandran on 06-30-2022 Cholesterol in HDL [Mass/Vol] 38 mg/dL >40 [facility] Comment on above: The drugs N-Acetylcy steine and Metamizole may falsely depress this assay. Reference Range HDL <40 mg/dL Low HDL Cholesterol HDL >or= 60 mg/dL High HDL Cholesterol Serum or plasma cholesterol in VLDL measurement (mass/volume)Ordered By: Dr. Ramachandran on 06-30-2022 Cholesterol in VLDL [Mass/Vol] 20 mg/dL 5-40 [facility] Serum or plasma creatinine m easurement (mass/volume)Ordered By: Dr. Ramachandran on 06-30-2022 Creatinine [Mass/Vol] 1.20 mg/dL 0.70-1.30 [facility] Comment on above: The validity of the calculated GFR & GFRAA in patients over 70 years has not been determined. Clinical correlation is essential. Serum or plasma ferritin max surement (mass/volume)Ordered By: Dr. Ramachandran on 06-30-2022 Ferritin [Mass/Vol] 340 ng/mL 26-388 [facility] Serum or plasma iron saturat ion measurement (mass fraction)Ordered By: Dr. Ramachandran on 06-30-2022 Iron saturation [Mass fraction] 23.3 % 15.0-55.0 [facility] Serum or plasma low density lipoprotein (LDL) cholesterol measurement (mass/volume)Ordered By: Dr. Ramachandran on 06-30-2022 Cholesterol in LDL [Mass/Vol] 55 mg/dL 0-130 [facility] Serum or plasma urea nitroge n measurement (mass/volume)Ordered By: Dr. Ramachandran on 06-30-2022 Urea nitrogen [Mass/Vol] 21 mg/dL 7-18 [facility] Thin prep Papanicolaou smear with manual screeningOrdered By: Dr. Ramachandran on 06-30-2022 Thin prep Papanicolaou smear with manual screening 42 U/L 15-37 [facility] Comment on above: Slight Hemolysis, Re sult may be falsely increased. Thin prep Papanicolaou smear with manual screening 6 5-15 [facility] Thin prep Papanicolaou smear with manual screening 15.5 mg/L NO RANGE EST. [facility] Urine creatinine measurement (mass/volume)Ordered By: Dr. Ramachandran on 06-30-2022 Creatinine (U) [Mass/Vol] 221.00 mg/dL NO RANGE EST. [facility] Whole blood hemoglobin A1c/t otal hemoglobin ratio (mass fraction)Ordered By: Dr. Ramachandran on 06-30-2022 HbA1c (Bld) [Mass fraction] 5.8 % 3.8-5.6 [facility] Comment on above: Normal < 5.7 % Predi abetic 5.7 - 6.4 % Diabetic >or= 6.5 % Please note range changes. Absolute lymphocyte countOrd ered By: Dr. Ramachandran on 04-01-2022 Lymphocytes Auto (Unsp spec) [#/Vol] 1.19 10*3/uL 0.83-4.51 [facility] Basophil percentageOrdered B y: Dr. Ramachandran on 04-01-2022 Basophils/100 WBC (Bld) 0.8 % 0-[address] [facility] Bilirubin [Mass/Vol] 0.90 mg/dL 0.20-1.00 [facility] Comment on above: For patients on eltr ombopag therapy, use of Dimension [place] TBIL is not recommended. Chloride [Moles/Vol] 105 mmol/L 98-107 [facility] Cholesterol [Mass/Vol] 132 mg/dL <200 [facility] Comment on above: <200 mg/dL Desirable 200-240 mg/dL Borderline >240 mg/dL High Risk Eosinophils/100 WBC (Bld) 2.3 % 0-5 [facility] Glucose [Mass/Vol] 166 mg/dL 74-106 [facility] Comment on above: Fasting Glucose resu lt greater than or equal to 126 mg/dL suggests DIABETES MELLITUS per A.D.A. criteria. Neutrophils (Bld) [#/Vol] 4.5 10*3/uL 2.0-7.7 [facility] Neutrophils/100 WBC (Bld) 68.0 % 47-70 [facility] Potassium [Moles/Vol] 4.1 mmol/L 3.5-5.1 [facility] Protein [Mass/Vol] 6.8 g/dL 6.4-8.2 [facility] Sodium [Moles/Vol] 140 mmol/L 136-145 [facility] Triglyceride [Mass/Vol] 160 mg/dL <[address] [facility] Comment on above: The drugs N-Acetylcy steine and Metamizole may falsely depress this assay.Serum Triglycerides Reference Interval Normal <150 mg/dL Borderline high 150 - 199 mg/dL High 200 - 499 mg/dL Very High > or = 500 mg/dL WBC (Bld) [#/Vol] 6.6 10*3/uL 4.4-11.0 [facility] Blood erythrocytes count (nu mber/volume)Ordered By: Dr. Ramachandran on 04-01-2022 RBC (Bld) [#/Vol] 5.18 10*6/uL 4.6-6.2 [facility] Blood hemoglobin measurement (mass/volume)Ordered By: Dr. Ramachandran on 04-01-2022 Hemoglobin (Bld) [Mass/Vol] 16.1 g/dL 13.0-16.5 [facility] Blood lymphocytes/100 leukoc ytesOrdered By: Dr. Ramachandran on 04-01-2022 Lymphocytes/100 WBC (Bld) 18.1 % 19-41 [facility] Blood monocytes/100 leukocyt esOrdered By: Dr. Ramachandran on 04-01-2022 Monocytes/100 WBC (Bld) 10.2 % 0-[address] [facility] Blood platelet mean volumeOr dered By: Dr. Ramachandran on 04-01-2022 Platelet mean volume (Bld) [Entitic vol] 11.5 fL 6.2-12.0 [facility] Determination of erythrocyte mean corpuscular volume (MCV)Ordered By: Dr. Ramachandran on 04-01-2022 MCV (RBC) [Entitic vol] 94.8 fL 80-[address] [facility] Hematocrit Auto (Bld) [Volum e fraction]Ordered By: Dr. Ramachandran on 04-01-2022 Hematocrit (Bld) [Volume fraction] 49.1 % 40-54 [facility] Laboratory - Chemistry and C hemistry - challengeOrdered By: Dr. Ramachandran on 04-01-2022 ALP [Catalytic activity/Vol] 62 U/L 45-117 [facility] ALT [Catalytic activity/Vol] 78 U/L 16-61 [facility] CO2 [Moles/Vol] 28.0 mmol/L 21.0-32.0 [facility] Globulin (S) [Mass/Vol] 2.9 g/dL 2.2-4.[address] [facility] Urea nitrogen/Creatinine [Mass ratio] 15.8 mg/mg 10-20 [facility] Laboratory - Hematology and Cell countsOrdered By: Dr. Ramachandran on 04-01-2022 Erythrocyte distribution width (RBC) [Entitic vol] 43.6 fL 35.1-43.9 [facility] Erythrocyte distribution width (RBC) [Ratio] 12.6 % 11.6-14.6 [facility] Immature granulocytes/100 WBC (Bld) 0.600 % 0.0-0.9 [facility] Comment on above: IG% - Immature Granu locytes (promyelocytes, myelocytes and metamyelocytes) > 1% indicates that a LEFT SHIFT is Present. MCH (RBC) [Entitic mass] 31.1 pg 27.0-32.0 [facility] Nucleated RBC/100 WBC (Bld) [Ratio] 0 % 0-5 [facility] MCHC Auto (RBC) [Mass/Vol]Or dered By: Dr. Ramachandran on 04-01-2022 MCHC (RBC) [Mass/Vol] 32.8 g/dL 32-36 [facility] No Panel InformationOrdered By: Dr. Ramachandran on 04-01-2022 Estimated GFR (MDRD) Amer 83 mL/min >60 [facility] Comment on above: GFR Calc Estimated GFR (MDRD) Non-Af Amer 69 mL/min >60 [facility] Comment on above: Non- GFR Calc Urine Microalbumin/Creatinine Ratio 6.1 mg/g CRE <30 [facility] Platelets bldOrdered By: Dr. Ramachandran on 04-01-2022 Platelets (Bld) [#/Vol] 153 10*3/uL 150-450 [facility] Serum or plasma albumin luis urement (mass/volume)Ordered By: Dr. Ramachandran on 04-01-2022 Albumin [Mass/Vol] 3.9 g/dL 3.2-5.0 [facility] Serum or plasma albumin/glob ulin mass ratioOrdered By: Dr. Ramachandran on 04-01-2022 Albumin/Globulin [Mass ratio] 1.3 {ratio} 0.9-2.4 [facility] Serum or plasma calcium luis urement (mass/volume)Ordered By: Dr. Ramachandran on 04-01-2022 Calcium [Mass/Vol] 8.9 mg/dL 8.5-10.1 [facility] Serum or plasma cholesterol in HDL measurement (mass/volume)Ordered By: Dr. Ramachandran on 04-01-2022 Cholesterol in HDL [Mass/Vol] 35 mg/dL >40 [facility] Comment on above: The drugs N-Acetylcy steine and Metamizole may falsely depress this assay. Reference Range HDL <40 mg/dL Low HDL Cholesterol HDL >or= 60 mg/dL High HDL Cholesterol Serum or plasma cholesterol in VLDL measurement (mass/volume)Ordered By: Dr. Ramachandran on 04-01-2022 Cholesterol in VLDL [Mass/Vol] 32 mg/dL 5-40 [facility] Serum or plasma creatinine m easurement (mass/volume)Ordered By: Dr. Ramachandran on 04-01-2022 Creatinine [Mass/Vol] 1.14 mg/dL 0.70-1.30 [facility] Comment on above: The validity of the calculated GFR & GFRAA in patients over 70 years has not been determined. Clinical correlation is essential. Serum or plasma low density lipoprotein (LDL) cholesterol measurement (mass/volume)Ordered By: Dr. Ramachandran on 04-01-2022 Cholesterol in LDL [Mass/Vol] 65 mg/dL 0-130 [facility] Serum or plasma urea nitroge n measurement (mass/volume)Ordered By: Dr. Ramachandran on 04-01-2022 Urea nitrogen [Mass/Vol] 18 mg/dL 7-18 [facility] Thin prep Papanicolaou smear with manual screeningOrdered By: Dr. Ramachandran on 04-01-2022 Thin prep Papanicolaou smear with manual screening 37 U/L 15-37 [facility] Thin prep Papanicolaou smear with manual screening 7 5-15 [facility] Thin prep Papanicolaou smear with manual screening 8.8 mg/L NO RANGE EST. [facility] Urine creatinine measurement (mass/volume)Ordered By: Dr. Ramachandran on 04-01-2022 Creatinine (U) [Mass/Vol] 144.00 mg/dL NO RANGE EST. [facility] Whole blood hemoglobin A1c/t otal hemoglobin ratio (mass fraction)Ordered By: Dr. Ramachandran on 04-01-2022 HbA1c (Bld) [Mass fraction] 8.2 % 3.8-5.6 [facility] Comment on above: Normal < 5.7 % Predi abetic 5.7 - 6.4 % Diabetic >or= 6.5 % Please note range changes. Absolute lymphocyte counton 01-01-2022 Lymphocytes Auto (Unsp spec) [#/Vol] 1.24 10*3/uL 0.83-4.51 [facility] Work Phone: Basophil percentageon 2021 Basophil percentage 0 SEEN /hpf 0-5 [facility] Work Phone: Basophils/100 WBC (Bld) 0.9 % 0-[address] [facility] Work Phone: Bilirubin [Mass/Vol] 0.80 mg/dL 0.20-1.00 [facility] Work Phone: [phone] Comment on above: For patients on eltr ombopag therapy, use of Dimension [place] TBIL is not recommended. Chloride [Moles/Vol] 106 mmol/L 98-107 [facility] Work Phone: [phone] Cholesterol [Mass/Vol] 139 mg/dL <200 [facility] Work Phone: [phone] Comment on above: <200 mg/dL Desirable 200-240 mg/dL Borderline >240 mg/dL High Risk Eosinophils/100 WBC (Bld) 2.8 % 0-5 [facility] Work Phone: [phone] Glucose [Mass/Vol] 201 mg/dL 74-106 [facility] Work Phone: [phone] Comment on above: Glucose result great er than or equal to 200 mg/dLsuggests DIABETES MELLITUS per A.D.A. criteria. Neutrophils (Bld) [#/Vol] 4.2 10*3/uL 2.0-7.7 [facility] Work Phone: Neutrophils/100 WBC (Bld) 65.8 % 47-70 [facility] Work Phone: [phone] Potassium [Moles/Vol] 3.8 mmol/L 3.5-5.1 [facility] Work Phone: [phone] Protein [Mass/Vol] 7.3 g/dL 6.4-8.2 [facility] Work Phone: [phone] Sodium [Moles/Vol] 141 mmol/L 136-145 [facility] Work Phone: [phone] Triglyceride [Mass/Vol] 200 mg/dL <[address] [facility] Work Phone: [phone] Comment on above: The drugs N-Acetylcy steine and Metamizole may falsely depress this assay.Serum Triglycerides Reference Interval Normal <150 mg/dL Borderline high 150 - 199 mg/dL High 200 - 499 mg/dL Very High > or = 500 mg/dL WBC (Bld) [#/Vol] 6.4 10*3/uL 4.4-11.0 [facility] Work Phone: Bilirubin Test strip Ql (U)o n 01-01-2022 Bilirubin Ql (U) Negative Negative [facility] Work Phone: Blood erythrocytes count (nu mber/volume)on 01-01-2022 RBC (Bld) [#/Vol] 4.92 10*6/uL 4.6-6.2 [facility] Work Phone: Blood hemoglobin measurement (mass/volume)on 01-01-2022 Hemoglobin (Bld) [Mass/Vol] 15.8 g/dL 13.0-16.5 [facility] Work Phone: Blood lymphocytes/100 leukoc yteson 01-01-2022 Lymphocytes/100 WBC (Bld) 19.4 % 19-41 [facility] Work Phone: Blood monocytes/100 leukocyt eson 01-01-2022 Monocytes/100 WBC (Bld) 10.2 % 0-[address] [facility] Work Phone: Blood platelet mean volumeon 01-01-2022 Platelet mean volume (Bld) [Entitic vol] 11.2 fL 6.2-12.0 [facility] Work Phone: Determination of erythrocyte mean corpuscular volume (MCV)on 01-01-2022 MCV (RBC) [Entitic vol] 96.5 fL 80-[address] [facility] Work Phone: Hematocrit Auto (Bld) [Volum e fraction]on 01-01-2022 Hematocrit (Bld) [Volume fraction] 47.5 % 40-54 [facility] Work Phone: Ketones Test strip Ql (U)on 01-01-2022 Ketones Ql (U) Negative Negative [facility] Work Phone: Laboratory - Chemistry and C hemistry - challengeon 01-01-2022 ALP [Catalytic activity/Vol] 64 U/L 45-117 [facility] Work Phone: ALT [Catalytic activity/Vol] 66 U/L 16-61 [facility] Work Phone: CO2 [Moles/Vol] 28.0 mmol/L 21.0-32.0 [facility] Work Phone: [phone] Globulin (S) [Mass/Vol] 3.4 g/dL 2.2-4.[address] [facility] Work Phone: [phone] Urea nitrogen/Creatinine [Mass ratio] 18.5 mg/mg 10-20 [facility] Work Phone: [phone] Laboratory - Hematology and Cell countson 01-01-2022 Erythrocyte distribution width (RBC) [Entitic vol] 45.1 fL 35.1-43.9 [facility] Work Phone: [phone] Erythrocyte distribution width (RBC) [Ratio] 12.7 % 11.6-14.6 [facility] Work Phone: [phone] Immature granulocytes/100 WBC (Bld) 0.900 % 0.0-0.9 [facility] Work Phone: [phone] Comment on above: IG% - Immature Granu locytes (promyelocytes, myelocytes and metamyelocytes) > 1% indicates that a LEFT SHIFT is Present. MCH (RBC) [Entitic mass] 32.1 pg 27.0-32.0 [facility] Work Phone: [phone] Nucleated RBC/100 WBC (Bld) [Ratio] 0 % 0-5 [facility] Work Phone: [phone] MCHC Auto (RBC) [Mass/Vol]on 01-01-2022 MCHC (RBC) [Mass/Vol] 33.3 g/dL 32-36 [facility] Work Phone: [phone] Mucus LM Ql (Urine sed)on Mucus Ql (Urine sed) 0 SEEN /hpf [facility] Work Phone: [phone] Nitrite Test strip Ql (U)on 01-01-2022 Nitrite Ql (U) Negative Negative [facility] Work Phone: [phone] No Panel Informationon 01-01 Estimated GFR (MDRD) Amer 89 mL/min >60 [facility] Work Phone: [phone] Comment on above: GFR Calc Estimated GFR (MDRD) Non-Af Amer 73 mL/min >60 [facility] Work Phone: Comment on above: Non- GFR Calc Platelets bldon 01-01-2022 Platelets (Bld) [#/Vol] 160 10*3/uL 150-450 [facility] Work Phone: Protein Test strip Ql (U)on 01-01-2022 Protein Ql (U) Negative Negative [facility] Work Phone: [phone] Serum or plasma albumin luis urement (mass/volume)on 01-01-2022 Albumin [Mass/Vol] 3.9 g/dL 3.2-5.0 [facility] Work Phone: [phone] Serum or plasma albumin/glob ulin mass ratioon 01-01-2022 Albumin/Globulin [Mass ratio] 1.1 {ratio} 0.9-2.4 [facility] Work Phone: Serum or plasma calcium luis urement (mass/volume)on 01-01-2022 Calcium [Mass/Vol] 9.1 mg/dL 8.5-10.1 [facility] Work Phone: Serum or plasma cholesterol in HDL measurement (mass/volume)on 01-01-2022 Cholesterol in HDL [Mass/Vol] 40 mg/dL >40 [facility] Work Phone: Comment on above: The drugs N-Acetylcy steine and Metamizole may falsely depress this assay. Reference Range HDL <40 mg/dL Low HDL Cholesterol HDL >or= 60 mg/dL High HDL Cholesterol Serum or plasma cholesterol in VLDL measurement (mass/volume)on 01-01-2022 Cholesterol in VLDL [Mass/Vol] 40 mg/dL 5-40 [facility] Work Phone: [phone] Serum or plasma creatinine m easurement (mass/volume)on 01-01-2022 Creatinine [Mass/Vol] 1.08 mg/dL 0.70-1.30 [facility] Work Phone: Comment on above: The validity of the calculated GFR & GFRAA in patients over 70 years has not been determined. Clinical correlation is essential. Serum or plasma low density lipoprotein (LDL) cholesterol measurement (mass/volume)on 01-01-2022 Cholesterol in LDL [Mass/Vol] 59 mg/dL 0-130 [facility] Work Phone: Serum or plasma urea nitroge n measurement (mass/volume)on 01-01-2022 Urea nitrogen [Mass/Vol] 20 mg/dL 7-18 [facility] Work Phone: Squamous epithelial cells de tection in urine sediment by light microscopyon 01-01-2022 Epithelial cells.squamous LM Ql (Urine sed) 0 SEEN /hpf 0-5 [facility] Work Phone: Thin prep Papanicolaou smear with manual screeningon 01-01-2022 Thin prep Papanicolaou smear with manual screening 30 U/L 15-37 [facility] Work Phone: Thin prep Papanicolaou smear with manual screening 7 5-15 [facility] Work Phone: Urine blood detectionon 12-17 RBC Ql (U) Negative Negative [facility] Work Phone: RBC Ql (U) 0 SEEN /hpf 0-5 [facility] Work Phone: Urine clarityon 01-01-2022 Clarity (U) Clear Clear [facility] Work Phone: Urine color determinationon 01-01-2022 Color (U) Yellow Yellow [facility] Work Phone: Urine glucose detectionon Glucose Ql (U) 1000 mg/dl Normal [facility] Work Phone: Urine leukocyte esterase det ection by dipstickon 01-01-2022 Leukocyte esterase Test strip Ql (U) Negative Negative [facility] Work Phone: Urine pHon 01-01-2022 pH (U) 5.0 [pH] 5.0 - 8.0 [facility] Work Phone: Urine sediment bacteria coun t by microscopy (number/high power field)on 01-01-2022 Bacteria LM.HPF (Urine sed) [#/Area] 0 /[HPF] None Seen [facility] Work Phone: Urine specific gravity measu rementon 01-01-2022 Specific gravity (U) [Rel density] 1.020 1.002-1.030 [facility] Work Phone: Urobilinogen Auto test strip Ql (U)on 01-01-2022 Urobilinogen Ql (U) Normal mg/dl Normal [facility] Work Phone: Whole blood hemoglobin A1c/t otal hemoglobin ratio (mass fraction)on 01-01-2022 HbA1c (Bld) [Mass fraction] 9.5 % 3.8-5.6 [facility] Work Phone: Comment on above: Normal < 5.7 % Predi abetic 5.7 - 6.4 % Diabetic >or= 6.5 % Please note range changes. Basophil percentageon 2021 Chloride [Moles/Vol] 105 mmol/L 98-107 [facility] Work Phone: Glucose [Mass/Vol] 278 mg/dL 74-106 [facility] Work Phone: Comment on above: Glucose result great er than or equal to 200 mg/dLsuggests DIABETES MELLITUS per A.D.A. criteria. Potassium [Moles/Vol] 4.3 mmol/L 3.5-5.1 [facility] Work Phone: Sodium [Moles/Vol] 139 mmol/L 136-145 [facility] Work Phone: Laboratory - Chemistry and C hemistry - challengeon 10-14-2021 CO2 [Moles/Vol] 23.0 mmol/L 21.0-32.0 [facility] Work Phone: Urea nitrogen/Creatinine [Mass ratio] 22.4 mg/mg 10-20 [facility] Work Phone: No Panel Informationon 10-14 Estimated GFR (MDRD) Amer 75 mL/min >60 [facility] Work Phone: Comment on above: GFR Calc Estimated GFR (MDRD) Non-Af Amer 62 mL/min >60 [facility] Work Phone: [phone] Comment on above: Non- GFR Calc Serum or plasma calcium luis urement (mass/volume)on 10-14-2021 Calcium [Mass/Vol] 9.4 mg/dL 8.5-10.1 [facility] Work Phone: [phone] Serum or plasma creatinine m easurement (mass/volume)on 10-14-2021 Creatinine [Mass/Vol] 1.25 mg/dL 0.70-1.30 [facility] Work Phone: [phone] Comment on above: The validity of the calculated GFR & GFRAA in patients over 70 years has not been determined. Clinical correlation is essential. Serum or plasma urea nitroge n measurement (mass/volume)on 10-14-2021 Urea nitrogen [Mass/Vol] 28 mg/dL 7-18 [facility] Work Phone: [phone] Thin prep Papanicolaou smear with manual screeningon 10-14-2021 Thin prep Papanicolaou smear with manual screening 11 5-15 [facility] Work Phone: [phone] Absolute lymphocyte counton 10-02-2021 Lymphocytes Auto (Unsp spec) [#/Vol] 1.06 10*3/uL 0.83-4.51 [facility] Work Phone: [phone] Basophil percentageon 2021 Basophil percentage 0 SEEN /hpf 0-5 [facility] Work Phone: Basophils/100 WBC (Bld) 0.5 % 0-[address] [facility] Work Phone: [phone] Bilirubin [Mass/Vol] 0.90 mg/dL 0.20-1.00 [facility] Work Phone: [phone] Comment on above: For patients on eltr ombopag therapy, use of Dimension [place] TBIL is not recommended. Chloride [Moles/Vol] 98 mmol/L 98-107 [facility] Work Phone: Cholesterol [Mass/Vol] 115 mg/dL <200 [facility] Work Phone: Comment on above: <200 mg/dL Desirable 200-240 mg/dL Borderline >240 mg/dL High Risk Eosinophils/100 WBC (Bld) 6.1 % 0-5 [facility] Work Phone: Glucose [Mass/Vol] 321 mg/dL 74-106 [facility] Work Phone: Comment on above: Glucose result great er than or equal to 200 mg/dLsuggests DIABETES MELLITUS per A.D.A. criteria. Neutrophils (Bld) [#/Vol] 3.8 10*3/uL 2.0-7.7 [facility] Work Phone: Neutrophils/100 WBC (Bld) 60.7 % 47-70 [facility] Work Phone: Potassium [Moles/Vol] 4.1 mmol/L 3.5-5.1 [facility] Work Phone: Protein [Mass/Vol] 6.8 g/dL 6.4-8.2 [facility] Work Phone: Sodium [Moles/Vol] 134 mmol/L 136-145 [facility] Work Phone: Triglyceride [Mass/Vol] 174 mg/dL <[address] [facility] Work Phone: Comment on above: The drugs N-Acetylcy steine and Metamizole may falsely depress this assay.Serum Triglycerides Reference Interval Normal <150 mg/dL Borderline high 150 - 199 mg/dL High 200 - 499 mg/dL Very High > or = 500 mg/dL WBC (Bld) [#/Vol] 6.2 10*3/uL 4.4-11.0 [facility] Work Phone: Bilirubin Test strip Ql (U)o n 10-02-2021 Bilirubin Ql (U) Negative Negative [facility] Work Phone: [phone] Blood erythrocytes count (nu mber/volume)on 10-02-2021 RBC (Bld) [#/Vol] 4.74 10*6/uL 4.6-6.2 [facility] Work Phone: Blood hemoglobin measurement (mass/volume)on 10-02-2021 Hemoglobin (Bld) [Mass/Vol] 15.0 g/dL 13.0-16.5 [facility] Work Phone: Blood lymphocytes/100 leukoc yteson 10-02-2021 Lymphocytes/100 WBC (Bld) 17.0 % 19-41 [facility] Work Phone: Blood monocytes/100 leukocyt eson 10-02-2021 Monocytes/100 WBC (Bld) 14.1 % 0-[address] [facility] Work Phone: Blood platelet mean volumeon 10-02-2021 Platelet mean volume (Bld) [Entitic vol] 10.9 fL 6.2-12.0 [facility] Work Phone: [phone] Determination of erythrocyte mean corpuscular volume (MCV)on 10-02-2021 MCV (RBC) [Entitic vol] 93.9 fL 80-[address] [facility] Work Phone: Hematocrit Auto (Bld) [Volum e fraction]on 10-02-2021 Hematocrit (Bld) [Volume fraction] 44.5 % 40-54 [facility] Work Phone: Ketones Test strip Ql (U)on 10-02-2021 Ketones Ql (U) 5 mg/dl Negative [facility] Work Phone: [phone] Laboratory - Chemistry and C hemistry - challengeon 10-02-2021 ALP [Catalytic activity/Vol] 65 U/L 45-117 [facility] Work Phone: ALT [Catalytic activity/Vol] 94 U/L 16-61 [facility] Work Phone: CO2 [Moles/Vol] 30.0 mmol/L 21.0-32.0 [facility] Work Phone: [phone] Globulin (S) [Mass/Vol] 3.3 g/dL 2.2-4.[address] [facility] Work Phone: [phone] Urea nitrogen/Creatinine [Mass ratio] 13.3 mg/mg 10-20 [facility] Work Phone: [phone] Laboratory - Hematology and Cell countson 10-02-2021 Erythrocyte distribution width (RBC) [Entitic vol] 42.7 fL 35.1-43.9 [facility] Work Phone: [phone] Erythrocyte distribution width (RBC) [Ratio] 12.3 % 11.6-14.6 [facility] Work Phone: [phone] Immature granulocytes/100 WBC (Bld) 1.600 % 0.0-0.9 [facility] Work Phone: [phone] Comment on above: IG% - Immature Granu locytes (promyelocytes, myelocytes and metamyelocytes) > 1% indicates that a LEFT SHIFT is Present. MCH (RBC) [Entitic mass] 31.6 pg 27.0-32.0 [facility] Work Phone: [phone] Nucleated RBC/100 WBC (Bld) [Ratio] 0 % 0-5 [facility] Work Phone: [phone] MCHC Auto (RBC) [Mass/Vol]on 10-02-2021 MCHC (RBC) [Mass/Vol] 33.7 g/dL 32-36 [facility] Work Phone: [phone] Mucus LM Ql (Urine sed)on Mucus Ql (Urine sed) 0 SEEN /hpf [facility] Work Phone: [phone] Nitrite Test strip Ql (U)on 10-02-2021 Nitrite Ql (U) Negative Negative [facility] Work Phone: [phone] Panel Informationon 10-02 Estimated GFR (MDRD) Amer 73 mL/min >60 [facility] Work Phone: [phone] Comment on above: GFR Calc Estimated GFR (MDRD) Non-Af Amer 60 mL/min >60 [facility] Work Phone: [phone] Comment on above: Non- GFR Calc Platelets bldon 10-02-2021 Platelets (Bld) [#/Vol] 149 10*3/uL 150-450 [facility] Work Phone: [phone] Protein Test strip Ql (U)on 10-02-2021 Protein Ql (U) Negative Negative [facility] Work Phone: Serum or plasma albumin luis urement (mass/volume)on 10-02-2021 Albumin [Mass/Vol] 3.5 g/dL 3.2-5.0 [facility] Work Phone: [phone] Serum or plasma albumin/glob ulin mass ratioon 10-02-2021 Albumin/Globulin [Mass ratio] 1.1 {ratio} 0.9-2.4 [facility] Work Phone: [phone] Serum or plasma calcium luis urement (mass/volume)on 10-02-2021 Calcium [Mass/Vol] 9.0 mg/dL 8.5-10.1 [facility] Work Phone: Serum or plasma cholesterol in HDL measurement (mass/volume)on 10-02-2021 Cholesterol in HDL [Mass/Vol] 32 mg/dL >40 [facility] Work Phone: Comment on above: The drugs N-Acetylcy steine and Metamizole may falsely depress this assay. Reference Range HDL <40 mg/dL Low HDL Cholesterol HDL >or= 60 mg/dL High HDL Cholesterol Serum or plasma cholesterol in VLDL measurement (mass/volume)on 10-02-2021 Cholesterol in VLDL [Mass/Vol] 35 mg/dL 5-40 [facility] Work Phone: [phone] Serum or plasma creatinine m easurement (mass/volume)on 10-02-2021 Creatinine [Mass/Vol] 1.28 mg/dL 0.70-1.30 [facility] Work Phone: Comment on above: The validity of the calculated GFR & GFRAA in patients over 70 years has not been determined. Clinical correlation is essential. Serum or plasma low density lipoprotein (LDL) cholesterol measurement (mass/volume)on 10-02-2021 Cholesterol in LDL [Mass/Vol] 48 mg/dL 0-130 [facility] Work Phone: Serum or plasma urea nitroge n measurement (mass/volume)on 10-02-2021 Urea nitrogen [Mass/Vol] 17 mg/dL 7-18 [facility] Work Phone: Squamous epithelial cells de tection in urine sediment by light microscopyon 10-02-2021 Epithelial cells.squamous LM Ql (Urine sed) 0 SEEN /hpf 0-5 [facility] Work Phone: Thin prep Papanicolaou smear with manual screeningon 10-02-2021 Thin prep Papanicolaou smear with manual screening 37 U/L 15-37 [facility] Work Phone: [phone] Thin prep Papanicolaou smear with manual screening 6 5-15 [facility] Work Phone: Urine blood detectionon 09-16 RBC Ql (U) Negative Negative [facility] Work Phone: RBC Ql (U) 0 SEEN /hpf 0-5 [facility] Work Phone: Urine clarityon 10-02-2021 Clarity (U) Clear Clear [facility] Work Phone: Urine color determinationon 10-02-2021 Color (U) Yellow Yellow [facility] Work Phone: Urine glucose detectionon Glucose Ql (U) 1000 mg/dl Normal [facility] Work Phone: Urine leukocyte esterase det ection by dipstickon 10-02-2021 Leukocyte esterase Test strip Ql (U) Negative Negative [facility] Work Phone: Urine pHon 10-02-2021 pH (U) 6.0 [pH] 5.0 - 8.0 [facility] Work Phone: Urine sediment bacteria coun t by microscopy (number/high power field)on 10-02-2021 Bacteria LM.HPF (Urine sed) [#/Area] 0 /[HPF] None Seen [facility] Work Phone: Urine specific gravity measu rementon 10-02-2021 Specific gravity (U) [Rel density] 1.020 1.002-1.030 [facility] Work Phone: Urobilinogen Auto test strip Ql (U)on 10-02-2021 Urobilinogen Ql (U) Normal mg/dl Normal [facility] Work Phone: [phone] Whole blood hemoglobin A1c/t otal hemoglobin ratio (mass fraction)on 10-02-2021 HbA1c (Bld) [Mass fraction] 8.1 % 3.8-5.6 [facility] Work Phone: [phone] Comment on above: Normal < 5.7 % Predi abetic 5.7 - 6.4 % Diabetic >or= 6.5 % Please note range changes. Absolute lymphocyte counton 07-03-2021 Lymphocytes Auto (Unsp spec) [#/Vol] 1.40 10*3/uL 0.83-4.51 [facility] Work Phone: [phone] Basophil percentageon 2021 Basophils/100 WBC (Bld) 1.1 % 0-[address] [facility] Work Phone: [phone] Bilirubin [Mass/Vol] 1.20 mg/dL 0.20-1.00 [facility] Work Phone: Comment on above: For patients on eltr ombopag therapy, use of Dimension [place] TBIL is not recommended. Chloride [Moles/Vol] 104 mmol/L 98-107 [facility] Work Phone: [phone] Cholesterol [Mass/Vol] 145 mg/dL <200 [facility] Work Phone: [phone] Comment on above: <200 mg/dL Desirable 200-240 mg/dL Borderline >240 mg/dL High Risk Eosinophils/100 WBC (Bld) 3.9 % 0-5 [facility] Work Phone: [phone] Glucose [Mass/Vol] 175 mg/dL 74-106 [facility] Work Phone: [phone] Comment on above: Fasting Glucose resu lt greater than or equal to 126 mg/dL suggests DIABETES MELLITUS per A.D.A. criteria. Neutrophils (Bld) [#/Vol] 4.1 10*3/uL 2.0-7.7 [facility] Work Phone: Neutrophils/100 WBC (Bld) 61.0 % 47-70 [facility] Work Phone: [phone] Potassium [Moles/Vol] 3.9 mmol/L 3.5-5.1 [facility] Work Phone: [phone] Comment on above: Slight Hemolysis, Re sult may be falsely increased. Protein [Mass/Vol] 7.7 g/dL 6.4-8.2 [facility] Work Phone: [phone] Sodium [Moles/Vol] 137 mmol/L 136-145 [facility] Work Phone: [phone] Triglyceride [Mass/Vol] 122 mg/dL <[address] [facility] Work Phone: [phone] Comment on above: The drugs N-Acetylcy steine and Metamizole may falsely depress this assay.Serum Triglycerides Reference Interval Normal <150 mg/dL Borderline high 150 - 199 mg/dL High 200 - 499 mg/dL Very High > or = 500 mg/dL WBC (Bld) [#/Vol] 6.7 10*3/uL 4.4-11.0 [facility] Work Phone: Blood erythrocytes count (nu mber/volume)on 07-03-2021 RBC (Bld) [#/Vol] 5.00 10*6/uL 4.6-6.2 [facility] Work Phone: [phone] Blood hemoglobin measurement (mass/volume)on 07-03-2021 Hemoglobin (Bld) [Mass/Vol] 16.0 g/dL 13.0-16.5 [facility] Work Phone: Blood lymphocytes/100 leukoc yteson 07-03-2021 Lymphocytes/100 WBC (Bld) 21.1 % 19-41 [facility] Work Phone: [phone] Blood monocytes/100 leukocyt eson 07-03-2021 Monocytes/100 WBC (Bld) 12.0 % 0-[address] [facility] Work Phone: [phone] Blood platelet mean volumeon 07-03-2021 Platelet mean volume (Bld) [Entitic vol] 12.2 fL 6.2-12.0 [facility] Work Phone: [phone] Determination of erythrocyte mean corpuscular volume (MCV)on 07-03-2021 MCV (RBC) [Entitic vol] 97.4 fL 80-[address] [facility] Work Phone: [phone] Hematocrit Auto (Bld) [Volum e fraction]on 07-03-2021 Hematocrit (Bld) [Volume fraction] 48.7 % 40-54 [facility] Work Phone: [phone] Laboratory - Chemistry and C hemistry - challengeon 07-03-2021 ALP [Catalytic activity/Vol] 58 U/L 45-117 [facility] Work Phone: [phone] ALT [Catalytic activity/Vol] 97 U/L 16-61 [facility] Work Phone: [phone] CO2 [Moles/Vol] 32.0 mmol/L 21.0-32.0 [facility] Work Phone: [phone] Globulin (S) [Mass/Vol] 3.5 g/dL 2.2-4.[address] [facility] Work Phone: [phone] Urea nitrogen/Creatinine [Mass ratio] 16.0 mg/mg 10-20 [facility] Work Phone: [phone] Laboratory - Hematology and Cell countson 07-03-2021 Erythrocyte distribution width (RBC) [Entitic vol] 46.0 fL 35.1-43.9 [facility] Work Phone: [phone] Erythrocyte distribution width (RBC) [Ratio] 12.9 % 11.6-14.6 [facility] Work Phone: [phone] Immature granulocytes/100 WBC (Bld) 0.900 % 0.0-0.9 [facility] Work Phone: [phone] Comment on above: IG% - Immature Granu locytes (promyelocytes, myelocytes and metamyelocytes) > 1% indicates that a LEFT SHIFT is Present. MCH (RBC) [Entitic mass] 32.0 pg 27.0-32.0 [facility] Work Phone: Nucleated RBC/100 WBC (Bld) [Ratio] 0 % 0-5 [facility] Work Phone: MCHC Auto (RBC) [Mass/Vol]on 07-03-2021 MCHC (RBC) [Mass/Vol] 32.9 g/dL 32-36 [facility] Work Phone: No Panel Informationon 07-03 Estimated GFR (MDRD) Amer 80 mL/min >60 [facility] Work Phone: Comment on above: GFR Calc Estimated GFR (MDRD) Non-Af Amer 66 mL/min >60 [facility] Work Phone: Comment on above: Non- GFR Calc Urine Microalbumin/Creatinine Ratio 8.7 mg/g CRE <30 [facility] Work Phone: Platelets bldon 07-03-2021 Platelets (Bld) [#/Vol] 175 10*3/uL 150-450 [facility] Work Phone: Serum or plasma albumin luis urement (mass/volume)on 07-03-2021 Albumin [Mass/Vol] 4.2 g/dL 3.2-5.0 [facility] Work Phone: Serum or plasma albumin/glob ulin mass ratioon 07-03-2021 Albumin/Globulin [Mass ratio] 1.2 {ratio} 0.9-2.4 [facility] Work Phone: [phone] Serum or plasma calcium luis urement (mass/volume)on 07-03-2021 Calcium [Mass/Vol] 9.2 mg/dL 8.5-10.1 [facility] Work Phone: [phone] Serum or plasma cholesterol in HDL measurement (mass/volume)on 07-03-2021 Cholesterol in HDL [Mass/Vol] 37 mg/dL >40 [facility] Work Phone: [phone] Comment on above: The drugs N-Acetylcy steine and Metamizole may falsely depress this assay. Reference Range HDL <40 mg/dL Low HDL Cholesterol HDL >or= 60 mg/dL High HDL Cholesterol Serum or plasma cholesterol in VLDL measurement (mass/volume)on 07-03-2021 Cholesterol in VLDL [Mass/Vol] 24 mg/dL 5-40 [facility] Work Phone: Serum or plasma creatinine m easurement (mass/volume)on 07-03-2021 Creatinine [Mass/Vol] 1.19 mg/dL 0.70-1.30 [facility] Work Phone: Comment on above: The validity of the calculated GFR & GFRAA in patients over 70 years has not been determined. Clinical correlation is essential. Serum or plasma low density lipoprotein (LDL) cholesterol measurement (mass/volume)on 07-03-2021 Cholesterol in LDL [Mass/Vol] 84 mg/dL 0-130 [facility] Work Phone: Serum or plasma urea nitroge n measurement (mass/volume)on 07-03-2021 Urea nitrogen [Mass/Vol] 19 mg/dL 7-18 [facility] Work Phone: Thin prep Papanicolaou smear with manual screeningon 07-03-2021 Thin prep Papanicolaou smear with manual screening 42 U/L 15-37 [facility] Work Phone: Comment on above: Slight Hemolysis, Re sult may be falsely increased. Thin prep Papanicolaou smear with manual screening 1 5-15 [facility] Work Phone: Thin prep Papanicolaou smear with manual screening 13.7 mg/L NO RANGE EST. [facility] Work Phone: Urine creatinine measurement (mass/volume)on 07-03-2021 Creatinine (U) [Mass/Vol] 158.00 mg/dL NO RANGE EST. [facility] Work Phone: Whole blood hemoglobin A1c/t otal hemoglobin ratio (mass fraction)on 07-03-2021 HbA1c (Bld) [Mass fraction] 6.6 % 3.8-5.6 [facility] Work Phone: Comment on above: Normal < 5.7 % Predi abetic 5.7 - 6.4 % Diabetic >or= 6.5 % Please note range changes. Absolute lymphocyte counton 04-01-2021 Lymphocytes Auto (Unsp spec) [#/Vol] 1.23 10*3/uL 0.83-4.51 [facility] Work Phone: Basophil percentageon 2020 Basophil percentage 0 SEEN /hpf [facility] Work Phone: Bilirubin [Mass/Vol] 1.20 mg/dL 0.20-1.00 [facility] Work Phone: Comment on above: For patients on eltr ombopag therapy, use of Dimension [place] TBIL is not recommended. Chloride [Moles/Vol] 108 mmol/L 98-107 [facility] Work Phone: Cholesterol [Mass/Vol] 134 mg/dL <200 [facility] Work Phone: Comment on above: <200 mg/dL Desirable 200-240 mg/dL Borderline >240 mg/dL High Risk Eosinophils/100 WBC (Bld) 2.4 % 0-5 [facility] Work Phone: Glucose [Mass/Vol] 209 mg/dL 74-106 [facility] Work Phone: Comment on above: Glucose result great er than or equal to 200 mg/dLsuggests DIABETES MELLITUS per A.D.A. criteria.Please note revised GLUCOSE reference range effective 2017. Neutrophils (Bld) [#/Vol] 4.3 10*3/uL 2.0-7.7 [facility] Work Phone: Potassium [Moles/Vol] 3.7 mmol/L 3.5-5.1 [facility] Work Phone: Protein [Mass/Vol] 7.5 g/dL 6.4-8.2 [facility] Work Phone: [phone] Sodium [Moles/Vol] 139 mmol/L 136-145 [facility] Work Phone: Triglyceride [Mass/Vol] 160 mg/dL [facility] Work Phone: Comment on above: The drugs N-Acetylcy steine and Metamizole may falsely depress this assay.Serum Triglycerides Reference Interval Normal <150 mg/dL Borderline high 150 - 199 mg/dL High 200 - 499 mg/dL Very High > or = 500 mg/dL WBC (Bld) [#/Vol] 6.4 10*3/uL 4.4-11.0 [facility] Work Phone: [phone] Bilirubin Test strip Ql (U)o n 04-01-2021 Bilirubin Ql (U) Negative Negative [facility] Work Phone: Blood erythrocytes count (nu mber/volume)on 04-01-2021 RBC (Bld) [#/Vol] 4.66 10*6/uL 4.6-6.2 [facility] Work Phone: Blood hemoglobin measurement (mass/volume)on 04-01-2021 Hemoglobin (Bld) [Mass/Vol] 15.3 g/dL 13.0-16.5 [facility] Work Phone: Blood lymphocytes/100 leukoc yteson 04-01-2021 Lymphocytes/100 WBC (Bld) 19.3 % 19-41 [facility] Work Phone: Blood monocytes/100 leukocyt eson 04-01-2021 Monocytes/100 WBC (Bld) 9.4 % 0-[address] [facility] Work Phone: Blood platelet mean volumeon 04-01-2021 Platelet mean volume (Bld) [Entitic vol] 11.3 fL 6.2-12.0 [facility] Work Phone: Determination of erythrocyte mean corpuscular volume (MCV)on 04-01-2021 MCV (RBC) [Entitic vol] 94.6 fL 80-[address] [facility] Work Phone: [phone] Hematocrit Auto (Bld) [Volum e fraction]on 04-01-2021 Hematocrit (Bld) [Volume fraction] 44.1 % 40-54 [facility] Work Phone: Ketones Test strip Ql (U)on 04-01-2021 Ketones Ql (U) Negative Negative [facility] Work Phone: Laboratory - Chemistry and C hemistry - challengeon 04-01-2021 ALP [Catalytic activity/Vol] 67 U/L 45-117 [facility] Work Phone: ALT [Catalytic activity/Vol] 99 U/L 16-61 [facility] Work Phone: CO2 [Moles/Vol] 26.0 mmol/L 21.0-32.0 [facility] Work Phone: Globulin (S) [Mass/Vol] 3.6 g/dL 2.2-4.[address] [facility] Work Phone: Urea nitrogen/Creatinine [Mass ratio] 17.0 mg/mg 10-20 [facility] Work Phone: Laboratory - Hematology and Cell countson 04-01-2021 Basophils/100 WBC (Unsp spec) 0.6 % 0-1 [facility] Work Phone: Erythrocyte distribution width (RBC) [Entitic vol] 43.3 fL 35.1-43.9 [facility] Work Phone: Erythrocyte distribution width (RBC) [Ratio] 12.6 % 11.6-14.6 [facility] Work Phone: Immature granulocytes/100 WBC (Bld) 0.500 % 0.0-0.9 [facility] Work Phone: Comment on above: IG% - Immature Granu locytes (promyelocytes, myelocytes and metamyelocytes) > 1% indicates that a LEFT SHIFT is Present. MCH (RBC) [Entitic mass] 32.8 pg 27.0-32.0 [facility] Work Phone: Neutrophils/100 WBC (Bld) 67.8 % 47-70 [facility] Work Phone: Nucleated RBC/100 WBC (Bld) [Ratio] 0 % 0-5 [facility] Work Phone: MCHC Auto (RBC) [Mass/Vol]on 04-01-2021 MCHC (RBC) [Mass/Vol] 34.7 g/dL 32-36 [facility] Work Phone: [phone] Mucus LM Ql (Urine sed)on Mucus Ql (Urine sed) 0 SEEN /hpf [facility] Work Phone: [phone] Nitrite Test strip Ql (U)on 04-01-2021 Nitrite Ql (U) Negative Negative [facility] Work Phone: [phone] Panel Informationon 04-01 Estimated GFR (MDRD) Amer 97 mL/min >60 [facility] Work Phone: [phone] Comment on above: GFR Calc Estimated GFR (MDRD) Non-Af Amer 80 mL/min >60 [facility] Work Phone: [phone] Comment on above: Non- GFR Calc Prostate Specific Antigen Screen 1.32 ng/mL 0.00-4.00 [facility] Work Phone: [phone] Comment on above: This test was perfor med using the TPSA assay method for [employer] chemistry system. Values obtained with differentassay methods cannot be used interchangably.When changing PSA assays in the course of monitoring apatient, additional sequential testing should be carriedout to confirm baseline values. Thyroid Stimulating Hormone (TSH) 1.47 uIU/mL 0.358-3.74 [facility] Work Phone: [phone] Platelets bldon 04-01-2021 Platelets (Bld) [#/Vol] 166 10*3/uL 150-450 [facility] Work Phone: [phone] Protein Test strip Ql (U)on 04-01-2021 Protein Ql (U) 15 mg/dl Negative [facility] Work Phone: [phone] Serum or plasma albumin luis urement (mass/volume)on 04-01-2021 Albumin [Mass/Vol] 3.9 g/dL 3.2-5.0 [facility] Work Phone: [phone] Serum or plasma albumin/glob ulin mass ratioon 04-01-2021 Albumin/Globulin [Mass ratio] 1.1 {ratio} 0.9-2.4 [facility] Work Phone: Serum or plasma calcium luis urement (mass/volume)on 04-01-2021 Calcium [Mass/Vol] 9.4 mg/dL 8.5-10.1 [facility] Work Phone: Serum or plasma cholesterol in HDL measurement (mass/volume)on 04-01-2021 Cholesterol in HDL [Mass/Vol] 39 mg/dL [facility] Work Phone: Comment on above: The drugs N-Acetylcy steine and Metamizole may falsely depress this assay. Reference Range HDL <40 mg/dL Low HDL Cholesterol HDL >or= 60 mg/dL High HDL Cholesterol Serum or plasma cholesterol in VLDL measurement (mass/volume)on 04-01-2021 Cholesterol in VLDL [Mass/Vol] 32 mg/dL 5-40 [facility] Work Phone: Serum or plasma creatinine m easurement (mass/volume)on 04-01-2021 Creatinine [Mass/Vol] 1.00 mg/dL 0.70-1.30 [facility] Work Phone: Comment on above: The validity of the calculated GFR & GFRAA in patients over 70 years has not been determined. Clinical correlation is essential. Serum or plasma low density lipoprotein (LDL) cholesterol measurement (mass/volume)on 04-01-2021 Cholesterol in LDL [Mass/Vol] 63 mg/dL 0-130 [facility] Work Phone: [phone] Serum or plasma urea nitroge n measurement (mass/volume)on 04-01-2021 Urea nitrogen [Mass/Vol] 17 mg/dL 7-18 [facility] Work Phone: [phone] Squamous epithelial cells de tection in urine sediment by light microscopyon 04-01-2021 Epithelial cells.squamous LM Ql (Urine sed) 0 SEEN /hpf [facility] Work Phone: Thin prep Papanicolaou smear with manual screeningon 04-01-2021 Thin prep Papanicolaou smear with manual screening 58 U/L 15-37 [facility] Work Phone: [phone] Thin prep Papanicolaou smear with manual screening 08-30 [facility] Work Phone: Urine blood detectionon 03-18 RBC Ql (U) Negative Negative [facility] Work Phone: RBC Ql (U) 0 SEEN /hpf [facility] Work Phone: Urine clarityon 04-01-2021 Clarity (U) Clear Clear [facility] Work Phone: Urine color determinationon 04-01-2021 Color (U) Yellow Yellow [facility] Work Phone: Urine glucose detectionon Glucose Ql (U) 1000 mg/dl Normal [facility] Work Phone: Urine leukocyte esterase det ection by dipstickon 04-01-2021 Leukocyte esterase Test strip Ql (U) Negative Negative [facility] Work Phone: Urine pHon 04-01-2021 pH (U) 5.0 [pH] [facility] Work Phone: Urine sediment bacteria coun t by microscopy (number/high power field)on 04-01-2021 Bacteria LM.HPF (Urine sed) [#/Area] 0 /[HPF] None Seen [facility] Work Phone: Urine specific gravity measu rementon 04-01-2021 Specific gravity (U) [Rel density] 1.025 [facility] Work Phone: Urobilinogen Auto test strip Ql (U)on 04-01-2021 Urobilinogen Ql (U) Normal mg/dl Normal [facility] Work Phone: Whole blood hemoglobin A1c/t otal hemoglobin ratio (mass fraction)on 04-01-2021 HbA1c (Bld) [Mass fraction] 7.5 % 3.8-5.6 [facility] Work Phone: Comment on above: Normal < 5.7 % Predi abetic 5.7 - 6.4 % Diabetic >or= 6.5 % Please note range changes. AMYLASEon 12-04-2016 Amylase 33 U/L Normal 25-115 [facility] Comment on above: Performed By: #### 2 4323-8, 06657-2, 02603-0, 3040-3, 1798-8, 2324-2 ####[facility] Director - Blancabianca QuintanillaCLIA [id number] CBC with DIFFERENTIALon 11-16 Basophils Auto #/vol (Bld) 0.04 10*3/uL Normal <=0.70 [facility] Comment on above: Performed By: #### 5 7021-8 ####[facility] Director - Blanca WillierellCLIA [id number] Basophils/100 WBC Auto (Bld) 0.6 % Normal <=2.0 [facility] Comment on above: Performed By: #### 5 7021-8 ####[facility] Director - Blancabianca TapiarellCLIA [id number] Eosinophils 0.29 10*3/uL Normal <=0.70 [facility] Comment on above: Performed By: #### 5 7021-8 ####[facility] Director - Blanca FarrellCLIA [id number] Eosinophils/100 leukocytes 4.7 % Normal <=10.0 [facility] Comment on above: Performed By: #### 5 7021-8 ####[facility] Director - Blancabianca TapiarellCLIA [id number] Erythrocyte distribution width Auto Entitic volume (RBC) 44.0 fL High 35.1-43.9 [facility] Comment on above: Performed By: #### 5 7021-8 ####[facility] Director - Blanca FarrellCLIA [id number] Erythrocytes (RBC) 5.03 10*6/uL Normal 4.00-6.30 [facility] Comment on above: Performed By: #### 5 7021-8 ####[facility] Director - Blanca Booth [id number] Hematocrit (HCT) 47.3 % Normal 40.0-54.0 [facility] Comment on above: Performed By: #### 5 7021-8 ####[facility] Director - Blanca Booth [id number] Hemoglobin mass conc (Bld) 16.2 g/dL Normal 14.0-18.0 [facility] Comment on above: Performed By: #### 5 7021-8 ####[facility] Director - Blanca Booth [id number] Immature granulocytes #/vol (Bld) 0.04 10*3/uL Normal <=0.10 [facility] Comment on above: Performed By: #### 5 7021-8 ####[facility] Director - Blancabianca Booth [id number] Immature granulocytes/100 WBC (Bld) 0.60 % Normal <=1.50 [facility] Comment on above: Performed By: #### 5 7021-8 ####[facility] Director - Blancabianca AguirreIA [id number] Lymphocytes 1.67 10*3/uL Normal 1.20-3.40 [facility] Comment on above: Performed By: #### 5 7021-8 ####[facility] Director - Blancabianca Booth [id number] Lymphocytes/100 leukocytes 26.9 % Normal 20.0-40.0 [facility] Comment on above: Performed By: #### 5 7021-8 ####[facility], [place] [address]Utguyow Director - Blanca FarrellCLIA [id number] MCH 32.2 pg High 27.0-31.0 [facility] Comment on above: Performed By: #### 5 7021-8 ####[facility] Director - Blancabianca TapiarellCLIA [id number] MCHC mass conc (RBC) 34.2 g/dL Normal 32.0-36.0 [facility] Comment on above: Performed By: #### 5 7021-8 ####[facility] Director - Blanca WillierellCLIA [id number] MCV 94.0 fL Normal 80.0-100.0 [facility] Comment on above: Performed By: #### 5 7021-8 ####[place] [address] Director - Blanca FarrellCLIA [id number] Monocytes 0.86 10*3/uL High 0.10-0.60 [facility] Comment on above: Performed By: #### 5 7021-8 ####[facility] Director - Blancabianca TapiarellCLIA [id number] Monocytes/100 leukocytes 13.9 % High <=8.0 [facility] Comment on above: Performed By: #### 5 7021-8 ####[facility] Director - Blanca FarrellCLIA [id number] Neutrophils 3.30 10*3/uL Normal 1.40-6.50 [facility] Comment on above: Performed By: #### 5 7021-8 ####[facility] Director - Blanca FarrellCLIA [id number] Neutrophils/100 WBC Auto (Bld) 53.3 % Normal 50.0-70.0 [facility] Comment on above: Performed By: #### 5 7021-8 ####[facility] Director - Blanca Booth [id number] Nucleated erythrocytes 0.00 10*3/uL Normal <=0.10 [facility] Comment on above: Performed By: #### 5 7021-8 ####[place] [address] Director - Blanca Booth [id number] Platelet mean volume (PMV) 11.3 fL Normal 9.0-13.0 [facility] Comment on above: Performed By: #### 5 7021-8 ####[facility] - Blanca Booth [id number] Platelets 152 10*3/uL Normal 130-400 [facility] Comment on above: Performed By: #### 5 7021-8 ####[facility] - Blanca Booth [id number] WBC (Leukocytes) 6.20 10*3/uL Normal 4.80-10.80 [facility] Comment on above: Performed By: #### 5 7021-8 ####[facility] - Blanca Booth [id number] CHEST AP PORTABLEon 12-05-19 17 CHEST AP PORTABLE CLINICAL HISTORY: Chest pain. Shortness breath.PORTABLE CHEST: 12/04/2016 AT 0333 HOURS.COMPARISON: None.FINDINGS: The patient is somewhat rotated, lordotic. The visualized osseousstructures are normal. There is elevated right hemidiaphragm. The heart size isnormal. The aorta has normal contour. The lungs are clear. There is nopneumothorax.IMPRESS ION: Except for elevated right hemidiaphragm, no acute cardiopulmonary disease. Normal [facility] COMPREHENSIVE METABOLIC PANE Morgan 12-04-2016 Alanine aminotransferase (ALT) 115 U/L High 16-63 [facility] Comment on above: Performed By: #### 2 4323-8, 90232-2, 20065-5, 3040-3, 1798-8, 4-2 ####[facility], [place] [address]Lingbog Director - Blanca Booth [id number] Albumin 4.3 g/dL Normal 3.4-5.0 [facility] Comment on above: Performed By: #### 2 4323-8, 43215-4, 80581-1, 3040-3, 8-8, 4-2 ####[facility] Director - Blanca Booth [id number] Alkaline phosphatase (ALP) 59 U/L Normal 50-136 [facility] Comment on above: Performed By: #### 2 4323-8, 77378-3, 26932-4, 3040-3, 1797-8, 4-2 ####[facility] Director - Blanca Booth [id number] Anion gap 5.0 mmol/L Normal <=15.0 [facility] Comment on above: Performed By: #### 2 4323-8, 89730-9, 79828-2, 3040-3, 8-8, 4-2 ####[facility] Director - Blanca Booth [id number] Aspartate aminotransferase (AST) 98 U/L High 15-37 [facility] Comment on above: Result Comment: Spec imen moderately hemolyzed. Test results may be affected. Performed By: #### 2 4323-8, 97825-6, 33282-5, 3040-3, 1798-8, 2324-2 ####[facility], [place] [address]Zdbvivi Director - Blanca Booth [id number] Bilirubin (total) 1.1 mg/dL High 0.2-1.0 [facility] Comment on above: Performed By: #### 2 4323-8, 18129-6, 11389-1, 3040-3, 1798-8, 2324-2 ####[facility], [place] [address]Ysjtkke Director - Blanca QuintanillaCLALFRED [id number] Calcium 8.9 mg/dL Normal 8.5-10.1 [facility] Comment on above: Performed By: #### 2 4323-8, 45087-4, 18880-8, 3040-3, 1798-8, 2324-2 ####[facility], [place] [address]Ebomugr Director - Blancabianca QuintanillaCLALFRED [id number] Chloride 105 mmol/L Normal 98-107 [facility] Comment on above: Performed By: #### 2 4323-8, 07458-2, 58522-2, 3040-3, 1797-8, 4-2 ####[facility], [place] [address]Wyrxxpe Director - Blanca Booth [id number] CO2 31 mmol/L Normal 21-32 [facility] Comment on above: Performed By: #### 2 4323-8, 65744-2, 69130-2, 3040-3, 1797-8, 4-2 ####[facility] Director - Blanca QuintanillaCLIA [id number] Creatinine 1.06 mg/dL Normal 0.67-1.17 [facility] Comment on above: Performed By: #### 2 4323-8, 65277-6, 58695-8, 3040-3, 1798-8, 2324-2 ####[facility], [place] [address]Qwccyil Director - Blancabianca TapiarellCLIA [id number] eGFR (MDRD) mL/min/{1.73_m2} Normal >=59 [facility] Comment on above: Performed By: #### 2 4323-8, 94509-3, 59384-2, 3040-3, 1798-8, 4-2 ####[facility] Director - Blnaca Booth [id number] eGFR (non-black) GLOMERULAR FILTRATIO N RATE INTERPRETATION~The [...] months, with or without kidney damage.~ Normal [facility] Comment on above: Performed By: #### 2 4323-8, 41224-7, 09615-1, 3040-3, 8-8, 4-2 ####[facility] Director - Blanca oBoth [id number] Glucose mass conc 92 mg/dL Normal 74-106 [facility] Comment on above: Performed By: #### 2 4323-8, 81350-5, 32379-5, 3040-3, 1798-8, 2324-2 ####[facility] Director - Blanca Booth [id number] Potassium molar conc 3.9 mmol/L Normal 3.5-5.1 [facility] Comment on above: Result Comment: Spec imen moderately hemolyzed. Test results may be affected. Performed By: #### 2 4323-8, 69660-6, 47049-5, 3040-3, 1798-8, 2324-2 ####[facility], [place] [address]Wvyvons Director - Blanca Booth [id number] Protein 7.5 g/dL Normal 6.4-8.2 [facility] Comment on above: Performed By: #### 2 4323-8, 62255-0, 96284-5, 3040-3, 1798-8, 2324-2 ####[facility], [place] [address]Gwohoon Director - Blanca Booth [id number] Sodium 141 mmol/L Normal 136-145 [facility] Comment on above: Performed By: #### 2 4323-8, 80111-4, 84239-8, 3040-3, 1797-8, 4-2 ####[facility] Director - Blanca Booth [id number] Urea nitrogen 16 mg/dL Normal 9-20 [facility] Comment on above: Performed By: #### 2 4323-8, 74761-5, 08274-9, 3040-3, 1798-8, 4-2 ####[facility] Director - Blanca Booth [id number] GGTon 12-04-2016 Gamma glutamyl transferase 129 U/L High 15-85 [facility] Comment on above: Performed By: #### 2 4323-8, 62304-1, 12291-0, 3040-3, 1798-8, 2324-2 ####[facility], [place] [address]Hpapukm Director - Blanca Booth [id number] LIPASEon 12-04-2016 Lipase 303 U/L Normal 73-393 [facility] Comment on above: Performed By: #### 2 4323-8, 54474-1, 69124-7, 3040-3, 1798-8, 2324-2 ####[facility] Director - Blanca Booth [id number] MAGNESIUMon 12-04-2016 Magnesium 2.3 mg/dL Normal 1.6-2.6 [facility] Comment on above: Result Comment: Spec imen moderately hemolyzed. Test results may be affected. Performed By: #### 2 4323-8, 26161-3, 03402-5, 3040-3, 1798-8, 2324-2 ####[facility] Director - Blanca Booth [id number] PT and PTTon 12-04-2016 aPTT 25.3 Sec Normal 23.5-31.3 [facility] Comment on above: Performed By: #### 3 4529-8 ####[facility] Director - Blanca Booth [id number] INR Coag RelTime (Bld) INR REFERENCE RAN GE INTERPRETATION Patients on Coumadin 2.0 - 3.0 Patients with mechanical heart valves 2.5 - 3.5 Normal [facility] Comment on above: Performed By: #### 3 4529-8 ####[facility] Director - Blanca Booth [id number] INR Coag RelTime (PPP) 1.0 {INR} Normal 0.8-1.1 [facility] Comment on above: Performed By: #### 3 4529-8 ####[facility] Director - Blanca Booth [id number] Prothrombin time (PT) Coag time (PPP) 10.9 Secs Normal 9.3-11.5 [facility] Comment on above: Performed By: #### 3 4529-8 ####[facility] [facility] Director - Blanca Booth [id number] TROPONIN Ion 12-04-2016 Troponin I.cardiac mass conc ng/mL Normal <=0.045 [facility] Comment on above: Performed By: #### 2 4323-8, 99982-6, 62126-0, 3040-3, 1798-8, 2324-2 ####[facility], [place] [address]Stsryss Director - Blanca Booth [id number] Gram stain for investigation of transfusion reaction Microscopic observation Gram stain Nom (Unsp spec) [facility] Work Phone: Vital Signs Date Time Vital Sign Value Performing Clinician Faci lity 03-14-2023 13:48-0500 Body height 185.[address] Amado Ramachandran Work Phone: [facility] 03-14-2023 13:48-0500 Body mass index (BMI) [Ratio] 29 kg/m2 Dr. Amado Ramachandran Work Phone: [facility] 03-14-2023 13:48-0500 Body weight 99.[address] Amado Ramachandran Work Phone: [facility] 03-14-2023 13:48-0500 Diastolic blood pressure 83 mm[Hg] Dr. Amado Ramachandran Work Phone: [facility] 03-14-2023 13:48-0500 Heart rate 59 /min Dr. Amado Ramachandran Work Phone: [facility] 03-14-2023 13:48-0500 Respiratory rate 16 /min Dr. Amado Ramachandran Work Phone: [facility] 03-14-2023 13:48-0500 Systolic blood pressure 123 mm[Hg] Dr. Amado Ramachandran Work Phone: [facility] 07-01-2021 13:52-0400 Body height 185.42 cm [facility] Work Phone: 07-01-2021 13:52-0400 Body weight 101.78 kg [facility] Work Phone: 06-10-2021 17:54-0500 Body weight 100.69 kg [facility] Work Phone: 06-10-2021 16:54-0500 Body weight 100.69 kg [facility] Work Phone: 05-06-2021 12:47-0500 Body weight 102.69 kg [facility] Work Phone: Encounters Encounter Date Encounter Type Care Provider Facility Start: 02-14-[address] [facility] Start: 02-05-2025 End: 02-05-2025 ambulatory Amado Ramachandran Facility:[facility] Start: 12-25-2024 End: 12-25-[address] Amado Ramachandran MD Work Phone: -[facility] Start: 12-25-2024 End: 12-25-[address] Amado Ramachandran MD -[facility] Start: 12-25-2024 End: 12-25-2024 ambulatory Amado Ramachandran Facility:[facility] Start: 09-25-2024 End: 09-25-[address] Amado Ramachandran MD Work Phone: [facility] Work Phone: Start: 09-25-2024 End: 09-25-[address] Amado Ramachandran MD -[facility] Work Phone: Start: 09-24-2024 End: 09-25-[address] Amado Ramachandran MD Work Phone: [facility] Work Phone: Start: 09-24-2024 End: 09-24-[address] Amado Ramachandran MD -[facility] Start: 09-24-2024 End: 09-24-2024 ambulatory Amado Ramachandran Facility:[facility] Start: 04-20-2024 End: 04-20-2024 ambulatory Amado Ramachandran Facility:[facility] Start: 05-31-2023 End: 05-31-[address] Amado Ramachandran Work Phone: [facility] Work Phone: Start: 05-31-2023 End: 05-31-[address] Amado Ramachandran Work Phone: [facility] Start: 04-07-2023 Non-patient / Non-visit Dr. Iris Ramachandran Work Phone: [facility] Start: 04-07-2023 End: 04-07-[address] Amado Ramachandran Work Phone: [facility] Work Phone: Start: 04-07-2023 End: 04-07-[address] [facility] Start: 03-14-2023 End: 03-14-[address] Amado Ramachandran Work Phone: [facility] Work Phone: Start: 03-04-2023 End: 03-04-[address] Amado Ramachandran Work Phone: [facility] Work Phone: Start: 03-04-2023 End: 03-04-[address] Amado Ramachandran Work Phone: [facility] Start: 01-25-2023 Non-patient / Non-visit Dr. Iris Ramachandran Work Phone: [facility] Start: 01-25-2023 End: 01-25-[address] Amado Ramachandran Work Phone: [facility] Work Phone: Start: 01-25-2023 End: 01-25-[address] [facility] Work Phone: Start: 01-19-2023 Non-patient / Non-visit Dr. Iris Ramachandran Work Phone: [facility] Start: 01-19-2023 End: 01-19-[address] [facility]ado [facility]ach[facility] Work Phone: Start: 12-29-2022 End: 12-29-2022 ambulatory [facility] Work Phone: Start: 12-29-2022 End: 12-29-2022 Patient encounter procedure [facility] Start: 12-09-2022 End: 12-09-2022 ambulatory [facility] Work Phone: Start: 12-09-2022 End: 12-09-[address] [facility] Work Phone: Start: 11-04-2022 End: 11-04-2022 Patient encounter procedure [facility] Work Phone: Start: 11-03-2022 End: 11-03-2022 Patient encounter procedure [facility] Work Phone: Start: 07-06-2022 End: 07-06-[address] Amado Ramachandran Work Phone: [facility] Work Phone: Start: 07-06-2022 End: 07-06-[address] Amado Ramachandran Work Phone: [facility] Start: 06-30-2022 End: 06-30-[address] Amado Ramachandran Work Phone: [facility] Work Phone: Start: 06-30-2022 End: 06-30-[address] Amado Ramachandran Work Phone: [facility] Start: 04-26-2022 Non-patient / Non-visit Dr. Iris Ramachandran Work Phone: [facility] Start: 04-26-2022 End: 04-26-[address] Amado Ramachandran Work Phone: [facility] Work Phone: Start: 04-26-2022 End: 04-26-[address] Amado Ramachandran Work Phone: [facility]-Cardiovascular Services Start: 04-01-2022 End: 04-01-2022 ambulatory [facility] Work Phone: Start: 04-01-2022 End: 04-01-2022 [facility] Start: 01-19-2022 Registered Recurring [facility]-Physical Therapy Start: 01-01-2022 End: 01-01-2022 ambulatory [facility] Work Phone: Start: 01-01-2022 End: 01-01-2022 [facility] Start: 10-14-2021 End: 10-14-2021 [facility] Start: 10-07-2021 End: 10-07-2021 [facility] Start: 10-02-2021 End: 10-02-2021 [facility] Start: 09-25-2021 End: 09-25-2021 Patient encounter [facility] Start: 07-03-2021 End: 07-03-2021 Patient encounter [facility] Start: 07-01-2021 End: 07-16-2021 Discharged Recurring [facility]-Diabetic [facility] Start: 06-10-2021 End: 06-15-2021 Discharged Recurring [facility] Start: 05-06-2021 End: 05-18-2021 Discharged Recurring [facility] Start: 04-01-2021 Patient encounter procedure [facility]-[place], Sina Miller Start: 12-04-2016 End: 12-04-2016 Ambulatory NONE NONE Facility:[facility] Procedures Date Procedure Procedure Detail [...] Date Care Activity Detail Author Patient referral [facility] Work Phone: Payers Date Payer Category Payer Private Health Insurance 101 [id number] 2024 Self-pay [id number] 2006 Unknown [id number] 1961 Unknown [id number] Unknown [id number] Unknown [id number] Unknown [facility] [employer] [id number] Unknown [id number] Unknown [id number] Unknown [id number] Unknown [id number] Unknown [id number] Unknown [id number] Social History Date Type Detail Facility Start: 07-19-2016 End: 03-14-2023 Tobacco smoking status NHIS Unknown if ever smoked [facility] Start: 1960 Sex Assigned At Male [facility] Start: 03-14-2023 Tobacco smoking stat us NHIS Never smoked tobacco (finding) [facility] Sex Male [facility] Radiology Diagnostic study note 09-25-2024 Note Date & Type Note Facility 09-25-2024 Radiology Diagnostic study note [facility] [address] [place], [place] [address] Finger(s) Min 2 Views MR#: [id number] Acct: [id number] Name: CECILIA BRAXTON Jr. Rep #: [id number] : 1960 M 64 From: Germain Hoffman MD PCP: Dr. Amado Ramachandran MD Status: RE G CLI Study:Finger(s) Min 2 Views Date of Exam: 09/25/24 Exam# [id number] Ordering Dr: Amado Ramachandran MD PROCEDURE: FINGER(S) MIN 2 VIEWS 09/25/2024 REASON FOR EXAM: RIGHT SECOND DIGIT PAIN, MCP JOINT AREA TECHNIQUE: 3 view(s) of the right 2nd finger COMPARISON: None. RAD/Finger(s) Min 2 Views IMPRESSION: Minimal degenerative changes are seen in the right 2nd and 3rd metacarpophalangeal joints, without associated joint narrowing. Limited imaging of the right 3rd distal interphalangeal joint shows [id number] degenerative changes. Mild degenerative changes are seen of the right 2nd proximal interphalangeal joint. Moderate degenerative changes are seen of the right 2nd distal interphalangeal joint, with significant joint narrowing and osteophyte formation, most prominent at the dorsal base of the distal phalanx. No acute fracture or dislocation is seen. Reading Location: [address] CC: Dr. Amado Ramachandran MD ~ Film Sound Coordinator: Signed [facility] Procedure note 01-25-2023 Note Date & Type Note Facility 01-25-2023 Procedure note [facility] Evaluation note Note Date & Type Note Facility Evaluation note No assessment information availa ble [facility] Work Phone: Evaluation note Note Date & Type Note Facility Evaluation note Diagnosis Onset Date Chest pain acute Hypertension complicating diabetes acute Palpitations acute [facility] Work Phone: Reason for referral (narrative) Note Date & Type Note Facility Reason for referral (narrative) No reason for referral information available [facility] Work Phone: Summary Purpose Family History No Family History Records FoundNo Family History Records Found Advance Directives No Advanced Directives Records Found Advance Directive Response Recorded Date/ Time Living Will No July 19, 2016 5:00am Power of Senior It Architect No July 19 7 5:00am Advance Directive Response Recorded Date/ Time Living Will No July 19, 2016 4:00am Power of Senior It Architect No July 19 7 4:00am Chief Complaint and Reason for Visit [...] section and content) DATE CREATED AUTHOR 10/12/2017 [facility] DATE CREATED AUTHOR AUTHOR'S MAYCOIZ ATION 02/25/2025 [facility] Goals (unrecognized section and content) Goals [...] BE BASED ON THE PRIMARY CLINICAL RECORDS. [facility] [employer] [facility]. provides no warranty or guarantee of the accuracy or completeness of information in this document.
== END | disposition home or self-care (01) ==
LOC: MTLAB 03-06 07:42 → LABSPEC 13:57
PROVIDERS: PCP Family Medicine; Referring Provider Family Medicine; Visit Provider Family Medicine
DX: B83.9 Helminthiasis, unspecified (principal)
CPT/HCPCS: 87177; 87209